=== PATIENT | male | born 1935 | race Caucasian/White ===

== ENCOUNTER 2018-12-25 16:16 | Inpatient (IN) | payer MEDICARE, OTHER, SELFPAY ==
[2018-12-25 16:18] VITALS: BP 126/72; PULSE 52; RESP 14; TEMP 35.7; O2SAT 95; BMI 22.1
--- NOTE | 2018-12-25 17:02 | US_ITS ---
STUDY: ABDOMINAL ULTRASOUND - RIGHT UPPER QUADRANT REASON FOR VISIT: Male, 83 years old. Pain TECHNIQUE: Ultrasound evaluation of the right upper quadrant was performed with real-time and static roa-scale imaging. TECHNICAL QUALITY: Adequate. COMPARISON: None. FINDINGS: Liver: The liver measures 17 cm. There is normal echogenicity of the liver. The bile ducts are within normal limits. There is hepatic color flow. The direction of portal flow is hepatopetal. There is no demonstrated mass lesion. There is a left hepatic 1.1 cm cyst. Gallbladder: The gallbladder wall measures 4 mm. The gallbladder is mildly distended. Gee's sign is reported as positive. Trace pericholecystic fluid is present. The gallbladder contains gallstones. Common Bile Duct (C.B.D.): The common bile duct measures 7 mm. Pancreas: Normal size of the head, body and tail of the pancreas. There is normal echogenicity of the pancreas. There is no demonstrated pancreatic mass or cyst. Right Kidney: Normal size of the right kidney. The right kidney measures 11 cm. Normal renal cortex. There is no demonstrated renal mass or cyst. There is no right hydronephrosis. US/Gallbladder IMPRESSION: Mild gallbladder wall thickening and trace pericholecystic fluid. Cholelithiasis. Mild intra and extrahepatic biliary ductal prominence. Findings equivocal for cholecystitis. Correlate clinically. MRCP may be considered for further assessment. Electronically Signed: Braxton Starkey, at 18:05 EDT Tel , Service support ,
[2018-12-25] MEDS: Morphine 4 MG/ML Syringe IV ×2 (17:12→18:27)
[2018-12-25] MEDS: Ondansetron 4 MG/2 ML Vial IV (17:12)
[2018-12-25 17:14] LABS: Absolute Lymphocyte Count 0.94 X10^3/uL (0.83-4.51); Absolute Neutrophil Count 7.5 X10^3/uL (2.0-7.7); Basophil# 0.02 X10^3/uL; Basophil% 0.2 % (0-1); Eosinophil# 0.03 X10^3/uL; Eosinophils% 0.3 % (0-5); Hemoglobin 16.5 g/dL (13.0-16.5); Lymphocyte # 0.94 X10^3/ul (4.0); Lymphocyte % 10.3 % (19-41); Mean Corp Hgb Conc 34.4 g/dL (32-36); Mean Corpuscular Hgb 31.9 pg (27.0-32.0); Mean Corpuscular Volume 92.7 fL (80-94); Mean Platelet Vol. 9.8 fl (6.2-12.0); Monocyte# 0.63 X10^3/uL; Monocyte% 6.9 % (0-10); NRBC Flagged by Analyzer 0 % (0-5); Neutrophil # 7.52 X10^3/uL (2.7-7.7); Platelet Count 174 K/mm3 (150-450); RBC Distribution Width CV 12.6 % (11.6-14.6); RBC Distribution Width SD 43.3 fl (35.1-43.9); Red Blood Count 5.18 M/mm3 (4.6-6.2); White Blood Count 9.2 K/mm3 (4.4-11.0)
--- NOTE | 2018-12-25 17:20 | ED.VISSUMM ---
- ER Visit Summary Date of Service: 12/25/18 Chief Complaint: Abdominal pain History of Present Illness: The patient is a 83 M presenting with abdominal pain. Patient states he had symptoms on Monday which lasted several hours. It then resolved and he felt improved over the weekend. He states he ate lunch and then developed abdominal pain after eating. He has had nausea and vomiting. He denies diarrhea or constipation. Denies fever. Denies chest pain or shortness of breath. Denies other complaints. Physical Examination: Vitals are stable. Patient is afebrile. Alert no acute distress. HEENT exam is unremarkable. Neck is supple. Lungs are clear and equal bilaterally. Heart is regular rate and rhythm. Abdomen is soft epigastric and right upper quadrant tenderness Extremities are unremarkable. Skin is warm and dry. No focal neurologic deficit. Remainder of exam is unremarkable. Emergency Department Course and Treatment: Patient was given morphine, Zofran IV. CBC, chemistries normal except glucose 171. Total bili 3.8, direct bili 2.78. Alk phos 337, ALT 432, AST 340. Lipase 9435. Ultrasound gallbladder shows mild gallbladder wall thickening and trace pericholecystic fluid. Cholelithiasis. Mild intra and extrahepatic biliary ductal prominence. Findings equivocal for cholecystitis. Correlate clinically. MRCP may be considered for further assessment. Patient was given Zosyn IV. Discussed with Dr. Bennett and he will see the patient in consult. Will discuss with the hospitalist for admission. Disposition: Admission Impression: Gallstone pancreatitis This note was generated with [employer] dictation software. It may contain incorrect words, spelling, and punctuation that were not noted in review of the chart prior to signing ED Disposition - Plan for ED Patient: Referrals: Ramirez Welch MD [Primary Care Provider] -
[2018-12-25 17:37] LABS: AST(SGOT) 340 U/L (15-37); Alanine Aminotransfer ALT/SGPT 432 U/L (16-61); Albumin, Serum 3.6 g/dL (3.2-5.0); Alkaline Phosphatase 337 U/L (45-117); Anion Gap 5 (5-15); BUN 19 mg/dL (7-18); BUN/Creat Ratio 18.1 RATIO (10-20); Bilirubin, Direct 2.78 mg/dL (0.00-0.30); Calcium,Total 9.3 mg/dL (8.5-10.1); Chloride 104 mmol/L (98-107); Creatinine, Serum 1.05 mg/dL (0.70-1.30); EST Glomerular Filtration Rate 72 mL/min (>60); Est Glom Filt Rate - Afr Amer 87 mL/min (>60); Estimated Creatinine Clearance 52.93 ml/min; Globulin 3.9 g/dL (2.2-4.2); Glucose 171 mg/dL (74-106); Lipase 9435 U/L (73-393); Potassium 3.9 mmol/L (3.5-5.1); Protein, Total 7.5 g/dL (6.4-8.2); Sodium Level 137 mmol/L (136-145)
[2018-12-25] MEDS: proMETHazine 25 MG/ML Syringe 6.25 MG IV (18:37)
[2018-12-25 18:38] VITALS: BP 146/72; PULSE 83; RESP 19; O2SAT 95
--- NOTE | 2018-12-25 19:11 | HP.PCM_ITS ---
History of Present Illness Date of Admission: 12/25/18 Chief Complaint: abdominal pain The patient is a 83 year old M with a past medical history of asymptomatic aortic stenosis and glaucoma. He was admitted through the ED on 12/25/2018 with a complaint of abdominal pain which started around noon on the day of admission. Pain was mainly epigastric and rated about 8/10. Described as a sharp pain with no evidence of radiation with no aggravating or relieving factors. He had associated nausea and vomiting but denied any fever or chills, palpitations or dizziness or diarrhea. He is never had pain like this before. Review of systems otherwise negative. In the ED, vitals are essentially stable apart from mildly elevated blood pressure of 146/72. Chemistries were significant for total bilirubin of 3.8 with direct bilirubin of 2.78 and AST of 340 as well as ALT of 432 at ALP of 337. Lipase was 9435. CBC showed no leukocytosis. Gallbladder ultrasound showed mild gallbladder wall thickening and trace pericholecystic fluid and cholelithiasis with findings equivocal for cholecystitis. He has been admitted to be managed for acute gallstone pancreatitis. [] 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) Allergies No Known Allergies Allergy (Verified 12/25/18 16:18) Home Medications: Ambulatory Orders Medication Instructions Recorded Tafluprost/Pf [Zioptan 0.0015% Eye 1 drp EACH EYE QHS 12/25/18 Drops] Timolol 0.25% [Timoptic] 1 drp EACH EYE BID 12/25/18 Surgical History: no surgical history Psychiatric History: No pertinent psych hx Lives: Spouse/ Significant Other Smoking Status: Never smoker Tobacco Use: Non-smoker Alcohol: None Drugs: None - *Family History Maternal History Items: Diabetes Paternal History Items: No pertinent history Review of Systems Constitutional: Reports: Malaise, Weakness. Denies: Anorexia, Chills, Fever Eyes: Denies: Blurred vision HEENT: Denies: Head Aches, Sinus Congestion, Sinus Drainage Cardiovascular: Denies: Chest Pain, Palpitations Respiratory: Denies: Cough, Shortness of Breath, Shortness of breath at rest, Shortness of breath upon exertion, Sputum production Gastrointestinal: Reports: Abdominal Pain, Nausea, Vomiting. Denies: Diarrhea, Dyspepsia, Hematemesis, Hematochezia Genitourinary: Denies: Dysuria Musculoskeletal: Denies: Joint Pain, Joint Tenderness Skin: Denies: Rash, Wounds Neurological: Denies: Numbness, Tingling, Focal weakness Psychiatric: Denies: Anxiety, Depression, Homicidal Ideations, Suicidal Ideations Hematologic/ Lymphatic: Denies: Easy Bruising, Easy Bleeding VTE Information - Inpt Only VTE Present on Admission: No VTE Pharm Prophylaxis ordered?: Yes Patient Problems: Active and Suspected Problems Gallstone pancreatitis (Acute) Cough (Acute) Vomiting (Acute) - Physical Exam General: Alert, Oriented x3, Cooperative, No apparent distress HEENT: Atraumatic, PERRLA, EOMI, Normocephalic Oral: Dry Mucosa Neck: Supple, No JVD, Negative Carotid Bruits Lungs: Clear to auscultation, Normal air movement, No rhonchi, No wheeze, No rales Cardiovascular: Regular rate, Regular Rhythm, Normal S1, Normal S2, No murmurs Abdomen: Bowel Sounds Present, Soft, - - Mild epigastric tenderness with no guarding or rebound tenderness. Gee sign was negative. Extremities: No clubbing, No cyanosis, No edema, Capillary Refill Less than 3 Seconds Skin: No rashes, No breakdown Musculoskeletal: No Tenderness to Palpation of Joints or Extremities Lymphatic: No Cervical, Supraclavicular, or Inguinal Adenopathy Neurological: Cranial nerves II-XII grossly intact, Neuro grossly intact, Motor Exam 5/5 strength throughout Psych/Mental Status: Normal Affect, Appropriate, Alert and oriented to time, place, person, mood and affect Vital Signs Temp Pulse Resp BP Pulse Ox 96.2 F L 83 19 H 146/72 H 95 12/25/18 16:18 12/25/18 18:38 12/25/18 18:38 12/25/18 18:38 12/25/18 18:38 Oxygen Delivery Method Room Air Weight: 154 lb 12.232 oz Body Mass Index (BMI) 22.1 Laboratory Tests Past 24 Hrs 12/25/18 12/25/18 16:30 16:30 WBC 9.2 RBC 5.18 Hgb 16.5 Hct 48.0 MCV 92.7 MCH 31.9 MCHC 34.4 RDW Std Deviation 43.3 RDW Coeff of López 12.6 Plt Count 174 MPV 9.8 Immature Gran % (Auto) 0.300 Neut % (Auto) 82.0 H Lymph % (Auto) 10.3 L [place] % (Auto) 6.9 Eos % (Auto) 0.3 Baso % (Auto) 0.2 Absolute Neuts (auto) 7.5 Absolute Lymphs (auto) 0.94 Nucleated RBC % 0 Sodium 137 Potassium 3.9 Chloride 104 Carbon Dioxide 28.0 Anion Gap 5 BUN 19 H Creatinine 1.05 Estim Creat Clear Calc 52.93 Est GFR (MDRD) Af Amer 87 Est GFR (MDRD) Non-Af 72 BUN/Creatinine Ratio 18.1 Glucose 171 H Calcium 9.3 Total Bilirubin 3.80 H Direct Bilirubin 2.78 H AST 340 H ALT 432 H Alkaline Phosphatase 337 H Total Protein 7.5 Albumin 3.6 Globulin 3.9 Lipase 9435 H Diagnostic Data Gallbladder Ultrasound 12/25/18 17:02 IMPRESSION: Mild gallbladder wall thickening and trace pericholecystic fluid. Cholelithiasis. Mild intra and extrahepatic biliary ductal prominence. Findings equivocal for cholecystitis. Correlate clinically. MRCP may be considered for further assessment. Electronically Signed: Braxton Jaky, at 18:05 EDT Tel , Service support , Assessment/Plan All Active Problems Gallstone pancreatitis (Acute) Cough (Acute) Vomiting (Acute) 83-year-old male admitted with a complaint of abdominal pain and nausea as well as vomiting. 1. Acute gallstone pancreatitis * Admit to [facility] with telemetry * Liver enzymes are elevated; lipase is 9435 * Gallbladder ultrasound showed mild gallbladder wall thickening with trace cholecystic fluid and cholelithiasis with findings equivocal for cholecystitis. * Keep n.p.o. * Hydrate with IV normal saline * Started on IV Zosyn in the ED. will continue with IV ceftriaxone * General surgery consult placed with Dr Bennett * 2. Elevated transaminases due to gallstone pancreatitis * Total bilirubin ins 3.8, with direct bilirubinemia-2.78 * AST/ALT is 340/432 and ALP also elevated at 337 * should trend down with cholecystectomy * will monitor * 3. Asymptomatic aortic stenosis * Has a grade 3 systolic murmur at the aortic region. Patient states she is aware of this and has been following up with Dr. Waller at [facility] and was told he needed no active intervention as he was asymptomatic. * Now Dr. Faustin is retired, patient states he is to establish care with Dr. Kam and has an appointment coming up in January 2019. * Has no echo on record. * Will get 2D echo as baseline. * * 4. Glaucoma: On timolol eyedrops DVT prophylaxis: Lovenox CODE STATUS: Full code * Patient and counseled extensively about different types of CODE STATUS including full code, DNR CCA and DNR CCA. Patient elects to be full code. Total [id number] time 16 minutes. Code Visit Inpatient E&M: 89176 Init Hosp L3 Procedures: 93975 Advncd Care Plan 30 Min
--- NOTE | 2018-12-25 19:55 | RAD_ITS ---
STUDY: X-RAY CHEST REASON FOR EXAM: Male, 83 years old. Chest pain TECHNIQUE: Frontal view of the chest COMPARISON: None. FINDINGS: Pulmonary arterial prominence is present. Mild bibasilar infiltrates are present. Trace bilateral effusions versus scarring present. There is no pneumothorax. The heart is normal in size. The visualized osseous structures are within normal limits. RAD/Chest 1 View (Portable) IMPRESSION: Pulmonary arterial prominence. Mild bibasilar infiltrates. Trace bilateral effusions versus scarring. Electronically Signed: Braxton Starkey, at 20:26 EDT Tel , Service support ,
--- NOTE | 2018-12-25 20:02 | CON.PCM_ITS ---
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 with choledocholithiasis Status: Chronic (3) Cough Status: Acute (4) Vomiting Status: Acute Qualifiers: Vomiting type: unspecified Vomiting Intractability: unspecified Nausea presence: unspecified Qualified Code(s): R11.10 - Vomiting, unspecified Reason for Consult Date of Consultation: 12/25/18 History of Present Illness: The patient is a 83 year old M presents to the emergency room with severe abdominal pain. I been asked to see him by Dr. Aruna Colin and a written copy of my surgical consult recommendations will be present in the electronic medical record. 4 days ago the patient had onset severe abdominal pain. Lasted for about an hour and a half. He had sweats and chills. 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 Today he had onset of severe abdominal pain after eating peanut butter and pecan pie. According to his he has had problems remotely in the past with episodes of epigastric pain that would come and resolve. White blood cell count is 9.2 hemo-16.5 record 48 platelet count 124,000 82% segs. Total bilirubin is 3.8 direct bilirubin was 2.78 AST is 340 ALT is 432 alk phos is 337 lipase 9435. Gallbladder ultrasound shows mild gallbladder wall thickening trace pericholecystic fluid cholelithiasis mild intra-and extrahepatic blurry duct prominence with a common bile duct to 7 mm. All the time during my interview the patient has a severe chronic cough. He thinks it is related to a sore throat related to excessive vomiting associated with this episode of illness. He denies bright red blood per rectum or melena Previous surgical history includes by me a remote lap scopic bilateral inguinal hernia repair with mesh. He has not had any other previous abdominal operations. 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) Allergies No Known Allergies Allergy (Verified 12/25/18 16:18) Home Medications: Ambulatory Orders Medication Instructions Recorded Tafluprost/Pf [Zioptan 0.0015% Eye 1 drp EACH EYE QHS 12/25/18 Drops] Timolol 0.25% [Timoptic] 1 drp EACH EYE BID 12/25/18 Surgical History: no surgical history Psychiatric History: No pertinent psych hx Lives: Spouse/ Significant Other Smoking Status: Never smoker Tobacco Use: Non-smoker Alcohol: None Drugs: None - *Family History Maternal History Items: Diabetes Paternal History Items: No pertinent history Review of Systems Constitutional: Reports: Chills, Fever, Night Sweats HEENT: Reports: Difficulty Swallowing Respiratory: Reports: Cough Gastrointestinal: Reports: Abdominal Pain, Vomiting Endocrine: Denies: Change in Body Habitus Patient Problems: Active and Suspected Problems Gallstone pancreatitis (Acute) Cough (Acute) Vomiting (Acute) - Physical Exam General: Alert, Oriented x3, Cooperative HEENT: Atraumatic Oral: Dry Mucosa Lungs: No wheeze - During the apices, - - Difficult to assess respirations because of severe nonproductive cough Cardiovascular: Regular rate, Regular Rhythm, - - 2/6 systolic ejection murmur Abdomen: Bowel Sounds Not Present, Distended, Tender Extremities: No Calf Tenderness Skin: No rashes Neurological: - - Cognition intact Psych/Mental Status: Normal Affect Vital Signs Temp Pulse Resp BP Pulse Ox 96.2 F L 83 19 H 146/72 H 95 12/25/18 16:18 12/25/18 18:38 12/25/18 18:38 12/25/18 18:38 12/25/18 18:38 Oxygen Delivery Method Room Air Weight: 154 lb 12.232 oz Body Mass Index (BMI) 22.1 Laboratory Tests Past 24 Hrs 12/25/18 12/25/18 16:30 16:30 WBC 9.2 RBC 5.18 Hgb 16.5 Hct 48.0 MCV 92.7 MCH 31.9 MCHC 34.4 RDW Std Deviation 43.3 RDW Coeff of López 12.6 Plt Count 174 MPV 9.8 Immature Gran % (Auto) 0.300 Neut % (Auto) 82.0 H Lymph % (Auto) 10.3 L [place] % (Auto) 6.9 Eos % (Auto) 0.3 Baso % (Auto) 0.2 Absolute Neuts (auto) 7.5 Absolute Lymphs (auto) 0.94 Nucleated RBC % 0 Sodium 137 Potassium 3.9 Chloride 104 Carbon Dioxide 28.0 Anion Gap 5 BUN 19 H Creatinine 1.05 Estim Creat Clear Calc 52.93 Est GFR (MDRD) Af Amer 87 Est GFR (MDRD) Non-Af 72 BUN/Creatinine Ratio 18.1 Glucose 171 H Calcium 9.3 Total Bilirubin 3.80 H Direct Bilirubin 2.78 H AST 340 H ALT 432 H Alkaline Phosphatase 337 H Total Protein 7.5 Albumin 3.6 Globulin 3.9 Lipase 9435 H Assessment/Plan All Active Problems Gallstone pancreatitis (Acute) Cough (Acute) Vomiting (Acute) Findings are very much consistent with chronic cholecystitis cholelithiasis choledocholithiasis and gallstone pancreatitis. The the acute severe cough of undetermined etiology. Recommend chest x-ray. I have instructed the patient on use of incentive spirometry and mobilization. We will reevaluate the patient in the morning. Will consider laparoscopic cholecystectomy with cholangiography and possible common bile duct expiration. The patient's said that their son was extraordinarily ill with the exact same process. They are aware of the severity of the illness. They are aware that the patient may require an ERCP. He has had an opportunity to ask and have questions answered. We will proceed as noted. I appreciate the opportunity of assisting with his surgical care. Lance Bennett M.D., F.A.C.S.
[2018-12-25 20:11] VITALS: BMI 22.2
[2018-12-25 20:14] VITALS: BMI 23.2
[2018-12-25 20:19] VITALS: BP 114/62; PULSE 77; RESP 16; TEMP 36.6; O2SAT 92
[2018-12-25] MEDS: 0.9% Normal Saline 1,000 ML 120 ML IV (20:55)
[2018-12-25 21:00] VITALS: PULSE 85
[2018-12-25] MEDS: Timolol 0.25% 5ML OPTH.BTL 1 DRP EACH EYE (22:52)
[2018-12-26] VITALS (34 sets, daily range): BP systolic 85–126; BP diastolic 50–91; PULSE 51–83; RESP 11–20; TEMP 36.6–37.4; O2SAT 87–97; BMI 23.6
[2018-12-26] MEDS: Ceftriaxone 1 GM/50 ML BAG IV (01:39)
[2018-12-26 05:16] LABS: Absolute Lymphocyte Count 0.99 X10^3/uL (0.83-4.51); Absolute Neutrophil Count 12.1 X10^3/uL (2.0-7.7); Basophil# 0.04 X10^3/uL; Basophil% 0.3 % (0-1); Eosinophil# 0.06 X10^3/uL; Eosinophils% 0.4 % (0-5); Hematocrit 44.3 % (40-54); Hemoglobin 14.6 g/dL (13.0-16.5); Lymphocyte # 0.99 X10^3/ul (4.0); Lymphocyte % 6.9 % (19-41); Mean Corpuscular Hgb 30.7 pg (27.0-32.0); Mean Corpuscular Volume 93.3 fL (80-94); Monocyte# 1.06 X10^3/uL; Monocyte% 7.4 % (0-10); NRBC Flagged by Analyzer 0 % (0-5); Neutrophil # 12.05 X10^3/uL (2.7-7.7); Neutrophil % 84.6 % (47-70); Platelet Count 155 K/mm3 (150-450); RBC Distribution Width CV 13.4 % (11.6-14.6); RBC Distribution Width SD 45.8 fl (35.1-43.9); Red Blood Count 4.75 M/mm3 (4.6-6.2); White Blood Count 14.3 K/mm3 (4.4-11.0)
[2018-12-26 05:39] LABS: ALB/GLOB Ratio 0.8 RATIO (0.9-2.4); AST(SGOT) 292 U/L (15-37); Alanine Aminotransfer ALT/SGPT 424 U/L (16-61); Albumin, Serum 2.8 g/dL (3.2-5.0); Alkaline Phosphatase 297 U/L (45-117); Anion Gap 7 (5-15); BUN 18 mg/dL (7-18); BUN/Creat Ratio 15.3 RATIO (10-20); Chloride 107 mmol/L (98-107); Creatinine, Serum 1.18 mg/dL (0.70-1.30); EST Glomerular Filtration Rate 63 mL/min (>60); Est Glom Filt Rate - Afr Amer 76 mL/min (>60); Estimated Creatinine Clearance 48.98 ml/min; Globulin 3.4 g/dL (2.2-4.2); Glucose 128 mg/dL (74-106); Lipase 4068 U/L (73-393); Potassium 3.9 mmol/L (3.5-5.1); Protein, Total 6.2 g/dL (6.4-8.2); Sodium Level 142 mmol/L (136-145)
--- NOTE | 2018-12-26 05:44 | PCM.PN.BLA ---
Progress Note New leukocytosis, on rocephin Less abdominal pain TBili up Lipase down Plan Lap GB with CBD exploration today
--- NOTE | 2018-12-26 05:55 | EKG12_ITS ---
Test Reason : PRE OP Blood Pressure : / mmHG Vent. Rate : 070 BPM Atrial Rate : 070 BPM P-R Int : 192 ms QRS Dur : 086 ms QT Int : 386 ms P-R-T Axes : 053 006 021 degrees QTc Int : 416 ms Normal sinus rhythm Normal ECG When compared with ECG of 26-FEB-2007 09:28, Premature ventricular complexes are no longer Present Confirmed by GREGORIO GOLDEN ([id number]), video effects editor JOSELITO SALMON ([id number]) on 12/27/2018 2:54:46 PM Referred By: Clau Garcia Confirmed By:GREGORIO GOLDEN
--- NOTE | 2018-12-26 05:59 | PCM.PROGNOTE ---
Patient Problems: Active and Suspected Problems Gallstone pancreatitis (Acute) Cough (Acute) Vomiting (Acute) Subjective: Mr. Mueller is an 83-year-old male with a past medical history of aortic stenosis and glaucoma. He presented to the emergency department at [facility] on 12/25/2018 complaining of epigastric abdominal pain associated with nausea and vomiting. Vital signs in the emergency department were temperature 96.2, pulse rate 52, blood pressure 126/72, respiratory rate 14 and he was 95% saturated on room air. CBC was unremarkable. BMP was remarkable for a BUN of 19 and a creatinine of 1.05. Random blood sugar was 171. LFTs were total bilirubin 3.8, AST 340, ALT 432 and alkaline phosphatase 337. Lipase was increased at 9435. Gallbladder ultrasound showed mild gallbladder wall thickening and trace pericholecystic fluid. There was cholelithiasis. There was mild intra-and extrahepatic biliary ductal prominence. Chest x-ray showed a poor inspiratory effort with infiltrate versus atelectasis predominantly in the left base. He was admitted to the hospital with a diagnosis of acute gallstone pancreatitis. Dr. Lance Bennett was consulted. He is afebrile. Most recent blood pressure was 91/50. Pulse ox on room air today is down to 92%. Fluid balance since admission is +660. All lab was personally reviewed. The white blood cell count today is increased to 14.3 with 85% neutrophils. Hemoglobin is 14.6 and the platelets are 155,000. Creatinine has increased to 1.18 from 1.05. Fasting blood sugar is 128. Bilirubin is up to 5.3 and the AST and ALT remain elevated. Alkaline phosphatase is 297, down from 337 at admission. The lipase is 4068. Denies pain and nausea. Has not vomited in the past few hours. Occasional cough. He is hoarse from vomiting. Denies chest pain or SOB now. No hx of CAD. He used to see Dr. Sarmiento but, he is now going to follow up with Dr. Kam since Dr. Sarmiento retired. Can not recall when he last had an ECHO. He gets some ALICIA when climbing steps and carrying something. Denies orthopnea, paroxysmal nocturnal dyspnea, ankle edema, palpitations. 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 He also has a systolic MM in the left axillary area, No rub noted, No Gallop Abdomen: Bowel Sounds Present, Soft, Non Tender - but, he has been receiving pain medications, Non-Distended, - Extremities: No clubbing, No cyanosis, No edema, No Calf Tenderness, Peripheral Pulses Normal Skin: No rashes Musculoskeletal: No Muscle Wasting Neurological: Cranial nerves II-XII grossly intact, Neuro grossly intact Psych/Mental Status: Normal Affect, Appropriate Vital Signs Temp Pulse Resp BP Pulse Ox 97.8 F 70 16 106/56 L 92 12/26/18 02:22 12/26/18 04:00 12/26/18 02:22 12/26/18 02:43 12/26/18 02:22 Oxygen Delivery Method Room Air Weight: 162 lb Body Mass Index (BMI) 23.2 Intake and Output for Last 24 Hours 12/24/18 12/25/18 12/26/18 23:59 23:59 23:59 Intake Total 960 / 960 Output Total 300 / 300 Balance 660 / 660 Laboratory Tests Past 24 Hrs 12/25/18 12/25/18 12/26/18 16:30 16:30 04:48 WBC 9.2 RBC 5.18 Hgb 16.5 Hct 48.0 MCV 92.7 MCH 31.9 MCHC 34.4 RDW Std Deviation 43.3 RDW Coeff of López 12.6 Plt Count 174 MPV 9.8 Immature Gran % (Auto) 0.300 Neut % (Auto) 82.0 H Lymph % (Auto) 10.3 L [place] % (Auto) 6.9 Eos % (Auto) 0.3 Baso % (Auto) 0.2 Absolute Neuts (auto) 7.5 Absolute Lymphs (auto) 0.94 Nucleated RBC % 0 Sodium 137 142 Potassium 3.9 3.9 Chloride 104 107 Carbon Dioxide 28.0 28.0 Anion Gap 5 7 BUN 19 H 18 Creatinine 1.05 1.18 Estim Creat Clear Calc 52.93 48.98 Est GFR (MDRD) Af Amer 87 76 Est GFR (MDRD) Non-Af 72 63 BUN/Creatinine Ratio 18.1 15.3 Glucose 171 H 128 H Calcium 9.3 8.0 L Total Bilirubin 3.80 H 5.30 H Direct Bilirubin 2.78 H AST 340 H 292 H ALT 432 H 424 H Alkaline Phosphatase 337 H 297 H Total Protein 7.5 6.2 L Albumin 3.6 2.8 L Globulin 3.9 3.4 Albumin/Globulin Ratio 0.8 L Lipase 9435 H 4068 H 12/26/18 04:48 WBC 14.3 H RBC 4.75 Hgb 14.6 Hct 44.3 MCV 93.3 MCH 30.7 MCHC 33.0 RDW Std Deviation 45.8 H RDW Coeff of López 13.4 Plt Count 155 MPV 10.0 Immature Gran % (Auto) 0.400 Neut % (Auto) 84.6 H Lymph % (Auto) 6.9 L [place] % (Auto) 7.4 Eos % (Auto) 0.4 Baso % (Auto) 0.3 Absolute Neuts (auto) 12.1 H Absolute Lymphs (auto) 0.99 Nucleated RBC % 0 Sodium Potassium Chloride Carbon Dioxide Anion Gap BUN Creatinine Estim Creat Clear Calc Est GFR (MDRD) Af Amer Est GFR (MDRD) Non-Af BUN/Creatinine Ratio Glucose Calcium Total Bilirubin Direct Bilirubin AST ALT Alkaline Phosphatase Total Protein Albumin Globulin Albumin/Globulin Ratio Lipase Medical Necessity - Tobacco Use Smoking Status: Never smoker Tobacco Use: Non-smoker Assessment/Plan All Active Problems Gallstone pancreatitis (Acute) Cough (Acute) Vomiting (Acute) Impressions 1. sepsis secondary to acute gallstone pancreatitis with suspected cholecystitis and choledocholithiasis 2. Atelectasis versus infiltrates in the left base....If he does have infiltrates then the PNA may be from aspiration while vomiting or to bacteremic spread from Cholecystitis 3. Hyperglycemia with no history of diabetes mellitus 4. Glaucoma 5. Abnormal LFTs 6. Normal EKG 7. with suspected MR Bolus with 1 L of normal saline Change the maintenance IV to lactated Ringer's at 125 Lactic acid stat Magnesium, phosphorus, hemoglobin A1c, Accu-Cheks Will discuss with Dr. Bennett - CT of the abdomen and pelvis vs MRCP vs surgery DC Rocephin and start Zosyn Will try and obtain a copy of the last echocardiogram done by Dr. Waller-records were supposedly sent to [facility] office. Code Visit Inpatient E&M: 76501 Subs Hosp L3
[2018-12-26 06:44] LABS: Magnesium 2.1 mg/dL (1.6-2.6); Phosphorus 4.1 mg/dL (2.5-4.9)
[2018-12-26 06:58] LABS: Lactic Acid 1.8 mmol/L (0.4-2.0)
[2018-12-26] MEDS: 0.9% Normal Saline 1,000 ML 999 ML IV ×2 (07:07→09:06)
[2018-12-26 09:01] LABS: Hemoglobin A1c 5.6 % (4.2-6.3)
--- NOTE | 2018-12-26 09:02 | CT_ITS ---
STUDY: CT ABDOMEN AND PELVIS WITHOUT CONTRAST REASON FOR EXAM: Male, 83 years old. Sepsis. Cholangitis. Pancreatitis. RADIATION DOSAGE (If Supplied By Facility): CTDIvol = ( 8.20 ) mGy, DLP = ( 438.44 ) mGycm TECHNIQUE: Transaxial images were obtained from the dome of the diaphragm to the symphysis pubis without oral contrast, and without intravenous contrast. Sagittal and coronal images were reconstructed. Individualized dose optimization techniques were used for this CT. COMPARISON: Comparison is made with prior ultrasound of the abdomen dated December 25, 2018. FINDINGS: Bibasilar pulmonary infiltrates. Coronary artery calcification. Normal liver. There are multiple gallstones. Thickening of the gallbladder wall. Small amount of pericholecystic fluid suggestive of acute cholecystitis. Normal spleen. There is dilatation of the pancreatic duct. This measures 5.6 mm. Mild degree of increased markings in the surrounding peripancreatic peritoneal fat suggestive of mild degree of pancreatitis. Normal bilateral adrenal glands. Punctate calcification in the midpole calyx of the right kidney. Normal left kidney. Normal visualized stomach. Normal small intestine. There are multiple colonic diverticula consistent with diverticulosis. The appendix is visualized and appears normal. Normal abdominal aorta. Normal inferior vena cava. There is borderline retroperitoneal lymphadenopathy with enlarged nodes no greater than 10mm in the short axis diameter. Normal urinary bladder. There is enlargement of the prostate gland. This measures 4.3 cm x 6.2 cm. There is evidence of prior bilateral inguinal hernia repair with mesh. There are mild degenerative changes of the visualized lumbar spine. CT/Abdomen/Pelvis without Cont IMPRESSION: Bibasilar pulmonary infiltrates. Findings suggestive of cholecystitis and mild degree of pancreatitis. Sigmoid diverticulosis. Electronically Signed: Az Mendoza, at 12:04 EDT , Service support ,
--- NOTE | 2018-12-26 09:02 | ECHOD_ITS ---
Reason For Study: Aortic stenosis Procedure This was a 2D Doppler, Color Flow transthoracic echocardiogram. Exam performed portable in ICU/CCU. Left Ventricle Normal size and thickness. The estimated ejection fraction is 65 %. Stage 2 diastolic dysfunction. No regional wall motion abnormalities noted. Right Ventricle Mildly dilated right ventricle. A moderator band is seen in the right ventricle. Normal systolic function. Atria Normal left atrium. Normal right atrium. Normal atrial septum. Mitral Valve The mitral valve is structurally normal. No prolapse or stenosis seen. Trivial mitral valve insufficiency. Tricuspid Valve Normal tricuspid valve. Unable to estimate RV systolic pressure due to insufficient tricuspid regurgitant envelope. Aortic Valve Trisinus/trileaflet aortic valve. Moderate diffuse aortic valve thickening. Mild restriction of the aortic valve. Mild to moderate aortic stenosis. Peak aortic valve gradient 28 mmHg. Mean aortic valve gradient 14 mmHg. Calculated aortic valve area (continuity equation) is 1.6 cm2. Trivial aortic valve insufficiency. Pulmonic Valve Normal pulmonic valve. Great Vessels Normal aortic root. Mild atherosclerosis of the aortic arch. Normal inferior vena cava. Inferior vena cava collapse with sniff. Pericardium/Pleural No pericardial effusion. MMode/2D Measurements & Calculations LVIDd: 4.1 cm IVSd: 1.0 cm LVOT diam: 2.1 cm LVIDs: 2.6 cm LVPWd: 1.0 cm LVOT area: 3.5 cm2 RVDd: 3.9 cm FS: 36.0 % Ao root diam: 3.3 cm LAV(MOD-bp): 42.2 ml LVAd ap4: 29.6 cm2 LAV(MOD-bp) Indexed: 22.1 ml/m2 EDV(MOD-sp4): 82.9 ml LAV(MOD-sp2): 38.2 ml EDV(sp4-el): 84.4 ml LAV(MOD-sp4): 43.3 ml LVAs ap4: 16.9 cm2 ESV(MOD-sp4): 31.7 ml ESV(sp4-el): 31.1 ml EF(MOD-sp4): 61.8 % EF(sp4-el): 63.2 % SV(MOD-sp4): 51.2 ml SV(sp4-el): 53.3 ml LA A4 area: 16.4 cm2 RA A4 area: 17.3 cm2 Doppler Measurements & Calculations MV E max yury: 79.0 cm/sec Lat Peak E' Yury: 8.5 cm/sec Med Peak E' Yury: 8.0 cm/sec MV A max yury: 58.2 cm/sec E/E' lat: 9.3 E/E' med: 9.9 MV E/A: 1.4 Ao V2 max: 232.0 cm/sec AI max yury: 346.2 cm/sec LV V1 max: 104.1 cm/sec Ao max P.6 mmHg AI max P.0 mmHg LV V1 max P.3 mmHg Ao V2 mean: 160.9 cm/sec LV V1 mean P.2 mmHg Ao mean P.1 mmHg AI dec slope: 158.0 cm/sec2 LV V1 mean: 69.5 cm/sec Ao V2 VTI: 52.4 cm AI P1/2t: 641.7 msec LV V1 VTI: 24.5 cm ANGÉLICA(I,D): 1.6 cm2 ANGÉLICA(V,D): 1.6 cm2 SV(LVOT): 86.2 ml PA V2 max: 75.3 cm/sec Interpretation Summary The estimated ejection fraction is 65 %. Stage 2 diastolic dysfunction. Mildly dilated right ventricle. Trivial mitral valve insufficiency. Unable to estimate RV systolic pressure due to insufficient tricuspid regurgitant envelope. Mild to moderate aortic stenosis. Calculated aortic valve area (continuity equation) is 1.6 cm2. Trivial aortic valve insufficiency. There is no comparison study available. Ordering Physician: Silvia Young Referring Physician: Clau Garcia Performed By: Cherri Hassan RDCS
--- NOTE | 2018-12-26 09:06 | NURSING ---
BP taken after 1st 0.9NS L bolus - 88/51. result given to Dr. Young - new order for another 1L bolus and transfer to ICU.. report called to Carol Ann OG.
[2018-12-26 09:17] LABS: International Normalized Ratio 1.1; Prothrombin Time (Protime)PT. 14.4 SECONDS (11.7-14.9)
[2018-12-26 09:18] LABS: Partial Thromboplast Time 29.7 Seconds (24.1-36.2)
--- NOTE | 2018-12-26 09:26 | CON.PCM_ITS ---
Capacity - Capacity Assessment Tool Can the patient make a choice & communicate that choice?: Yes Can the patient understand benefits, risks and alternatives?: Yes Can the patient make a logical, rational choice?: Yes Reason for Consult Date of Consultation: 12/26/18 Reason for Consultation: Severe Sepsis History of Present Illness: The patient is an 83-year-old male, with a history as outlined below, who presented to the emergency department on December 25 with complaints of abdominal pain, nausea and vomiting. He does have a reported history of valvular heart disease, having previously been followed by a kitchen lead through [facility]. The patient denies a history of alcohol dependency. On presentation to the emergency department, the patient was initially noted to be afebrile and hemodynamically stable. He was maintaining appropriate oxygen saturations on room air. Laboratory evaluation initially demonstrated no evidence of a leukocytosis. Coagulation profile was within normal limits. Chemistry profile was largely unremarkable. Total bili, AST and ALT were all elevated. The patient also had an elevated lipase level to 9435. Gallbladder ultrasound revealed findings concerning for cholecystitis. The patient was treated with supplemental IV fluids, morphine and antiemetics in the emergency department. Consultation was placed to general surgery. Over the course of the evening, the patient was maintained on supplemental IV fluids and antibiotics. During the gastroenterology nurse practitioner hours of December 26, the patient developed hypotension and a low-grade fever. In addition, the patient was noted to have a mild degree of leukocytosis on his morning lab work. The patient received supplemental IV fluid hydration, but remained hypotensive. Therefore, he was transitioned to the medical intensive care unit for further management. On arrival to the ICU, the patient was mentating appropriately. He denied the presence of abdominal pain, nausea or vomiting. He received a total of 3 L of supplemental IV fluids, but was still noted to have tenuous hemodynamics. Therefore, a central venous catheter was placed to help facilitate administration of vasopressor agents, if required. Following discussion with general surgery, the current plan is to move forward with laparoscopic cholecystectomy with possible ERCP if bile duct exploration is not able to be completed. 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) Allergies No Known Allergies Allergy (Verified 12/25/18 16:18) Home Medications: Ambulatory Orders Medication Instructions Recorded Tafluprost/Pf [Zioptan 0.0015% Eye 1 drp EACH EYE QHS 12/25/18 Drops] Timolol 0.25% [Timoptic] 1 drp EACH EYE BID 12/25/18 Surgical History: no surgical history Psychiatric History: No pertinent psych hx Lives: Spouse/ Significant Other Smoking Status: Never smoker Tobacco Use: Non-smoker Alcohol: None Drugs: None - *Family History Maternal History Items: Diabetes Paternal History Items: No pertinent history Review of Systems Constitutional: Reports: Fever Eyes: Denies: Blurred vision, Double vision HEENT: Denies: Head Aches, Sinus Congestion, Sinus Drainage Cardiovascular: Denies: Chest Pain, Palpitations Respiratory: Denies: Cough, Shortness of breath at rest, Sputum production Gastrointestinal: Reports: Abdominal Pain, Nausea, Vomiting Genitourinary: Denies: Dysuria Musculoskeletal: Denies: Joint Pain, Joint Tenderness Skin: Denies: Rash, Wounds Neurological: Denies: Numbness, Tingling, Focal weakness Psychiatric: Denies: Anxiety, Depression, Homicidal Ideations, Suicidal Ideations Hematologic/ Lymphatic: Denies: Easy Bruising, Easy Bleeding Patient Problems: Active and Suspected Problems Gallstone pancreatitis (Acute) Cough (Acute) Vomiting (Acute) Objective: The patient's most recent lab work, culture data and imaging studies have all been personally reviewed. CT abdomen/pelvis without contrast completed December 13 revealed bibasilar pulmonary infiltrates along with radiographic evidence of cholecystitis, pancreatitis and pancreatic duct dilation. A surface echocardiogram was subsequently completed and revealed evidence of stage II diastolic dysfunction with an ejection fraction of 65%. The right ventricle was mildly dilated. Mild to moderate aortic stenosis was also noted. - Physical Exam General: Alert, Oriented x3, Cooperative HEENT: Atraumatic, PERRLA, Normocephalic Oral: No Gingival or Mucosal Lesions/ Ulcerations Neck: Supple, No Nodes, Trachea Midline Lungs: No rhonchi, No wheeze, - - Mild basilar rales Cardiovascular: Regular rate, Regular Rhythm, Normal S1, Normal S2, Murmur Abdomen: Bowel Sounds Present, Soft, Non Tender Extremities: No clubbing, No cyanosis, No edema Skin: No breakdown Musculoskeletal: No Tenderness to Palpation of Joints or Extremities, No Muscle Wasting Lymphatic: No Cervical, Supraclavicular, or Inguinal Adenopathy Neurological: Cranial nerves II-XII grossly intact, Neuro grossly intact Psych/Mental Status: Alert and oriented to time, place, person, mood and affect Vital Signs Temp Pulse Resp BP Pulse Ox 98.9 F 66 16 88/51 L 93 12/26/18 08:47 12/26/18 08:47 12/26/18 08:47 12/26/18 08:47 12/26/18 08:50 Oxygen Flow Rate (L/min) 2 Oxygen Delivery Method Nasal Cannula Weight: 162 lb Body Mass Index (BMI) 23.2 Intake and Output for Last 24 Hours 12/24/18 12/25/18 12/26/18 23:59 23:59 23:59 Intake Total 960 / 960 Output Total 300 / 300 Balance 660 / 660 Laboratory Tests Past 24 Hrs 12/25/18 12/25/18 12/26/18 16:30 16:30 04:48 WBC 9.2 RBC 5.18 Hgb 16.5 Hct 48.0 MCV 92.7 MCH 31.9 MCHC 34.4 RDW Std Deviation 43.3 RDW Coeff of López 12.6 Plt Count 174 MPV 9.8 Immature Gran % (Auto) 0.300 Neut % (Auto) 82.0 H Lymph % (Auto) 10.3 L [place] % (Auto) 6.9 Eos % (Auto) 0.3 Baso % (Auto) 0.2 Absolute Neuts (auto) 7.5 Absolute Lymphs (auto) 0.94 Nucleated RBC % 0 PT INR APTT Sodium 137 142 Potassium 3.9 3.9 Chloride 104 107 Carbon Dioxide 28.0 28.0 Anion Gap 5 7 BUN 19 H 18 Creatinine 1.05 1.18 Estim Creat Clear Calc 52.93 48.98 Est GFR (MDRD) Af Amer 87 76 Est GFR (MDRD) Non-Af 72 63 BUN/Creatinine Ratio 18.1 15.3 Glucose 171 H 128 H Hemoglobin A1c Lactic Acid Calcium 9.3 8.0 L Phosphorus Magnesium Total Bilirubin 3.80 H 5.30 H Direct Bilirubin 2.78 H AST 340 H 292 H ALT 432 H 424 H Alkaline Phosphatase 337 H 297 H Total Protein 7.5 6.2 L Albumin 3.6 2.8 L Globulin 3.9 3.4 Albumin/Globulin Ratio 0.8 L Lipase 9435 H 4068 H 12/26/18 12/26/18 12/26/18 04:48 04:48 04:48 WBC 14.3 H RBC 4.75 Hgb 14.6 Hct 44.3 MCV 93.3 MCH 30.7 MCHC 33.0 RDW Std Deviation 45.8 H RDW Coeff of López 13.4 Plt Count 155 MPV 10.0 Immature Gran % (Auto) 0.400 Neut % (Auto) 84.6 H Lymph % (Auto) 6.9 L [place] % (Auto) 7.4 Eos % (Auto) 0.4 Baso % (Auto) 0.3 Absolute Neuts (auto) 12.1 H Absolute Lymphs (auto) 0.99 Nucleated RBC % 0 PT INR APTT Sodium Potassium Chloride Carbon Dioxide Anion Gap BUN Creatinine Estim Creat Clear Calc Est GFR (MDRD) Af Amer Est GFR (MDRD) Non-Af BUN/Creatinine Ratio Glucose Hemoglobin A1c 5.6 Lactic Acid Calcium Phosphorus 4.1 Magnesium 2.1 Total Bilirubin Direct Bilirubin AST ALT Alkaline Phosphatase Total Protein Albumin Globulin Albumin/Globulin Ratio Lipase 12/26/18 12/26/18 04:48 06:26 WBC RBC Hgb Hct MCV MCH MCHC RDW Std Deviation RDW Coeff of López Plt Count MPV Immature Gran % (Auto) Neut % (Auto) Lymph % (Auto) [place] % (Auto) Eos % (Auto) Baso % (Auto) Absolute Neuts (auto) Absolute Lymphs (auto) Nucleated RBC % PT 14.4 INR 1.1 APTT 29.7 Sodium Potassium Chloride Carbon Dioxide Anion Gap BUN Creatinine Estim Creat Clear Calc Est GFR (MDRD) Af Amer Est GFR (MDRD) Non-Af BUN/Creatinine Ratio Glucose Hemoglobin A1c Lactic Acid 1.8 Calcium Phosphorus Magnesium Total Bilirubin Direct Bilirubin AST ALT Alkaline Phosphatase Total Protein Albumin Globulin Albumin/Globulin Ratio Lipase Clinical Impression(s) from Imaging Studies Gallbladder Ultrasound 12/25/18 17:02 IMPRESSION: Mild gallbladder wall thickening and trace pericholecystic fluid. Cholelithiasis. Mild intra and extrahepatic biliary ductal prominence. Findings equivocal for cholecystitis. Correlate clinically. MRCP may be considered for further assessment. Electronically Signed: Braxton Starkey, at 18:05 EDT Tel , Service support , Chest X-Ray 12/25/18 19:55 IMPRESSION: Pulmonary arterial prominence. Mild bibasilar infiltrates. Trace bilateral effusions versus scarring. Electronically Signed: Braxton Starkey, at 20:26 EDT Tel , Service support , Assessment/Plan Active and Suspected Problems Gallstone pancreatitis (Acute) Cough (Acute) Vomiting (Acute) RECOMMENDATIONS: 1. Continue broad-spectrum antimicrobial coverage. 2. Place central venous catheter. 3. If the patient remains tenuous from a hemodynamic perspective following volume resuscitation, Levophed can be initiated. 4. Judicious use of continuous supplemental IV fluids, given valvular heart disease and diastolic dysfunction. 5. General surgery with plans for surgical intervention this afternoon. 6. Continue antiemetics and pain control regimen. IMPRESSIONS: 1. Sepsis secondary to acute gallstone pancreatitis and cholecystitis I do feel that the patient would likely benefit from biliary decompression. General surgery has been following. The patient has been adequately volume resuscitated at this time from a sepsis perspective. If the patient remains hemodynamically unstable, vasopressors will be initiated to maintain a mean arterial pressure at or above 65 mmHg. Central venous catheter has been placed accordingly. Recommend judicious use of supplemental IV fluids, given valvular heart disease and diastolic dysfunction noted on echocardiogram. Continue broad-spectrum antimicrobials for now. 2. Acute hypoxemic respiratory insufficiency The patient is now requiring 2 L/min of supplemental oxygen. I do suspect that the bibasilar airspace changes noted on chest imaging may be the consequence of the fluids administered to the patient, given his underlying aortic stenosis and heart failure with preserved ejection fraction. He does not currently endorse the presence of a productive cough. Nevertheless, Zosyn would cover any potential community-acquired pneumonia pathogens. The patient will be provided with an incentive spirometer and encouraged to use. Wean supplemental oxygen to maintain saturations at or above 90%. 3. Heart failure with preserved ejection fraction/aortic stenosis Recommend judicious use of continuous supplemental IV fluids, given diastolic dysfunction and valvular heart disease noted on echo. This note was generated with [employer] software. It may contain incorrect words, spelling, and punctuation that were not noted in checking the note before signing. Code Visit Inpatient E&M: 63901 Init Hosp L3
[2018-12-26] MEDS: 0.9% NaCl Peripheral Flush Adult/Peds IV ×5 (09:39→22:43)
[2018-12-26] MEDS: Timolol 0.25% 5ML OPTH.BTL 1 DRP EACH EYE ×2 (09:39→21:11)
--- NOTE | 2018-12-26 09:40 | RAD_ITS ---
STUDY: X-RAY CHEST REASON FOR EXAM: Male, 83 years old. Hypoxia. TECHNIQUE: Single AP portable view of the chest. COMPARISON: Comparison is made with prior study December 25, 2018. FINDINGS: EKG electrodes are seen. Since prior study, there has been improved aeration at the lung bases with residual changes worse at the left lung base. Blunting of the left costophrenic angle. Normal size heart. Normal mediastinum and kita. Normal visualized pulmonary arteries. There is atherosclerotic tortuosity of the aortic arch and descending thoracic aorta. There are diffuse degenerative changes of the visualized thoracic spine. Normal visualized ribs, clavicles, and shoulders. There is no demonstrated abnormality of the visualized soft tissue structures of the upper abdomen. RAD/Chest 1 View (Portable) IMPRESSION: Residual increased markings at the lung bases worse on the left side suggestive of atelectasis. There has been mild improvement. Electronically Signed: Az Mendoza, at 15:38 EDT , Service support ,
[2018-12-26] MEDS: Lactated Ringers 1,000 ML 125 ML IV ×2 (09:41→19:17)
[2018-12-26] MEDS: Lactated Ringers 1,000 ML 999 ML IV (09:55)
--- NOTE | 2018-12-26 11:47 | PCM.PN.SRG ---
Patient Problems: Active and Suspected Problems Gallstone pancreatitis (Acute) Cough (Acute) Vomiting (Acute) Subjective: Patient says he is having pain with he coughs or hiccups the wrong way. Otherwise he is not having any pain - Physical Exam General: Alert, Oriented x3 HEENT: PERRLA Neck: No JVD Lungs: Normal air movement Cardiovascular: Regular rate, Regular Rhythm Abdomen: Soft, Non Tender Vital Signs Temp Pulse Resp BP Pulse Ox 99.3 F H 62 16 95/56 L 95 12/26/18 09:05 12/26/18 11:00 12/26/18 11:00 12/26/18 11:15 12/26/18 11:00 Oxygen Flow Rate (L/min) 2 Oxygen Delivery Method Nasal Cannula Weight: 161 lb 15.931 oz Body Mass Index (BMI) 23.2 Intake and Output for Last 24 Hours 12/24/18 12/25/18 12/26/18 23:59 23:59 23:59 Intake Total 4142 / 4142 Output Total 300 / 300 Balance 3842 / 3842 Laboratory Tests Past 24 Hrs 12/25/18 12/25/18 12/26/18 16:30 16:30 04:48 WBC 9.2 RBC 5.18 Hgb 16.5 Hct 48.0 MCV 92.7 MCH 31.9 MCHC 34.4 RDW Std Deviation 43.3 RDW Coeff of López 12.6 Plt Count 174 MPV 9.8 Immature Gran % (Auto) 0.300 Neut % (Auto) 82.0 H Lymph % (Auto) 10.3 L [place] % (Auto) 6.9 Eos % (Auto) 0.3 Baso % (Auto) 0.2 Absolute Neuts (auto) 7.5 Absolute Lymphs (auto) 0.94 Nucleated RBC % 0 PT INR APTT Sodium 137 142 Potassium 3.9 3.9 Chloride 104 107 Carbon Dioxide 28.0 28.0 Anion Gap 5 7 BUN 19 H 18 Creatinine 1.05 1.18 Estim Creat Clear Calc 52.93 48.98 Est GFR (MDRD) Af Amer 87 76 Est GFR (MDRD) Non-Af 72 63 BUN/Creatinine Ratio 18.1 15.3 Glucose 171 H 128 H Hemoglobin A1c Lactic Acid Calcium 9.3 8.0 L Phosphorus Magnesium Total Bilirubin 3.80 H 5.30 H Direct Bilirubin 2.78 H AST 340 H 292 H ALT 432 H 424 H Alkaline Phosphatase 337 H 297 H Total Protein 7.5 6.2 L Albumin 3.6 2.8 L Globulin 3.9 3.4 Albumin/Globulin Ratio 0.8 L Lipase 9435 H 4068 H Ur Random Sodium Urine Creatinine Urine Potassium Urine Chloride 12/26/18 12/26/18 12/26/18 04:48 04:48 04:48 WBC 14.3 H RBC 4.75 Hgb 14.6 Hct 44.3 MCV 93.3 MCH 30.7 MCHC 33.0 RDW Std Deviation 45.8 H RDW Coeff of López 13.4 Plt Count 155 MPV 10.0 Immature Gran % (Auto) 0.400 Neut % (Auto) 84.6 H Lymph % (Auto) 6.9 L [place] % (Auto) 7.4 Eos % (Auto) 0.4 Baso % (Auto) 0.3 Absolute Neuts (auto) 12.1 H Absolute Lymphs (auto) 0.99 Nucleated RBC % 0 PT INR APTT Sodium Potassium Chloride Carbon Dioxide Anion Gap BUN Creatinine Estim Creat Clear Calc Est GFR (MDRD) Af Amer Est GFR (MDRD) Non-Af BUN/Creatinine Ratio Glucose Hemoglobin A1c 5.6 Lactic Acid Calcium Phosphorus 4.1 Magnesium 2.1 Total Bilirubin Direct Bilirubin AST ALT Alkaline Phosphatase Total Protein Albumin Globulin Albumin/Globulin Ratio Lipase Ur Random Sodium Urine Creatinine Urine Potassium Urine Chloride 12/26/18 12/26/18 12/26/18 04:48 06:26 11:40 WBC RBC Hgb Hct MCV MCH MCHC RDW Std Deviation RDW Coeff of López Plt Count MPV Immature Gran % (Auto) Neut % (Auto) Lymph % (Auto) [place] % (Auto) Eos % (Auto) Baso % (Auto) Absolute Neuts (auto) Absolute Lymphs (auto) Nucleated RBC % PT 14.4 INR 1.1 APTT 29.7 Sodium Potassium Chloride Carbon Dioxide Anion Gap BUN Creatinine Estim Creat Clear Calc Est GFR (MDRD) Af Amer Est GFR (MDRD) Non-Af BUN/Creatinine Ratio Glucose Hemoglobin A1c Lactic Acid 1.8 Calcium Phosphorus Magnesium Total Bilirubin Direct Bilirubin AST ALT Alkaline Phosphatase Total Protein Albumin Globulin Albumin/Globulin Ratio Lipase Ur Random Sodium Urine Creatinine Pending Urine Potassium Urine Chloride 12/26/18 11:40 WBC RBC Hgb Hct MCV MCH MCHC RDW Std Deviation RDW Coeff of López Plt Count MPV Immature Gran % (Auto) Neut % (Auto) Lymph % (Auto) [place] % (Auto) Eos % (Auto) Baso % (Auto) Absolute Neuts (auto) Absolute Lymphs (auto) Nucleated RBC % PT INR APTT Sodium Potassium Chloride Carbon Dioxide Anion Gap BUN Creatinine Estim Creat Clear Calc Est GFR (MDRD) Af Amer Est GFR (MDRD) Non-Af BUN/Creatinine Ratio Glucose Hemoglobin A1c Lactic Acid Calcium Phosphorus Magnesium Total Bilirubin Direct Bilirubin AST ALT Alkaline Phosphatase Total Protein Albumin Globulin Albumin/Globulin Ratio Lipase Ur Random Sodium Pending Urine Creatinine Urine Potassium Pending Urine Chloride Pending Medical Necessity - Tobacco Use Smoking Status: Never smoker Tobacco Use: Non-smoker Assessment/Plan All Active Problems Gallstone pancreatitis (Acute) Cough (Acute) Vomiting (Acute) 83-year-old male with obstructive jaundice 1. Patient has obstructive jaundice and resolving pancreatitis. Likely gallstone pancreatitis in nature. Patient also has gallstones in his gallbladder. 2. Dr. Bennett plans to do laparoscopic cholecystectomy with possible bile duct exploration. If he is unable to remove the stone I will perform an ERCP to resolve the obstruction or place a stent. I discussed ERCP in detail with the patient. I discussed the risks including but not limited to bleeding, infection, perforation of the bowel or bile duct, worsening of pancreatitis. Patient understands the risks and is willing to proceed as needed. Ed Chicas MD Pager: [facility] [address] [place] [address], [address] [place] [address] Office:
[2018-12-26 11:59] LABS: Urine Chloride 42 mmol/L (Not Establ.); Urine Sodium 23 mmol/L (Not Establ.)
[2018-12-26 12:05] LABS: Bedside Glucose 108 mg/dL (70-110)
--- NOTE | 2018-12-26 12:35 | RAD_ITS ---
STUDY: X-RAY CHEST REASON FOR EXAM: Male, 83 years old. Central line placement. TECHNIQUE: Single AP portable view of the chest. COMPARISON: Comparison is made with prior study dated December 26, 2018 than earlier today.. FINDINGS: A right-sided jugular catheter is seen with the tip at the junction of the superior vena cava and right atrium. EKG records are seen. Stable increased markings at the lung bases slightly worse on the left side. There is no demonstrated pleural abnormality. There is mild cardiac enlargement. Normal mediastinum and kita. Normal visualized pulmonary arteries. There is atherosclerotic calcification of the aortic arch with tortuosity. There are diffuse degenerative changes of the visualized thoracic spine. Normal visualized ribs, clavicles, and shoulders. There is no demonstrated abnormality of the visualized soft tissue structures of the upper abdomen. RAD/CXR for Line Placement IMPRESSION: The tip of the right internal jugular venous catheter is at the junction of the superior vena cava and right atrium. Stable increased markings at the lung bases slightly worse on the left side. Electronically Signed: Az Mendoza, at 12:58 EDT , Service support ,
--- NOTE | 2018-12-26 13:04 | OP.PCM_ITS ---
Report of Operation Date of Procedure: 12/26/18 Surgery/Procedure Performed:: TLC insertion Description of Surgical Findings:: Central line placement procedure note Indication: IV access/hemodynamic instability/vasoactive medications Procedure: A time-out was completed to verify correct patient, indication, medication allergies, procedure, coagulation studies, informed consent signed, and equipment needed. The patient was placed in the supine position for a central line placement to the rt vein. The patients rt neck was prepped using chlorhexidine and a full body sterile drape was applied. 1% lidocaine was used to anesthetize the surrounding skin. A 7fr 16 cm blue guard triple lumen c atheter introduced into the internal jugular vein using the modified Seldinger technique with the assistance of ultrasound. The catheter was threaded smoothly over the guidewire, the guidewire was removed easily, nonpulsatile blood returned. All ports were aspirated of air and flushed with sterile saline. The catheter was sutured in place and covered with an occlusive dressing impregnated with chlorhexidine. Post-procedure: The patient tolerated the procedure well. Vital signs remained stable. EBL3 cc. No complications. Chest X Ray ordered to confirm tip placement and the absence of pneumothorax. Code Visit Procedures: 10502 Insert Non-tunnel CV Cath
--- NOTE | 2018-12-26 13:15 | NURSING ---
To surgery via bed w/ OR and Anesthesia staff
--- NOTE | 2018-12-26 13:26 | DCINST_ITS ---
Discharge Diet: Light diet - advance as tolerated - if you have questions about your diet instructions, please talk to you doctor. Discharge Activity: May Not Drive - for 1 week or while taking narcotic pain medicine. May shower in (days): 1 Lifting Restrictions: 10 pounds Call your doctor if your incision/area has: Continuous Slow Oozing, Sudden Increased Bleeding, Increased Pain/ Swelling, Increased Redness, Foul Smelling Discharge Call your doctor if you observe: Fever of 101 or Higher Suture Line Care: Avoid Pulling/Pushing, Avoid Pinching/Bending Additional Dressing/Incision Instructions:: Change or remove dressing in 4 days. Leave steri-strips in place for 1 week. Allergies/Adverse Reactions: Allergies No Known Allergies Allergy (Verified 12/25/18 16:18) Medications to take at Discharge Tafluprost/Pf [Zioptan 0.0015% Eye Drops] 1 drp EACH EYE QHS 12/25/18 Timolol 0.25% [Timoptic] 1 drp EACH EYE BID 12/25/18 Primary Care Physician: Ramirez Welch MD [Primary Care Provider] - Test Results: Test results from this visit will be discussed in further detail at your follow- up appointment, if applicable. Please Follow Up With: Lance Bennett MD - [phone] When: Call to make an appointment to be seen in about 10 days.
--- NOTE | 2018-12-26 13:41 | RAD_ITS ---
CLINICAL HISTORY: Male, 83 years old. Abdominal pain PROCEDURE: CHOLANGIOGRAM - Intra-Op FLUOROSCOPY TIME (if supplied): (0:56) minutes/seconds TECHNIQUE: (All elements of maximal sterile barrier technique followed, including US elements as applicable) 56 seconds of fluoroscopy of the abdomen was utilized upper indeterminate intraoperative cholangiogram and multiple images and cine runs are submitted for interpretation. Next FINDINGS: A cannula seen in the cystic duct remnant. Examination biliary tree demonstrates no evidence of filling defect to suggest common bile duct stone. There is spillage of contrast through the ampulla into the duodenum. RAD/Cholangiogram/ O R,Initial IMPRESSION: No common bile duct stone. Electronically Signed: Fermin Alvarado MD at 14:44 EDT Tel , Service support ,
--- NOTE | 2018-12-26 13:53 | CASEMGMT ---
Case Management Progress Note: Attempt to perform Initial Assessment, notified by staff that patient is currently in surgery. CM to follow up for assessment and DC Coordination needs. Annika Correa RNCM
--- NOTE | 2018-12-26 14:42 | PCM.OPRPT ---
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 with choledocholithiasis Status: Chronic (3) Cough Status: Acute (4) Vomiting Status: Acute Qualifiers: Vomiting type: unspecified Vomiting Intractability: unspecified Nausea presence: unspecified Qualified Code(s): R11.10 - Vomiting, unspecified Report of Operation Date of Procedure: 12/26/18 Pre-Operative Diagnosis: Gallstone pancreatitis, chronic cholecystitis cholelithiasis, suspected choledocholithiasis Post-Operative Diagnosis: Gallstone pancreatitis, chronic cholecystitis cholelithiasis Surgery/Procedure Performed:: Laparoscopic cholecystectomy with cholangiograms Description of Surgical Findings:: Timeout and informed consent was obtained. 83-year-old gentleman was taken the operating placement table underwent general endotracheal intubation anesthesia. He is already on therapeutic antibiotics. The abdomen sterilely prepped and draped. 0.5% Marcaine was used as local anesthetic. Total 30 cc was used. A vertical supraumbilical incision was created. Sharp dissection carried down through the substance tissue. Holding sutures of 0 Vicryl placed varies needle inserted saline drop test performed the abdomen insufflated with CO2 to pressure of 10 the cervical pressure. Then from a trochars were placed in the epigastric right upper quadrant right upper lateral quadrant. There is gross distention of small and large bowel and stomach. The gallbladder was quite edematous. He was tediously dissected free until clear to the infundibular was identified the cystic duct cystic artery clearly identified. Hem-o-skylar clip was placed in the cystic duct incision in the cystic duct cholangiogram catheter was inserted and fluoroscopically control claims grams obtained. This demonstrated very initial slow flow in the common bile duct. I was looking like there would be a distal obstruction however the patient was given a milligram of glucagon and then upon completing the films the diet then nicely went through to the duodenum without any evidence of filling defect. Clench Jone catheter was removed a single Hemoclip was placed on the cystic duct stump prior to transecting it. The cystic artery was clipped proximally distally prior to transecting it. The gallbladder was tediously dissected free from the liver bed the liver really quite fragile and and fibrofatty. Dissection was completed there was no spillage electrocautery was used for hemostasis and fibular was placed in the bed of the gallbladder. Because of the fragility of the dissection I elected to place a 15 round MARYJANE drain this was exited to the lateral port in place of the subhepatic space. The gallbladder was placed in a retrieval bag and exited at the umbilicus but slightly enlarging the fascial incision. Skin edges were approximated with interrupted 4-0 Monocryl after the abdomen was allowed to deflate. Steri-Strips Telfa and OpSite dressings applied. Sponge and instrument and needle counts reported to surgically correct. Blood loss minimal. He tolerated the procedure well was taken back to the intensive care unit in satisfactory condition without apparent complication. Specimens gallbladder. Drains 15 round MARYJANE. Blood loss minimal. Lance Bennett M.D., F.A.C.S. Type of Anesthesia:: General Anesthesiologist: Johana Cerda
[2018-12-26] MEDS: Bupivacaine Mpf 0.5% 30 ML VIAL (14:47)
--- NOTE | 2018-12-26 14:48 | CHAPLAIN ---
Type of Pastoral Visit _x__ Initial Visit ___ Follow-up Visit ___ On-call Visit ___ General Patient Visit ___ Spiritual Assessment ___ Family Conference ___ Bereavement ___ Rapid Response ___ Code Blue ___ Other (describe below) Pastoral Care Referral From _x__ Patient ___ Family ___ Nurse ___ Physician ___ Podiatry Professor ___ Environmental Attorney ___ Other (describe below) Sacrament/Intervention _x__ Active listening ___ Anointing ___ Christian ___ Bereavement ___ Communion _x__ Ariela exploration ___ ___ Life review ___ Prayer ___ Reconciliation ___ Sacrament of Sick _x__ Supportive presence ___ Wedding ___ Other (describe below) Pastoral Comments
--- NOTE | 2018-12-26 14:50 | GALL_PTH ---
PATIENT: LITO ROUSE LOC: [facility] U#:[id number] AGE/SX: 83/M ROOM: ICU01 RE12/25/[address]: Dr. Jayson Pollock MD : [id number] BED: 1 DIS: 12/28/2018 SPEC #: [id number] RECD: 12/26/18 16:43 STATUS: RASHMI GIGI #: [id number] KEKE: 12/26/18 14:[address]: Lance Bennett DEPT: SURGICAL PATHOLOGY RECD BY: Luis Cottrell ENTERED: 12/27/18 09:33 SP TYPE: GALLBLADDE TIERNEY DR: DO Dr. Ham Turcios DO Dr. Mark Elderbrock, MD Dr. Nana Yaa Koram, MD Tissues: Gallbladder, NOS Procedures: Surgery Specimen Level III HEADER OPERATION: Laparoscopic cholecystectomy with IOC PRE-OP DIAGNOSIS: Gallstone pancreatitis; chronic cholecystitis, cholelithiasis TISSUE SUBMITTED: Gallbladder MICROSCOPIC DIAGNOSIS Gallbladder, cholecystectomy: Acute and chronic cholecystitis and cholelithiasis. AM:arlet 12/28/18 MICROSCOPIC DESCRIPTION Slides are reviewed. GROSS DESCRIPTION Received is one container labeled with the patient's name and designated gallbladder. The specimen consists of a gallbladder measuring 11 x 4 x 2 cm. The external surface is smooth and glistening. Focally, it is granular, hemorrhagic and contains cautery artifact. The lumen of the gallbladder contains yellow-green mucoid bile and two black calculi with an average measurement of 1 cm in greatest dimension each. The mucosa is bile-stained and without any mass lesions. The gallbladder wall averages 0.2 cm in thickness and is free of mass lesions. Business Banking Officer sections of the gallbladder and the cystic duct are submitted in one cassette. / AM:arlet 12/27/18 TC:2 CPT: 31861
[2018-12-26 15:26] LABS: Bedside Glucose 109 mg/dL (70-110)
[2018-12-26] MEDS: 0.9% NaCl IVPB Med Flush (250 mL) 15 ML IV (15:40)
[2018-12-26] MEDS: fentaNYL 100 MCG/2 ML Ampul 25 MCG IV ×2 (16:13→17:03)
[2018-12-26] MEDS: Ondansetron 4 MG/2 ML Vial IV (16:53)
[2018-12-26 17:40] LABS: Bedside Glucose 117 mg/dL (70-110)
[2018-12-26] MEDS: fentaNYL 100 MCG/2 ML Ampul 50 MCG IV ×2 (19:16→22:43)
[2018-12-26 23:06] LABS: Bedside Glucose 117 mg/dL (70-110)
[2018-12-27] VITALS (16 sets, daily range): BP systolic 108–133; BP diastolic 61–79; PULSE 52–70; RESP 9–20; TEMP 36.7–37.2; O2SAT 92–96
[2018-12-27] MEDS: 0.9% NaCl Peripheral Flush Adult/Peds IV (02:35)
[2018-12-27] MEDS: fentaNYL 100 MCG/2 ML Ampul 50 MCG IV (02:35)
[2018-12-27] MEDS: Lactated Ringers 1,000 ML 125 ML IV (02:58)
[2018-12-27 04:19] LABS: Absolute Lymphocyte Count 0.74 X10^3/uL (0.83-4.51); Absolute Neutrophil Count 8.5 X10^3/uL (2.0-7.7); Basophil# 0.01 X10^3/uL; Basophil% 0.1 % (0-1); Hematocrit 42.2 % (40-54); Lymphocyte # 0.74 X10^3/ul (4.0); Lymphocyte % 7.4 % (19-41); Mean Corp Hgb Conc 33.2 g/dL (32-36); Mean Corpuscular Hgb 31.6 pg (27.0-32.0); Mean Corpuscular Volume 95.3 fL (80-94); Mean Platelet Vol. 10.2 fl (6.2-12.0); Monocyte# 0.74 X10^3/uL; Monocyte% 7.4 % (0-10); NRBC Flagged by Analyzer 0 % (0-5); Neutrophil % 84.6 % (47-70); POSITIVE MORPHOLOGY YES; Platelet Count 135 K/mm3 (150-450); RBC Distribution Width CV 14.1 % (11.6-14.6); RBC Distribution Width SD 49.8 fl (35.1-43.9); Red Blood Count 4.43 M/mm3 (4.6-6.2)
[2018-12-27 04:21] LABS: Differential Indicated SCAN CRITERIA MET
[2018-12-27 04:27] LABS: ALB/GLOB Ratio 0.7 RATIO (0.9-2.4); AST(SGOT) 141 U/L (15-37); Alanine Aminotransfer ALT/SGPT 287 U/L (16-61); Albumin, Serum 2.4 g/dL (3.2-5.0); Alkaline Phosphatase 253 U/L (45-117); Anion Gap 7 (5-15); BUN 17 mg/dL (7-18); BUN/Creat Ratio 17.2 RATIO (10-20); Calcium,Total 7.9 mg/dL (8.5-10.1); Chloride 110 mmol/L (98-107); Creatinine, Serum 0.99 mg/dL (0.70-1.30); EST Glomerular Filtration Rate 77 mL/min (>60); Est Glom Filt Rate - Afr Amer 93 mL/min (>60); Estimated Creatinine Clearance 58.38 ml/min; Globulin 3.5 g/dL (2.2-4.2); Glucose 111 mg/dL (74-106); Magnesium 2.1 mg/dL (1.6-2.6); Phosphorus 2.5 mg/dL (2.5-4.9); Potassium 3.9 mmol/L (3.5-5.1); Protein, Total 5.9 g/dL (6.4-8.2); Sodium Level 143 mmol/L (136-145)
--- NOTE | 2018-12-27 05:56 | PN.SURG_ITS ---
Patient Problems: Active and Suspected Problems Gallstone pancreatitis (Acute) Cough (Acute) Vomiting (Acute) Subjective: Pt notes mild to mod abd pain - Physical Exam Lungs: Clear to auscultation Abdomen: Bowel Sounds Not Present, Distended, Tender - MARYJANE bloody Vital Signs Temp Pulse Resp BP Pulse Ox 99.0 F 55 L 11 L 120/71 96 12/27/18 02:00 12/27/18 05:00 12/27/18 05:00 12/27/18 05:00 12/27/18 05:00 Oxygen Flow Rate (L/min) 3 Oxygen Delivery Method Nasal Cannula Weight: 169 lb 12.095 oz Body Mass Index (BMI) 23.6 Intake and Output for Last 24 Hours 12/25/18 12/26/18 12/27/18 23:59 23:59 23:59 Intake Total 4757 / 5462 705 / 705 Output Total 670 / 670 0 / 0 Balance 4087 / 4792 705 / 705 Laboratory Tests Past 24 Hrs 12/26/18 12/26/18 12/26/18 04:48 04:48 04:48 WBC RBC Hgb Hct MCV MCH MCHC RDW Std Deviation RDW Coeff of López Plt Count MPV Immature Gran % (Auto) Neut % (Auto) Lymph % (Auto) Dewitt % (Auto) Eos % (Auto) Baso % (Auto) Absolute Neuts (auto) Absolute Lymphs (auto) Nucleated RBC % PT 14.4 INR 1.1 APTT 29.7 Sodium Potassium Chloride Carbon Dioxide Anion Gap BUN Creatinine Estim Creat Clear Calc Est GFR (MDRD) Af Amer Est GFR (MDRD) Non-Af BUN/Creatinine Ratio Glucose Hemoglobin A1c 5.6 Lactic Acid Calcium Phosphorus 4.1 Magnesium 2.1 Total Bilirubin AST ALT Alkaline Phosphatase Total Protein Albumin Globulin Albumin/Globulin Ratio Ur Random Sodium Urine Creatinine Urine Potassium Urine Chloride 12/26/18 12/26/18 12/26/18 06:26 11:40 11:40 WBC RBC Hgb Hct MCV MCH MCHC RDW Std Deviation RDW Coeff of López Plt Count MPV Immature Gran % (Auto) Neut % (Auto) Lymph % (Auto) Dewitt % (Auto) Eos % (Auto) Baso % (Auto) Absolute Neuts (auto) Absolute Lymphs (auto) Nucleated RBC % PT INR APTT Sodium Potassium Chloride Carbon Dioxide Anion Gap BUN Creatinine Estim Creat Clear Calc Est GFR (MDRD) Af Amer Est GFR (MDRD) Non-Af BUN/Creatinine Ratio Glucose Hemoglobin A1c Lactic Acid 1.8 Calcium Phosphorus Magnesium Total Bilirubin AST ALT Alkaline Phosphatase Total Protein Albumin Globulin Albumin/Globulin Ratio Ur Random Sodium 23 Urine Creatinine 168.00 Urine Potassium 94.0 Urine Chloride 42 12/27/18 12/27/18 04:00 04:00 WBC 10.0 RBC 4.43 L Hgb 14.0 Hct 42.2 MCV 95.3 H MCH 31.6 MCHC 33.2 RDW Std Deviation 49.8 H RDW Coeff of López 14.1 Plt Count 135 L MPV 10.2 Immature Gran % (Auto) 0.500 Neut % (Auto) 84.6 H Lymph % (Auto) 7.4 L Dewitt % (Auto) 7.4 Eos % (Auto) 0.0 Baso % (Auto) 0.1 Absolute Neuts (auto) 8.5 H Absolute Lymphs (auto) 0.74 L Nucleated RBC % 0 PT INR APTT Sodium 143 Potassium 3.9 Chloride 110 H Carbon Dioxide 26.0 Anion Gap 7 BUN 17 Creatinine 0.99 Estim Creat Clear Calc 58.38 Est GFR (MDRD) Af Amer 93 Est GFR (MDRD) Non-Af 77 BUN/Creatinine Ratio 17.2 Glucose 111 H Hemoglobin A1c Lactic Acid Calcium 7.9 L Phosphorus 2.5 Magnesium 2.1 Total Bilirubin 5.30 H AST 141 H ALT 287 H Alkaline Phosphatase 253 H Total Protein 5.9 L Albumin 2.4 L Globulin 3.5 Albumin/Globulin Ratio 0.7 L Ur Random Sodium Urine Creatinine Urine Potassium Urine Chloride POC Glucose 12/26/18 12/26/18 12/26/18 22:55 17:37 15:19 POC Glucose 117 H 117 H 109 12/26/18 11:56 POC Glucose 108 Medical Necessity - Tobacco Use Smoking Status: Never smoker Tobacco Use: Non-smoker Assessment/Plan All Active Problems Gallstone pancreatitis (Acute) Cough (Acute) Vomiting (Acute) Will trim IVF, pt now stabilized and fluid repleated Ileus from pancreatitis and swelling causing persistent hyperbilirubinemia Need to mobilize pt Will DC MARYJANE No ready for po
--- NOTE | 2018-12-27 06:14 | PCM.PROGNOTE ---
Patient Problems: Active and Suspected Problems Gallstone pancreatitis (Acute) Cough (Acute) Vomiting (Acute) Subjective: Postoperative day #1 Zosyn day #2 83-year-old male with past medical history of glaucoma and aortic stenosis admitted to the hospital with sepsis secondary to gallstone pancreatitis and pneumonia. Hypotension resolved with fluids. Cholecystectomy and ERCP performed 12/26/2018. No choledocholithiasis. All events of the past 24 hours of been reviewed. T-max is 99.4. Current temp is 99. Vital signs are stable. He has bradycardia with sepsis and pain? Current blood pressure is 120/71. He is 96% saturated on a 3 L nasal cannula. Fluid balance on 12/26/2018 was positive for thousand and 87. White blood cell count today is 10,000, down from 14,300 yesterday. Hemoglobin is 14 and platelets are decreased at 135,000. Potassium is 3.9. BUN is 17 with a creatinine of 0.99, down from 1.18 yesterday. Calcium corrected for hypoalbuminemia is within normal limits. Magnesium and phosphorus are normal. Bilirubin remains elevated at 5.3 but the transaminases are improving with an AST of 141 and ALT of 287 today. Fractional excretion of sodium on 12/26/2018 was less than 1% consistent with prerenal azotemia. Sitting up in a chair. Denies pain, nausea, SOB at rest. Has not had any fentanyl since 35 this morning. Not passing flatus, no bowel movement. Well with the incentive spirometer. I reviewed dr. Bennett's note from this AM - will keep NPO. - Physical Exam General: Alert, Oriented x3, Cooperative, No apparent distress, Well developed, Well nourished HEENT: PERRLA Oral: Moist Mucosa Neck: Supple, Trachea Midline Lungs: - - consolidating BS's in the bases with few coarse rales bibasilar. Rare cough. No wheezes, no conversational dyspnea, not tachypneic. Cardiovascular: Regular rate, Regular Rhythm, Normal S1, Normal S2, Murmur - the MM today is more harsh than yesterday., No Gallop, - - Telemetry shows normal sinus rhythm with no ectopy Abdomen: - - No bowel sounds, mildly distended, tender. MARYJANE drain was pulled this morning. Extremities: No edema, No Calf Tenderness Skin: No rashes Neurological: - - No focal neurologic deficits Psych/Mental Status: Normal Affect, Appropriate Vital Signs Temp Pulse Resp BP Pulse Ox 99.0 F 55 L 11 L 120/71 96 12/27/18 02:00 12/27/18 05:00 12/27/18 05:00 12/27/18 05:00 12/27/18 05:00 Oxygen Flow Rate (L/min) 3 Oxygen Delivery Method Nasal Cannula Weight: 169 lb 12.095 oz Body Mass Index (BMI) 23.6 Intake and Output for Last 24 Hours 12/25/18 12/26/18 12/27/18 23:59 23:59 23:59 Intake Total 4757 / 5462 705 / 705 Output Total 670 / 670 0 / 0 Balance 4087 / 4792 705 / 705 Laboratory Tests Past 24 Hrs 12/26/18 12/26/18 12/26/18 04:48 04:48 04:48 WBC RBC Hgb Hct MCV MCH MCHC RDW Std Deviation RDW Coeff of López Plt Count MPV Immature Gran % (Auto) Neut % (Auto) Lymph % (Auto) Brooks % (Auto) Eos % (Auto) Baso % (Auto) Absolute Neuts (auto) Absolute Lymphs (auto) Nucleated RBC % PT 14.4 INR 1.1 APTT 29.7 Sodium Potassium Chloride Carbon Dioxide Anion Gap BUN Creatinine Estim Creat Clear Calc Est GFR (MDRD) Af Amer Est GFR (MDRD) Non-Af BUN/Creatinine Ratio Glucose Hemoglobin A1c 5.6 Lactic Acid Calcium Phosphorus 4.1 Magnesium 2.1 Total Bilirubin AST ALT Alkaline Phosphatase Total Protein Albumin Globulin Albumin/Globulin Ratio Ur Random Sodium Urine Creatinine Urine Potassium Urine Chloride 12/26/18 12/26/18 12/26/18 06:26 11:40 11:40 WBC RBC Hgb Hct MCV MCH MCHC RDW Std Deviation RDW Coeff of López Plt Count MPV Immature Gran % (Auto) Neut % (Auto) Lymph % (Auto) Brooks % (Auto) Eos % (Auto) Baso % (Auto) Absolute Neuts (auto) Absolute Lymphs (auto) Nucleated RBC % PT INR APTT Sodium Potassium Chloride Carbon Dioxide Anion Gap BUN Creatinine Estim Creat Clear Calc Est GFR (MDRD) Af Amer Est GFR (MDRD) Non-Af BUN/Creatinine Ratio Glucose Hemoglobin A1c Lactic Acid 1.8 Calcium Phosphorus Magnesium Total Bilirubin AST ALT Alkaline Phosphatase Total Protein Albumin Globulin Albumin/Globulin Ratio Ur Random Sodium 23 Urine Creatinine 168.00 Urine Potassium 94.0 Urine Chloride 42 12/27/18 12/27/18 04:00 04:00 WBC 10.0 RBC 4.43 L Hgb 14.0 Hct 42.2 MCV 95.3 H MCH 31.6 MCHC 33.2 RDW Std Deviation 49.8 H RDW Coeff of López 14.1 Plt Count 135 L MPV 10.2 Immature Gran % (Auto) 0.500 Neut % (Auto) 84.6 H Lymph % (Auto) 7.4 L Brooks % (Auto) 7.4 Eos % (Auto) 0.0 Baso % (Auto) 0.1 Absolute Neuts (auto) 8.5 H Absolute Lymphs (auto) 0.74 L Nucleated RBC % 0 PT INR APTT Sodium 143 Potassium 3.9 Chloride 110 H Carbon Dioxide 26.0 Anion Gap 7 BUN 17 Creatinine 0.99 Estim Creat Clear Calc 58.38 Est GFR (MDRD) Af Amer 93 Est GFR (MDRD) Non-Af 77 BUN/Creatinine Ratio 17.2 Glucose 111 H Hemoglobin A1c Lactic Acid Calcium 7.9 L Phosphorus 2.5 Magnesium 2.1 Total Bilirubin 5.30 H AST 141 H ALT 287 H Alkaline Phosphatase 253 H Total Protein 5.9 L Albumin 2.4 L Globulin 3.5 Albumin/Globulin Ratio 0.7 L Ur Random Sodium Urine Creatinine Urine Potassium Urine Chloride POC Glucose 12/26/18 12/26/18 12/26/18 22:55 17:37 15:19 POC Glucose 117 H 117 H 109 12/26/18 11:56 POC Glucose 108 Medical Necessity - Tobacco Use Smoking Status: Never smoker Tobacco Use: Non-smoker Assessment/Plan All Active Problems Gallstone pancreatitis (Acute) Cough (Acute) Vomiting (Acute) Impressions 1. severe sepsis secondary to acute gallstone pancreatitis and cholecystitis. No choledocholithiasis on ERCP done 12/26/[address] Chicas. 2. Bibasilar pneumonia-suspect secondary to bacteremic spread from cholecystitis 3. Hyperglycemia with no history of diabetes mellitus-more likely than not secondary to sepsis/infection. Hemoglobin A1c normal. 4. Glaucoma 5. Abnormal LFTs due to cholangitis 6. Normal EKG 7. Mild to moderate with a valve area of 1.6 cm?, 65% EF, stage II diastolic dysfunction 8. Diverticulosis 9. Prostatic enlargement on CT scan of the abdomen and pelvis 10. Bradycardia-suspect secondary to timolol for glaucoma Decrease IV rate to 80 cc/h but continue IV fluids until the patient is approved for clear liquids. Transfer to medical surgical floor Continue Zosyn Recheck CMP and CBC in the a.m. Encourage the patient to ambulate Continue incentive spirometry for 10 breaths every hour while awake Recheck PA and lateral chest x-ray in the a.m. Blood cultures are pending. Continue enoxaparin for DVT prophylaxis-monitor platelets closely as he has decreased platelets today at 135,000. [place]man discontinue Accu-Cheks and sliding scale insulin coverage Continue IV fentanyl for pain control Discontinue IV fluids when he is approved for a diet Discontinue triple-lumen in the a.m. and maintain peripheral IV Code Visit Inpatient E&M: 71670 [facility] L[facility]
--- NOTE | 2018-12-27 06:40 | PCM.PN.INT ---
Subjective: The patient was seen and examined at the bedside this morning. Events from the last 24 hours have been reviewed. The patient is currently afebrile, hemodynamically stable and maintaining appropriate oxygen saturations on room air. The patient underwent successful laparoscopic cholecystectomy with cholangiograms yesterday. The cholangiograms revealed no common bile duct stone. Postoperatively, the patient had issues recovering from anesthesia and did have a rather significant transient increase in his oxygen requirement. However, over the course of the night, the patient's oxygen requirement has been weaned down. The patient is currently documented to be overall net +5.4 L for the admission. The patient's transaminase levels and alkaline phosphatase are slowly improving. The patient denies the presence of abdominal pain at the current time. Objective: The patient's most recent lab work, culture data and imaging studies have all been personally reviewed. CT abdomen/pelvis without contrast completed December 26 revealed bibasilar pulmonary infiltrates along with radiographic evidence of cholecystitis, pancreatitis and pancreatic duct dilation. A surface echocardiogram was subsequently completed and revealed evidence of stage II diastolic dysfunction with an ejection fraction of 65%. The right ventricle was mildly dilated. Mild to moderate aortic stenosis was also noted. Blood cultures are currently pending. General: Alert, Oriented x3, Cooperative, No apparent distress HEENT: Atraumatic, PERRLA, Normocephalic Oral: No Gingival or Mucosal Lesions/ Ulcerations Neck: Supple, No Nodes, Trachea Midline, - - Right IJ central venous catheter in place. Lungs: Normal air movement, No rhonchi, No wheeze, No rales Cardiovascular: Regular rate, Regular Rhythm, Normal S1, Normal S2, No murmurs Abdomen: Soft, Hypoactive Bowel Sounds, Distended Extremities: No clubbing, No cyanosis Skin: No rashes Musculoskeletal: No Tenderness to Palpation of Joints or Extremities Lymphatic: No Cervical, Supraclavicular, or Inguinal Adenopathy Neurological: Cranial nerves II-XII grossly intact, Neuro grossly intact Psych/Mental Status: Alert and oriented to time, place, person, mood and affect Vital Signs Temp Pulse Resp BP Pulse Ox 99.0 F 55 L 11 L 120/71 96 12/27/18 02:00 12/27/18 05:00 12/27/18 05:00 12/27/18 05:00 12/27/18 05:00 Oxygen Flow Rate (L/min) 3 Oxygen Delivery Method Nasal Cannula Weight: 169 lb 12.095 oz Body Mass Index (BMI) 23.6 Intake and Output for Last 24 Hours 12/25/18 12/26/18 12/27/18 23:59 23:59 23:59 Intake Total 4757 / 5462 705 / 705 Output Total 670 / 670 0 / 0 Balance 4087 / 4792 705 / 705 Labs (Last 48 Hours) 12/25/18 12/25/18 12/26/18 16:30 16:30 04:48 WBC 9.2 RBC 5.18 Hgb 16.5 Hct 48.0 MCV 92.7 MCH 31.9 MCHC 34.4 RDW Std Deviation 43.3 RDW Coeff of López 12.6 Plt Count 174 MPV 9.8 Immature Gran % (Auto) 0.300 Neut % (Auto) 82.0 H Lymph % (Auto) 10.3 L [place] % (Auto) 6.9 Eos % (Auto) 0.3 Baso % (Auto) 0.2 Absolute Neuts (auto) 7.5 Absolute Lymphs (auto) 0.94 Nucleated RBC % 0 PT INR APTT Sodium 137 142 Potassium 3.9 3.9 Chloride 104 107 Carbon Dioxide 28.0 28.0 Anion Gap 5 7 BUN 19 H 18 Creatinine 1.05 1.18 Estim Creat Clear Calc 52.93 48.98 Est GFR (MDRD) Af Amer 87 76 Est GFR (MDRD) Non-Af 72 63 BUN/Creatinine Ratio 18.1 15.3 Glucose 171 H 128 H Hemoglobin A1c Lactic Acid Calcium 9.3 8.0 L Phosphorus Magnesium Total Bilirubin 3.80 H 5.30 H Direct Bilirubin 2.78 H AST 340 H 292 H ALT 432 H 424 H Alkaline Phosphatase 337 H 297 H Total Protein 7.5 6.2 L Albumin 3.6 2.8 L Globulin 3.9 3.4 Albumin/Globulin Ratio 0.8 L Lipase 9435 H 4068 H Ur Random Sodium Urine Creatinine Urine Potassium Urine Chloride POC Glucose 12/26/18 12/26/18 12/26/18 04:48 04:48 04:48 WBC 14.3 H RBC 4.75 Hgb 14.6 Hct 44.3 MCV 93.3 MCH 30.7 MCHC 33.0 RDW Std Deviation 45.8 H RDW Coeff of López 13.4 Plt Count 155 MPV 10.0 Immature Gran % (Auto) 0.400 Neut % (Auto) 84.6 H Lymph % (Auto) 6.9 L [place] % (Auto) 7.4 Eos % (Auto) 0.4 Baso % (Auto) 0.3 Absolute Neuts (auto) 12.1 H Absolute Lymphs (auto) 0.99 Nucleated RBC % 0 PT INR APTT Sodium Potassium Chloride Carbon Dioxide Anion Gap BUN Creatinine Estim Creat Clear Calc Est GFR (MDRD) Af Amer Est GFR (MDRD) Non-Af BUN/Creatinine Ratio Glucose Hemoglobin A1c 5.6 Lactic Acid Calcium Phosphorus 4.1 Magnesium 2.1 Total Bilirubin Direct Bilirubin AST ALT Alkaline Phosphatase Total Protein Albumin Globulin Albumin/Globulin Ratio Lipase Ur Random Sodium Urine Creatinine Urine Potassium Urine Chloride POC Glucose 12/26/18 12/26/18 12/26/18 04:48 06:26 11:40 WBC RBC Hgb Hct MCV MCH MCHC RDW Std Deviation RDW Coeff of López Plt Count MPV Immature Gran % (Auto) Neut % (Auto) Lymph % (Auto) [place] % (Auto) Eos % (Auto) Baso % (Auto) Absolute Neuts (auto) Absolute Lymphs (auto) Nucleated RBC % PT 14.4 INR 1.1 APTT 29.7 Sodium Potassium Chloride Carbon Dioxide Anion Gap BUN Creatinine Estim Creat Clear Calc Est GFR (MDRD) Af Amer Est GFR (MDRD) Non-Af BUN/Creatinine Ratio Glucose Hemoglobin A1c Lactic Acid 1.8 Calcium Phosphorus Magnesium Total Bilirubin Direct Bilirubin AST ALT Alkaline Phosphatase Total Protein Albumin Globulin Albumin/Globulin Ratio Lipase Ur Random Sodium Urine Creatinine 168.00 Urine Potassium Urine Chloride POC Glucose 12/26/18 12/26/18 12/26/18 11:40 11:56 15:19 WBC RBC Hgb Hct MCV MCH MCHC RDW Std Deviation RDW Coeff of López Plt Count MPV Immature Gran % (Auto) Neut % (Auto) Lymph % (Auto) [place] % (Auto) Eos % (Auto) Baso % (Auto) Absolute Neuts (auto) Absolute Lymphs (auto) Nucleated RBC % PT INR APTT Sodium Potassium Chloride Carbon Dioxide Anion Gap BUN Creatinine Estim Creat Clear Calc Est GFR (MDRD) Af Amer Est GFR (MDRD) Non-Af BUN/Creatinine Ratio Glucose Hemoglobin A1c Lactic Acid Calcium Phosphorus Magnesium Total Bilirubin Direct Bilirubin AST ALT Alkaline Phosphatase Total Protein Albumin Globulin Albumin/Globulin Ratio Lipase Ur Random Sodium 23 Urine Creatinine Urine Potassium 94.0 Urine Chloride 42 POC Glucose 108 109 12/26/18 12/26/18 12/27/18 17:37 22:55 04:00 WBC 10.0 RBC 4.43 L Hgb 14.0 Hct 42.2 MCV 95.3 H MCH 31.6 MCHC 33.2 RDW Std Deviation 49.8 H RDW Coeff of López 14.1 Plt Count 135 L MPV 10.2 Immature Gran % (Auto) 0.500 Neut % (Auto) 84.6 H Lymph % (Auto) 7.4 L [place] % (Auto) 7.4 Eos % (Auto) 0.0 Baso % (Auto) 0.1 Absolute Neuts (auto) 8.5 H Absolute Lymphs (auto) 0.74 L Nucleated RBC % 0 PT INR APTT Sodium Potassium Chloride Carbon Dioxide Anion Gap BUN Creatinine Estim Creat Clear Calc Est GFR (MDRD) Af Amer Est GFR (MDRD) Non-Af BUN/Creatinine Ratio Glucose Hemoglobin A1c Lactic Acid Calcium Phosphorus Magnesium Total Bilirubin Direct Bilirubin AST ALT Alkaline Phosphatase Total Protein Albumin Globulin Albumin/Globulin Ratio Lipase Ur Random Sodium Urine Creatinine Urine Potassium Urine Chloride POC Glucose 117 H 117 H 12/27/18 04:00 WBC RBC Hgb Hct MCV MCH MCHC RDW Std Deviation RDW Coeff of López Plt Count MPV Immature Gran % (Auto) Neut % (Auto) Lymph % (Auto) [place] % (Auto) Eos % (Auto) Baso % (Auto) Absolute Neuts (auto) Absolute Lymphs (auto) Nucleated RBC % PT INR APTT Sodium 143 Potassium 3.9 Chloride 110 H Carbon Dioxide 26.0 Anion Gap 7 BUN 17 Creatinine 0.99 Estim Creat Clear Calc 58.38 Est GFR (MDRD) Af Amer 93 Est GFR (MDRD) Non-Af 77 BUN/Creatinine Ratio 17.2 Glucose 111 H Hemoglobin A1c Lactic Acid Calcium 7.9 L Phosphorus 2.5 Magnesium 2.1 Total Bilirubin 5.30 H Direct Bilirubin AST 141 H ALT 287 H Alkaline Phosphatase 253 H Total Protein 5.9 L Albumin 2.4 L Globulin 3.5 Albumin/Globulin Ratio 0.7 L Lipase Ur Random Sodium Urine Creatinine Urine Potassium Urine Chloride POC Glucose Clinical Impression(s) from Imaging Studies Gallbladder Ultrasound 12/25/18 17:02 IMPRESSION: Mild gallbladder wall thickening and trace pericholecystic fluid. Cholelithiasis. Mild intra and extrahepatic biliary ductal prominence. Findings equivocal for cholecystitis. Correlate clinically. MRCP may be considered for further assessment. Electronically Signed: Braxton Bassi, at 18:05 EDT Tel , Service support , Chest X-Ray 12/25/18 19:55 IMPRESSION: Pulmonary arterial prominence. Mild bibasilar infiltrates. Trace bilateral effusions versus scarring. Electronically Signed: Braxton Bassi, at 20:26 EDT Tel , Service support , Abdomen/Pelvis CT 12/26/18 09:02 IMPRESSION: Bibasilar pulmonary infiltrates. Findings suggestive of cholecystitis and mild degree of pancreatitis. Sigmoid diverticulosis. Electronically Signed: Az Mendoza, at 12:04 EDT , Service support , Chest X-Ray 12/26/18 09:40 IMPRESSION: Residual increased markings at the lung bases worse on the left side suggestive of atelectasis. There has been mild improvement. Electronically Signed: Az Mendoza, at 15:38 EDT , Service support , Chest X-Ray 12/26/18 12:35 IMPRESSION: The tip of the right internal jugular venous catheter is at the junction of the superior vena cava and right atrium. Stable increased markings at the lung bases slightly worse on the left side. Electronically Signed: Az Mendoza, at 12:58 EDT , Service support , Cholangiogram 12/26/18 13:41 IMPRESSION: No common bile duct stone. Electronically Signed: Fermin Alvarado MD at 14:44 EDT Tel , Service support , Medical Necessity - Tobacco Use Smoking Status: Never smoker Tobacco Use: Non-smoker Assessment/Plan All Active Problems Gallstone pancreatitis (Acute) Cough (Acute) Vomiting (Acute) RECOMMENDATIONS: 1. Continue broad-spectrum antimicrobial coverage. 2. Dietary advancement per surgery recommendations. 3. Continue current pain control regimen. 4. Discontinue supplemental IV fluids, once the patient's diet has been advanced. 5. Continue to encourage incentive spirometer use while in bed. 6. Mobilize patient as tolerated. IMPRESSIONS: 1. Sepsis secondary to acute gallstone pancreatitis and cholecystitis, now POD #1 s/p laparoscopic cholecystectomy The patient has stabilized clinically with aggressive volume resuscitation, broad-spectrum antimicrobials and subsequent surgical intervention. The patient has remained hemodynamically stable overnight and did not require the initiation of vasopressor support. We will plan to continue current supportive measures. Dietary advancement per surgery recommendations. Continue supplemental IV fluid hydration until the patient is no longer n.p.o. 2. Acute hypoxemic respiratory insufficiency Suspect likely secondary to aggressive volume resuscitation coupled with atelectasis. The patient has no signs or symptoms to suggest an underlying pneumonia. As of this morning, the patient has been weaned to room air and is currently maintaining appropriate oxygen saturations. He has been encouraged to continue to utilize his incentive spirometer while in bed. He will be mobilized as tolerated. 3. Heart failure with preserved ejection fraction/aortic stenosis Recommend judicious use of continuous supplemental IV fluids, given diastolic dysfunction and valvular heart disease noted on echo. This note was generated with [employer] dictation software. It may contain incorrect words, spelling, and punctuation that were not noted in checking the note before signing. Code Visit Inpatient E&M: 05444 Subs Hosp L3
[2018-12-27] MEDS: Timolol 0.25% 5ML OPTH.BTL 1 DRP EACH EYE ×2 (06:48→21:08)
[2018-12-27] MEDS: Enoxaparin 40 MG/0.4 ML Syringe SC (10:04)
[2018-12-27] MEDS: Lactated Ringers 1,000 ML 80 ML IV ×2 (10:06→22:38)
--- NOTE | 2018-12-27 14:28 | CASEMGMT ---
LENKA CM Assessment Presentation: Choleycystectomy. Pancreatitis PCP: Dr. Welch Specialists: Dr. Lance Bennett Preferred Pharmacy: [facility] Insurance: [employer] Prescription Benefit: yes LNOK: Ladan Mueller, Living Arrangements: Lives independently in split level home. Independent with ADLs, active. No care needs identified. Transportation: Drives DME: cane, does not use HHC: none Patient DC goals: Home DC PLAN: anticipate Home on dc. PT/OT evaluations completed, OT not recommended, but further PT is. CM will continue to follow progress. Yanira OCONNORN RN ACM
--- NOTE | 2018-12-27 14:57 | CASEMGMT ---
LENKA CM Assessment Presentation: Choleycystectomy. Pancreatitis Intro role of CM to patient in ICU. Pt is awake, alert and able to participate in assessment. Pt states he was independent prior to admission and plans to return home on dc. States his is able to assist if needed. PCP: Dr. Welch Specialists: Dr. Lance Bennett Preferred Pharmacy: [facility] Insurance: [facility] Prescription Benefit: yes LNOK: Ladan Mueller, Living Arrangements: Lives independently in split level home. Independent with ADLs, active. No care needs identified. Pt states if needed, he can stay on first floor of home where he has bedroom, living room. His bedroom is over garage 7 steps. Transportation: Drives DME: cane, does not use HHC: none Patient DC goals: Home DC PLAN: anticipate Home on dc. PT/OT evaluations completed, OT not recommended, but further PT is. CM will continue to follow progress, but pt does not anticipate dc needs. He states, I just need to be up walking more. Yanira OCONNORN RN ACM
--- NOTE | 2018-12-27 16:48 | CHAPLAIN ---
Type of Pastoral Visit ___ Initial Visit _x__ Follow-up Visit ___ On-call Visit ___ General Patient Visit ___ Spiritual Assessment ___ Family Conference ___ Bereavement ___ Rapid Response ___ Code Blue ___ Other (describe below) Pastoral Care Referral From _x__ Patient ___ Family ___ Nurse ___ Physician ___ Day Care Aide ___ [employer] ___ Other (describe below) Sacrament/Intervention ___ Active listening ___ Anointing ___ Protestant ___ Bereavement ___ Communion ___ Ariela exploration ___ ___ Life review _x__ Prayer ___ Reconciliation ___ Sacrament of Sick _x__ Supportive presence ___ Wedding ___ Other (describe below) Pastoral Comments
[2018-12-27] MEDS: Latanoprost 0.005% 1 Bottle 1 DRP EACH EYE (21:09)
[2018-12-28 02:30] VITALS: BP 129/75; PULSE 63; RESP 18; TEMP 36.6; O2SAT 93
[2018-12-28 04:48] LABS: ALB/GLOB Ratio 0.7 RATIO (0.9-2.4); AST(SGOT) 78 U/L (15-37); Alanine Aminotransfer ALT/SGPT 206 U/L (16-61); Albumin, Serum 2.3 g/dL (3.2-5.0); Alkaline Phosphatase 258 U/L (45-117); Anion Gap 3 (5-15); BUN 18 mg/dL (7-18); BUN/Creat Ratio 20.2 RATIO (10-20); Calcium,Total 7.9 mg/dL (8.5-10.1); Chloride 107 mmol/L (98-107); Creatinine, Serum 0.89 mg/dL (0.70-1.30); EST Glomerular Filtration Rate 87 mL/min (>60); Est Glom Filt Rate - Afr Amer 105 mL/min (>60); Estimated Creatinine Clearance 64.93 ml/min; Globulin 3.5 g/dL (2.2-4.2); Glucose 90 mg/dL (74-106); Potassium 3.7 mmol/L (3.5-5.1); Protein, Total 5.8 g/dL (6.4-8.2); Sodium Level 141 mmol/L (136-145)
[2018-12-28 04:52] LABS: Absolute Lymphocyte Count 1.01 X10^3/uL (0.83-4.51); Absolute Neutrophil Count 5.9 X10^3/uL (2.0-7.7); Basophil# 0.01 X10^3/uL; Basophil% 0.1 % (0-1); Eosinophil# 0.09 X10^3/uL; Eosinophils% 1.2 % (0-5); Hematocrit 42.2 % (40-54); Hemoglobin 14.1 g/dL (13.0-16.5); Lymphocyte # 1.01 X10^3/ul (4.0); Lymphocyte % 13.2 % (19-41); Mean Corp Hgb Conc 33.4 g/dL (32-36); Mean Corpuscular Hgb 31.8 pg (27.0-32.0); Mean Corpuscular Volume 95.3 fL (80-94); Mean Platelet Vol. 10.3 fl (6.2-12.0); Monocyte# 0.61 X10^3/uL; NRBC Flagged by Analyzer 0 % (0-5); Neutrophil # 5.91 X10^3/uL (2.7-7.7); Neutrophil % 77.1 % (47-70); Platelet Count 133 K/mm3 (150-450); RBC Distribution Width SD 49.4 fl (35.1-43.9); Red Blood Count 4.43 M/mm3 (4.6-6.2); White Blood Count 7.7 K/mm3 (4.4-11.0)
--- NOTE | 2018-12-28 04:58 | PCM.PN.SRG ---
Patient Problems: Active and Suspected Problems Gallstone pancreatitis (Acute) Cough (Acute) Vomiting (Acute) Subjective: Pt very comfortable, no nausea, no flatus, ambulating Labs improved - Physical Exam General: Alert, Oriented x3, Cooperative, No apparent distress Lungs: Clear to auscultation Abdomen: Bowel Sounds Present, Soft, Distended - wounds clean Vital Signs Temp Pulse Resp BP Pulse Ox 97.9 F 63 18 129/75 H 93 12/28/18 02:30 12/28/18 02:30 12/28/18 02:30 12/28/18 02:30 12/28/18 02:30 Oxygen Flow Rate (L/min) 2 Oxygen Delivery Method Nasal Cannula Weight: 169 lb 12.095 oz Body Mass Index (BMI) 23.6 Intake and Output for Last 24 Hours 12/26/18 12/27/18 12/28/18 23:59 23:59 23:59 Intake Total 4757 / 5462 3268.5 / 3268.5 Output Total 670 / 670 1100 / 1100 Balance 4087 / 4792 2168.5 / 2168.5 Laboratory Tests Past 24 Hrs 12/28/18 12/28/18 04:20 04:20 WBC 7.7 RBC 4.43 L Hgb 14.1 Hct 42.2 MCV 95.3 H MCH 31.8 MCHC 33.4 RDW Std Deviation 49.4 H RDW Coeff of López 14.0 Plt Count 133 L MPV 10.3 Immature Gran % (Auto) 0.400 Neut % (Auto) 77.1 H Lymph % (Auto) 13.2 L [place] % (Auto) 8.0 Eos % (Auto) 1.2 Baso % (Auto) 0.1 Absolute Neuts (auto) 5.9 Absolute Lymphs (auto) 1.01 Nucleated RBC % 0 Sodium 141 Potassium 3.7 Chloride 107 Carbon Dioxide 31.0 Anion Gap 3 L BUN 18 Creatinine 0.89 Estim Creat Clear Calc 64.93 Est GFR (MDRD) Af Amer 105 Est GFR (MDRD) Non-Af 87 BUN/Creatinine Ratio 20.2 H Glucose 90 Calcium 7.9 L Total Bilirubin 2.20 H AST 78 H ALT 206 H Alkaline Phosphatase 258 H Total Protein 5.8 L Albumin 2.3 L Globulin 3.5 Albumin/Globulin Ratio 0.7 L Medical Necessity - Tobacco Use Smoking Status: Never smoker Tobacco Use: Non-smoker Assessment/Plan All Active Problems Gallstone pancreatitis (Acute) Cough (Acute) Vomiting (Acute) Advance diet Stop IVF Suppository Stop IV Ab Possible discharge later today
--- NOTE | 2018-12-28 05:55 | RAD_ITS ---
STUDY: X-RAY CHEST REASON FOR EXAM: Male, 83 years old. Hypoxia TECHNIQUE: Frontal and lateral views of the chest. COMPARISON: 12/26/2018 FINDINGS: Central venous line is seen on the right side its tip is at the lower part of the superior vena cava. Subsegmental atelectases are noted in the right and left lung bases. Small bilateral pleural effusions are noted. Normal size heart. Normal mediastinum and kita. Normal visualized pulmonary arteries. Normal visualized aortic arch and descending thoracic aorta. Normal visualized thoracic spine. There is degenerative osteoarthritis of the bilateral shoulders. There is no demonstrated abnormality of the visualized soft tissue structures of the upper abdomen. RAD/Chest PA and Lateral IMPRESSION: Subsegmental atelectases are noted in the right and left lung bases. Small bilateral pleural effusions are noted. Electronically Signed: Carmen Ruby, at 6:04 EDT Tel , Service support ,
--- NOTE | 2018-12-28 06:38 | PN_ITS ---
Subjective: The patient was seen and examined at the bedside this morning. Events from the last 24 hours have been reviewed. The patient is currently afebrile, hemodynamically stable and maintaining appropriate oxygen saturations on 2 L/min via nasal cannula. Per nursing report, the patient did desaturate into the high 80s when placed on room air. He is currently documented to be overall net +6.5 L for the admission. There continues to be improvement in the patient's hepatic function profile. A repeat plain film chest x-ray from this morning was rev iewed and did reveal a component of atelectasis still present along with small bilateral pleural effusions. The patient's diet was advanced this morning to full liquid. His central venous catheter was discontinued. Supplemental IV fluids were also stopped. Objective: The patient's most recent lab work, culture data and imaging studies have all been personally reviewed. CT abdomen/pelvis without contrast completed December 26 revealed bibasilar pulmonary infiltrates along with radiographic evidence of cholecystitis, pancreatitis and pancreatic duct dilation. A surface echocardiogram was subsequently completed and revealed evidence of stage II diastolic dysfunction with an ejection fraction of 65%. The right ventricle was mildly dilated. Mild to moderate aortic stenosis was also noted. Blood cultures are currently pending. General: Alert, Oriented x3, Cooperative, No apparent distress HEENT: Atraumatic, PERRLA, Normocephalic Oral: No Gingival or Mucosal Lesions/ Ulcerations Neck: Supple, No Nodes, Trachea Midline Lungs: - - Bibasilar rales present. Cardiovascular: Regular rate, Regular Rhythm, Normal S1, Normal S2, Murmur Abdomen: Bowel Sounds Present, Soft, Distended Extremities: No clubbing, No cyanosis, No edema Skin: No breakdown Musculoskeletal: No Tenderness to Palpation of Joints or Extremities Lymphatic: No Cervical, Supraclavicular, or Inguinal Adenopathy Neurological: Cranial nerves II-XII grossly intact, Neuro grossly intact Psych/Mental Status: Alert and oriented to time, place, person, mood and affect Vital Signs Temp Pulse Resp BP Pulse Ox 97.9 F 63 18 129/75 H 93 12/28/18 02:30 12/28/18 02:30 12/28/18 02:30 12/28/18 02:30 12/28/18 02:30 Oxygen Flow Rate (L/min) 2 Oxygen Delivery Method Nasal Cannula Weight: 171 lb 8.314 oz Body Mass Index (BMI) 23.6 Intake and Output for Last 24 Hours 12/26/18 12/27/18 12/28/18 23:59 23:59 23:59 Intake Total 4757 / 5462 3268.5 / 3268.5 639.7 / 639.7 Output Total 670 / 670 1100 / 1100 375 / 375 Balance 4087 / 4792 2168.5 / 2168.5 264.7 / 264.7 Labs (Last 48 Hours) 12/26/18 12/26/18 12/26/18 04:48 04:48 04:48 WBC RBC Hgb Hct MCV MCH MCHC RDW Std Deviation RDW Coeff of López Plt Count MPV Immature Gran % (Auto) Neut % (Auto) Lymph % (Auto) [place] % (Auto) Eos % (Auto) Baso % (Auto) Absolute Neuts (auto) Absolute Lymphs (auto) Nucleated RBC % PT 14.4 INR 1.1 APTT 29.7 Sodium Potassium Chloride Carbon Dioxide Anion Gap BUN Creatinine Estim Creat Clear Calc Est GFR (MDRD) Af Amer Est GFR (MDRD) Non-Af BUN/Creatinine Ratio Glucose Hemoglobin A1c 5.6 Lactic Acid Calcium Phosphorus 4.1 Magnesium 2.1 Total Bilirubin AST ALT Alkaline Phosphatase Total Protein Albumin Globulin Albumin/Globulin Ratio Ur Random Sodium Urine Creatinine Urine Potassium Urine Chloride POC Glucose 12/26/18 12/26/18 12/26/18 06:26 11:40 11:40 WBC RBC Hgb Hct MCV MCH MCHC RDW Std Deviation RDW Coeff of López Plt Count MPV Immature Gran % (Auto) Neut % (Auto) Lymph % (Auto) [place] % (Auto) Eos % (Auto) Baso % (Auto) Absolute Neuts (auto) Absolute Lymphs (auto) Nucleated RBC % PT INR APTT Sodium Potassium Chloride Carbon Dioxide Anion Gap BUN Creatinine Estim Creat Clear Calc Est GFR (MDRD) Af Amer Est GFR (MDRD) Non-Af BUN/Creatinine Ratio Glucose Hemoglobin A1c Lactic Acid 1.8 Calcium Phosphorus Magnesium Total Bilirubin AST ALT Alkaline Phosphatase Total Protein Albumin Globulin Albumin/Globulin Ratio Ur Random Sodium 23 Urine Creatinine 168.00 Urine Potassium 94.0 Urine Chloride 42 POC Glucose 12/26/18 12/26/18 12/26/18 11:56 15:19 17:37 WBC RBC Hgb Hct MCV MCH MCHC RDW Std Deviation RDW Coeff of López Plt Count MPV Immature Gran % (Auto) Neut % (Auto) Lymph % (Auto) [place] % (Auto) Eos % (Auto) Baso % (Auto) Absolute Neuts (auto) Absolute Lymphs (auto) Nucleated RBC % PT INR APTT Sodium Potassium Chloride Carbon Dioxide Anion Gap BUN Creatinine Estim Creat Clear Calc Est GFR (MDRD) Af Amer Est GFR (MDRD) Non-Af BUN/Creatinine Ratio Glucose Hemoglobin A1c Lactic Acid Calcium Phosphorus Magnesium Total Bilirubin AST ALT Alkaline Phosphatase Total Protein Albumin Globulin Albumin/Globulin Ratio Ur Random Sodium Urine Creatinine Urine Potassium Urine Chloride POC Glucose 108 109 117 H 12/26/18 12/27/18 12/27/18 22:55 04:00 04:00 WBC 10.0 RBC 4.43 L Hgb 14.0 Hct 42.2 MCV 95.3 H MCH 31.6 MCHC 33.2 RDW Std Deviation 49.8 H RDW Coeff of López 14.1 Plt Count 135 L MPV 10.2 Immature Gran % (Auto) 0.500 Neut % (Auto) 84.6 H Lymph % (Auto) 7.4 L [place] % (Auto) 7.4 Eos % (Auto) 0.0 Baso % (Auto) 0.1 Absolute Neuts (auto) 8.5 H Absolute Lymphs (auto) 0.74 L Nucleated RBC % 0 PT INR APTT Sodium 143 Potassium 3.9 Chloride 110 H Carbon Dioxide 26.0 Anion Gap 7 BUN 17 Creatinine 0.99 Estim Creat Clear Calc 58.38 Est GFR (MDRD) Af Amer 93 Est GFR (MDRD) Non-Af 77 BUN/Creatinine Ratio 17.2 Glucose 111 H Hemoglobin A1c Lactic Acid Calcium 7.9 L Phosphorus 2.5 Magnesium 2.1 Total Bilirubin 5.30 H AST 141 H ALT 287 H Alkaline Phosphatase 253 H Total Protein 5.9 L Albumin 2.4 L Globulin 3.5 Albumin/Globulin Ratio 0.7 L Ur Random Sodium Urine Creatinine Urine Potassium Urine Chloride POC Glucose 117 H 12/28/18 12/28/18 04:20 04:20 WBC 7.7 RBC 4.43 L Hgb 14.1 Hct 42.2 MCV 95.3 H MCH 31.8 MCHC 33.4 RDW Std Deviation 49.4 H RDW Coeff of López 14.0 Plt Count 133 L MPV 10.3 Immature Gran % (Auto) 0.400 Neut % (Auto) 77.1 H Lymph % (Auto) 13.2 L [place] % (Auto) 8.0 Eos % (Auto) 1.2 Baso % (Auto) 0.1 Absolute Neuts (auto) 5.9 Absolute Lymphs (auto) 1.01 Nucleated RBC % 0 PT INR APTT Sodium 141 Potassium 3.7 Chloride 107 Carbon Dioxide 31.0 Anion Gap 3 L BUN 18 Creatinine 0.89 Estim Creat Clear Calc 64.93 Est GFR (MDRD) Af Amer 105 Est GFR (MDRD) Non-Af 87 BUN/Creatinine Ratio 20.2 H Glucose 90 Hemoglobin A1c Lactic Acid Calcium 7.9 L Phosphorus Magnesium Total Bilirubin 2.20 H AST 78 H ALT 206 H Alkaline Phosphatase 258 H Total Protein 5.8 L Albumin 2.3 L Globulin 3.5 Albumin/Globulin Ratio 0.7 L Ur Random Sodium Urine Creatinine Urine Potassium Urine Chloride POC Glucose Clinical Impression(s) from Imaging Studies Gallbladder Ultrasound 12/25/18 17:02 IMPRESSION: Mild gallbladder wall thickening and trace pericholecystic fluid. Cholelithiasis. Mild intra and extrahepatic biliary ductal prominence. Findings equivocal for cholecystitis. Correlate clinically. MRCP may be considered for further assessment. Electronically Signed: Braxton Starkey, at 18:05 EDT Tel , Service support , Chest X-Ray 12/25/18 19:55 IMPRESSION: Pulmonary arterial prominence. Mild bibasilar infiltrates. Trace bilateral effusions versus scarring. Electronically Signed: Braxton Starkey, at 20:26 EDT Tel , Service support , Abdomen/Pelvis CT 12/26/18 09:02 IMPRESSION: Bibasilar pulmonary infiltrates. Findings suggestive of cholecystitis and mild degree of pancreatitis. Sigmoid diverticulosis. Electronically Signed: Az Mendoza, at 12:04 EDT , Service support , Chest X-Ray 12/26/18 09:40 IMPRESSION: Residual increased markings at the lung bases worse on the left side suggestive of atelectasis. There has been mild improvement. Electronically Signed: Az Avalosemily, at 15:38 EDT , Service support , Chest X-Ray 12/26/18 12:35 IMPRESSION: The tip of the right internal jugular venous catheter is at the junction of the superior vena cava and right atrium. Stable increased markings at the lung bases slightly worse on the left side. Electronically Signed: Az Kelly, at 12:58 EDT , Service support , Cholangiogram 12/26/18 13:41 IMPRESSION: No common bile duct stone. Electronically Signed: Fermin Alvarado MD at 14:44 EDT Tel , Service support , Chest X-Ray 12/28/18 05:55 IMPRESSION: Subsegmental atelectases are noted in the right and left lung bases. Small bilateral pleural effusions are noted. Electronically Signed: Carmen Ruby, at 6:04 EDT Tel , Service support , Medical Necessity - Tobacco Use Smoking Status: Never smoker Tobacco Use: Non-smoker Assessment/Plan All Active Problems Gallstone pancreatitis (Acute) Cough (Acute) Vomiting (Acute) RECOMMENDATIONS: 1. Dietary advancement per surgery recommendations. 2. Transition from IV pain control to p.o. regimen. 3. Continue to encourage incentive spirometer use while in bed. 4. Reattempt to wean supplemental oxygen this morning. If the patient once again desaturates, may need to consider administering a one-time dose of Lasix. 5. Mobilize patient as tolerated. IMPRESSIONS: 1. Sepsis secondary to acute gallstone pancreatitis and cholecystitis, now POD #2 s/p laparoscopic cholecystectomy The patient has stabilized clinically with aggressive volume resuscitation, broad-spectrum antimicrobials and subsequent surgical intervention. The patient has remained hemodynamically stable and never required the initiation of vasopressor support. We will plan to continue current supportive measures. Dietary advancement per surgery recommendations. Supplemental fluids have been discontinued. Central venous catheter is been removed. 2. Acute hypoxemic respiratory insufficiency Suspect likely secondary to aggressive volume resuscitation coupled with atelectasis. The patient has no signs or symptoms to suggest an underlying pneumonia. As of this morning, the patient is maintaining appropriate oxygen saturations on 2 L/min. However, he does desaturate on room air. If this continues to be an issue, may need to consider administering IV Lasix x1 to help facilitate weaning from supplemental oxygen, given that he is overall net positive from a volume perspective for the hospital admission. He has been encouraged to continue to utilize his incentive spirometer while in bed. He will be mobilized as tolerated. 3. Heart failure with preserved ejection fraction/aortic stenosis Clinically stable at this time. If the patient is unable to be weaned from supplemental oxygen, consider administration of IV Lasix. This note was generated with [employer] dictation software. It may contain incorrect words, spelling, and punctuation that were not noted in checking the note before signing. Code Visit Inpatient E&M: 96856 [facility] Hosp L3
[2018-12-28] MEDS: Bisacodyl 10 MG Suppository RECTAL (06:48)
[2018-12-28 08:00] VITALS: BP 132/71; PULSE 61; RESP 16; TEMP 36.6; O2SAT 94
[2018-12-28 09:00] VITALS: O2SAT 94
--- NOTE | 2018-12-28 09:04 | PN_ITS ---
Patient Problems: Active and Suspected Problems Gallstone pancreatitis (Acute) Cough (Acute) Vomiting (Acute) Subjective: Feeling much better today, he passed gas and had a bowel movement he is currently on room air and will follow up and make sure that he is having normal oxygen saturation prior to discharge today. Vitals/I&O's: Vital Signs Temp Pulse Resp BP Pulse Ox 97.9 F 63 18 129/75 H 93 12/28/18 02:30 12/28/18 02:30 12/28/18 02:30 12/28/18 02:30 12/28/18 02:30 Oxygen Flow Rate (L/min) 2 Oxygen Delivery Method Nasal Cannula Weight: 171 lb 8.314 oz Body Mass Index (BMI) 23.6 Intake and Output for Last 24 Hours 12/26/18 12/27/18 12/28/18 23:59 23:59 23:59 Intake Total 4757 / 5462 3268.5 / 3268.5 639.7 / 639.7 Output Total 670 / 670 1100 / 1100 375 / 375 Balance 4087 / 4792 2168.5 / 2168.5 264.7 / 264.7 General: Alert, Oriented x3, Cooperative, No apparent distress HEENT: Atraumatic, PERRLA, EOMI, Normocephalic Oral: Moist Mucosa Neck: Supple, No JVD Lungs: Normal air movement, No rhonchi, No wheeze, Diminished, Rales Cardiovascular: Regular rate, Regular Rhythm, Normal S1, Normal S2, No murmurs Abdomen: Soft, Non Tender, Non-Distended, No Hepato-splenomegaly, - - Incision are clean, dry, intact Extremities: No edema, Capillary Refill Less than 3 Seconds Skin: No rashes, No breakdown Neurological: Neuro grossly intact, Sensory exam intact to light touch and pain Psych/Mental Status: Normal Affect, Appropriate Laboratory Results 12/28/18 04:20: WBC 7.7, RBC 4.43 L, Hgb 14.1, Hct 42.2, MCV 95.3 H, MCH 31.8, MCHC 33.4, RDW Std Deviation 49.4 H, RDW Coeff of López 14.0, Plt Count 133 L, MPV 10.3, Immature Gran % (Auto) 0.400, Neut % (Auto) 77.1 H, Lymph % (Auto) 13.2 L, [place] % (Auto) 8.0, Eos % (Auto) 1.2, Baso % (Auto) 0.1, Absolute Neuts (auto) 5.9, Absolute Lymphs (auto) 1.01, Nucleated RBC % 0 12/28/18 04:20: Sodium 141, Potassium 3.7, Chloride 107, Carbon Dioxide 31.0, Anion Gap 3 L, BUN 18, Creatinine 0.89, Estim Creat Clear Calc 64.93, Est GFR (MDRD) Af Amer 105, Est GFR (MDRD) Non-Af 87, BUN/Creatinine Ratio 20.2 H, Glucose 90, Calcium 7.9 L, Total Bilirubin 2.20 H, AST 78 H, ALT 206 H, Alkaline Phosphatase 258 H, Total Protein 5.8 L, Albumin 2.3 L, Globulin 3.5, Albumin/Globulin Ratio 0.7 L Current Medications Dextrose (D50w Syringe) 0 gm IV X1 PRN; Protocol PRN Reason: Hypoglycemia Enoxaparin Sodium (Lovenox) 40 mg SC DAILY@1000 [facility] Last Admin: 12/27/18 10:04 Dose: 40 mg Documented by: Fentanyl Citrate (Sublimaze (100mcg Ampule)) 50 mcg IV Q2H PRN PRN PRN Reason: PAIN Last Admin: 12/27/18 02:35 Dose: 50 mcg Documented by: Glucagon () 1 mg IM .X1 PRN PRN Reason: Hypoglycemia Sodium Chloride () 250 mls @ 15 mls/hr IV .[id number] PRN PRN Reason: SALINE FLUSH Last Admin: 12/26/18 15:40 Dose: 15 mls/hr Documented by: Latanoprost (Xalatan Opthalmic) 1 drop EACH EYE QHS [facility] Last Admin: 12/27/18 21:09 Dose: 1 drop Documented by: Ondansetron HCl (Zofran) 4 mg IV Q8H PRN PRN PRN Reason: NAUSEA/VOMITING Last Admin: 12/26/18 16:53 Dose: 4 mg Documented by: Sodium Chloride () 10 - 40 ml IV UD PRN PRN Reason: SALINE FLUSH Last Admin: 12/27/18 02:35 Dose: 20 ml Documented by: Timolol Maleate (Timoptic) 1 drop EACH EYE BID [facility] Last Admin: 12/27/18 21:08 Dose: 1 drop Documented by: Medical Necessity - Tobacco Use Smoking Status: Never smoker Tobacco Use: Non-smoker Assessment/Plan All Active Problems Gallstone pancreatitis (Acute) Cough (Acute) Vomiting (Acute) 1. Severe sepsis secondary to acute gallstone pancreatitis and cholecystitis/elevated LFTs/acute hypoxic respiratory insufficiency -Status post laparoscopic cholecystectomy 12/26/2018 -A bowel movement and is tolerating a diet -He maintains oxygen saturations on room air, will plan for discharge home later today -Sepsis has resolved therefore no further antibiotics necessary -We will need to follow-up with his primary care physician and general surgery as an outpatient -Has not used any pain medication since yesterday morning at 2 AM -LFTs are returning to baseline -His hypoxia is resolved and there is no indication of having a pneumonia, his respiratory insufficiency was likely secondary to fluid overload 2. Glaucoma -Stable -Continue with home eyedrops 3. Chronic diastolic heart failure/aortic stenosis -Both of these have been stable during his stay -No acute intervention necessary, may need a dose of Lasix if his hypoxia does not resolve DVT: Silviax Code Visit Inpatient E&M: 46125 Subs Hosp L2
[2018-12-28] MEDS: Enoxaparin 40 MG/0.4 ML Syringe SC (11:28)
[2018-12-28] MEDS: Timolol 0.25% 5ML OPTH.BTL 1 DRP EACH EYE (11:28)
[2018-12-28 11:46] VITALS: O2SAT 94
--- NOTE | 2018-12-28 13:12 | PCM.DC.SUM ---
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 Mild bibasilar infiltrates. Trace bilateral effusions versus scarring. CT Abd/Pelvis: IMPRESSION: Bibasilar pulmonary infiltrates. Findings suggestive of cholecystitis and mild degree of pancreatitis. Sigmoid diverticulosis. Echo: Interpretation Summary The estimated ejection fraction is 65 %. Stage 2 diastolic dysfunction. Mildly dilated right ventricle. Trivial mitral valve insufficiency. Unable to estimate RV systolic pressure due to insufficient tricuspid regurgitant envelope. Mild to moderate aortic stenosis. Calculated aortic valve area (continuity equation) is 1.6 cm2. Trivial aortic valve insufficiency. There is no comparison study available. Consults: General Surgery ICU Operations: cholecystecomy - Date of Procedure: 12/26/18 Pre-Operative Diagnosis: Gallstone pancreatitis, chronic cholecystitis cholelithiasis, suspected choledocholithiasis Post-Operative Diagnosis: Gallstone pancreatitis, chronic cholecystitis cholelithiasis Surgery/Procedure Performed:: Laparoscopic cholecystectomy with cholangiograms Procedures: 2-D Echocardiogram, Central line placement Summary of Care Provided: Per HPI: The patient is a 83 year old M with a past medical history of asymptomatic aortic stenosis and glaucoma. He was admitted through the ED on 12/25/2018 with a complaint of abdominal pain which started around noon on the day of admission. Pain was mainly epigastric and rated about 8/10. Described as a sharp pain with no evidence of radiation with no aggravating or relieving factors. He had associated nausea and vomiting but denied any fever or chills, palpitations or dizziness or diarrhea. He is never had pain like this before. Review of systems otherwise negative. In the ED, vitals are essentially stable apart from mildly elevated blood pressure of 146/72. Chemistries were significant for total bilirubin of 3.8 with direct bilirubin of 2.78 and AST of 340 as well as ALT of 432 at ALP of 337. Lipase was 9435. CBC showed no leukocytosis. Gallbladder ultrasound showed mild gallbladder wall thickening and trace pericholecystic fluid and cholelithiasis with findings equivocal for cholecystitis. He has been admitted to be managed for acute gallstone pancreatitis. Hospital Course: 1. Severe sepsis secondary to acute gallstone pancreatitis and cholecystitis/elevated LFTs/acute hypoxic respiratory insufficiency -Status post laparoscopic cholecystectomy 12/26/2018 -Had a bowel movement and is tolerating a diet -He maintains oxygen saturations on room air, will plan for discharge home later today -Sepsis has resolved therefore no further antibiotics necessary -We will need to follow-up with his primary care physician and general surgery as an outpatient -Has not used any pain medication since yesterday morning at 2 AM -LFTs are returning to baseline -His hypoxia is resolved and there is no indication of having a pneumonia, his respiratory insufficiency was likely secondary to fluid overload 2. Glaucoma -Stable -Continue with home eyedrops 3. Chronic diastolic heart failure/aortic stenosis -Both of these have been stable during his stay -No acute intervention necessary, may need a dose of Lasix if his hypoxia does not resolve DVT: Lovenox Patient Problems: Active and Suspected Problems Gallstone pancreatitis (Acute) Cough (Acute) Vomiting (Acute) - Physical Exam Vital Signs Temp Pulse Resp BP Pulse Ox 97.9 F 61 16 132/71 H 94 12/28/18 08:00 12/28/18 08:00 12/28/18 08:00 12/28/18 08:00 12/28/18 11:46 Oxygen Flow Rate (L/min) 2 Oxygen Delivery Method Room Air Weight: 171 lb 8.314 oz Body Mass Index (BMI) 23.6 Intake and Output for Last 24 Hours 12/26/18 12/27/18 12/28/18 23:59 23:59 23:59 Intake Total 4757 / 5462 3268.5 / 3268.5 879.7 / 879.7 Output Total 670 / 670 1100 / 1100 375 / 375 Balance 4087 / 4792 2168.5 / 2168.5 504.7 / 504.7 Microbiology Past 72 Hours 12/26/18 09:40 Blood Culture - Preliminary Blood Culture (Wb) - Right Forearm No growth in 48 hours. 12/26/18 09:20 Blood Culture - Preliminary Blood Culture (Wb) - Left Forearm No growth in 48 hours. Laboratory Tests Past 24 Hrs 12/28/18 12/28/18 04:20 04:20 WBC 7.7 RBC 4.43 L Hgb 14.1 Hct 42.2 MCV 95.3 H MCH 31.8 MCHC 33.4 RDW Std Deviation 49.4 H RDW Coeff of López 14.0 Plt Count 133 L MPV 10.3 Immature Gran % (Auto) 0.400 Neut % (Auto) 77.1 H Lymph % (Auto) 13.2 L [place] % (Auto) 8.0 Eos % (Auto) 1.2 Baso % (Auto) 0.1 Absolute Neuts (auto) 5.9 Absolute Lymphs (auto) 1.01 Nucleated RBC % 0 Sodium 141 Potassium 3.7 Chloride 107 Carbon Dioxide 31.0 Anion Gap 3 L BUN 18 Creatinine 0.89 Estim Creat Clear Calc 64.93 Est GFR (MDRD) Af Amer 105 Est GFR (MDRD) Non-Af 87 BUN/Creatinine Ratio 20.2 H Glucose 90 Calcium 7.9 L Total Bilirubin 2.20 H AST 78 H ALT 206 H Alkaline Phosphatase 258 H Total Protein 5.8 L Albumin 2.3 L Globulin 3.5 Albumin/Globulin Ratio 0.7 L Discharge Diet: Light diet - advance as tolerated - if you have questions about your diet instructions, please talk to you doctor. Discharge Activity: May Not Drive - for 1 week or while taking narcotic pain medicine. May shower in (days): 1 Call your doctor if your incision/area has: Continuous Slow Oozing, Sudden Increased Bleeding, Increased Pain/ Swelling, Increased Redness, Foul Smelling Discharge Call your doctor if you observe: Fever of 101 or Higher Suture Line Care: Avoid Pulling/Pushing, Avoid Pinching/Bending Additional Dressing/Incision Instructions:: Change or remove dressing in 4 days. Leave steri-strips in place for 1 week. Home Medications: Medications to take at Discharge Tafluprost/Pf [Zioptan 0.0015% Eye Drops] 1 drp EACH EYE QHS 12/25/18 Timolol 0.25% [Timoptic] 1 drp EACH EYE BID 12/25/18 Primary Care Physician: Ramirez Welch MD [Primary Care Provider] - Please follow up with your Primary Care Physician in: 3-5 days Please Follow Up With: Lance Bennett MD - [phone] When: Call to make an appointment to be seen in about 10 days. Disposition: Home Minutes spent on discharge:: 35 Patient Condition:: Stable Medical Necessity - Tobacco Use Smoking Status: Never smoker Tobacco Use: Non-smoker Meaningful Use Info Meaningful Use Diagnoses (Choose all that apply): None applicable Code Visit Inpatient E&M: 30575 Disch Hosp
[2018-12-28 17:30] VITALS: BP 132/71; PULSE 61; RESP 16; TEMP 36.6; O2SAT 94
== END 2018-12-28 18:05 | disposition home or self-care (01) | DRG 417 ==
LOC: ED 17:10 → MS3 19:27 → ICU 12-26 10:29
PROVIDERS: Internal Medicine; Surgery; Admitting Provider Student in an Organized Health Care Education/Training Program; Emergency Provider Emergency Medicine; Family Provider Family Medicine; PCP Family Medicine; Referring Provider Student in an Organized Health Care Education/Training Program; Visit Provider Family Medicine
PROC: 0FT44ZZ Resection of Gallbladder, Percutaneous Endoscopic Approach (ICD-10-PCS; CPT 47610; principal; 2018-12-26 14:30)
DX: K85.10 Biliary acute pancreatitis without necrosis or infection (principal); A41.9 Sepsis, unspecified organism; R65.20 Severe sepsis without septic shock; K56.7 Ileus, unspecified; K80.10 Calculus of gallbladder with chronic cholecystitis without obstruction; H40.9 Unspecified glaucoma; R09.02 Hypoxemia; I35.0 Nonrheumatic aortic (valve) stenosis; R06.89 Other abnormalities of breathing
CPT/HCPCS: 36415; 71045; 71046; 74176; 74300; 76000; 76705; 80048; 80053; 80076; 82436; 82570; 82962; 83036; 83605; 83690; 83735; 84100; 84133; 84300; 85025; 85610; 85730; 87040; 88304; 93005; 93306; 97162; 97166; 97530; 97802; 99284; J7030; J7050; J7120; A4216; C1751; J1610; J2310; J2405

== ENCOUNTER 2021-06-02 12:39 | Outpatient (CLI) | payer MEDICARE, OTHER, SELFPAY ==
--- NOTE | 2021-06-02 12:42 | ECHOD_ITS ---
Reason For Study: Aortic Stenosis Procedure This was a 2D Doppler, Color Flow transthoracic echocardiogram. The exam was of adequate technical quality. Exam performed in department. Left Ventricle Normal LV size. Left ventricular systolic function is normal. The estimated ejection fraction is 60 %. No evidence for diastolic dysfunction. No regional wall motion abnormalities noted. Right Ventricle Normal RV size. Normal systolic function. Atria Normal left atrium. Normal right atrium. No doppler evidence for ASD. Mitral Valve There is no mitral annular calcification. Normal mitral valve. Trivial mitral valve insufficiency. Tricuspid Valve Normal tricuspid valve. Trivial tricuspid valve insufficiency. Unable to estimate RV systolic pressure due to insufficient tricuspid regurgitant envelope. Aortic Valve Trisinus/trileaflet aortic valve. Mild diffuse aortic valve thickening. Moderate diffuse aortic valve calcification. Mild to moderate aortic stenosis. Trivial aortic valve insufficiency. Pulmonic Valve The pulmonic valve is not well visualized. Trivial pulmonic valve insufficiency. Great Vessels Normal sized aortic root. Pericardium/Pleural No pericardial effusion. MMode/2D Measurements & Calculations LVIDd: 4.7 cm IVSd: 0.87 cm LVOT diam: 2.1 cm LVIDs: 3.0 cm LVPWd: 0.93 cm LVOT area: 3.3 cm2 RVDd: 3.6 cm FS: 36.9 % Ao root diam: 3.4 cm LAV(MOD-bp): 22.1 ml LA A4 area: 10.5 cm2 ACS: 1.1 cm LAV(MOD-bp) Indexed: 11.5 ml/m2 LA dimension: 2.3 cm LAV(MOD-sp2): 22.1 ml LAV(MOD-sp4): 19.5 ml RA A4 area: 12.2 cm2 Time Measurements MV dec time: 0.33 sec Doppler Measurements & Calculations MV E max yury: 48.3 cm/sec Lat Peak E' Yury: 5.6 cm/sec Med Peak E' Yury: 5.9 cm/sec MV A max yury: 86.8 cm/sec E/E' lat: 8.6 E/E' med: 8.2 MV E/A: 0.56 MV V2 max: 82.0 cm/sec MV P1/2t max yury: 47.5 cm/sec Ao V2 max: 240.7 cm/sec MV max P.7 mmHg MV P1/2t: 89.5 msec Ao max P.2 mmHg MV V2 mean: 34.7 cm/sec MV dec slope: 155.3 cm/sec2 Ao V2 mean: 163.9 cm/sec MV mean P.63 mmHg Ao mean P.4 mmHg MV V2 VTI: 19.8 cm MVA(P1/2t): 2.5 cm2 Ao V2 VTI: 50.4 cm MVA(VTI): 3.0 cm2 ANGÉLICA(I,D): 1.2 cm2 ANGÉLICA(V,D): 1.1 cm2 AI max yury: 351.1 cm/sec LV V1 max: 82.7 cm/sec SV(LVOT): 60.1 ml AI max P.3 mmHg LV V1 max P.7 mmHg LV V1 mean P.4 mmHg AI dec slope: 149.9 cm/sec2 LV V1 mean: 55.1 cm/sec AI P1/2t: 686.0 msec LV V1 VTI: 18.2 cm PA V2 max: 94.4 cm/sec ECHO/Echo Complete Interpretation Summary Left ventricular systolic function is normal. The estimated ejection fraction is 60 %. Trivial mitral valve insufficiency. Trivial tricuspid valve insufficiency. Mild to moderate aortic stenosis. Trivial aortic valve insufficiency. Trivial pulmonic valve insufficiency. Unable to estimate RV systolic pressure due to insufficient tricuspid regurgita nt envelope. No evidence for diastolic dysfunction. Ordering Physician: Jayy Kma Referring Physician: MD Ramirez Welch Performed By: Alhaji Florez RCS
== END 2021-06-02 23:59 | disposition short-term general hospital (02) ==
LOC: CVS 12:41
PROVIDERS: PCP Family Medicine; Referring Provider Internal Medicine Cardiovascular Disease; Visit Provider Internal Medicine Cardiovascular Disease
DX: I25.10 Atherosclerotic heart disease of native coronary artery without angina pectoris (principal); I35.0 Nonrheumatic aortic (valve) stenosis
CPT/HCPCS: 93306

== ENCOUNTER → 2021-11-10 | Outpatient (CLI) | payer MEDICARE, OTHER, SELFPAY ==
[2021-11-10 12:42] LABS: Glucose 88 mg/dL (74-106)
[2021-11-11 11:17] LABS: C-Peptide 0.9 ng/mL (1.1-4.4)
== END | disposition home or self-care (01) ==
LOC: BIMLAB 08:34
PROVIDERS: PCP Family Medicine; Referring Provider Nurse Practitioner Family; Visit Provider Nurse Practitioner Family
DX: I25.10 Atherosclerotic heart disease of native coronary artery without angina pectoris (principal); E11.9 Type 2 diabetes mellitus without complications; I10 Essential (primary) hypertension
CPT/HCPCS: 36415; 82947; 84443; 84681

== ENCOUNTER 2022-01-18 18:42 | Inpatient (IN) | payer MEDICARE, OTHER, SELFPAY ==
[2022-01-18] VITALS (12 sets, daily range): BP systolic 58–80; BP diastolic 38–48; PULSE 64–85; RESP 12–25; TEMP 36.3–37.3; O2SAT 92–100; BMI 17.8; BMI 19.7
--- NOTE | 2022-01-18 19:28 | EKG12_ITS ---
Test Reason : Blood Pressure : / mmHG Vent. Rate : 074 BPM Atrial Rate : 074 BPM P-R Int : 168 ms QRS Dur : 082 ms QT Int : 390 ms P-R-T Axes : 070 058 070 degrees QTc Int : 432 ms Normal sinus rhythm Normal ECG When compared with ECG of 26-DEC-2018 05:31, No significant change was found Confirmed by COREY LAKE, AYAD ([id number]), editor school photograph JOSELITO SALMON ([id number]) on 01/20/2022 9:42:38 AM Referred By: Confirmed By:AYAD NICOLE MD
[2022-01-18] MEDS: 0.9% Normal Saline 1,000 ML 1000 ML IV ×3 (19:30→20:28)
--- NOTE | 2022-01-18 19:30 | EDS_ITS ---
HPI History of Present Illness Chief Complaint: Fever Informant: patient and spouse/S.O. Narrative Narrative: This patient started to feel weak and no energy today. He has had a slight cough but no productivity. He is not short of breath. He is not hurting anyw here. He is not having abdominal pain. No notable urinary symptoms. He has been hot and cold and is felt as though he has had a fever at home. He has had rigors. This patient was generally healthy until he was diagnosed with diabetes about 6 months ago. This led to further work-up. This led to ultrasound CT and then biopsy. A stent was placed in the liver because he was getting jaundiced. He was diagnosed with pancreatic cancer. Since the stent was placed about 2-1/2 or 3 weeks ago the jaundice is gotten a lot better. He was due to start chemotherapy on . He has not yet had any chemotherapy. Only abdominal surgery is prior cholecystectomy many years ago. After specific questioning, I find that this patient's blood pressure normally is about 100 systolic. He does have a history of murmur and I think from his exam this is likely aortic stenosis. Therefore, I think his blood pressure is normally on the low side. He is tolerating his very low blood pressure here surprisingly well. I think the above reasons are the basis for this. [facility] Medical History (Updated 01/18/22 @ 22:[address] Shravan Dawsno MD) Atherosclerotic heart disease of [place] coronary artery without angina pectoris Chronic cholecystitis due to cholelithiasis with choledocholithiasis Cough Diverticulosis Essential hypertension Gallstone pancreatitis Mixed hyperlipidemia Non-rheumatic aortic stenosis Vomiting Home Medications tafluprost (PF) 0.0015 % eye drops in a dropperette 1 drp EACH EYE QHS glucoma 12/25/18 [History Last Taken 12/24/18] timolol maleate 0.25 % eye drops 1 drp EACH EYE BID glucoma 12/25/18 [History Last Taken 12/25/18] mn-zkv-nncxi lipoic rjiy-IK-jdbdzgxlyexcl 100 mg-0.8mg -10 mg tablet 1 tab PO DAILY 01/21/19 [History Last Taken Unknown] sildenafil 100 mg tablet (Viagra) 50 mg PO DAILY PRN sexual activity 01/21/19 [History Last Taken Unknown] lutein 20 mg capsule 20 mg PO DAILY 01/31/19 [History Last Taken Unknown] Lantus Solostar U-100 Insulin 100 unit/mL (3 mL) subcutaneous pen (insulin glargine) 8 unit (0.08 mL) subcut DAILY #15 mL 11/26/21 [Rx Last Taken Unknown] insulin aspart U-100 100 unit/mL (3 mL) subcutaneous pen (Novolog Flexpen U-100 Insulin aspart) 4 unit subcut TIDWMEAL 01/18/22 [History Last Taken Unknown] trazodone 50 mg tablet 50 mg PO QHS PRN Insomnia 01/18/22 [History Last Taken Unknown] Allergy/AdvReac Type Severity Reaction Status Date / Time No Known Allergies Allergy Verified 01/18/22 18:44 Family History Father Diabetes Mother Diabetes Surgical History History of bilateral inguinal hernia repair S/P laparoscopic cholecystectomy (~12/2018) Social History Smoking Status: Never smoker alcohol intake: never substance use type: does not use caffeine: Yes Type: coffee Number of servings: 2 ROS ROS ED Constitutional Constitutional ED: Reports chills, fever(s) and subjective Eyes Eyes: Denies change in vision ENT ENT ED: Denies rhinorrhea or sore throat Cardiovascular Cardiovascular: Denies chest pain, palpitations or racing heartbeat Respiratory/Chest Respiratory/Chest: Reports cough; Denies dyspnea or sputum Gastrointestinal Gastrointestinal: Denies abdominal pain, diarrhea or vomiting Genitourinary Genitourinary ED: Denies dysuria Musculoskeletal Musculoskeletal: Denies arthralgias or myalgias Integumentary Denies rash Neurologic Neurologic: Denies headache(s) Endocrine Endocrinology: Denies polydipsia or polyuria Hematologic/Lymphatic Hematologic/Lymphatic: Denies easy bleeding or easy bruising Allergic/Immunologic Allergic/Immunologic ED: Denies mouth swelling, tongue swelling or urticaria EXAM Physical Exam Const Vital Signs: 01/18/22 18:44 01/18/22 18:53 01/18/22 19:46 Temperature 97.4 F L Temperature Source Temporal Pulse Rate 85 71 Respiratory Rate 14 16 Respiratory Effort Normal Non-Labored Respiratory Pattern Normal Blood Pressure 58/38 L 63/44 L Blood Pressure Mean 44 50 Pulse Ox 92 93 Oxygen Delivery Method Room Air Room Air Oxygen Flow Rate (L/min) 01/18/22 20:00 01/18/22 20:27 01/18/22 21:00 Temperature 98.1 F 97.7 F L Temperature Source Core Core Pulse Rate 68 67 Respiratory Rate 16 16 Respiratory Effort Respiratory Pattern Blood Pressure 67/43 L 67/48 L 65/43 L Blood Pressure Mean 51 54 50 Pulse Ox 100 97 Oxygen Delivery Method Nasal Cannula Nasal Cannula Oxygen Flow Rate (L/min) 2 2 01/18/22 22:00 Temperature 97.7 F L Temperature Source Core Pulse Rate 67 Respiratory Rate 18 Respiratory Effort Respiratory Pattern Blood Pressure 61/41 L Blood Pressure Mean 47 Pulse Ox 95 Oxygen Delivery Method Room Air Oxygen Flow Rate (L/min) Positive well nourished and well developed Constitutional Narrative: Despite his blood pressure, he is wide-awake alert and still has a sense of humor. General Appearance ED: well developed and NAD; Negative for pallor HEENT Reports dry mucous membranes HEENT Narrative: No sinus tenderness. Mouth ED: Yes dry mucous membranes Mouth: dry mucous membranes Eyes EOMs intact bilaterally Neck no lymphadenopathy and no JVD Chest Wall inspection of chest normal and palpation of chest normal Resp normal respiratory effort and clear to auscultation bilaterally Resp Narrative: Oxygen level is about 92 to 94% on room air showing no notable hypoxia Auscultation: Negative for rales, rhonchi or wheezes Cardio regular rate and regular rhythm Rate: other Other Details: Patient's heart rate is normal. However considering his blood pressure I would like to see it a bit faster. Only beta-serge that he is on is for glaucoma with timolol eyedrops. GI normal to inspection, nondistended, normoactive bowel sounds and non-tender GI Narrative: No tenderness. No mass felt. Extremity normal to inspection Extremity Narrative: Patient does still have radial pulses palpable even with a systolic blood pressure of 60. General Extremety ED: Negative for edema or tenderness General Extremity: Negative for edema Neuro oriented x3 Neuro Narrative: Patient is awake alert appropriate and quick to respond and answer. Sensorium / Orientation: alert Psych mental status grossly normal Skin no rashes or lesions noted Skin Narrative: I do not see jaundice at this time clinically General Skin Exam: Negative for jaundice or pallor MDM MDM MDM Narrative Medical decision making narrative: Patient's blood work shows a very high white count. Hemoglobin and platelets are normal. Electrolytes show elevation in creatinine. This is consistent with an acute kidney injury level. Total bilirubin is mildly elevated. Sure but per family, his jaundice is not markedly improved. He is not having abdominal pain. His lactate is also elevated at 3.9. Patient's repeat blood pressure after IV fluid is still running 67 systolic. But the patient is sitting upright. He is eating ice chips. He is awake and alert. He even corrected his and daughter on when he last took his meds. Patient's blood pressure is consistently low despite IV fluids. He is dehydrated. He is mentating perfectly well. But when I look back on his record he has had lower systolics but not at 100. With his presentation of sepsis, elevated lactate, unresponsive blood pressure, we did do central line. I talked with him about risks and benefits. I have discussed admission with hospitalist who has seen the patient in the emergency department Procedure: Placement of central line: Discussed risk benefits options. We included discussing options of peripheral pressors and some of the potential problems. The area was sterilely prepped and draped. Anesthesia was with 1 cc of lidocaine under ultrasound guidance. He had a prominent internal jugular. He was placed in slight Trendelenburg. We initially had a cannulation I believe of artery. This was immediately rests nice and pressure held. No swelling occurred. We then were able to pass the central line. We had good flush and drawl on all 3 ports. It was sutured in place. Post procedure chest x-ray is pending. Pressors have been ordered. Overall, patient tolerated well. Lab Data Attestation: I reviewed the patient's lab results. Labs: Laboratory Results - last 24 hr 01/18/22 01/18/22 01/18/22 19:00 19:00 19:00 WBC 19.1 H RBC 3.89 L Hgb 13.1 Hct 39.5 L MCV 101.5 H MCH 33.7 H MCHC 33.2 RDW Std Deviation 57.0 H RDW Coeff of López 15.0 H Plt Count 185 MPV 10.2 Immature Gran % (Auto) INCIDENT RESPONSE ENGINEER Neut % (Auto) INCIDENT RESPONSE ENGINEER Lymph % (Auto) INCIDENT RESPONSE ENGINEER Gates % (Auto) INCIDENT RESPONSE ENGINEER Eos % (Auto) INCIDENT RESPONSE ENGINEER Baso % (Auto) INCIDENT RESPONSE ENGINEER Absolute Neuts (auto) 17.8 H Absolute Lymphs (auto) 0.38 L Total Counted 100 Neutrophils % (Manual) 63 Band Neutrophils % 23 H Lymphocytes % (Manual) 2 L Monocytes % (Manual) 4 Eosinophils % (Manual) 1 Metamyelocytes % 7 H Nucleated RBC % 0 Diff Path Review May foll Platelet Estimate ADEQUATE RBC Morphology NORM C+C Sodium 133 L Potassium 3.8 Chloride 99 Carbon Dioxide 25.0 Anion Gap 9 BUN 22 H Creatinine 1.40 H Estim Creat Clear Calc 31.10 Est GFR (MDRD) Af Amer 62 Est GFR (MDRD) Non-Af 51 L BUN/Creatinine Ratio 15.7 Glucose 78 Lactic Acid 3.9 H* Calcium 8.2 L Total Bilirubin 2.90 H AST 69 H ALT 63 H Alkaline Phosphatase 219 H Troponin I High Sens 11 Total Protein 5.8 L Albumin 1.8 L Globulin 4.0 Albumin/Globulin Ratio 0.4 L Lipase 35 L Procalcitonin Cortisol Urine Color Urine Clarity Urine pH Ur Specific [place] Urine Protein Urine Glucose (UA) Urine Ketones Urine Occult Blood Urine Nitrite Urine Bilirubin Urine Urobilinogen Ur Leukocyte Esterase Urine RBC Urine WBC Ur Squamous Epith Cells Urine Bacteria Urine Mucus 01/18/22 01/18/22 01/18/22 19:52 21:00 21:00 WBC RBC Hgb Hct MCV MCH MCHC RDW Std Deviation RDW Coeff of López Plt Count MPV Immature Gran % (Auto) Neut % (Auto) Lymph % (Auto) Gates % (Auto) Eos % (Auto) Baso % (Auto) Absolute Neuts (auto) Absolute Lymphs (auto) Total Counted Neutrophils % (Manual) Band Neutrophils % Lymphocytes % (Manual) Monocytes % (Manual) Eosinophils % (Manual) Metamyelocytes % Nucleated RBC % Diff Path Review Platelet Estimate RBC Morphology Sodium Potassium Chloride Carbon Dioxide Anion Gap BUN Creatinine Estim Creat Clear Calc Est GFR (MDRD) Af Amer Est GFR (MDRD) Non-Af BUN/Creatinine Ratio Glucose Lactic Acid Calcium Total Bilirubin AST ALT Alkaline Phosphatase Troponin I High Sens Total Protein Albumin Globulin Albumin/Globulin Ratio Lipase Procalcitonin 44.47 H Cortisol 64.50 H Urine Color Jessica Urine Clarity Clear Urine pH 5.0 Ur Specific [place] 1.015 Urine Protein 30 H Urine Glucose (UA) Normal Urine Ketones 5 H Urine Occult Blood 25 H Urine Nitrite Negative Urine Bilirubin 1 H Urine Urobilinogen 4 H Ur Leukocyte Esterase 25 H Urine RBC 0-5 SEEN Urine WBC 0-5 SEEN Ur Squamous Epith Cells 0 SEEN Urine Bacteria 1+ Urine Mucus 0 SEEN Radiography Diagnostic Testing: Clinical Impression(s) from Imaging Studies Chest X-Ray 01/18/22 20:28 IMPRESSION: No acute cardiopulmonary disease Electronically Signed: Kvng Hackett DO at 21:48 EDT Reading Location ID and State: [address] [place] [address] Tel , Service support , Critical Care Time Critical care time (excluding procedures): 30-74 minutes, Discussing w/Patient &/or Family/Manager Contact, Discussing w/Consultants, Arranging Admission or Transfer, Performing Direct Patient Care at Bedside and - (45 minutes, repeat evaluations, repeat ordering, discussion with consultants/family. Not including central line time) Discharge Plan Triage Chief Complaint: Fever ED Provider: Shravan Dawson Dx/Rx/DC Orders Clinical Impression: Septic shock, Lactic acidosis, Leukocytosis, Acute kidney injury Primary Care Provider: Ramirez Welch Disposition Disposition: Acute Care Hospital [facility]
[2022-01-18 19:45] LABS: Hematocrit 39.5 % (40-54); Hemoglobin 13.1 g/dL (13.0-16.5); Mean Corp Hgb Conc 33.2 g/dL (32-36); Mean Corpuscular Hgb 33.7 pg (27.0-32.0); Mean Corpuscular Volume 101.5 fL (80-94); Mean Platelet Vol. 10.2 fl (6.2-12.0); NRBC Flagged by Analyzer 0 % (0-5); POSITIVE MORPHOLOGY YES; Platelet Count 185 K/mm3 (150-450); Red Blood Count 3.89 M/mm3 (4.6-6.2); White Blood Count 19.1 K/mm3 (4.4-11.0)
[2022-01-18 19:48] LABS: Differential Indicated SCAN CRITERIA MET
[2022-01-18 20:01] LABS: ALB/GLOB Ratio 0.4 RATIO (0.9-2.4); AST(SGOT) 69 U/L (15-37); Alanine Aminotransfer ALT/SGPT 63 U/L (16-61); Albumin, Serum 1.8 g/dL (3.2-5.0); Alkaline Phosphatase 219 U/L (45-117); Anion Gap 9 (5-15); BUN 22 mg/dL (7-18); BUN/Creat Ratio 15.7 RATIO (10-20); Calcium,Total 8.2 mg/dL (8.5-10.1); Chloride 99 mmol/L (98-107); EST Glomerular Filtration Rate 51 mL/min (>60); Est Glom Filt Rate - Afr Amer 62 mL/min (>60); Glucose 78 mg/dL (74-106); Lipase 35 U/L (73-393); Potassium 3.8 mmol/L (3.5-5.1); Protein, Total 5.8 g/dL (6.4-8.2); Sodium Level 133 mmol/L (136-145); Troponin-I HS 11 pg/mL (3.0-78.0)
[2022-01-18 20:07] LABS: Scan Smear per Review Criteria MANUAL DIFF
[2022-01-18 20:10] LABS: Lactic Acid 3.9 mmol/L (0.4-1.9)
[2022-01-18 20:12] LABS: Eosinophil 1 % (0-5); Lymphocyte 2 % (19-41); Metamyelocyte 7 % (0-1); Monocyte 4 % (0-10); Neutrophil-Band 23 % (0-5); Neutrophil-Segmented 63 % (47-70); Total Cells Counted 100 (MANUAL DIFF)
[2022-01-18 20:14] LABS: Absolute Lymphocyte Count 0.38 X10^3/uL (0.83-4.51); Absolute Neutrophil Count 17.8 X10^3/uL (2.0-7.7); Lymphocyte # 0.38 X10^3/ul (0.83-4.51); Platelet Estimate ADEQUATE (ADEQ)
[2022-01-18 20:15] LABS: Red Cell Morphology NORM C+C NORMAL (NORM C&C)
[2022-01-18 20:16] LABS: Mucous, Urine 0 SEEN /hpf (<or=2+); Squamous Epithelial Cells - UA 0 SEEN /hpf (0-5)
[2022-01-18 20:24] LABS: Color, Urine Amber (Yellow); Glucose, Dipstick Normal (Normal); Ketone-Dipstick 5 mg/dl (Negative); Leukocyte Esterase-Dipstick 25 /ul (Negative); Nitrite-Dipstick Negative (Negative); Occult Blood-Urine 25 /ul (Negative); Protein-Dipstick 30 mg/dl (Negative); Specific Gravity, Urine 1.015 (1.002-1.030); Urine Clarity Clear (Clear); Urine Urobilinogen 4 mg/dl (Normal)
[2022-01-18 20:26] LABS: Urine Bilirubin Dipstick 1 mg/dL (Negative)
--- NOTE | 2022-01-18 20:28 | RAD_ITS ---
STUDY: X-RAY CHEST REASON FOR EXAM: Male, 86 years old. cough TECHNIQUE: Single AP portable view of the chest. COMPARISON: 12/28/2018 FINDINGS: The lungs are clear and expanded. There is no demonstrated pleural abnormality. Normal size heart. Normal mediastinum and kita. Normal visualized pulmonary arteries. Normal visualized aortic arch and descending thoracic aorta. There are diffuse degenerative changes of the visualized thoracic spine. There is degenerative osteoarthritis of the bilateral shoulders. There is no demonstrated abnormality of the visualized soft tissue structures of the upper abdomen. RAD/Chest 1 View (Portable) IMPRESSION: No acute cardiopulmonary disease Electronically Signed: Kvng Hackett DO at 21:48 EDT ,
[2022-01-18] MEDS: 0.9% Normal Saline 1,000 ML 999 ML IV (20:36)
[2022-01-18 20:37] LABS: White Blood Cells 0-5 SEEN /hpf (0-5)
[2022-01-18 20:38] LABS: Bacteria 1+ /hpf (None Seen); Red Blood Cells-Urine 0-5 SEEN /hpf (0-5)
[2022-01-18 21:46] LABS: Procalcitonin 44.47 ng/mL (0.00-0.09)
--- NOTE | 2022-01-18 22:32 | HP.PCM.HOS_ITS ---
HPI - General General Date of Admission: 01/18/22 Date of Service: 01/18/22 Chief Complaint: fever and chills HPI Narrative LITO ROUSE, is a 86 M with a PMH as outlined which includes recently diagnosed pancreatic cancer who presents via the ED with complaint of fever and chills which started on the day of admission. He said he suddenly felt very chilly and had to use about 4 blankets to feel better. He has had a mild cough which is n onproductive. He denies any chest pain or shortness of breath and denies any abdominal pain or urinary symptoms or any diarrhea or vomiting. Review of systems otherwise negative. He was diagnosed with diabetes mellitus 6 months ago and as part of the work-up, imaging done showed evidence of pancreatic cancer. He was jaundiced and had a stent placed to help with this. His jaundice according to patient has improved. Patient had been due to start chemotherapy on , 01/20/2022 with [facility] oncology. Patient also stated that his blood pressure usually runs in the 100 systolic. Vitals in the ED were blood pressure of 65/43, pulse rate of 67 and respiratory of 16 with temperature of 97.7 Fahrenheit. He was saturating 97% on 2 L of oxygen. CBC showed WBC of 19.1 with hemoglobin of 13.1 and platelets of 185. Chemistry was significant for creatinine of 1.4 with a baseline of around 0.89 and lactic acid was 3.9. Total bilirubin was 2.9 and AST and ALT as well as ALP were mildly elevated. Serum cortisol level was 64.5 and procalcitonin was markedly elevated at 44.47. Urinalysis showed 1+ bacteria. Patient's hypotension was not responsive to fluids. Central line was therefore put in in the ED. He has been admitted to be managed for septic shock of unclear etiology not known patient with pancreatic cancer. [facility] Medical History (Updated 01/18/22 @ 22:[address] Clau Garcia MD) Atherosclerotic heart disease of [place] coronary artery without angina pectoris Chronic cholecystitis due to cholelithiasis with choledocholithiasis Cough Diverticulosis Essential hypertension Gallstone pancreatitis Mixed hyperlipidemia Non-rheumatic aortic stenosis Vomiting Home Medications tafluprost (PF) 0.0015 % eye drops in a dropperette 1 drp EACH EYE QHS glucoma 12/25/18 [History Last Taken 12/24/18] timolol maleate 0.25 % eye drops 1 drp EACH EYE BID glucoma 12/25/18 [History Last Taken 12/25/18] sf-okd-jimbl lipoic ovxv-UZ-qtupxzlkdfhsg 100 mg-0.8mg -10 mg tablet 1 tab PO DAILY 01/21/19 [History Last Taken Unknown] sildenafil 100 mg tablet (Viagra) 50 mg PO DAILY PRN sexual activity 01/21/19 [History Last Taken Unknown] lutein 20 mg capsule 20 mg PO DAILY 01/31/19 [History Last Taken Unknown] Lantus Solostar U-100 Insulin 100 unit/mL (3 mL) subcutaneous pen (insulin glargine) 8 unit (0.08 mL) subcut DAILY #15 mL 11/26/21 [Rx Last Taken Unknown] insulin aspart U-100 100 unit/mL (3 mL) subcutaneous pen (Novolog Flexpen U-100 Insulin aspart) 4 unit subcut TIDWMEAL 01/18/22 [History Last Taken Unknown] trazodone 50 mg tablet 50 mg PO QHS PRN Insomnia 01/18/22 [History Last Taken Unknown] Allergy/AdvReac Type Severity Reaction Status Date / Time No Known Allergies Allergy Verified 01/18/22 18:44 Family History Father Diabetes Mother Diabetes Surgical History History of bilateral inguinal hernia repair S/P laparoscopic cholecystectomy (~12/2018) Social History Smoking Status: Never smoker alcohol intake: never substance use type: does not use caffeine: Yes Type: coffee Number of servings: 2 ROS Constitutional Constitutional: Reports chills, fatigue, fever(s), malaise and weakness; Denies anorexia or night sweats Eyes Eyes: Denies change in vision ENT HEENT: Denies dysphagia, headache(s) or sore throat Cardiovascular Cardiovascular: Denies chest pain, dyspnea on exertion, edema, lightheadedness, orthopnea, palpitations, paroxysmal nocturnal dyspnea, rapid heart rate or syncope Respiratory/Chest Respiratory/Chest: Reports cough; Denies hemoptysis, productive cough, shortness of breath at rest, shortness of breath with exertion or wheezing Gastrointestinal Gastrointestinal: Reports diarrhea; Denies abdominal pain, coffee ground emesis, constipation, dyspepsia, hematemesis, hematochezia, loose stools, melena, nausea or vomiting Genitourinary Genitourinary: Denies burning urination, difficulty urinating, dysuria or urinary frequency Musculoskeletal Musculoskeletal: Denies arthralgias or back pain Neurologic Neurologic: Denies confusion, dizziness, focal weakness, headache(s), seizures or syncope Psychiatric Psychiatric: Denies anxiety Vital Signs Vital Signs Vital Signs: 01/18/22 18:44 01/18/22 18:53 01/18/22 19:46 Temperature 97.4 F L Temperature Source Temporal Pulse Rate 85 71 Respiratory Rate 14 16 Respiratory Effort Normal Non-Labored Respiratory Pattern Normal Blood Pressure 58/38 L 63/44 L Blood Pressure Mean 44 50 Pulse Ox 92 93 Oxygen Delivery Method Room Air Room Air Oxygen Flow Rate (L/min) 01/18/22 20:00 01/18/22 20:27 01/18/22 21:00 Temperature 98.1 F 97.7 F L Temperature Source Core Core Pulse Rate 68 67 Respiratory Rate 16 16 Respiratory Effort Respiratory Pattern Blood Pressure 67/43 L 67/48 L 65/43 L Blood Pressure Mean 51 54 50 Pulse Ox 100 97 Oxygen Delivery Method Nasal Cannula Nasal Cannula Oxygen Flow Rate (L/min) 2 2 Weight Weight: 128 lb Body Mass Index (BMI) 17.8 Physical Exam Const alert, oriented x3 and no apparent distress General Appearance: cooperative HEENT normocephalic, head/scalp atraumatic, hearing grossly normal bilaterally and moist oral mucous membranes Mouth: oral and palatal mucosa normal Eyes PERRL, EOMs intact bilaterally and conjunctivae normal Neck no lymphadenopathy, supple and no JVD Resp normal respiratory effort, no use of accessory muscles and clear to auscultation bilaterally Cardio regular rate, regular rhythm, S1 normal heart sound and S2 normal heart sound Cardio Narrative: grade 2-3 ejection systolic murmur at the aortic region GI normal to inspection, nondistended, normoactive bowel sounds, soft to palpation, non-tender and non-distended Extremity normal to inspection, full ROM and no clubbing, cyanosis or edema Neuro oriented x3, CN's II-XII intact bilaterally, moves all extremities and no focal motor deficits Sensorium / Orientation: awake Motor Exam: strength 5/5 throughout Psych affect normal Results Lab / Micro Data Result Diagrams: 01/18/22 19:00 01/18/22 19:00 Labs: Laboratory Results - last 24 hr 01/18/22 19:00: WBC 19.1 H, RBC 3.89 L, Hgb 13.1, Hct 39.5 L, MCV 101.5 H, MCH 33.7 H, MCHC 33.2, RDW Std Deviation 57.0 H, RDW Coeff of López 15.0 H, Plt Count 185, MPV 10.2, Immature Gran % (Auto) CONTRACT ADMINISTRATION MANAGER, Neut % (Auto) CONTRACT ADMINISTRATION MANAGER, Lymph % (Auto) CONTRACT ADMINISTRATION MANAGER, [place] % (Auto) CONTRACT ADMINISTRATION MANAGER, Eos % (Auto) CONTRACT ADMINISTRATION MANAGER, Baso % (Auto) CONTRACT ADMINISTRATION MANAGER, Absolute Neuts (auto) 17.8 H, Absolute Lymphs (auto) 0.38 L, Total Counted 100, Neutrophils % (Manual) 63, Band Neutrophils % 23 H, Lymphocytes % (Manual) 2 L, Monocytes % (Manual) 4, Eosinophils % (Manual) 1, Metamyelocytes % 7 H, Nucleated RBC % 0, Diff Path Review September, Platelet Estimate ADEQUATE, RBC Morphology NORM C+C 01/18/22 19:00: Sodium 133 L, Potassium 3.8, Chloride 99, Carbon Dioxide 25.0, Anion Gap 9, BUN 22 H, Creatinine 1.40 H, Estim Creat Clear Calc 31.10, Est GFR (MDRD) Af Amer 62, Est GFR (MDRD) Non-Af 51 L, BUN/Creatinine Ratio 15.7, Glucose 78, Calcium 8.2 L, Total Bilirubin 2.90 H, AST 69 H, ALT 63 H, Alkaline Phosphatase 219 H, Troponin I High Sens 11, Total Protein 5.8 L, Albumin 1.8 L, Globulin 4.0, Albumin/Globulin Ratio 0.4 L, Lipase 35 L 01/18/22 19:00: Lactic Acid 3.9 H* 01/18/22 19:52: Urine Color Jessica, Urine Clarity Clear, Urine pH 5.0, Ur Specific [place] 1.015, Urine Protein 30 H, Urine Glucose (UA) Normal, Urine Ketones 5 H, Urine Occult Blood 25 H, Urine Nitrite Negative, Urine Bilirubin 1 H, Urine Urobilinogen 4 H, Ur Leukocyte Esterase 25 H, Urine RBC 0-5 SEEN, Urine WBC 0-5 SEEN, Ur Squamous Epith Cells 0 SEEN, Urine Bacteria 1+, Urine Mucus 0 SEEN 01/18/22 21:00: Cortisol 64.50 H 01/18/22 21:00: Procalcitonin 44.47 H Micro: Microbiology 01/18/22 19:52 Nasal Secretion SARS-CoV-2 & FLU Antigen (Rapid) - Final Radiology Impression Chest X-Ray 01/18/22 20:28 IMPRESSION: No acute cardiopulmonary disease Electronically Signed: Kvng Hackett DO at 21:48 EDT Reading Location ID and State: [address] [place] [address] Tel , Service support , Assessment & Plan Assessment/Plan (1) Septic shock: PLAN: Plan #Septic shock * etiology is unclear. * BP has been running in the 60s, and is unresponsive to fluids * central line placed in the ED. * start on IV levophed if needed to maintain MAP >65 * wbc is elevated at 19, lactic acid is also elevated at 3.9 and procalcitonin is also markedly elevated at 44 * Urinalysis showed 1+ bacteria but 0-5 WBC. * Get blood and urine cultures. Start on broad-spectrum antibiotics with IV vancomycin and Zosyn * Consult critical care consult infectious disease. * #Lactic acidosis: Lactic acid is elevated at 3.9. This is likely due to shock. Should improve with hydration and improvement in BP. #Hypertension: Hold all BP meds on account of hypotension #JANES: Creatinine is 1.4 with baseline being around 0.89. This is likely due to septic shock. Should improve with hydration. #Recently diagnosed pancreatic cancer * Has a stent in place to help relieve jaundice. * Was due to start chemotherapy on with [facility] oncology. * to follow up with oncology on outpatient basis * #TYpe 2 diabetes mellitus * on lantus 8 units daily. ISS. Accuchecks ACHS * #Glaucoma: on timolol and tafluprost eye drops DVT prophylaxis: lovenox GI prophylaxis; famotidine Code status: full code * Patient counseled extensively about different types of CODE STATUS including full code, DNR CCA and DNR CCA. Patient elects to be full code. * Total [id number] time 17 minutes. Charges/Coding Visit Charges Inpatient E&M: 13371 Init Hosp L3 Procedures Hospitalists Procedures: 98849 Advncd Care Plan 30 Min
--- NOTE | 2022-01-18 23:00 | RAD_ITS ---
STUDY: X-RAY CHEST REASON FOR EXAM: Male, 86 years old. line placement TECHNIQUE: Single AP portable view of the chest. COMPARISON: 01/18/2022 FINDINGS: Right IJ central venous catheter tip in the mid SVC. No pneumothorax. Lungs are borderline hyperinflated with stable left greater than right basilar infiltrates. Remainder is unchanged RAD/Chest 1 View (Portable) IMPRESSION: Placement of right IJ central venous catheter as above without complications. Remainder is stable. Electronically Signed: Kvng Hackett DO at 0:55 EDT ,
--- NOTE | 2022-01-18 23:00 | CON.PCM_ITS ---
Assessment & Plan Assessment/Plan (1) Septic shock: PLAN: Differential diagnosis would be an occluded stent, migrated stent causing ascending cholangitis. Patient should undergo ERCP with evaluation of his hepatobiliary system. He was explained alternatives, risk, benefits including and withstanding bleeding, infection, sepsis, perforation, need for emergent surgery . He will have an ASA of 3. HPI Consult Data Date of Consult: 01/18/22 HPI Narrative Reason for Consultation: Sepsis HPI Narrative: LITO ROUSE, is a 86 M who presented to the ED with weakness. He was recently diagnosed with pancreatic cancer, biliary stricture status post ERCP and end oscopic ultrasound with fully covered metal stent placed. This patient was generally healthy until he was diagnosed with diabetes about 6 months ago.? This led to further work-up.? This led to ultrasound CT and then biopsy.? A stent was placed in the liver because he was getting jaundiced.? He was diagnosed with pancreatic cancer.? Since the stent was placed about 2-1/2 or 3 weeks ago the jaundice is gotten a lot better.? He was due to start chemotherapy on .? He has not yet had any chemotherapy.? Only abdominal surgery is prior cholecystectomy many years ago. He was diagnosed with sepsis of unknown cause and is currently on IV fluids and pressor therapy along with broad-spectrum antibiotics. The leading diagnosis would be possible stent occlusion with a sending cholangitis due to the fact that his LFTs are increasing. I was asked to see him for management of possible ascending cholangitis. [facility] Medical History Atherosclerotic heart disease of [place] coronary artery without angina pectoris Chronic cholecystitis due to cholelithiasis with choledocholithiasis Cough Diverticulosis Essential hypertension Gallstone pancreatitis Mixed hyperlipidemia Non-rheumatic aortic stenosis Vomiting Home Medications tafluprost (PF) 0.0015 % eye drops in a dropperette 1 drp EACH EYE QHS glucoma 12/25/18 [History Last Taken 12/24/18] timolol maleate 0.25 % eye drops 1 drp EACH EYE BID glucoma 12/25/18 [History Last Taken 12/25/18] nn-fwy-xbjlj lipoic khae-PM-lhuhyrxvlcmrz 100 mg-0.8mg -10 mg tablet 1 tab PO DAILY 01/21/19 [History Last Taken Unknown] sildenafil 100 mg tablet (Viagra) 50 mg PO DAILY PRN sexual activity 01/21/19 [History Last Taken Unknown] lutein 20 mg capsule 20 mg PO DAILY 01/31/19 [History Last Taken Unknown] Lantus Solostar U-100 Insulin 100 unit/mL (3 mL) subcutaneous pen (insulin glargine) 8 unit (0.08 mL) subcut DAILY #15 mL 11/26/21 [Rx Last Taken Unknown] insulin aspart U-100 100 unit/mL (3 mL) subcutaneous pen (Novolog Flexpen U-100 Insulin aspart) 4 unit subcut TIDWMEAL 01/18/22 [History Last Taken Unknown] trazodone 50 mg tablet 50 mg PO QHS PRN Insomnia 01/18/22 [History Last Taken Unknown] Allergy/AdvReac Type Severity Reaction Status Date / Time No Known Allergies Allergy Verified 01/18/22 18:44 Family History Father Diabetes Mother Diabetes Surgical History History of bilateral inguinal hernia repair S/P laparoscopic cholecystectomy (~12/2018) Social History Smoking Status: Never smoker alcohol intake: never substance use type: does not use caffeine: Yes Type: coffee Number of servings: 2 ROS Constitutional Constitutional: Reports chills, fatigue, fever(s), malaise and weakness Eyes Eyes: Denies blurry vision or change in vision ENT HEENT: Denies dizziness, dysphagia, epistaxis or headache(s) Cardiovascular Cardiovascular: Denies chest pain or dyspnea Respiratory/Chest Respiratory/Chest: Denies chest tightness, cough or dyspnea Gastrointestinal Gastrointestinal: Denies abdominal pain Genitourinary Genitourinary: Denies difficulty urinating or urinary frequency Musculoskeletal Musculoskeletal: Denies arthralgias or back pain Integumentary Integumentary: Denies lesions, rash or skin ulcer Neurologic Neurologic: Denies abnormal gait or abnormal speech Psychiatric Psychiatric: Denies anxiety Endocrine Endocrinology: Reports fatigue Hematologic/Lymphatic Hematologic/Lymphatic: Denies easy bleeding or easy bruising Physical Exam Const alert, oriented x3 and no apparent distress General Appearance: cooperative HEENT normocephalic and head/scalp atraumatic Eyes PERRL and EOMs intact bilaterally Neck supple and No nodes Resp normal air movement and clear to auscultation bilaterally Cardio regular rate, regular rhythm and no murmurs GI soft to palpation, non-tender and non-distended Extremity no clubbing, cyanosis or edema Skin no rashes or lesions noted Skin Narrative: jaundiced Neuro CN's II-XII intact bilaterally Lab / Micro Data Result Diagrams: 01/19/22 04:20 01/19/22 04:20 Labs: Laboratory Results - last 24 hr 01/18/22 00:00: Lactic Acid Cancelled 01/18/22 19:00: WBC 19.1 H, RBC 3.89 L, Hgb 13.1, Hct 39.5 L, MCV 101.5 H, MCH 33.7 H, MCHC 33.2, RDW Std Deviation 57.0 H, RDW Coeff of López 15.0 H, Plt Count 185, MPV 10.2, Immature Gran % (Auto) FINANCIAL ANALYST ACCOUNTANT, Neut % (Auto) FINANCIAL ANALYST ACCOUNTANT, Lymph % (Auto) FINANCIAL ANALYST ACCOUNTANT, [place] % (Auto) FINANCIAL ANALYST ACCOUNTANT, Eos % (Auto) FINANCIAL ANALYST ACCOUNTANT, Baso % (Auto) FINANCIAL ANALYST ACCOUNTANT, Absolute Neuts (auto) 17.8 H, Absolute Lymphs (auto) 0.38 L, Total Counted 100, Neutrophils % (Manual) 63, Band Neutrophils % 23 H, Lymphocytes % (Manual) 2 L, Monocytes % (Manual) 4, Eosinophils % (Manual) 1, Metamyelocytes % 7 H, Nucleated RBC % 0, Diff Path Review Reviewed, Platelet Estimate ADEQUATE, RBC Morphology NORM C+C 01/18/22 19:00: Sodium 133 L, Potassium 3.8, Chloride 99, Carbon Dioxide 25.0, Anion Gap 9, BUN 22 H, Creatinine 1.40 H, Estim Creat Clear Calc 31.10, Est GFR (MDRD) Af Amer 62, Est GFR (MDRD) Non-Af 51 L, BUN/Creatinine Ratio 15.7, Glucose 78, Calcium 8.2 L, Total Bilirubin 2.90 H, AST 69 H, ALT 63 H, Alkaline Phosphatase 219 H, Troponin I High Sens 11, Total Protein 5.8 L, Albumin 1.8 L, Globulin 4.0, Albumin/Globulin Ratio 0.4 L, Lipase 35 L 01/18/22 19:00: Lactic Acid 3.9 H* 01/18/22 19:52: Urine Color Jessica, Urine Clarity Clear, Urine pH 5.0, Ur Specific [place] 1.015, Urine Protein 30 H, Urine Glucose (UA) Normal, Urine Ketones 5 H, Urine Occult Blood 25 H, Urine Nitrite Negative, Urine Bilirubin 1 H, Urine Urobilinogen 4 H, Ur Leukocyte Esterase 25 H, Urine RBC 0-5 SEEN, Urine WBC 0-5 SEEN, Ur Squamous Epith Cells 0 SEEN, Urine Bacteria 1+, Urine Mucus 0 SEEN 01/18/22 21:00: Cortisol 64.50 H 01/18/22 21:00: Procalcitonin 44.47 H 01/18/22 23:55: Lactic Acid 2.2 H* 01/19/22 04:20: WBC 21.4 H, RBC 3.55 L, Hgb 12.2 L, Hct 36.1 L, MCV 101.7 H, MCH 34.4 H, MCHC 33.8, RDW Std Deviation 57.8 H, RDW Coeff of López 15.4 H, Plt Count 206, MPV 10.0, Immature Gran % (Auto) 0.700, Neut % (Auto) 86.9 H, Lymph % (Auto) 6.5 L, [place] % (Auto) 5.6, Eos % (Auto) 0.0, Baso % (Auto) 0.3, Absolute Neuts (auto) 18.6 H, Absolute Lymphs (auto) 1.39, Nucleated RBC % 0, Atypical Lymphocytes 1+, Anisocytosis 1+, Macrocytosis 2+ 01/19/22 04:20: Sodium 136, Potassium 4.3, Chloride 105, Carbon Dioxide 22.0, Anion Gap 9, BUN 24 H, Creatinine 1.16, Estim Creat Clear Calc 40.28, Est GFR (MDRD) Af Amer 77, Est GFR (MDRD) Non-Af 63, BUN/Creatinine Ratio 20.7 H, Glucose 150 H, Calcium 7.1 L, Total Bilirubin 2.70 H, AST 68 H, ALT 59, Alkaline Phosphatase 185 H, Total Protein 5.3 L, Albumin 1.6 L, Globulin 3.7, [place] min/Globulin Ratio 0.4 L 01/19/22 04:20: Hemoglobin A1c 4.7 01/19/22 06:39: POC Glucose 181 H 01/19/22 12:02: POC Glucose 220 H 01/19/22 16:15: POC Glucose 153 H Micro: Microbiology 01/18/22 19:52 Nasal Secretion SARS-CoV-2 & FLU Antigen (Rapid) - Final Radiology Impression Chest X-Ray 01/18/22 20:28 IMPRESSION: No acute cardiopulmonary disease Electronically Signed: Kvng HackettDO at 21:48 EDT Reading Location ID and State: [facility] / [place] Tel , Service support , Chest X-Ray 01/18/22 23:00 IMPRESSION: Placement of right IJ central venous catheter as above without complications. Remainder is stable. Electronically Signed: Kvng HoldenDO jolie at 0:55 EDT Reading Location ID and State: [facility] / [place] Tel , Service support , Abdomen/Pelvis CT 01/19/22 09:03 IMPRESSION: Ascites. Findings in keeping with a liver metastasis. Status post cholecystectomy. Intrahepatic or ductal dilatation with pneumobilia. A biliary stent is seen. Marked dilatation of the pancreatic duct with the mass in the head and uncinate process of the pancreas. Peripancreatic lymphadenopathy Small bilateral pleural effusions with bibasilar atelectasis and infiltrate.. Electronically Signed: Az Mendoza MD at 12:28 EDT , Charges/Coding Visit Charges Inpatient E&M: 10773 Init Hosp L2
--- NOTE | 2022-01-18 23:14 | ED.RN ---
Rt IJ central line placed by Dr Dawson. CXR viewed by Dr Hurd. LEVY to use. Levophed started at this time.
[2022-01-18 23:38] LABS: Reflex Lactate? Y
[2022-01-18] MEDS: 0.9% Normal Saline 1,000 ML 150 ML IV (23:40)
[2022-01-19] VITALS (59 sets, daily range): BP systolic 85–120; BP diastolic 45–86; PULSE 61–82; RESP 11–30; TEMP 36.2–37.8; O2SAT 96–100; BMI 19.8
[2022-01-19 00:48] LABS: Lactic Acid 2.2 mmol/L (0.4-1.9)
--- NOTE | 2022-01-19 01:43 | PCM.RX.CS ---
Consult Pharmacy has been consulted to manage selected antiobiotic: Vancomycin Type of Consult: New start Suspected Infection: Sepsis Prior Doses of Antibiotics Received/Current Regimen: Medications Vancomycin HCl 1,500 mg/ (Sodium Chloride) 530 mls @ 250 mls/hr IV X1 ONE Stop: 01/19/22 02:37 Last Admin: 01/19/22 00:53 Dose: 250 mls/hr Vancomycin HCl 750 mg/ Sodium (Chloride) 265 mls @ 250 mls/hr IV Q24H [id number] Labs: Sodium 133 mmol/L (136-145) L 01/18/22 19:00 Potassium 3.8 mmol/L (3.5-5.1) 01/18/22 19:00 Chloride 99 mmol/L (98-107) 01/18/22 19:00 Carbon Dioxide 25.0 mmol/L (21.0-32.0) 01/18/22 19:00 Anion Gap 9 (5-15) 01/18/22 19:00 BUN 22 mg/dL (7-18) H 01/18/22 19:00 Creatinine 1.40 mg/dL (0.70-1.30) H 01/18/22 19:00 Est GFR (MDRD) Af Amer 62 mL/min (>60) 01/18/22 19:00 Est GFR (MDRD) Non-Af 51 mL/min (>60) L 01/18/22 19:00 BUN/Creatinine Ratio 15.7 RATIO (10-20) 01/18/22 19:00 Glucose 78 mg/dL (74-106) 01/18/22 19:00 Microbiology: Microbiology 01/18/22 19:52 Nasal Secretion SARS-CoV-2 & FLU Antigen (Rapid) - Final Weight used for dosin.3 kg Estimated Creatinine Clearance: 31 Goal Trough: 15-20 mcg/mL Pharmacy Plan for Drug Dosing: Pharmacy Service will continue to monitor and adjust dosing as required. Follow-Up Labs: Trough Vancomycin Labs to be done on [date and time ordered]: 01/21/22 @0030
[2022-01-19 04:35] LABS: Absolute Lymphocyte Count 1.39 X10^3/uL (0.83-4.51); Absolute Neutrophil Count 18.6 X10^3/uL (2.0-7.7); Basophil# 0.07 X10^3/uL; Basophil% 0.3 % (0-1); Eosinophil# 0.01 X10^3/uL; Hematocrit 36.1 % (40-54); Hemoglobin 12.2 g/dL (13.0-16.5); Lymphocyte # 1.39 X10^3/ul (0.83-4.51); Lymphocyte % 6.5 % (19-41); Mean Corp Hgb Conc 33.8 g/dL (32-36); Mean Corpuscular Hgb 34.4 pg (27.0-32.0); Mean Corpuscular Volume 101.7 fL (80-94); Monocyte% 5.6 % (0-10); NRBC Flagged by Analyzer 0 % (0-5); Neutrophil # 18.58 X10^3/uL (2.7-7.7); Neutrophil % 86.9 % (47-70); POSITIVE MORPHOLOGY YES; Platelet Count 206 K/mm3 (150-450); RBC Distribution Width CV 15.4 % (11.6-14.6); RBC Distribution Width SD 57.8 fl (35.1-43.9); Red Blood Count 3.55 M/mm3 (4.6-6.2); White Blood Count 21.4 K/mm3 (4.4-11.0)
[2022-01-19 04:39] LABS: Differential Indicated SCAN CRITERIA MET
[2022-01-19 05:00] LABS: ALB/GLOB Ratio 0.4 RATIO (0.9-2.4); AST(SGOT) 68 U/L (15-37); Alanine Aminotransfer ALT/SGPT 59 U/L (16-61); Albumin, Serum 1.6 g/dL (3.2-5.0); Alkaline Phosphatase 185 U/L (45-117); Anion Gap 9 (5-15); BUN 24 mg/dL (7-18); BUN/Creat Ratio 20.7 RATIO (10-20); Calcium,Total 7.1 mg/dL (8.5-10.1); Chloride 105 mmol/L (98-107); Creatinine, Serum 1.16 mg/dL (0.70-1.30); EST Glomerular Filtration Rate 63 mL/min (>60); Est Glom Filt Rate - Afr Amer 77 mL/min (>60); Estimated Creatinine Clearance 40.28 ml/min; Globulin 3.7 g/dL (2.2-4.2); Glucose 150 mg/dL (74-106); Potassium 4.3 mmol/L (3.5-5.1); Protein, Total 5.3 g/dL (6.4-8.2); Sodium Level 136 mmol/L (136-145)
[2022-01-19 05:05] LABS: Anisocytosis 1+; Atypical Lymphocyte 1+ %; Macrocytosis 2+
[2022-01-19] MEDS: 0.9% Normal Saline 1,000 ML 150 ML IV (06:05)
[2022-01-19] MEDS: Insulin Lispro 100 UNIT/ML INSULN.PEN SC ×3 (06:59→22:35)
[2022-01-19 07:05] LABS: Bedside Glucose 181 mg/dL (74-106)
--- NOTE | 2022-01-19 07:33 | CON.PCM.CC_ITS ---
Assessment & Plan Assessment/Plan (1) Septic shock: PLAN: Plan RECOMMENDATIONS: 1. Continue vasopressor support to maintain a mean arterial pressure at or above 65 mmHg. 2. Obtain GI consultation over concerns for hepatobiliary source of infection. 3. Continue supplemental IV fluid hydration. 4. Continue broad-spectrum antimicrobials, pending finalized culture results. 5. Continue sliding scale insulin coverage. IMPRESSIONS: 1. Septic shock The patient presented with sepsis due to possible hepatobiliary source of infec tion with acute sepsis related organ dysfunction as evidenced by acute kidney injury and lactic acidemia. Ultimately, the patient developed fluid refractory hypotension, requiring the initiation of vasopressor support to maintain hemodynamic stability. Although no definitive source of infection has yet to be identified, the patient did undergo recent sphincterectomy with bare-metal stent placement into the common bile duct. Therefore, a hepatobiliary source of infection is a possibility. The patient will be continued on Levophed to maintain a mean arterial pressure at or above 65 mmHg. In the interim, we will continue broad-spectrum antimicrobials and obtain GI consultation. 2. Acute kidney injury Likely prerenal in etiology/ischemic ATN in the setting of #1. Anticipate further recovery with stabilization of hemodynamics. Continue to monitor urine output for now. No current indication for renal replacement therapy. 3. 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 Continue sliding scale insulin coverage. TIME: 36 minutes of critical care time, independent of procedures, was spent addressing the patient's septic shock, acute kidney injury, review of all data and collaboration with the care team. HPI Consult Data Date of Consult: 01/19/22 HPI Narrative Reason for Consultation: Septic shock HPI Narrative: The patient is an 86-year-old male, with a history as outlined below, who presented to the emergency department on January 18 with generalized malaise, weakness and rigors. The patient reported that shortly after having dinner last evening he developed shaking chills. Accordingly, he contacted his oncologist for advice, who recommended that he present to the emergency department for evaluation. Apparently, the patient was recently diagnosed with pancreatic cancer and was supposed to start chemotherapy this . The patient did report 2 loose bowel movements yesterday, but none since that time. On presentation to the emergency department, the patient was noted to be afebrile but was notably hypotensive with a presenting blood pressure of 58/38 mmHg. Initial laboratory evaluation revealed an elevated white blood cell count to 20,000. 23% bands were noted. Chemistry profile was notable for a creatinine of 1.40. Lactate was elevated at 3.9. Total bilirubin was increased to 2.9 with an AST of 69, ALT of 63 and alkaline phosphatase of 219. Procalcitonin was significantly elevated at 44.47. Chest x-ray demonstrated no acute cardiopulmonary process. The patient received supplemental IV fluids and was started on broad-spectrum antimicrobials. Due to fluid refractory hypotension, the patient had to be initiated on vasopressor support to maintain hemodynamic stability. He was subsequently transferred to the medical intensive care unit for further management. [facility] Records were reviewed as follows: Ultrasound of the abdomen on 12/08/2021 showed a pancreatic mass in the head of the pancreas with dilatation of common bile duct. Subsequent CT scan of the abdomen pelvis on 12/15/2021 showed a 6.1 cm pancreatic mass with encasement of the celiac wrist. Moderate narrowing of the central portal vein. There were also 2 hypodense lesion in the liver consistent with metastatic disease. He was referred to [facility] for ERCP and ultrasound-guided biopsy of the pancreatic mass on 12/29/2021. FINAL DIAGNOSIS A. Pancreas, mass, fine-needle biopsy: -Invasive adenocarcinoma. He has duodenal stenosis with extrinsic compression as well as biliary stricture elevated lower third of the main bile duct. A biliary sphincterotomy was performed, and a covered metal stent was placed into the common bile duct. He also had a duodenal stent placement. [facility] Medical History Atherosclerotic heart disease of [place] coronary artery without angina pectoris Chronic cholecystitis due to cholelithiasis with choledocholithiasis Cough Diverticulosis Essential hypertension Gallstone pancreatitis Mixed hyperlipidemia Non-rheumatic aortic stenosis Vomiting Home Medications tafluprost (PF) 0.0015 % eye drops in a dropperette 1 drp EACH EYE QHS glucoma 12/25/18 [History Last Taken 12/24/18] timolol maleate 0.25 % eye drops 1 drp EACH EYE BID glucoma 12/25/18 [History Last Taken 12/25/18] vg-gvi-rwzrb lipoic ljwi-WK-bjcsiemjpiwug 100 mg-0.8mg -10 mg tablet 1 tab PO DAILY 01/21/19 [History Last Taken Unknown] sildenafil 100 mg tablet (Viagra) 50 mg PO DAILY PRN sexual activity 01/21/19 [History Last Taken Unknown] lutein 20 mg capsule 20 mg PO DAILY 01/31/19 [History Last Taken Unknown] Lantus Solostar U-100 Insulin 100 unit/mL (3 mL) subcutaneous pen (insulin glargine) 8 unit (0.08 mL) subcut DAILY #15 mL 11/26/21 [Rx Last Taken Unknown] insulin aspart U-100 100 unit/mL (3 mL) subcutaneous pen (Novolog Flexpen U-100 Insulin aspart) 4 unit subcut TIDWMEAL 01/18/22 [History Last Taken Unknown] trazodone 50 mg tablet 50 mg PO QHS PRN Insomnia 01/18/22 [History Last Taken Unknown] Allergy/AdvReac Type Severity Reaction Status Date / Time No Known Allergies Allergy Verified 01/18/22 18:44 Family History Father Diabetes Mother Diabetes Surgical History History of bilateral inguinal hernia repair S/P laparoscopic cholecystectomy (~12/2018) Social History Smoking Status: Never smoker alcohol intake: never substance use type: does not use caffeine: Yes Type: coffee Number of servings: 2 ROS Constitutional Constitutional: Reports chills, fatigue, fever(s), malaise and weakness Eyes Eyes: Denies blurry vision or change in vision ENT HEENT: Denies dizziness, dysphagia, epistaxis or headache(s) Cardiovascular Cardiovascular: Denies chest pain or dyspnea Respiratory/Chest Respiratory/Chest: Denies chest tightness, cough or dyspnea Gastrointestinal Gastrointestinal: Denies abdominal pain Genitourinary Genitourinary: Denies difficulty urinating or urinary frequency Musculoskeletal Musculoskeletal: Denies arthralgias or back pain Integumentary Integumentary: Denies lesions, rash or skin ulcer Neurologic Neurologic: Denies abnormal gait or abnormal speech Psychiatric Psychiatric: Denies anxiety Endocrine Endocrinology: Reports fatigue Hematologic/Lymphatic Hematologic/Lymphatic: Denies easy bleeding or easy bruising Physical Exam Const alert, oriented x3 and no apparent distress Constitutional Narrative: Jaundice in appearance General Appearance: cooperative HEENT normocephalic and head/scalp atraumatic Eyes PERRL and EOMs intact bilaterally Neck supple General: trachea midline Chest inspection of chest normal Resp normal respiratory effort Auscultation: Negative for rales, rhonchi or wheezes Cardio regular rate and regular rhythm Heart Sounds: murmur GI soft to palpation and non-tender Extremity no clubbing, cyanosis or edema Skin no rashes or lesions noted Neuro CN's II-XII intact bilaterally, moves all extremities and no focal motor deficits Psych cooperative and affect normal Lab / Micro Data Result Diagrams: 01/19/22 04:20 01/19/22 04:20 Labs: Laboratory Results - last 24 hr 01/18/22 00:00: Lactic Acid Cancelled 01/18/22 19:00: WBC 19.1 H, RBC 3.89 L, Hgb 13.1, Hct 39.5 L, MCV 101.5 H, MCH 33.7 H, MCHC 33.2, RDW Std Deviation 57.0 H, RDW Coeff of López 15.0 H, Plt Count 185, MPV 10.2, Immature Gran % (Auto) EDUCATIONAL DIRECTOR, Neut % (Auto) EDUCATIONAL DIRECTOR, Lymph % (Auto) EDUCATIONAL DIRECTOR, [place] % (Auto) EDUCATIONAL DIRECTOR, Eos % (Auto) EDUCATIONAL DIRECTOR, Baso % (Auto) EDUCATIONAL DIRECTOR, Absolute Neuts (auto) 17.8 H, Absolute Lymphs (auto) 0.38 L, Total Counted 100, Neutrophils % (Manual) 63, Band Neutrophils % 23 H, Lymphocytes % (Manual) 2 L, Monocytes % (Manual) 4, Eosinophils % (Manual) 1, Metamyelocytes % 7 H, Nucleated RBC % 0, Diff Path Review May foll, Platelet Estimate ADEQUATE, RBC Morphology NORM C+C 01/18/22 19:00: Sodium 133 L, Potassium 3.8, Chloride 99, Carbon Dioxide 25.0, Anion Gap 9, BUN 22 H, Creatinine 1.40 H, Estim Creat Clear Calc 31.10, Est GFR (MDRD) Af Amer 62, Est GFR (MDRD) Non-Af 51 L, BUN/Creatinine Ratio 15.7, Glucose 78, Calcium 8.2 L, Total Bilirubin 2.90 H, AST 69 H, ALT 63 H, Alkaline Phosphatase 219 H, Troponin I High Sens 11, Total Protein 5.8 L, Albumin 1.8 L, Globulin 4.0, Albumin/Globulin Ratio 0.4 L, Lipase 35 L 01/18/22 19:00: Lactic Acid 3.9 H* 01/18/22 19:52: Urine Color Jessica, Urine Clarity Clear, Urine pH 5.0, Ur Specific [place] 1.015, Urine Protein 30 H, Urine Glucose (UA) Normal, Urine Ketones 5 H, Urine Occult Blood 25 H, Urine Nitrite Negative, Urine Bilirubin 1 H, Urine Urobilinogen 4 H, Ur Leukocyte Esterase 25 H, Urine RBC 0-5 SEEN, Urine WBC 0-5 SEEN, Ur Squamous Epith Cells 0 SEEN, Urine Bacteria 1+, Urine Mucus 0 SEEN 01/18/22 21:00: Cortisol 64.50 H 01/18/22 21:00: Procalcitonin 44.47 H 01/18/22 23:55: Lactic Acid 2.2 H* 01/19/22 04:20: WBC 21.4 H, RBC 3.55 L, Hgb 12.2 L, Hct 36.1 L, MCV 101.7 H, MCH 34.4 H, MCHC 33.8, RDW Std Deviation 57.8 H, RDW Coeff of López 15.4 H, Plt Count 206, MPV 10.0, Immature Gran % (Auto) 0.700, Neut % (Auto) 86.9 H, Lymph % (Auto) 6.5 L, [place] % (Auto) 5.6, Eos % (Auto) 0.0, Baso % (Auto) 0.3, Absolute Neuts (auto) 18.6 H, Absolute Lymphs (auto) 1.39, Nucleated RBC % 0, Atypical Lymphocytes 1+, Anisocytosis 1+, Macrocytosis 2+ 01/19/22 04:20: Sodium 136, Potassium 4.3, Chloride 105, Carbon Dioxide 22.0, A nion Gap 9, BUN 24 H, Creatinine 1.16, Estim Creat Clear Calc 40.28, Est GFR (MDRD) Af Amer 77, Est GFR (MDRD) Non-Af 63, BUN/Creatinine Ratio 20.7 H, Glucose 150 H, Calcium 7.1 L, Total Bilirubin 2.70 H, AST 68 H, ALT 59, Alkaline Phosphatase 185 H, Total Protein 5.3 L, Albumin 1.6 L, Globulin 3.7, Albumin/Globulin Ratio 0.4 L 01/19/22 06:39: POC Glucose 181 H Micro: Microbiology 01/18/22 19:52 Nasal Secretion SARS-CoV-2 & FLU Antigen (Rapid) - Final Radiology Impression Chest X-Ray 01/18/22 20:28 IMPRESSION: No acute cardiopulmonary disease Electronically Signed: Kvng DO Lew at 21:48 EDT , Chest X-Ray 01/18/22 23:00 IMPRESSION: Placement of right IJ central venous catheter as above without complications. Remainder is stable. Electronically Signed: Kvng Hackett DO at 0:55 EDT , Charges/Coding Procedures Hospitalists Procedures: 83050 Critial Care 1st Hr
--- NOTE | 2022-01-19 09:03 | CT_ITS ---
STUDY: CT ABDOMEN AND PELVIS WITH CONTRAST REASON FOR EXAM: Male, 86 years old. Septic shock. Recent diagnosis of pancreatic cancer. Biliary stent. RADIATION DOSAGE (If Supplied By Facility): CTDIvol = ( 12.82 ) mGy, DLP = ( 521.38 ) mGycm TECHNIQUE: Transaxial images were obtained from the dome of the diaphragm to the symphysis pubis with oral contrast. Gastrografin and amp; 100mL Isovue 300 was administered. Sagittal and coronal images were reconstructed. Individualized dose optimization techniques were used for this CT. COMPARISON: Comparison is made with prior study dated 12/26/2018. FINDINGS: Small bilateral pleural effusions with bibasilar atelectasis and/or infiltration. Coronary artery calcification. Pneumobilia is seen within dilated intrahepatic biliary ducts. A biliary stent is seen. Scattered hypodense nodule seen within the left and right lobes of the liver suggestive of metastatic disease. The patient is status post cholecystectomy. Normal spleen. There is dilatation of the pancreatic duct with diffuse enlargement of the pancreas with increased markings in the surrounding pancreatic fat. There is evidence of a 3.7 cm x 5.1 cm mass in the region of the head of the pancreas extending into the uncinate process of the pancreas. There is evidence of a peripancreatic lymphadenopathy. Findings suggestive of necrotic lymphadenopathy in the epiploic region. 1.2 cm cyst seen in the mid anterior aspect of the right kidney. Small amount of ascites with fluid in the pelvis as well as in the perihepatic and perisplenic spaces and the paracolic gutters. Normal bilateral adrenal glands. Normal right kidney. Normal left kidney. Normal visualized stomach. Normal small intestine. There are scattered colonic diverticula consistent with diverticulosis. The appendix is visualized and appears normal. Normal abdominal aorta. Normal inferior vena cava. Normal retroperitoneum. A HARDEN catheter is seen within the urinary bladder. Diffuse bladder wall thickening. There is evidence of prior lower anterior abdominal wall hernia repair with a mesh. There are degenerative changes of the visualized lumbar spine. Degenerative changes of the sacral iliac joints bilaterally. CT/Abdomen/Pelvis WITH Contrast IMPRESSION: Ascites. Findings in keeping with a liver metastasis. Status post cholecystectomy. Intrahepatic or ductal dilatation with pneumobilia. A biliary stent is seen. Marked dilatation of the pancreatic duct with the mass in the head and uncinate process of the pancreas. Peripancreatic lymphadenopathy Small bilateral pleural effusions with bibasilar atelectasis and infiltrate.. Electronically Signed: Az Mendoza MD at 12:28 EDT ,
[2022-01-19] MEDS: Enoxaparin 40 MG/0.4 ML Syringe SC (09:06)
[2022-01-19] MEDS: Famotidine 20 MG Tablet PO (09:06)
--- NOTE | 2022-01-19 09:16 | PN.HOSP_ITS ---
Subjective Subjective Patient has recently diagnosed pancreatic cancer about 4 weeks ago when he was feeling very weak, jaundiced and loss of weight. At that time work-up was done including clinic and biopsy and found to have pancreatic cancer and biliary stent was put in. Exact procedure and details unavailable as there is no documentation to corroborate. His jaundice got better. Was due to start chemotherapy on but he started having feeling very weak, fatigue chills and fever 1 day prior to admission. As per patient, he also had 2 loose bowel movements before he started having chills. He called Dr. Espinosa who asked him to go to ED. In ED patient was found to be in septic shock with BP 58/38, leukocytosis, 23% bands. Lactic acid 3.9. Patient was initiated on vasopressor therapy after he did not improve with IV fluid bolus as per septic shock protocol. He has a right IJ TLC. Objective Data Objective Data Vital Signs: Vital Signs Temp Pulse Resp BP Pulse Ox O2 Del Method O2 Flow Rate 98.3 F 66 18 110/57 L 100 Room Air 2 01/19/22 07:01 01/19/22 08:00 01/19/22 07:01 01/19/22 07:01 01/19/22 08:37 01/19/22 08:37 01/18/22 21:00 Oxygen Flow Rate (L/min) 2 Oxygen Delivery Method Room Air Weight: 138 lb 8 oz Body Mass Index (BMI) 19.7 Intake & Output: Intake and Output for Last 24 Hours 01/17/22 01/18/22 01/19/22 23:59 23:59 23:59 Intake Total 3072.93 / 3076.38 2372.21 / 2372.21 Output Total 325 / 325 Balance 3072.93 / 3076.38 2047.21 / 2047.21 Lab / Micro Data Result Diagrams: 01/19/22 04:20 01/19/22 04:20 Labs: Laboratory Results - last 24 hr 01/18/22 00:00: Lactic Acid Cancelled 01/18/22 19:00: WBC 19.1 H, RBC 3.89 L, Hgb 13.1, Hct 39.5 L, MCV 101.5 H, MCH 33.7 H, MCHC 33.2, RDW Std Deviation 57.0 H, RDW Coeff of López 15.0 H, Plt Count 185, MPV 10.2, Immature Gran % (Auto) DRUM BARKER OPERATOR, Neut % (Auto) DRUM BARKER OPERATOR, Lymph % (Auto) DRUM BARKER OPERATOR, [place] % (Auto) DRUM BARKER OPERATOR, Eos % (Auto) DRUM BARKER OPERATOR, Baso % (Auto) DRUM BARKER OPERATOR, Absolute Neuts (auto) 17.8 H, Absolute Lymphs (auto) 0.38 L, Total Counted 100, Neutrophils % (Manual) 63, Band Neutrophils % 23 H, Lymphocytes % (Manual) 2 L, Monocytes % (Manual) 4, Eosinophils % (Manual) 1, Metamyelocytes % 7 H, Nucleated RBC % 0, Diff Path Review September, Platelet Estimate ADEQUATE, RBC Morphology NORM C+C 01/18/22 19:00: Sodium 133 L, Potassium 3.8, Chloride 99, Carbon Dioxide 25.0, Anion Gap 9, BUN 22 H, Creatinine 1.40 H, Estim Creat Clear Calc 31.10, Est GFR (MDRD) Af Amer 62, Est GFR (MDRD) Non-Af 51 L, BUN/Creatinine Ratio 15.7, Glucose 78, Calcium 8.2 L, Total Bilirubin 2.90 H, AST 69 H, ALT 63 H, Alkaline Phosphatase 219 H, Troponin I High Sens 11, Total Protein 5.8 L, Albumin 1.8 L, Globulin 4.0, Albumin/Globulin Ratio 0.4 L, Lipase 35 L 01/18/22 19:00: Lactic Acid 3.9 H* 01/18/22 19:52: Urine Color Jessica, Urine Clarity Clear, Urine pH 5.0, Ur Specific [place] 1.015, Urine Protein 30 H, Urine Glucose (UA) Normal, Urine Ke tones 5 H, Urine Occult Blood 25 H, Urine Nitrite Negative, Urine Bilirubin 1 H, Urine Urobilinogen 4 H, Ur Leukocyte Esterase 25 H, Urine RBC 0-5 SEEN, Urine WBC 0-5 SEEN, Ur Squamous Epith Cells 0 SEEN, Urine Bacteria 1+, Urine Mucus 0 SEEN 01/18/22 21:00: Cortisol 64.50 H 01/18/22 21:00: Procalcitonin 44.47 H 01/18/22 23:55: Lactic Acid 2.2 H* 01/19/22 04:20: WBC 21.4 H, RBC 3.55 L, Hgb 12.2 L, Hct 36.1 L, MCV 101.7 H, MCH 34.4 H, MCHC 33.8, RDW Std Deviation 57.8 H, RDW Coeff of López 15.4 H, Plt Count 206, MPV 10.0, Immature Gran % (Auto) 0.700, Neut % (Auto) 86.9 H, Lymph % (Auto) 6.5 L, [place] % (Auto) 5.6, Eos % (Auto) 0.0, Baso % (Auto) 0.3, Absolute Neuts (auto) 18.6 H, Absolute Lymphs (auto) 1.39, Nucleated RBC % 0, Atypical Lymphocytes 1+, Anisocytosis 1+, Macrocytosis 2+ 01/19/22 04:20: Sodium 136, Potassium 4.3, Chloride 105, Carbon Dioxide 22.0, Anion Gap 9, BUN 24 H, Creatinine 1.16, Estim Creat Clear Calc 40.28, Est GFR (MDRD) Af Amer 77, Est GFR (MDRD) Non-Af 63, BUN/Creatinine Ratio 20.7 H, Glucose 150 H, Calcium 7.1 L, Total Bilirubin 2.70 H, AST 68 H, ALT 59, Alkaline Phosphatase 185 H, Total Protein 5.3 L, Albumin 1.6 L, Globulin 3.7, Albumin/Globulin Ratio 0.4 L 01/19/22 06:39: POC Glucose 181 H Micro: Microbiology 01/18/22 19:52 Nasal Secretion SARS-CoV-2 & FLU Antigen (Rapid) - Final Radiography Diagnostic Testing: Radiology Impression Chest X-Ray 01/18/22 20:28 IMPRESSION: No acute cardiopulmonary disease Electronically Signed: Kvng HoldenDO jolie at 21:48 EDT Reading Location ID and State: [address] [place] [address] Tel , Service support , Chest X-Ray 01/18/22 23:00 IMPRESSION: Placement of right IJ central venous catheter as above without complications. Remainder is stable. Electronically Signed: Kvng HackettDO at 0:55 EDT Reading Location ID and State: [facility] / [place] Tel , Service support , Physical Exam Narrative General: Alert, Oriented x3, Cooperative HEENT: Atraumatic, PERRLA, EOMI, Normocephalic Oral: Oral mucosa moist. No Gingival or Mucosal Lesions/ Ulcerations Neck: Supple, No JVD, Negative Carotid Bruits Lungs: Air entry diminished in bilateral lung bases. No crepitation/rhonchi Cardiovascular: Sinus rhythm, systolic murmur present over LLSB and cardiac apex. S1-S2 regular. Abdomen: Bowel Sounds Present, Soft, Non Tender, Non-Distended. Liver not enlarged. No palpable mass. : No renal angle tenderness. No suprapubic tenderness. Extremities: No edema, Capillary Refill Less than 3 Seconds Skin: No rashes, No breakdown Musculoskeletal: Moderate muscle atrophy of extremities. No Tenderness to P alpation of Joints or Extremities Neurological: Cranial nerves II-XII grossly intact, DTR 2+/4 Psych/Mental Status: Flat affect. Assessment & Plan Assessment/Plan (1) Septic shock: PLAN: Plan #Septic shock exact etiology unclear but most probably hepatobiliary source: The patient presented with septic shock due to possible hepatobiliary source of infection with acute sepsis related organ dysfunction as evidenced by JANES, lactic acidosis, hypotension requiring vasopressor support and lactic acidemia. Patient has increased total bilirubin 2.9. Previous total bilirubin was also high 5.3 in December 2018. Patient also has leukocytosis with Left shift, bands 23%, metamyelocytes 7%. Lymphocytes low 2%. On IV Levophed. UA 1+ bacteria, WBC 0-5. Sepsis work-up did not show any positive result yet. On IV vancomycin and Zosyn #Hypertension: Hold all BP meds on account of hypotension #JANES: Creatinine is 1.4 with baseline being around 0.89. This is likely due to septic shock. Should improve with hydration. #Recently diagnosed pancreatic cancer: Patient has stent most probably plastica stent as he was told that will be replaced in 6 to 8 weeks. Due to start chemotherapy on with Dr. Espinosa. #TYpe 2 diabetes mellitus * on lantus 8 units daily. ISS. Accuchecks ACHS #Glaucoma: on timolol and tafluprost eye drops DVT prophylaxis: lovenox GI prophylaxis; famotidine Code status: full code * Patient counseled extensively about different types of CODE STATUS including full code, DNR CCA and DNR CCA. Patient elects to be full code. Charges/Coding Visit Charges Inpatient E&M: 22361 Subs Hosp L3
[2022-01-19] MEDS: Insulin Glargine-YFGN 100 UNIT/ML Pen 8 UNIT SC (09:28)
[2022-01-19] MEDS: TITRATION PARAMETER CHANGE 1 EACH IV (09:35)
--- NOTE | 2022-01-19 09:45 | PCM.CONS.GEN ---
Assessment & Plan Assessment/Plan (1) Septic shock: PLAN: Suspect abd source given recent bx, stent placement, and placement of biliary stent. Cont vanc/cefepime, will add flagyl and check CT abd/pelvis. JANES improved. Will follow, thank you, d/w Dr. Garcia HPI Consult Data Date of Consult: 01/19/22 HPI Narrative Reason for Consultation: septic shock HPI Narrative: LITO ROUSE, is a 86 M who presented 01/18 with sudden onset that day of fever, chills, shakes. Had 2 episodes of explosive diarrhea. No other focal symptoms. No abd pain. Reports scope with biopsy and stent placement about 3 weeks ago at [facility], path (+) pancreatic cancer. Was due to start chemo tomorrow. Came to ED, admitted to icu on pressors, vanc/cefepime. Feeling a little better today. Full ROS performed and neg except as noted above. [facility] Medical History Atherosclerotic heart disease of [place] coronary artery without angina pectoris Chronic cholecystitis due to cholelithiasis with choledocholithiasis Cough Diverticulosis Essential hypertension Gallstone pancreatitis Mixed hyperlipidemia Non-rheumatic aortic stenosis Vomiting Home Medications tafluprost (PF) 0.0015 % eye drops in a dropperette 1 drp EACH EYE QHS glucoma 12/25/18 [History Last Taken 12/24/18] timolol maleate 0.25 % eye drops 1 drp EACH EYE BID glucoma 12/25/18 [History Last Taken 12/25/18] ix-wum-xxjcq lipoic tvsv-GO-cyvjddtxtgcpf 100 mg-0.8mg -10 mg tablet 1 tab PO DAILY 01/21/19 [History Last Taken Unknown] sildenafil 100 mg tablet (Viagra) 50 mg PO DAILY PRN sexual activity 01/21/19 [History Last Taken Unknown] lutein 20 mg capsule 20 mg PO DAILY 01/31/19 [History Last Taken Unknown] Lantus Solostar U-100 Insulin 100 unit/mL (3 mL) subcutaneous pen (insulin glargine) 8 unit (0.08 mL) subcut DAILY #15 mL 11/26/21 [Rx Last Taken Unknown] insulin aspart U-100 100 unit/mL (3 mL) subcutaneous pen (Novolog Flexpen U-100 Insulin aspart) 4 unit subcut TIDWMEAL 01/18/22 [History Last Taken Unknown] trazodone 50 mg tablet 50 mg PO QHS PRN Insomnia 01/18/22 [History Last Taken Unknown] Allergy/AdvReac Type Severity Reaction Status Date / Time No Known Allergies Allergy Verified 01/18/22 18:44 Family History Father Diabetes Mother Diabetes Surgical History History of bilateral inguinal hernia repair S/P laparoscopic cholecystectomy (~12/2018) Social History Smoking Status: Never smoker alcohol intake: never substance use type: does not use caffeine: Yes Type: coffee Number of servings: 2 Physical Exam Const alert, oriented x3 and no apparent distress General Appearance: cooperative HEENT normocephalic and head/scalp atraumatic Eyes PERRL and EOMs intact bilaterally Neck supple and No nodes Resp normal air movement and clear to auscultation bilaterally Cardio regular rate, regular rhythm and no murmurs GI soft to palpation, non-tender and non-distended Extremity no clubbing, cyanosis or edema Skin no rashes or lesions noted Skin Narrative: jaundiced Neuro CN's II-XII intact bilaterally Lab / Micro Data Attestation: I reviewed the patient's lab results. Result Diagrams: 01/19/22 04:20 01/19/22 04:20 Labs: Laboratory Results - last 24 hr 01/18/22 00:00: Lactic Acid Cancelled 01/18/22 19:00: WBC 19.1 H, RBC 3.89 L, Hgb 13.1, Hct 39.5 L, MCV 101.5 H, MCH 33.7 H, MCHC 33.2, RDW Std Deviation 57.0 H, RDW Coeff of López 15.0 H, Plt Count 185, MPV 10.2, Immature Gran % (Auto) MUSEUM EXHIBIT DESIGNER, Neut % (Auto) MUSEUM EXHIBIT DESIGNER, Lymph % (Auto) MUSEUM EXHIBIT DESIGNER, [place] % (Auto) MUSEUM EXHIBIT DESIGNER, Eos % (Auto) MUSEUM EXHIBIT DESIGNER, Baso % (Auto) MUSEUM EXHIBIT DESIGNER, Absolute Neuts (auto) 17.8 H, Absolute Lymphs (auto) 0.38 L, Total Counted 100, Neutrophils % (Manual) 63, Band Neutrophils % 23 H, Lymphocytes % (Manual) 2 L, Monocytes % (Manual) 4, Eosinophils % (Manual) 1, Metamyelocytes % 7 H, Nucleated RBC % 0, Diff Path Review May foll, Platelet Estimate ADEQUATE, RBC Morphology NORM C+C 01/18/22 19:00: Sodium 133 L, Potassium 3.8, Chloride 99, Carbon Dioxide 25.0, Anion Gap 9, BUN 22 H, Creatinine 1.40 H, Estim Creat Clear Calc 31.10, Est GFR (MDRD) Af Amer 62, Est GFR (MDRD) Non-Af 51 L, BUN/Creatinine Ratio 15.7, Glucose 78, Calcium 8.2 L, Total Bilirubin 2.90 H, AST 69 H, ALT 63 H, Alkaline Phosphatase 219 H, Troponin I High Sens 11, Total Protein 5.8 L, Albumin 1.8 L, Globulin 4.0, Albumin/Globulin Ratio 0.4 L, Lipase 35 L 01/18/22 19:00: Lactic Acid 3.9 H* 01/18/22 19:52: Urine Color Jessica, Urine Clarity Clear, Urine pH 5.0, Ur Specific [place] 1.015, Urine Protein 30 H, Urine Glucose (UA) Normal, Urine Ketones 5 H, Urine Occult Blood 25 H, Urine Nitrite Negative, Urine Bilirubin 1 H, Urine Urobilinogen 4 H, Ur Leukocyte Esterase 25 H, Urine RBC 0-5 SEEN, Urine WBC 0-5 SEEN, Ur Squamous Epith Cells 0 SEEN, Urine Bacteria 1+, Urine Mucus 0 SEEN 01/18/22 21:00: Cortisol 64.50 H 01/18/22 21:00: Procalcitonin 44.47 H 01/18/22 23:55: Lactic Acid 2.2 H* 01/19/22 04:20: WBC 21.4 H, RBC 3.55 L, Hgb 12.2 L, Hct 36.1 L, MCV 101.7 H, MCH 34.4 H, MCHC 33.8, RDW Std Deviation 57.8 H, RDW Coeff of López 15.4 H, Plt Count 206, MPV 10.0, Immature Gran % (Auto) 0.700, Neut % (Auto) 86.9 H, Lymph % (Auto) 6.5 L, [place] % (Auto) 5.6, Eos % (Auto) 0.0, Baso % (Auto) 0.3, Absolute Neuts (auto) 18.6 H, Absolute Lymphs (auto) 1.39, Nucleated RBC % 0, Atypical Lymphocytes 1+, Anisocytosis 1+, Macrocytosis 2+ 01/19/22 04:20: Sodium 136, Potassium 4.3, Chloride 105, Carbon Dioxide 22.0, Anion Gap 9, BUN 24 H, Creatinine 1.16, Estim Creat Clear Calc 40.28, Est GFR (MDRD) Af Amer 77, Est GFR (MDRD) Non-Af 63, BUN/Creatinine Ratio 20.7 H, Glucose 150 H, Calcium 7.1 L, Total Bilirubin 2.70 H, AST 68 H, ALT 59, Alkaline Phosphatase 185 H, Total Protein 5.3 L, Albumin 1.6 L, Globulin 3.7, Albumin/Globulin Ratio 0.4 L 01/19/22 06:39: POC Glucose 181 H Micro: Microbiology 01/18/22 19:52 Nasal Secretion SARS-CoV-2 & FLU Antigen (Rapid) - Final Radiology Impression Chest X-Ray 01/18/22 20:28 IMPRESSION: No acute cardiopulmonary disease Electronically Signed: Kvng Hackett DO at 21:48 EDT Reading Location ID and State: [facility] / [place] Tel , Service support , Chest X-Ray 01/18/22 23:00 IMPRESSION: Placement of right IJ central venous catheter as above without complications. Remainder is stable. Electronically Signed: Kvng Hackett DO at 0:55 EDT ,
[2022-01-19] MEDS: metroNIDAZOLE 500 MG/100 ML BAG 100 MG IV ×3 (09:48→22:46)
--- NOTE | 2022-01-19 11:10 | CASEMGMT ---
LENKA DIEHL Face to Face with patient for initial transition planning/care coordination assessment. RN SHANITA introduced self and role at [facility]. Patient sitting in chair, alert and oriented. Patient willing to participate in assessment and is able to answer all questions appropriately. Care providers, pharmacy, and demographics verified. Patient wishes to discharge home, will monitor for HHC at discharge. Patient states he has no further needs or concerns at this time. CM to follow for discharge planning needs that may arise. PCP: Rebekah Specialists: Eddy soda worker Preferred Pharmacy: [facility] Prescription Benefit: Patient not sure Living Will/HPOA: yes, Ladan Mueller LNOK: , daughter Living Arrangements: Patient lives with in a single story home with bed and bath on first floor. Patient states he is independent at home and able to ambulate stairs. Transportation: DME/HHC: Patient states he has shower chair, cane, grab bars, and glucometer with supplies at home. Patient may benefit from walker at discharge, will monitor. Will monitor for HHC at discharge. Disposition Plan: Patient to discharge home with family support and follow-up plans in place. Will monitor for walker and HHC at discharge. Triny YAO, RN, CM
[2022-01-19 12:31] LABS: Bedside Glucose 220 mg/dL (74-106)
--- NOTE | 2022-01-19 13:34 | CHAPLAIN ---
Type of Pastoral Visit _x__ Initial Visit ___ Follow-up Visit ___ On-call Visit ___ General Patient Visit ___ Spiritual Assessment ___ Family Conference ___ Bereavement ___ Rapid Response ___ Code Blue ___ Other (describe below) Pastoral Care Referral From _x__ Patient ___ Family ___ Nurse ___ Physician ___ Bottom Turning Lathe Tender ___ Marine Insurance Claim Examiner ___ Other (describe below) Sacrament/Intervention _x__ Active listening ___ Anointing ___ Bahai ___ Bereavement ___ Communion _x__ Ariela exploration ___ _x__ Life review _x__ Prayer ___ Reconciliation ___ Sacrament of Sick _x__ Supportive presence ___ Wedding ___ Other (describe below) Pastoral Comments patient and spouse are in room together and they welcome spiritual care support; pt is to have a procedure this afternoon; spouse reports that pt has cancer and is thankful that he has gotten along pretty well thus far and has no pain; pt states that he is handling the situation pretty well and the blintze roller has been to see me and that helped; pt and spouse are 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
--- NOTE | 2022-01-19 13:47 | CASEMGMT ---
Social Work SW spoke with pt and family has provided copy of pt's living will and health care POA naming his Ladan Mueller. Copy placed on pt chart. LALO Palmer
[2022-01-19 14:11] LABS: Hemoglobin A1c 4.7 % (3.8-5.6)
[2022-01-19 15:48] LABS: Pathologist Review Reviewed
--- NOTE | 2022-01-19 16:25 | NURSING ---
patient off the floor to OR for ERCP at this time
--- NOTE | 2022-01-19 16:35 | RAD_ITS ---
EXAMINATION: ERCP UNDER FLUOROSCOPY OF 1716 HOURS ON 01/19/2022 CLINICAL: 86-year-old male with right upper quadrant pain. PROCEDURE: A single fluoroscopic view was submitted for interpretation. FINDINGS: There is a suggestion of a stent in the distal common duct. The mid common duct is visualized and is dilated. The intrahepatic biliary system is not visualized. RAD/ERCP Biliary/Pancreas IMPRESSION: 1. Suggestion of a distal common duct stent. 2. Visualization of the mid common duct, which appears to be dilated. 3. No visualization of the intrahepatic biliary system. Electronically Signed: Isiah Thomas MD at 1:49 EDT ,
[2022-01-19 16:41] LABS: Bedside Glucose 153 mg/dL (74-106)
--- NOTE | 2022-01-19 18:00 | NURSING ---
patient back to the floor at this time
--- NOTE | 2022-01-19 18:04 | OP.ERCP_ITS ---
Patient Name: Shahid Mueller Procedure Date: 01/19/2022 3:48 PM Date of : 1935 Age: 86 Procedure: ERCP Indications: Suspected ascending cholangitis Providers: Johnson Luis DO Medicines: Monitored Anesthesia Care Patient Profile: This is an 86 year old male. Refer to note in patient chart for documentation of history and physical. Patient has symptoms of acute jaundice. He is status post ERCP for biliary evaluation and ERCP for stent within the past three months. Complications: No immediate complications. Procedure: Pre-Anesthesia Assessment: - Prior to the procedure, a History and Physical was performed, and patient medications and allergies were reviewed. The patient is competent. The risks and benefits of the procedure and the sedation options and risks were discussed with the patient. All questions were answered and informed consent was obtained. Patient identification and proposed procedure were verified by the physician in the pre-procedure area. Mental Status Examination: alert and oriented. Airway Examination: normal oropharyngeal airway and neck mobility. Respiratory Examination: clear to auscultation. CV Examination: normal. Prophylactic Antibiotics: The patient does not require prophylactic antibiotics. Prior Anticoagulants: The patient has taken no previous anticoagulant or antiplatelet agents. ASA Grade Assessment: IV - A patient with severe systemic disease that is a constant threat to life. After reviewing the risks and benefits, the patient was deemed in satisfactory condition to undergo the procedure. The anesthesia plan was to use general anesthesia. Immediately prior to administration of medications, the patient was re-assessed for adequacy to receive sedatives. The heart rate, respiratory rate, oxygen saturations, blood pressure, adequacy of pulmonary ventilation, and response to care were monitored throughout the procedure. The physical status of the patient was re-assessed after the procedure. After obtaining informed consent, the scope was passed under direct vision. Throughout the procedure, the patient's blood pressure, pulse, and oxygen saturations were monitored continuously. The Duodenoscope was introduced through the mouth, and advanced to the duodenum and used to inject contrast into the bile duct. The ERCP was accomplished without difficulty. The patient tolerated the procedure well. Scope In: 5:08:06 PM Scope Out: 5:43:50 PM Total Procedure Duration Time 0 hours 35 minutes 44 seconds Findings: The produce clerk film was normal. The esophagus was successfully intubated under direct vision. The scope was advanced to a normal major papilla in the descending duodenum without detailed examination of the pharynx, larynx and associated structures, and upper GI tract. The upper GI tract was grossly normal. The bile duct was deeply cannulated with the short-nosed traction sphincterotome. Contrast was injected. I personally interpreted the bile duct images. There was brisk flow of contrast through the ducts. Opacification of the main bile duct was successful. The maximum diameter of the ducts was 10 mm. The upper third of the main bile duct contained a single localized stenosis 6 mm in length. The right main hepatic duct was severely dilated, secondary to a stricture. The largest diameter was 5 mm. A straight Roadrunner wire was passed into the biliary tree. A 5 mm biliary sphincterotomy was made with a traction (standard) sphincterotome using ERBE electrocautery. There was no post-sphincterotomy bleeding. The biliary tree was swept with a 15 mm balloon starting at the upper third of the main bile duct, middle third of the main bile duct, lower third of the main duct, left main hepatic duct, right intrahepatic duct(s) and right main hepatic duct. Mucus was swept from the duct. Dilation of the common bile duct with a 6-7-8 mm balloon dilator was successful. The biliary tree contained one covered metal stent. This was found to be visibly occluded. The stent was removed using a rat-toothed forceps. It was shown to be occluded via the water column test. A 10 nigerien by 12 cm and a 7 nigerien by 12cmtemporary stent with two external flaps and a single internal flap was placed [Cm into Duct] into [Stent Location]. [Flow]. The stent was [good]. Lavage of the area was performed through the ERCP scope using less than 50 mL of sterile water, resulting in clearance with excellent visualization. Fluid aspiration for bacterial cultures was performed in the left main hepatic duct. 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 - The right main hepatic duct was severely dilated, secondary to a stricture. - A biliary sphincterotomy was performed. - The biliary tree was swept and mucus was found. - Common bile duct was successfully dilated. - One stent was exchanged in the biliary tree. Procedure Code(s): --- Professional --- 42239, Endoscopic retrograde cholangiopancreatography (ERCP); with removal and exchange of stent(s), biliary or pancreatic duct, including pre- and post-dilation and guide wire passage, when performed, including sphincterotomy, when performed, each stent exchanged 22685, 59,51, Endoscopic retrograde cholangiopancreatography (ERCP); with trans-endoscopic balloon dilation of biliary/pancreatic duct(s) or of ampulla (sphincteroplasty), including sphincterotomy, when performed, each duct 90972, Endoscopic retrograde cholangiopancreatography (ERCP); with removal of calculi/debris from biliary/pancreatic duct(s) 71913, 26, Endoscopic catheterization of the biliary ductal system, radiological supervision and interpretation CPT copyright 2017 [employer]. All rights reserved. The codes documented in this report are preliminary and upon salesperson sheet music review may be revised to meet current compliance requirements. Johnson Luis DO 01/19/2022 6:03:49 PM This report has been signed electronically. Number of Addenda: 0 Note Initiated On: 01/19/2022 3:48 PM
--- NOTE | 2022-01-19 18:04 | OP.CCLET_ITS ---
01/19/2022 Ramirez Welch [address] [place] [address] Re : ERCP procedure for Shahid Mueller Dear Dr. Welch This procedure was performed on Wednesday, January 19, 2022. 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 - The right main hepatic duct was severely dilated, secondary to a stricture. - A biliary sphincterotomy was performed. - The biliary tree was swept and mucus was found. - Common bile duct was successfully dilated. - One stent was exchanged in the biliary tree. Recommendations : My findings are described in the full procedure note, which is enclosed. If I can be of further assistance, please feel free to contact me at . Sincerely, Johnson Luis, 01/19/2022 6:03:49 PM This report has been signed electronically.
[2022-01-19] MEDS: 0.9% Saline Lock 10 ML Syringe IV (22:11)
[2022-01-19 22:55] LABS: Bedside Glucose 176 mg/dL (74-106)
[2022-01-20] VITALS (57 sets, daily range): BP systolic 73–135; BP diastolic 45–91; PULSE 57–89; RESP 13–36; TEMP 27.7–38.8; O2SAT 92–100
[2022-01-20] MEDS: Acetaminophen 325 MG Tablet 650 MG PO (00:25)
[2022-01-20] MEDS: metroNIDAZOLE 500 MG/100 ML BAG 100 MG IV ×3 (05:34→22:23)
--- NOTE | 2022-01-20 06:06 | PN.CC_ITS ---
Assessment & Plan Assessment/Plan (1) Septic shock: PLAN: Plan RECOMMENDATIONS: 1. Continue vasopressor support to maintain a mean arterial pressure at or above 65 mmHg. 2. Continue broad-spectrum antimicrobials, per ID recommendations. 3. Continue sliding scale insulin coverage. 4. Encourage incentive spirometer use and mobilize patient as tolerated. IMPRESSIONS: 1. Septic shock The patient presented with sepsis due to hepatobiliary source of infection with acute sepsis related organ dysfunction as evidenced by acute kidney injury and lactic acidemia. Ultimately, the patient developed fluid refractory hypotension, requiring the initiation of vasopressor support to maintain hemodynamic stability. Subsequent ERCP demonstrated pus within the biliary tree. Sphincterotomy and stent exchange was undertaken by gastroenterology. For now, plan to continue vasopressor support to maintain a mean arterial pressure at or above 65 mmHg. The patient will be continued on broad-spectrum antimicrobials per ID recommendations. 2. Acute kidney injury Resolved. Likely prerenal in etiology/ischemic ATN in the setting of #1. Creatinine has improved with stabilization of hemodynamics. Continue to monitor urine output for now. No current indication for renal replacement therapy. 3. 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 Continue sliding scale insulin coverage. TIME: 32 minutes of critical care time, independent of procedures, was spent addressin g the patient's septic shock, acute kidney injury, review of all data and collaboration with the care team. Subjective Subjective The patient was seen and examined at the bedside this morning. Events from the last 24 hours have been reviewed. The patient currently has a low-grade fever, but is maintaining appropriate oxygen saturations on room air. He remains on Levophed at 14 mcg/min to maintain hemodynamic stability. The patient is documented to be overall net +7.5 L for the hospitalization. The patient underwent ERCP yesterday with biliary mucus noted along with a severely dilated right main hepatic duct. The patient underwent biliary sphincterotomy along with stent exchange. The patient denies any abdominal pain, nausea or vomiting. Objective Data Objective Data The patient's most recent lab work, culture data and imaging studies have all been personally reviewed. Blood, urine and surgical cultures are pending. Vital Signs: Vital Signs Temp Pulse Resp BP Pulse Ox O2 Del Method O2 Flow Rate 100.1 F H 78 13 94/53 L 92 Room Air 2 01/20/22 06:00 01/20/22 06:00 01/20/22 06:00 01/20/22 06:00 01/20/22 06:00 01/20/22 06:00 01/18/22 21:00 Oxygen Flow Rate (L/min) 2 Oxygen Delivery Method Room Air Weight: 145 lb 8.081 oz Body Mass Index (BMI) 19.8 Intake & Output: Intake and Output for Last 24 Hours 01/18/22 01/19/22 01/20/22 23:59 23:59 23:59 Intake Total 3072.93 / 3076.38 5238.98 / 5257.48 586.43 / 586.43 Output Total 1125 / 1125 250 / 250 Balance 3072.93 / 3076.38 4113.98 / 4132.48 336.43 / 336.43 Lab / Micro Data Attestation: I reviewed the patient's lab results. Result Diagrams: 01/20/22 04:10 01/20/22 04:10 Labs: Laboratory Results - last 24 hr 01/18/22 19:00: Diff Path Review Reviewed 01/19/22 04:20: Hemoglobin A1c 4.7 01/19/22 06:39: POC Glucose 181 H 01/19/22 12:02: POC Glucose 220 H 01/19/22 16:15: POC Glucose 153 H 01/19/22 22:30: POC Glucose 176 H Micro: Microbiology 01/18/22 19:52 Nasal Secretion SARS-CoV-2 & FLU Antigen (Rapid) - Final Radiography Diagnostic Testing: Radiology Impression Abdomen/Pelvis CT 01/19/22 09:03 IMPRESSION: Ascites. Findings in keeping with a liver metastasis. Status post cholecystectomy. Intrahepatic or ductal dilatation with pneumobilia. A biliary stent is seen. Marked dilatation of the pancreatic duct with the mass in the head and uncinate process of the pancreas. Peripancreatic lymphadenopathy Small bilateral pleural effusions with bibasilar atelectasis and infiltrate.. Electronically Signed: Az Mendoza MD at 12:28 EDT , Endo Retro Cholangiopancreatogram 01/19/22 16:35 IMPRESSION: 1. Suggestion of a distal common duct stent. 2. Visualization of the mid common duct, which appears to be dilated. 3. No visualization of the intrahepatic biliary system. Electronically Signed: Isiah Thomas MD at 1:49 EDT , Physical Exam Const alert, oriented x3 and no apparent distress General Appearance: cooperative HEENT normocephalic and head/scalp atraumatic Eyes PERRL and EOMs intact bilaterally Neck supple General: trachea midline Chest inspection of chest normal Resp normal respiratory effort Auscultation: Negative for rales, rhonchi or wheezes Cardio regular rate and regular rhythm Heart Sounds: murmur GI soft to palpation and non-tender Extremity no clubbing, cyanosis or edema Skin no rashes or lesions noted Neuro CN's II-XII intact bilaterally, moves all extremities and no focal motor deficits Psych cooperative and affect normal Charges/Coding Procedures Hospitalists Procedures: 37890 Critial Care 1st Hr
[2022-01-20 06:16] LABS: Absolute Lymphocyte Count 1.05 X10^3/uL (0.83-4.51); Basophil# 0.05 X10^3/uL; Basophil% 0.3 % (0-1); Eosinophil# 0.23 X10^3/uL; Eosinophils% 1.4 % (0-5); Hemoglobin 11.5 g/dL (13.0-16.5); Lymphocyte # 1.05 X10^3/ul (0.83-4.51); Lymphocyte % 6.6 % (19-41); Mean Corp Hgb Conc 33.8 g/dL (32-36); Mean Corpuscular Hgb 34.1 pg (27.0-32.0); Mean Corpuscular Volume 100.9 fL (80-94); Mean Platelet Vol. 10.5 fl (6.2-12.0); Monocyte# 0.47 X10^3/uL; NRBC Flagged by Analyzer 0 % (0-5); Neutrophil # 14.02 X10^3/uL (2.7-7.7); Neutrophil % 88.3 % (47-70); POSITIVE MORPHOLOGY YES; Platelet Count 165 K/mm3 (150-450); RBC Distribution Width CV 15.4 % (11.6-14.6); Red Blood Count 3.37 M/mm3 (4.6-6.2); White Blood Count 15.9 K/mm3 (4.4-11.0)
[2022-01-20 06:17] LABS: Differential Indicated SCAN CRITERIA MET
[2022-01-20 06:28] LABS: ALB/GLOB Ratio 0.4 RATIO (0.9-2.4); AST(SGOT) 60 U/L (15-37); Alanine Aminotransfer ALT/SGPT 60 U/L (16-61); Albumin, Serum 1.4 g/dL (3.2-5.0); Alkaline Phosphatase 152 U/L (45-117); Anion Gap 9 (5-15); BUN 25 mg/dL (7-18); BUN/Creat Ratio 26.5 RATIO (10-20); Calcium,Total 7.4 mg/dL (8.5-10.1); Chloride 106 mmol/L (98-107); Creatinine, Serum 0.94 mg/dL (0.70-1.30); EST Glomerular Filtration Rate 80 mL/min (>60); Est Glom Filt Rate - Afr Amer 97 mL/min (>60); Estimated Creatinine Clearance 52.66 ml/min; Globulin 3.4 g/dL (2.2-4.2); Glucose 135 mg/dL (74-106); Potassium 3.4 mmol/L (3.5-5.1); Protein, Total 4.8 g/dL (6.4-8.2); Sodium Level 136 mmol/L (136-145)
[2022-01-20 06:36] LABS: Anisocytosis 1+; Macrocytosis 2+
[2022-01-20 07:05] LABS: Bedside Glucose 132 mg/dL (74-106)
--- NOTE | 2022-01-20 07:26 | PN.HOSP_ITS ---
Subjective Subjective Follow-up for septic shock. Patient on IV Levophed drip. Denies abdominal pain. Mild nausea but no vomiting. No hypoxia or tachypnea. Objective Data Objective Data Vital Signs: Vital Signs Temp Pulse Resp BP Pulse Ox O2 Del Method O2 Flow Rate 99.3 F H 73 13 86/52 L 92 Room Air 2 01/20/22 07:00 01/20/22 07:00 01/20/22 07:00 01/20/22 07:00 01/20/22 07:00 01/20/22 07:00 01/18/22 21:00 Oxygen Flow Rate (L/min) 2 Oxygen Delivery Method Room Air Weight: 145 lb 8.081 oz Body Mass Index (BMI) 19.8 Intake & Output: Intake and Output for Last 24 Hours 01/18/22 01/19/22 01/20/22 23:59 23:59 23:59 Intake Total 3072.93 / 3076.38 5238.98 / 5257.48 712.73 / 712.73 Output Total 1125 / 1125 250 / 250 Balance 3072.93 / 3076.38 4113.98 / 4132.48 462.73 / 462.73 Lab / Micro Data Result Diagrams: 01/20/22 04:10 01/20/22 04:10 Labs: Laboratory Results - last 24 hr 01/18/22 19:00: Diff Path Review Reviewed 01/19/22 04:20: Hemoglobin A1c 4.7 01/19/22 12:02: POC Glucose 220 H 01/19/22 16:15: POC Glucose 153 H 01/19/22 22:30: POC Glucose 176 H 01/20/22 04:10: WBC 15.9 H, RBC 3.37 L, Hgb 11.5 L, Hct 34.0 L, MCV 100.9 H, MCH 34.1 H, MCHC 33.8, RDW Std Deviation 57.0 H, RDW Coeff of López 15.4 H, Plt Count 165, MPV 10.5, Immature Gran % (Auto) 0.400, Neut % (Auto) 88.3 H, Lymph % (Auto) 6.6 L, [place] % (Auto) 3.0, Eos % (Auto) 1.4, Baso % (Auto) 0.3, Absolute Neuts (auto) 14.0 H, Absolute Lymphs (auto) 1.05, Nucleated RBC % 0, Anisocytosis 1+, Macrocytosis 2+ 01/20/22 04:10: Sodium 136, Potassium 3.4 L, Chloride 106, Carbon Dioxide 21.0, Anion Gap 9, BUN 25 H, Creatinine 0.94, Estim Creat Clear Calc 52.66, Est GFR (MDRD) Af Amer 97, Est GFR (MDRD) Non-Af 80, BUN/Creatinine Ratio 26.5 H, Glucose 135 H, Calcium 7.4 L, Total Bilirubin 2.30 H, AST 60 H, ALT 60, Alkaline Phosphatase 152 H, Total Protein 4.8 L, Albumin 1.4 L, Globulin 3.4, Albumin/Globulin Ratio 0.4 L 01/20/22 06:41: POC Glucose 132 H Micro: Microbiology 01/18/22 19:52 Nasal Secretion SARS-CoV-2 & FLU Antigen (Rapid) - Final Radiography Diagnostic Testing: Radiology Impression Abdomen/Pelvis CT 01/19/22 09:03 IMPRESSION: Ascites. Findings in keeping with a liver metastasis. Status post cholecystectomy. Intrahepatic or ductal dilatation with pneumobilia. A biliary stent is seen. Marked dilatation of the pancreatic duct with the mass in the head and uncinate process of the pancreas. Peripancreatic lymphadenopathy Small bilateral pleural effusions with bibasilar atelectasis and infiltrate.. Electronically Signed: Az Mendoza MD at 12:28 EDT , Endo Retro Cholangiopancreatogram 01/19/22 16:35 IMPRESSION: 1. Suggestion of a distal common duct stent. 2. Visualization of the mid common duct, which appears to be dilated. 3. No visualization of the intrahepatic biliary system. Electronically Signed: Isiah Thomas MD at 1:49 EDT , Physical Exam Narrative General: Alert, Oriented x3, Cooperative HEENT: Atraumatic, PERRLA, EOMI, Normocephalic Oral: Oral mucosa moist. No Gingival or Mucosal Lesions/ Ulcerations Neck: Supple, No JVD, Negative Carotid Bruits Lungs: Air entry diminished in bilateral lung bases. No crepitation/rhonchi Cardiovascular: Sinus rhythm, systolic murmur present over LLSB and cardiac apex. S1-S2 regular. Abdomen: Bowel Sounds Present, Soft, Non Tender, Non-Distended. Liver not enlarged. No palpable mass. : No renal angle tenderness. No suprapubic tenderness. Extremities: No edema, Capillary Refill Less than 3 Seconds Skin: No rashes, No breakdown Musculoskeletal: Moderate muscle atrophy of extremities. No Tenderness to Palp ation of Joints or Extremities Neurological: Cranial nerves II-XII grossly intact, DTR 2+/4 Psych/Mental Status: Flat affect. Assessment & Plan Assessment/Plan (1) Septic shock: PLAN: Plan This is a 86-year-old male with recent diagnosis of pancreatic cancer status post stent in [facility] admitted with fever chills, mild nonproductive cough. Patient was admitted in the shock state. #Septic shock exact etiology unclear but most probably hepatobiliary source, ascending cholangitis: The patient presented with septic shock due to possible hepatobiliary source of infection with acute sepsis related organ dysfunction as evidenced by JANES, lactic acidosis, hypotension requiring vasopressor support and lactic acidemia. Patient has increased total bilirubin 2.9. Previous total bilirubin was also high 5.3 in December 2018. Patient also has leukocytosis with Left shift, bands 23%, metamyelocytes 7%. Lymphocytes low 2%. On IV Levophed. UA 1+ bacteria, WBC 0-5. Sepsis work-up did not show any p ositive result yet. On IV vancomycin and Zosyn 01/20: Patient remains on Levophed 14 MCG per minute. Mild low-grade fever. 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 Severely dilated right main hepatic duct secondary to stricture, biliary sphincterotomy along with stent exchange. Patient on IV vancomycin and Zosyn. Flagyl was added on 01/19 by ID for. Anaerobic blood culture shows gram-positive rods. Follow culture. #Hypertension: Hold all BP meds on account of hypotension #JANES: Creatinine is 1.4 with baseline being around 0.89. This is likely due to septic shock. Should improve with hydration. 01/20: Mild hypokalemia K3.4. BUNs/creatinine 25/0.94. JANES resolved. Potassium replacement. #Recently diagnosed pancreatic cancer: Patient has stent most probably plastica stent as he was told that will be replaced in 6 to 8 weeks. The patient was supposed to start chemotherapy on 01/20/[address] Espinosa. #TYpe 2 diabetes mellitus * on lantus 8 units daily. ISS. Accuchecks ACHS #Glaucoma: on timolol and tafluprost eye drops DVT prophylaxis: lovenox GI prophylaxis; famotidine Code status: full code * Patient counseled extensively about different types of CODE STATUS including full code, DNR CCA and DNR CCA. Patient elects to be full code. Total time of the visit including total time spent in counseling or coordination of care, (more than 50% of the total time, spent in obtaining medical information from nurses and other ancillary care providers,explaining to the patient about labs, imaging, diagnosis and management of active complex medical conditions), discussion with corporate associate attorney, map and chart mounter and ID, review of labs and imaging is 40 minutes. Charges/Coding Visit Charges Inpatient E&M: 66514 Subs Hosp L3
--- NOTE | 2022-01-20 07:33 | PCM.RX.CS ---
Consult Type of Consult: Follow-up Suspected Infection: Sepsis Labs: Sodium 136 mmol/L (136-145) 01/20/22 04:10 Potassium 3.4 mmol/L (3.5-5.1) L 01/20/22 04:10 Chloride 106 mmol/L (98-107) 01/20/22 04:10 Carbon Dioxide 21.0 mmol/L (21.0-32.0) 01/20/22 04:10 Anion Gap 9 (5-15) 01/20/22 04:10 BUN 25 mg/dL (7-18) H 01/20/22 04:10 Creatinine 0.94 mg/dL (0.70-1.30) 01/20/22 04:10 Est GFR (MDRD) Af Amer 97 mL/min (>60) 01/20/22 04:10 Est GFR (MDRD) Non-Af 80 mL/min (>60) 01/20/22 04:10 BUN/Creatinine Ratio 26.5 RATIO (10-20) H 01/20/22 04:10 Glucose 135 mg/dL (74-106) H 01/20/22 04:10 Microbiology: Microbiology 01/18/22 19:52 Nasal Secretion SARS-CoV-2 & FLU Antigen (Rapid) - Final Goal Trough: 15-20 mcg/mL Pharmacy Plan for Drug Dosing: DAILY ASSESSMENT Current Vancomcyin Dose: 750mg Q24H Number of Doses Received: 2 Current Renal Function: sCr 0.94 mg/dL and CrCl 52.66 mL/min Renal Function Trend: improved Lab/Micro: pending Any Change in Vanc Plan: Adjust Vancomycin dosing regimen to 500mg Q12H, to start at 1200 01/20/22 Pending Level: Vancomycin trough @ 0030 01/21/22 Pharmacy Service will continue to monitor and adjust dosing as required. Labs to be done on [date and time ordered]: Vancomycin trough @ 0030 01/21/22
[2022-01-20] MEDS: Enoxaparin 40 MG/0.4 ML Syringe SC (08:20)
[2022-01-20] MEDS: Ursodiol 250 MG Tablet 500 MG PO ×2 (08:21→22:06)
[2022-01-20] MEDS: Famotidine 20 MG Tablet PO (08:21)
[2022-01-20] MEDS: Insulin Glargine-YFGN 100 UNIT/ML Pen 8 UNIT SC (08:22)
[2022-01-20] MEDS: CHLORHEXIDINE GLUC 2% CLOTH 1 EACH TOWELETTE TOPICAL (08:24)
--- NOTE | 2022-01-20 10:11 | PCM.PN.ID ---
Physical Exam Narrative Feeling better, no fever, no abd pain, no n/v/d./ Const alert and no apparent distress Resp normal air movement and clear to auscultation bilaterally Cardio regular rate and regular rhythm GI soft to palpation, non-tender and non-distended Skin no rashes or lesions noted ID ID: Route of nutrition/ use of supplements: [] Nutritional Intake: [] IV Site: [] Alfonso Catheter: [] Assessment & Plan Assessment/Plan (1) Septic shock: PLAN: Ascending cholangitis with recent dx pancreatic cancer. Cont vanc/cefepime/flagyl. Now s/p ERCP 01/19 with pus drained, sphincterotomy done, and stent replaced. JANES improved. 1 of 2 bcx with GPR. Will follow
[2022-01-20] MEDS: Vancomycin IV 500 MG/100 ML BAG 100 MG IV (11:14)
[2022-01-20] MEDS: Insulin Lispro 100 UNIT/ML INSULN.PEN SC ×3 (11:14→22:03)
[2022-01-20 11:35] LABS: Bedside Glucose 192 mg/dL (74-106)
[2022-01-20 14:01] LABS: Phosphorus 1.9 mg/dL (2.5-4.9)
[2022-01-20 16:11] LABS: Bedside Glucose 165 mg/dL (74-106)
--- NOTE | 2022-01-20 17:29 | PCM.PROGNOTE ---
Subjective Subjective Patient underwent ERCP yesterday. He still remains on Levophed drip. He is eating a little bit. Objective Data Objective Data Vital Signs: Vital Signs Temp Pulse Resp BP Pulse Ox O2 Del Method O2 Flow Rate 97.9 F 71 22 H 123/67 H 100 Room Air 2 01/20/22 17:00 01/20/22 17:00 01/20/22 17:00 01/20/22 17:00 01/20/22 17:00 01/20/22 17:00 01/18/22 21:00 Oxygen Flow Rate (L/min) 2 Oxygen Delivery Method Room Air Weight: 145 lb 8.081 oz Body Mass Index (BMI) 19.8 Intake & Output: Intake and Output for Last 24 Hours 01/18/22 01/19/22 01/20/22 23:59 23:59 23:59 Intake Total 3072.93 / 3076.38 5238.98 / 5257.48 1765.03 / 1765.03 Output Total 1125 / 1125 750 / 750 Balance 3072.93 / 3076.38 4113.98 / 4132.48 1015.03 / 1015.03 Lab / Micro Data Result Diagrams: 01/20/22 04:10 01/20/22 04:10 Labs: Laboratory Results - last 24 hr 01/19/22 22:30: POC Glucose 176 H 01/20/22 04:10: WBC 15.9 H, RBC 3.37 L, Hgb 11.5 L, Hct 34.0 L, MCV 100.9 H, MCH 34.1 H, MCHC 33.8, RDW Std Deviation 57.0 H, RDW Coeff of López 15.4 H, Plt Count 165, MPV 10.5, Immature Gran % (Auto) 0.400, Neut % (Auto) 88.3 H, Lymph % (Auto) 6.6 L, [place] % (Auto) 3.0, Eos % (Auto) 1.4, Baso % (Auto) 0.3, Absolute Neuts (auto) 14.0 H, Absolute Lymphs (auto) 1.05, Nucleated RBC % 0, Anisocytosis 1+, Macrocytosis 2+ 01/20/22 04:10: Sodium 136, Potassium 3.4 L, Chloride 106, Carbon Dioxide 21.0, Anion Gap 9, BUN 25 H, Creatinine 0.94, Estim Creat Clear Calc 52.66, Est GFR (MDRD) Af Amer 97, Est GFR (MDRD) Non-Af 80, BUN/Creatinine Ratio 26.5 H, Glucose 135 H, Calcium 7.4 L, Total Bilirubin 2.30 H, AST 60 H, ALT 60, Alkaline Phosphatase 152 H, Total Protein 4.8 L, Albumin 1.4 L, Globulin 3.4, Albumin/Globulin Ratio 0.4 L 01/20/22 04:10: Phosphorus 1.9 L, Magnesium 2.0 01/20/22 06:41: POC Glucose 132 H 01/20/22 11:10: POC Glucose 192 H 01/20/22 15:50: POC Glucose 165 H Micro: Microbiology 01/19/22 17:13 Incision/Surgical Site Gram Stain - Final 01/19/22 17:13 Incision/Surgical Site Wound Culture - 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 01/18/22 19:52 Nasal Secretion SARS-CoV-2 & FLU Antigen (Rapid) - Final Radiography Diagnostic Testing: Radiology Impression Endo Retro Cholangiopancreatogram 01/19/22 16:35 IMPRESSION: 1. Suggestion of a distal common duct stent. 2. Visualization of the mid common duct, which appears to be dilated. 3. No visualization of the intrahepatic biliary system. Electronically Signed: Isiah Thomas MD at 1:49 EDT , Physical Exam Narrative Feeling better, no fever, no abd pain, no n/v/d./ Const alert and no apparent distress Resp normal air movement and clear to auscultation bilaterally Cardio regular rate and regular rhythm GI soft to palpation, non-tender and non-distended Skin no rashes or lesions noted Assessment & Plan Assessment/Plan (1) Septic shock: PLAN: Plastic stents were placed up into the bile ductSeptic shock secondary to ascending cholangitis from a clogged biliary stent. The stent was removed and cultures were sent from the duct.. His white cell count and CMP are improving. Continue antibiotic therapy and encourage p.o. intake. Charges/Coding Visit Charges Inpatient E&M: 79939 Subs Hosp L2
[2022-01-20] MEDS: 0.9% Saline Lock 10 ML Syringe IV ×2 (21:56→23:26)
[2022-01-20 22:35] LABS: Bedside Glucose 175 mg/dL (74-106)
[2022-01-21] VITALS (57 sets, daily range): BP systolic 88–125; BP diastolic 48–89; PULSE 52–78; RESP 11–27; TEMP 36.2–37.7; O2SAT 92–100
[2022-01-21] MEDS: Vancomycin IV 500 MG/100 ML BAG 100 MG IV (01:00)
[2022-01-21 01:01] LABS: Vancomycin, Trough Level 11.1 ug/mL (5.0-15.0)
--- NOTE | 2022-01-21 01:19 | PCM.RX.CS ---
Consult Pharmacy has been consulted to manage selected antiobiotic: Vancomycin Type of Consult: Follow-up Labs: Sodium 136 mmol/L (136-145) 01/20/22 04:10 Potassium 3.4 mmol/L (3.5-5.1) L 01/20/22 04:10 Chloride 106 mmol/L (98-107) 01/20/22 04:10 Carbon Dioxide 21.0 mmol/L (21.0-32.0) 01/20/22 04:10 Anion Gap 9 (5-15) 01/20/22 04:10 BUN 25 mg/dL (7-18) H 01/20/22 04:10 Creatinine 0.94 mg/dL (0.70-1.30) 01/20/22 04:10 Est GFR (MDRD) Af Amer 97 mL/min (>60) 01/20/22 04:10 Est GFR (MDRD) Non-Af 80 mL/min (>60) 01/20/22 04:10 BUN/Creatinine Ratio 26.5 RATIO (10-20) H 01/20/22 04:10 Glucose 135 mg/dL (74-106) H 01/20/22 04:10 Vancomycin Trough 11.1 ug/mL (5.0-15.0) 01/21/22 00:30 Microbiology: Microbiology 01/19/22 17:13 Incision/Surgical Site Gram Stain - Final 01/19/22 17:13 Incision/Surgical Site Wound Culture - Preliminary 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 01/18/22 19:52 Nasal Secretion SARS-CoV-2 & FLU Antigen (Rapid) - Final Goal Trough: 15-20 mcg/mL Pharmacy Plan for Drug Dosing: Pharmacy Service will continue to monitor and adjust dosing as required. TROUGH 11.1 AT 13 HRS. INCREASE TO 750MG Q12H AND FOLLOW UP TROUGH PRIOR TO 4TH DOSE Follow-Up Labs: Trough Vancomycin Labs to be done on [date and time ordered]: 01/23 @ 0030
[2022-01-21 04:48] LABS: Absolute Lymphocyte Count 1.12 X10^3/uL (0.83-4.51); Absolute Neutrophil Count 18.4 X10^3/uL (2.0-7.7); Basophil# 0.04 X10^3/uL; Basophil% 0.2 % (0-1); Eosinophil# 0.15 X10^3/uL; Eosinophils% 0.7 % (0-5); Hematocrit 32.5 % (40-54); Hemoglobin 11.2 g/dL (13.0-16.5); Lymphocyte # 1.12 X10^3/ul (0.83-4.51); Lymphocyte % 5.4 % (19-41); Mean Corp Hgb Conc 34.5 g/dL (32-36); Mean Corpuscular Hgb 33.9 pg (27.0-32.0); Mean Corpuscular Volume 98.5 fL (80-94); Mean Platelet Vol. 10.2 fl (6.2-12.0); Monocyte# 0.87 X10^3/uL; Monocyte% 4.2 % (0-10); NRBC Flagged by Analyzer 0 % (0-5); Neutrophil # 18.43 X10^3/uL (2.7-7.7); Neutrophil % 88.7 % (47-70); POSITIVE MORPHOLOGY YES; Platelet Count 134 K/mm3 (150-450); RBC Distribution Width CV 15.2 % (11.6-14.6); RBC Distribution Width SD 55.2 fl (35.1-43.9); White Blood Count 20.8 K/mm3 (4.4-11.0)
[2022-01-21 04:49] LABS: Differential Indicated SCAN CRITERIA MET
[2022-01-21 05:00] LABS: Anisocytosis 1+; Macrocytosis 1+
[2022-01-21 05:05] LABS: ALB/GLOB Ratio 0.4 RATIO (0.9-2.4); AST(SGOT) 39 U/L (15-37); Alanine Aminotransfer ALT/SGPT 49 U/L (16-61); Albumin, Serum 1.3 g/dL (3.2-5.0); Alkaline Phosphatase 144 U/L (45-117); Anion Gap 8 (5-15); BUN 21 mg/dL (7-18); Calcium,Total 7.5 mg/dL (8.5-10.1); Chloride 105 mmol/L (98-107); Creatinine, Serum 0.72 mg/dL (0.70-1.30); EST Glomerular Filtration Rate 109 mL/min (>60); Est Glom Filt Rate - Afr Amer 132 mL/min (>60); Estimated Creatinine Clearance 51.38 ml/min; Globulin 3.4 g/dL (2.2-4.2); Glucose 180 mg/dL (74-106); Potassium 3.5 mmol/L (3.5-5.1); Protein, Total 4.7 g/dL (6.4-8.2); Sodium Level 135 mmol/L (136-145)
[2022-01-21] MEDS: metroNIDAZOLE 500 MG/100 ML BAG 100 MG IV ×3 (05:20→21:14)
--- NOTE | 2022-01-21 06:01 | PCM.PN.INT ---
Assessment & Plan Assessment/Plan (1) Septic shock: PLAN: Plan RECOMMENDATIONS: 1. Continue vasopressor support to maintain a mean arterial pressure at or above 65 mmHg. 2. Start scheduled midodrine. 3. Antimicrobials per ID recommendations. 4. Continue sliding scale insulin coverage. 5. Encourage incentive spirometer use and mobilize patient as tolerated. IMPRESSIONS: 1. Septic shock The patient presented with sepsis due to hepatobiliary source of infection/ascending cholangitis with acute sepsis related organ dysfunction as evidenced by acute kidney injury and lactic acidemia. Ultimately, the patient developed fluid refractory hypotension, requiring the initiation of vasopressor support to maintain hemodynamic stability. Subsequent ERCP demonstrated pus within the biliary tree. Sphincterotomy and stent exchange was undertaken by gastroenterology. For now, plan to continue vasopressor support to maintain a mean arterial pressure at or above 65 mmHg. The patient will be continued on broad-spectrum antimicrobials per ID recommendations. Midodrine will be initiated today. 2. Acute kidney injury Resolved. Likely prerenal in etiology/ischemic ATN in the setting of #1. Creatinine has improved with stabilization of hemodynamics. Continue to monitor urine output for now. No current indication for renal replacement therapy. 3. 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 Continue sliding scale insulin coverage. TIME: 33 minutes of critical care time, independent of procedures, was spent addressing the patient's septic shock, acute kidney injury, review of all data and collaboration with the care team. Subjective Subjective The patient was seen and examined at the bedside this morning. Events from the last 24 hours have been reviewed. The patient is currently afebrile maintaining appropriate oxygen saturations on room air. The patient remains on Levophed at 10 mcg/min to maintain hemodynamic stability. He is documented to be overall net +8.7 L for the hospitalization. White count is elevated at 21,000. Platelet count is low at 134,000. Total bili is increased to 2.3. No overnight issues were identified by the nursing staff. Objective Data Objective Data The patient's most recent lab work, culture data and imaging studies have all been personally reviewed. Preliminary blood cultures are positive for a gram-positive debora. Biliary cultures are demonstrating growth of Klebsiella and possible Enterococcus. Vital Signs: Vital Signs Temp Pulse Resp BP Pulse Ox O2 Del Method O2 Flow Rate 98.9 F 72 17 103/57 L 92 Room Air 2 01/21/22 05:00 01/21/22 05:00 01/21/22 05:00 01/21/22 05:00 01/21/22 05:00 01/21/22 05:00 01/18/22 21:00 Oxygen Flow Rate (L/min) 2 Oxygen Delivery Method Room Air Weight: 151 lb 0.266 oz Body Mass Index (BMI) 19.8 Intake & Output: Intake and Output for Last 24 Hours 01/19/22 01/20/22 01/21/22 23:59 23:59 23:59 Intake Total 5238.98 / 5257.48 2712.46 / 2729.36 283.25 / 283.25 Output Total 1125 / 1125 1150 / 1150 250 / 250 Balance 4113.98 / 4132.48 1562.46 / 1579.36 33.25 / 33.25 Lab / Micro Data Attestation: I reviewed the patient's lab results. Result Diagrams: 01/21/22 04:35 01/21/22 04:35 Labs: Laboratory Results - last 24 hr 01/20/22 04:10: WBC 15.9 H, RBC 3.37 L, Hgb 11.5 L, Hct 34.0 L, MCV 100.9 H, MCH 34.1 H, MCHC 33.8, RDW Std Deviation 57.0 H, RDW Coeff of López 15.4 H, Plt Count 165, MPV 10.5, Immature Gran % (Auto) 0.400, Neut % (Auto) 88.3 H, Lymph % (Auto) 6.6 L, [place] % (Auto) 3.0, Eos % (Auto) 1.4, Baso % (Auto) 0.3, Absolute Neuts (auto) 14.0 H, Absolute Lymphs (auto) 1.05, Nucleated RBC % 0, Anisocytosis 1+, Macrocytosis 2+ 01/20/22 04:10: Sodium 136, Potassium 3.4 L, Chloride 106, Carbon Dioxide 21.0, Anion Gap 9, BUN 25 H, Creatinine 0.94, Estim Creat Clear Calc 52.66, Est GFR (MDRD) Af Amer 97, Est GFR (MDRD) Non-Af 80, BUN/Creatinine Ratio 26.5 H, Glucose 135 H, Calcium 7.4 L, Total Bilirubin 2.30 H, AST 60 H, ALT 60, Alkaline Phosphatase 152 H, Total Protein 4.8 L, Albumin 1.4 L, Globulin 3.4, Albumin/Globulin Ratio 0.4 L 01/20/22 04:10: Phosphorus 1.9 L, Magnesium 2.0 01/20/22 06:41: POC Glucose 132 H 01/20/22 11:10: POC Glucose 192 H 01/20/22 15:50: POC Glucose 165 H 01/20/22 22:02: POC Glucose 175 H 01/21/22 00:30: Vancomycin Trough 11.1 01/21/22 04:35: WBC 20.8 H, RBC 3.30 L, Hgb 11.2 L, Hct 32.5 L, MCV 98.5 H, MCH 33.9 H, MCHC 34.5, RDW Std Deviation 55.2 H, RDW Coeff of López 15.2 H, Plt Count 134 L, MPV 10.2, Immature Gran % (Auto) 0.800, Neut % (Auto) 88.7 H, Lymph % (Auto) 5.4 L, [place] % (Auto) 4.2, Eos % (Auto) 0.7, Baso % (Auto) 0.2, Absolute Neuts (auto) 18.4 H, Absolute Lymphs (auto) 1.12, Nucleated RBC % 0, Anisocytosis 1+, Macrocytosis 1+ 01/21/22 04:35: Sodium 135 L, Potassium 3.5, Chloride 105, Carbon Dioxide 22.0, Anion Gap 8, BUN 21 H, Creatinine 0.72, Estim Creat Clear Calc 51.38, Est GFR (MDRD) Af Amer 132, Est GFR (MDRD) Non-Af 109, BUN/Creatinine Ratio 29.0 H, Glucose 180 H, Calcium 7.5 L, Total Bilirubin 2.30 H, AST 39 H, ALT 49, Alkaline Phosphatase 144 H, Total Protein 4.7 L, Albumin 1.3 L, Globulin 3.4, Albumin/Globulin Ratio 0.4 L Micro: Microbiology 01/19/22 17:13 Incision/Surgical Site Gram Stain - Final 01/19/22 17:13 Incision/Surgical Site Wound Culture - Preliminary 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 01/18/22 19:52 Nasal Secretion SARS-CoV-2 & FLU Antigen (Rapid) - Final Radiography Diagnostic Testing: Radiology Impression Abdomen/Pelvis CT 01/19/22 09:03 IMPRESSION: Ascites. Findings in keeping with a liver metastasis. Status post cholecystectomy. Intrahepatic or ductal dilatation with pneumobilia. A biliary stent is seen. Marked dilatation of the pancreatic duct with the mass in the head and uncinate process of the pancreas. Peripancreatic lymphadenopathy Small bilateral pleural effusions with bibasilar atelectasis and infiltrate.. Electronically Signed: Az Mendoza MD at 12:28 EDT , Endo Retro Cholangiopancreatogram 01/19/22 16:35 IMPRESSION: 1. Suggestion of a distal common duct stent. 2. Visualization of the mid common duct, which appears to be dilated. 3. No visualization of the intrahepatic biliary system. Electronically Signed: Isiah Thomas MD at 1:49 EDT , Physical Exam Const alert, oriented x3 and no apparent distress General Appearance: cooperative HEENT normocephalic and head/scalp atraumatic Eyes PERRL and EOMs intact bilaterally Neck supple General: trachea midline Chest inspection of chest normal Resp normal respiratory effort Auscultation: Negative for rales, rhonchi or wheezes Cardio regular rate and regular rhythm Heart Sounds: murmur GI soft to palpation and non-tender Extremity General Extremity: edema bilateral lower extremity; Negative for clubbing Skin no rashes or lesions noted Neuro CN's II-XII intact bilaterally, moves all extremities and no focal motor deficits Psych cooperative and affect normal Charges/Coding Procedures Hospitalists Procedures: [id number] Critial Care 1st Hr
[2022-01-21] MEDS: Insulin Lispro 100 UNIT/ML INSULN.PEN SC ×4 (06:06→21:36)
[2022-01-21 06:30] LABS: Bedside Glucose 169 mg/dL (74-106)
[2022-01-21] MEDS: Famotidine 20 MG Tablet PO (07:47)
[2022-01-21] MEDS: Ursodiol 250 MG Tablet 500 MG PO ×2 (07:47→21:33)
[2022-01-21] MEDS: Potassium Chloride Oral Tablet 20 MEQ 40 MEQ PO (07:47)
[2022-01-21] MEDS: Enoxaparin 40 MG/0.4 ML Syringe SC (07:48)
--- NOTE | 2022-01-21 09:43 | PCM.PN.ID ---
Physical Exam Narrative Feeling ok, no fever, remains on pressors, no abd pain Const alert and no apparent distress Resp normal air movement and clear to auscultation bilaterally Cardio regular rate and regular rhythm GI soft to palpation, non-tender and non-distended Skin no rashes or lesions noted ID ID: Route of nutrition/ use of supplements: [] Nutritional Intake: [] IV Site: [] Alfonso Catheter: [] Assessment & Plan Assessment/Plan (1) Septic shock: PLAN: Bacteremia due to ascending cholangitis with recent dx pancreatic cancer. Cont vanc/cefepime/flagyl. Now s/p ERCP 01/19 with pus drained, sphincterotomy done, and stent replaced. JANES improved. 2 of 2 bcx with GPR. Biliary cx with klebs and possible enterococcus. If it is VRE, would stop vanc, start po linezolid 600mg bid; would consider stopping trazodone while on linezolid. Will follow
[2022-01-21] MEDS: Midodrine HCl 5 MG Tablet 10 MG PO ×3 (10:06→17:50)
[2022-01-21] MEDS: Insulin Glargine-YFGN 100 UNIT/ML Pen 8 UNIT SC (10:06)
[2022-01-21] MEDS: CHLORHEXIDINE GLUC 2% CLOTH 1 EACH TOWELETTE TOPICAL (10:06)
[2022-01-21 12:05] LABS: Bedside Glucose 173 mg/dL (74-106)
--- NOTE | 2022-01-21 12:46 | PCM.PN.HOSP ---
Subjective Subjective Follow-up for septic shock. Patient is still on Levophed drip. Low-grade temperature T-max 99.8 Fahrenheit at midnight. Objective Data Objective Data Vital Signs: Vital Signs Temp Pulse Resp BP Pulse Ox O2 Del Method O2 Flow Rate 97.5 F L 64 18 115/59 L 92 Room Air 2 01/21/22 12:00 01/21/22 12:00 01/21/22 12:00 01/21/22 12:00 01/21/22 12:00 01/21/22 12:00 01/18/22 21:00 Oxygen Flow Rate (L/min) 2 Oxygen Delivery Method Room Air Weight: 151 lb 0.266 oz Body Mass Index (BMI) 19.8 Intake & Output: Intake and Output for Last 24 Hours 01/19/22 01/20/22 01/21/22 23:59 23:59 23:59 Intake Total 5238.98 / 5257.48 2712.46 / 2729.36 1036.05 / 1036.05 Output Total 1125 / 1125 1150 / 1150 725 / 725 Balance 4113.98 / 4132.48 1562.46 / 1579.36 311.05 / 311.05 Lab / Micro Data Result Diagrams: 01/21/22 04:35 01/21/22 04:35 Labs: Laboratory Results - last 24 hr 01/20/22 04:10: Phosphorus 1.9 L, Magnesium 2.0 01/20/22 15:50: POC Glucose 165 H 01/20/22 22:02: POC Glucose 175 H 01/21/22 00:30: Vancomycin Trough 11.1 01/21/22 04:35: WBC 20.8 H, RBC 3.30 L, Hgb 11.2 L, Hct 32.5 L, MCV 98.5 H, MCH 33.9 H, MCHC 34.5, RDW Std Deviation 55.2 H, RDW Coeff of López 15.2 H, Plt Count 134 L, MPV 10.2, Immature Gran % (Auto) 0.800, Neut % (Auto) 88.7 H, Lymph % (Auto) 5.4 L, [place] % (Auto) 4.2, Eos % (Auto) 0.7, Baso % (Auto) 0.2, Absolute Neuts (auto) 18.4 H, Absolute Lymphs (auto) 1.12, Nucleated RBC % 0, Anisocytosis 1+, Macrocytosis 1+ 01/21/22 04:35: Sodium 135 L, Potassium 3.5, Chloride 105, Carbon Dioxide 22.0, Anion Gap 8, BUN 21 H, Creatinine 0.72, Estim Creat Clear Calc 51.38, Est GFR (MDRD) Af Amer 132, Est GFR (MDRD) Non-Af 109, BUN/Creatinine Ratio 29.0 H, Glucose 180 H, Calcium 7.5 L, Total Bilirubin 2.30 H, AST 39 H, ALT 49, Alkaline Phosphatase 144 H, Total Protein 4.7 L, Albumin 1.3 L, Globulin 3.4, Albumin/Globulin Ratio 0.4 L 01/21/22 06:05: POC Glucose 169 H 01/21/22 11:40: POC Glucose 173 H Micro: Microbiology 01/19/22 17:13 Incision/Surgical Site Gram Stain - Final 01/19/22 17:13 Incision/Surgical Site Wound Culture - Preliminary Klebsiella oxytoca GPC Poss Enterococcus sp 01/18/22 19:52 Urine, Clean Catch Urine Culture - Final Culture exhibits no growth. 01/18/22 19:32 Blood Culture (Wb) - Anticubital Left Blood Culture - Preliminary 01/18/22 19:00 Blood Culture (Wb) - Anticubital Left Blood Culture - Preliminary 01/18/22 19:52 Nasal Secretion SARS-CoV-2 & FLU Antigen (Rapid) - Final Physical Exam Narrative General: Alert, Oriented x3, Cooperative HEENT: Atraumatic, PERRLA, EOMI, Normocephalic Oral: Oral mucosa moist. No Gingival or Mucosal Lesions/ Ulcerations Neck: Supple, No JVD, Negative Carotid Bruits Lungs: Air entry diminished in bilateral lung bases. No crepitation/rhonchi Cardiovascular: Sinus rhythm, systolic murmur present over LLSB and cardiac apex. S1-S2 regular. Abdomen: Bowel Sounds Present, Soft, Non Tender, Non-Distended. No rebound tenderness. Liver not enlarged. : No renal angle tenderness. No suprapubic tenderness. Extremities: No edema, Capillary Refill Less than 3 Seconds Skin: No rashes, No breakdown Musculoskeletal: Moderate muscle atrophy of extremities. No Tenderness to Palpation of Joints or Extremities Neurological: Cranial nerves II-XII grossly intact, DTR 2+/4 Psych/Mental Status: Flat affect. Assessment & Plan Assessment/Plan (1) Septic shock: PLAN: Plan This is a 86-year-old male with recent diagnosis of pancreatic cancer status post stent in [facility] admitted with fever chills, mild nonproductive cough. Patient was admitted in the shock state. #Septic shock due to bacteremia exact etiology unclear but most probably hepatobiliary source, ascending cholangitis: The patient presented with septic shock due to possible hepatobiliary source of infection with acute sepsis related organ dysfunction as evidenced by JANES, lactic acidosis, hypotension requiring vasopressor support and lactic acidemia. Patient has increased total bilirubin 2.9. Previous total bilirubin was also high 5.3 in December 2018. Patient also has leukocytosis with Left shift, bands 23%, metamyelocytes 7%. Lymphocytes low 2%. On IV Levophed. UA 1+ bacteria, WBC 0-5. Sepsis work-up did not show any positive result yet. On IV vancomycin and Zosyn 01/20: Patient remains on Levophed 14 MCG per minute. Mild low-grade fever. 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 Severely dilated right main hepatic duct secondary to stricture, biliary sphincterotomy along with stent exchange. Patient on IV vancomycin and Zosyn. Flagyl was added on 01/19 by ID for. Anaerobic blood culture shows gram-positive rods. Follow culture. 01/21: 2 out of 2 blood culture positive of gram-positive rods. Biliary fluid culture shows and GPC possible Enterococcus. If VRE found, restart linezolid and discontinued trazodone.ID follow-up appreciated. Patient is started on midodrine in order to taper down norepinephrine. #Hypertension: Hold all BP meds on account of hypotension #JANES: Creatinine is 1.4 with baseline being around 0.89. This is likely due to septic shock. Should improve with hydration. 01/20: Mild hypokalemia K3.4. BUNs/creatinine 25/0.94. JANES resolved. Potassium replacement. 01/21: Hypophosphatemia. K3.5. #Recently diagnosed pancreatic cancer: Patient has stent most probably plastica stent as he was told that will be replaced in 6 to 8 weeks. The patient was supposed to start chemotherapy on 01/20/[address] Espinosa. 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 ISSBert Kenny [facility] #Glaucoma: on timolol and tafluprost eye drops DVT prophylaxis: lovenox GI prophylaxis; famotidine Code status: full code Patient counseled extensively about different types of CODE STATUS including full code, DNR CCA and DNR CCA. Patient elects to be full code. Total time of the visit including total time spent in counseling or coordination of care, (more than 50% of the total time, spent in obtaining medical information from nurses and other ancillary care providers,explaining to the patient about labs, imaging, diagnosis and management of active complex medical conditions), discussion with roughing mill operator, slat basket maker helper and ID, review of labs and imaging is 40 minutes. Microbiology Past 72 Hours 01/19/22 17:13 Incision/Surgical Site Gram Stain - Final 01/19/22 17:13 Incision/Surgical Site Wound Culture - Preliminary Klebsiella oxytoca GPC Poss Enterococcus sp 01/18/22 19:52 Urine, Clean Catch Urine Culture - Final Culture exhibits no growth. 01/18/22 19:32 Blood Culture (Wb) - Anticubital Left Blood Culture - Preliminary 01/18/22 19:00 Blood Culture (Wb) - Anticubital Left Blood Culture - Preliminary 01/18/22 19:52 Nasal Secretion SARS-CoV-2 & FLU Antigen (Rapid) - Final Charges/Coding Visit Charges Inpatient E&M: 54028 Subs Hosp L3
--- NOTE | 2022-01-21 16:11 | CASEMGMT ---
LENKA DIEHL NOTE: Informed pt will need a walker @ discharge. LENKA DIEHL to room to talk w/pt. Pt sitting up in recliner chair in room. Introduced self and role. Pt states he will need a walker @ discharge. Pt provided w/list of DME companies consistent with the patient's preferred geographic region, medical needs, and insurance network. Pt states he has no preference. Script signed by Dr Wing and placed on chart w/green sheet w/instructions for walker, if pt would discharge over the weekend. Pt denies having any other discharge needs at this time. He declines wanting/needing HHC @ discharge. LENKA DIEHL instructed him to let staff know if he changes his mind prior to discharge. Pt also informed, should he decide once he returns home that he would like HHC, to discuss this with his PCP. He voices understanding. Kade YAO RN, CM
[2022-01-21 16:55] LABS: Bedside Glucose 240 mg/dL (74-106)
[2022-01-21] MEDS: 0.9% Saline Lock 10 ML Syringe IV ×2 (21:24→21:26)
[2022-01-21 22:05] LABS: Bedside Glucose 203 mg/dL (74-106)
[2022-01-22] VITALS (40 sets, daily range): BP systolic 86–114; BP diastolic 47–75; PULSE 55–75; RESP 11–27; TEMP 36.3–36.6; O2SAT 91–100
[2022-01-22 04:14] LABS: Absolute Lymphocyte Count 0.95 X10^3/uL (0.83-4.51); Basophil# 0.04 X10^3/uL; Basophil% 0.2 % (0-1); Eosinophil# 0.21 X10^3/uL; Hematocrit 33.3 % (40-54); Hemoglobin 11.2 g/dL (13.0-16.5); Lymphocyte # 0.95 X10^3/ul (0.83-4.51); Lymphocyte % 4.7 % (19-41); Mean Corp Hgb Conc 33.6 g/dL (32-36); Mean Corpuscular Hgb 33.3 pg (27.0-32.0); Mean Corpuscular Volume 99.1 fL (80-94); Mean Platelet Vol. 10.6 fl (6.2-12.0); Monocyte# 1.08 X10^3/uL; Monocyte% 5.3 % (0-10); NRBC Flagged by Analyzer 0 % (0-5); Neutrophil # 17.97 X10^3/uL (2.7-7.7); Neutrophil % 88.1 % (47-70); POSITIVE MORPHOLOGY YES; Platelet Count 109 K/mm3 (150-450); RBC Distribution Width CV 15.3 % (11.6-14.6); RBC Distribution Width SD 55.4 fl (35.1-43.9); Red Blood Count 3.36 M/mm3 (4.6-6.2); White Blood Count 20.4 K/mm3 (4.4-11.0)
[2022-01-22 04:16] LABS: Differential Indicated SCAN CRITERIA MET
[2022-01-22 04:48] LABS: ALB/GLOB Ratio 0.4 RATIO (0.9-2.4); AST(SGOT) 34 U/L (15-37); Alanine Aminotransfer ALT/SGPT 39 U/L (16-61); Albumin, Serum 1.3 g/dL (3.2-5.0); Alkaline Phosphatase 153 U/L (45-117); Anion Gap 7 (5-15); BUN 22 mg/dL (7-18); BUN/Creat Ratio 31.5 RATIO (10-20); Calcium,Total 7.3 mg/dL (8.5-10.1); Chloride 107 mmol/L (98-107); EST Glomerular Filtration Rate 114 mL/min (>60); Est Glom Filt Rate - Afr Amer 138 mL/min (>60); Estimated Creatinine Clearance 51.38 ml/min; Globulin 3.4 g/dL (2.2-4.2); Glucose 188 mg/dL (74-106); Potassium 3.8 mmol/L (3.5-5.1); Protein, Total 4.7 g/dL (6.4-8.2); Sodium Level 136 mmol/L (136-145)
[2022-01-22 05:11] LABS: Differential Comment SCANNED
[2022-01-22] MEDS: metroNIDAZOLE 500 MG/100 ML BAG 100 MG IV ×3 (05:46→22:08)
[2022-01-22] MEDS: 0.9% Saline Lock 10 ML Syringe IV ×2 (05:46→16:56)
[2022-01-22] MEDS: Midodrine HCl 5 MG Tablet 10 MG PO ×3 (07:51→16:56)
[2022-01-22] MEDS: Insulin Lispro 100 UNIT/ML INSULN.PEN SC ×3 (07:51→22:13)
[2022-01-22] MEDS: Potassium Chloride Oral Tablet 20 MEQ 40 MEQ PO (07:51)
--- NOTE | 2022-01-22 08:00 | PCM.PN.INT ---
Assessment & Plan Assessment/Plan (1) Septic shock: PLAN: Plan RECOMMENDATIONS: 1. Continue vasopressor support to maintain a mean arterial pressure at or above 65 mmHg. 2. Continue scheduled midodrine. 3. Antimicrobials per ID recommendations. Will likely need ID input for for transition to p.o. 4. Continue sliding scale insulin coverage. 5. Encourage incentive spirometer use and mobilize patient as tolerated. IMPRESSIONS: 1. Septic shock The patient presented with sepsis due to hepatobiliary source of infection/ascending cholangitis with acute sepsis related organ dysfunction as evidenced by acute kidney injury and lactic acidemia. Ultimately, the patient developed fluid refractory hypotension, requiring the initiation of vasopressor support to maintain hemodynamic stability. Subsequent ERCP demonstrated pus within the biliary tree. Sphincterotomy and stent exchange was undertaken by gastroenterology. For now, plan to continue vasopressor support to maintain a mean arterial pressure at or above 65 mmHg. The patient will be continued on broad-spectrum antimicrobials per ID recommendations. Midodrine will be continued. Patient appears to be growing actinomyces from original blood culture. Sensitivities are pending, but patient appears to be improving on the current regimen. No changes for now, but will need infectious disease input on transition to oral medications. 2. Acute kidney injury Resolved. Likely prerenal in etiology/ischemic ATN in the setting of #1. Creatinine has improved with stabilization of hemodynamics. Continue to monitor urine output for now. No current indication for renal replacement therapy. 3. 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 Continue sliding scale insulin coverage. Patient does wish to be aggressive at this time. TIME: 31 minutes of critical care time, independent of procedures, was spent addressing the patient's septic shock, acute kidney injury, review of all data and collaboration with the care team. Subjective Subjective Patient did okay overnight. No acute issues were reported by nursing. However, patient's blood pressure did drift down while he was sleeping requiring reinitiation of Levophed at approximately 10 PM. Patient is not reporting any abdominal pain, nausea or vomiting. Patient subjectively feels slightly improved compared to yesterday. Objective Data Objective Data Vital Signs: Vital Signs Temp Pulse Resp BP Pulse Ox O2 Del Method O2 Flow Rate 36.4 C L 62 11 L 94/54 L 96 Room Air 2 01/22/22 07:00 01/22/22 07:00 01/22/22 07:00 01/22/22 07:00 01/22/22 07:53 01/22/22 07:53 01/18/22 21:00 Oxygen Flow Rate (L/min) 2 Oxygen Delivery Method Room Air Weight: 70.6 kg Body Mass Index (BMI) 19.8 Intake & Output: Intake and Output for Last 24 Hours 01/20/22 01/21/22 01/22/22 23:59 23:59 23:59 Intake Total 2712.46 / 2729.36 2265.35 / 2267.23 514.05 / 514.05 Output Total 1150 / 1150 1225 / 1400 450 / 450 Balance 1562.46 / 1579.36 1040.35 / 867.23 64.05 / 64.05 Lab / Micro Data Attestation: I reviewed the patient's lab results. Result Diagrams: 01/22/22 04:05 01/22/22 04:05 Labs: Laboratory Results - last 24 hr 01/21/22 11:40: POC Glucose 173 H 01/21/22 16:36: POC Glucose 240 H 01/21/22 21:31: POC Glucose 203 H 01/22/22 04:05: WBC 20.4 H, RBC 3.36 L, Hgb 11.2 L, Hct 33.3 L, MCV 99.1 H, MCH 33.3 H, MCHC 33.6, RDW Std Deviation 55.4 H, RDW Coeff of López 15.3 H, Plt Count 109 L, MPV 10.6, Immature Gran % (Auto) 0.700, Neut % (Auto) 88.1 H, Lymph % (Auto) 4.7 L, [place] % (Auto) 5.3, Eos % (Auto) 1.0, Baso % (Auto) 0.2, Absolute Neuts (auto) 18.0 H, Absolute Lymphs (auto) 0.95, Nucleated RBC % 0, Differential Comment SCANNED 01/22/22 04:05: Sodium 136, Potassium 3.8, Chloride 107, Carbon Dioxide 22.0, Anion Gap 7, BUN 22 H, Creatinine 0.70, Estim Creat Clear Calc 51.38, Est GFR (MDRD) Af Amer 138, Est GFR (MDRD) Non-Af 114, BUN/Creatinine Ratio 31.5 H, Glucose 188 H, Calcium 7.3 L, Total Bilirubin 2.20 H, AST 34, ALT 39, Alkaline Phosphatase 153 H, Total Protein 4.7 L, Albumin 1.3 L, Globulin 3.4, Albumin/Globulin Ratio 0.4 L Micro: Microbiology 01/18/22 19:32 Blood Culture (Wb) - Anticubital Left Blood Culture - Final Gram positive debora 01/18/22 19:00 Blood Culture (Wb) - Anticubital Left Blood Culture - Preliminary Actinomyces odontolyticus 01/19/22 17:13 Incision/Surgical Site Gram Stain - Final 01/19/22 17:13 Incision/Surgical Site Wound Culture - Preliminary Klebsiella oxytoca GPC Poss Enterococcus sp 01/18/22 19:52 Urine, Clean Catch Urine Culture - Final Culture exhibits no growth. 01/18/22 19:52 Nasal Secretion SARS-CoV-2 & FLU Antigen (Rapid) - Final Physical Exam Const alert, oriented x3 and no apparent distress General Appearance: cooperative HEENT normocephalic and head/scalp atraumatic HEENT Narrative: Fair, crowded dentition noted. Eyes PERRL and EOMs intact bilaterally Neck supple General: trachea midline Chest inspection of chest normal Resp normal respiratory effort Effort and Inspection: Negative for actively coughing Auscultation: Negative for rales, rhonchi or wheezes Cardio regular rate, regular rhythm, S1 normal heart sound, S2 normal heart sound, no rub and no gallops Heart Sounds: murmur GI soft to palpation and non-tender Extremity no clubbing, cyanosis or edema General Extremity: edema bilateral (1+) lower extremity; Negative for clubbing Skin no rashes or lesions noted Neuro CN's II-XII intact bilaterally, moves all extremities and no focal motor deficits Psych cooperative and affect normal Charges/Coding Procedures Hospitalists Procedures: 59042 Critial Care 1st Hr
--- NOTE | 2022-01-22 09:24 | PN.HOSP_ITS ---
Subjective Subjective Follow-up for septic shock secondary to hepatobiliary source Levophed on hold in the morning since 8 AM and BP was borderline. Patient on maximum dose of midodrine 10 mg 3 times daily. Most recent BP 95/54. No fever Objective Data Objective Data Vital Signs: Vital Signs Temp Pulse Resp BP Pulse Ox O2 Del Method O2 Flow Rate 97.6 F L 70 11 L 94/54 L 96 Room Air 2 01/22/22 07:00 01/22/22 08:00 01/22/22 07:00 01/22/22 07:00 01/22/22 07:53 01/22/22 08:00 01/18/22 21:00 Oxygen Flow Rate (L/min) 2 Oxygen Delivery Method Room Air Weight: 155 lb 10.342 oz Body Mass Index (BMI) 19.8 Intake & Output: Intake and Output for Last 24 Hours 01/20/22 01/21/22 01/22/22 23:59 23:59 23:59 Intake Total 2712.46 / 2729.36 2265.35 / 2267.23 514.05 / 514.05 Output Total 1150 / 1150 1225 / 1400 550 / 550 Balance 1562.46 / 1579.36 1040.35 / 867.23 -35.95 / -35.95 Lab / Micro Data Result Diagrams: 01/22/22 04:05 01/22/22 04:05 Labs: Laboratory Results - last 24 hr 01/21/22 11:40: POC Glucose 173 H 01/21/22 16:36: POC Glucose 240 H 01/21/22 21:31: POC Glucose 203 H 01/22/22 04:05: WBC 20.4 H, RBC 3.36 L, Hgb 11.2 L, Hct 33.3 L, MCV 99.1 H, MCH 33.3 H, MCHC 33.6, RDW Std Deviation 55.4 H, RDW Coeff of López 15.3 H, Plt Count 109 L, MPV 10.6, Immature Gran % (Auto) 0.700, Neut % (Auto) 88.1 H, Lymph % (Auto) 4.7 L, [place] % (Auto) 5.3, Eos % (Auto) 1.0, Baso % (Auto) 0.2, Absolute Neuts (auto) 18.0 H, Absolute Lymphs (auto) 0.95, Nucleated RBC % 0, Differential Comment SCANNED 01/22/22 04:05: Sodium 136, Potassium 3.8, Chloride 107, Carbon Dioxide 22.0, An ion Gap 7, BUN 22 H, Creatinine 0.70, Estim Creat Clear Calc 51.38, Est GFR ( MDRD) Af Amer 138, Est GFR (MDRD) Non-Af 114, BUN/Creatinine Ratio 31.5 H, Glucose 188 H, Calcium 7.3 L, Total Bilirubin 2.20 H, AST 34, ALT 39, Alkaline Phosphatase 153 H, Total Protein 4.7 L, Albumin 1.3 L, Globulin 3.4, [place] min/Globulin Ratio 0.4 L Micro: Microbiology 01/19/22 17:13 Incision/Surgical Site Gram Stain - Final 01/19/22 17:13 Incision/Surgical Site Wound Culture - Final Klebsiella oxytoca Enterococcus faecium 01/18/22 19:32 Blood Culture (Wb) - Anticubital Left Blood Culture - Final Gram positive debora 01/18/22 19:00 Blood Culture (Wb) - Anticubital Left Blood Culture - Preliminary Actinomyces odontolyticus 01/18/22 19:52 Urine, Clean Catch Urine Culture - Final Culture exhibits no growth. 01/18/22 19:52 Nasal Secretion SARS-CoV-2 & FLU Antigen (Rapid) - Final Physical Exam Narrative Mild cough after he swallowed the pills. Denies any oropharyngeal dysphagia or history of esophageal dysphagia, stenosis or stricture. General: Alert, Oriented x3, Cooperative HEENT: Atraumatic, PERRLA, EOMI, Normocephalic Oral: Oral mucosa moist. No Gingival or Mucosal Lesions/ Ulcerations Neck: Supple, No JVD, Negative Carotid Bruits Lungs: Air entry diminished in bilateral lung bases. No crepitation/rhonchi Cardiovascular: Sinus rhythm, systolic murmur present over LLSB and cardiac apex. S1-S2 regular. Abdomen: Bowel Sounds Present, Soft, Non Tender, Non-Distended. No rebound tenderness. Liver not enlarged. : No renal angle tenderness. No suprapubic tenderness. Extremities: No edema, Capillary Refill Less than 3 Seconds Skin: No rashes, No breakdown Musculoskeletal: Moderate muscle atrophy of extremities. No Tenderness to Palpation of Joints or Extremities Neurological: Cranial nerves II-XII grossly intact, DTR 2+/4 Psych/Mental Status: Flat affect. Assessment & Plan Assessment/Plan (1) Septic shock: PLAN: Plan This is a 86-year-old male with recent diagnosis of pancreatic cancer status post stent in [facility] admitted with fever chills, mild nonproductive cough. Patient was admitted in the shock state. #Septic shock due to bacteremia exact etiology unclear but most probably hepatobiliary source, ascending cholangitis: The patient presented with septic shock due to possible hepatobiliary source of infection with acute sepsis related organ dysfunction as evidenced by JANES, lactic acidosis, hypotension requiring vasopressor support and lactic acidemia. Patient has increased total bilirubin 2.9. Previous total bilirubin was also high 5.3 in December 2018. Ady franklin also has leukocytosis with Left shift, bands 23%, metamyelocytes 7%. Lymphocytes low 2%. On IV Levophed. UA 1+ bacteria, WBC 0-5. Sepsis work-up did not show any positive result yet. On IV vancomycin and Zosyn 01/20: Patient remains on Levophed 14 MCG per minute. Mild low-grade fever. 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 Severely dilated right main hepatic duct secondary to stricture, biliary sphincterotomy along with stent exchange. Patient on IV vancomycin and cefepime. Flagyl was added on 01/19 by ID for. Anaerobic blood culture shows gram-positive rods. Follow culture. 01/21: 2 out of 2 blood culture positive of gram-positive rods. Biliary fluid culture shows and GPC possible Enterococcus. If VRE found, restart linezolid and discontinued trazodone.ID follow-up appreciated. Patient is started on midodrine in order to taper down norepinephrine. 01/22: Biliary fluid culture shows Klebsiella oxytoca, 1+ and Enterococcus fecium 1+. Klebsiella is ESBL negative. Enterococcus is vancomycin sensitive. 2 bottles of blood culture growing Actinomyces odontolyticus. Patient on Vancomycin cefepime and Flagyl. Patient blood pressure is borderline, systolic in 90s on midodrine 10 mg 3 times daily. Levophed on hold. #Hypertension: Hold all BP meds on account of hypotension #JANES: Creatinine is 1.4 with baseline being around 0.89. This is likely due to septic shock. Should improve with hydration. 01/20: Mild hypokalemia K3.4. BUNs/creatinine 25/0.94. JANES resolved. Potassium replacement. 01/21: Hypophosphatemia. K3.5. #Recently diagnosed pancreatic cancer: Patient has stent most probably plastica stent as he was told that will be replaced in 6 to 8 weeks. The patient was supposed to start chemotherapy on 01/20/[address] Espinosa. #TYpe 2 diabetes mellitus * on lantus 8 units daily. ISS. Accuchecks ACHS #Glaucoma: on timolol and tafluprost eye drops DVT prophylaxis: lovenox GI prophylaxis; famotidine Code status: full code * Patient counseled extensively about different types of CODE STATUS including full code, DNR CCA and DNR CCA. Patient elects to be full code. Total time of the visit including total time spent in counseling or coordination of care, (more than 50% of the total time, spent in obtaining medical information from nurses and other ancillary care providers,explaining to the patient about labs, imaging, diagnosis and management of active complex medical conditions), discussion with career development counselor, freight sales broker and ID, review of labs and imaging is 40 minutes. Microbiology Past 72 Hours 01/19/22 17:13 Incision/Surgical Site Gram Stain - Final 01/19/22 17:13 Incision/Surgical Site Wound Culture - Final Klebsiella oxytoca Enterococcus faecium 01/18/22 19:32 Blood Culture (Wb) - Anticubital Left Blood Culture - Final Gram positive debora 01/18/22 19:00 Blood Culture (Wb) - Anticubital Left Blood Culture - Preliminary Actinomyces odontolyticus 01/18/22 19:52 Urine, Clean Catch Urine Culture - Final Culture exhibits no growth. Laboratory Results 01/21/22 11:40: POC Glucose 173 H 01/21/22 16:36: POC Glucose 240 H 01/21/22 21:31: POC Glucose 203 H 01/22/22 04:05: WBC 20.4 H, RBC 3.36 L, Hgb 11.2 L, Hct 33.3 L, MCV 99.1 H, MCH 33.3 H, MCHC 33.6, RDW Std Deviation 55.4 H, RDW Coeff of López 15.3 H, Plt Count 109 L, MPV 10.6, Immature Gran % (Auto) 0.700, Neut % (Auto) 88.1 H, Lymph % (Auto) 4.7 L, [place] % (Auto) 5.3, Eos % (Auto) 1.0, Baso % (Auto) 0.2, Absolute Neuts (auto) 18.0 H, Absolute Lymphs (auto) 0.95, Nucleated RBC % 0, Differential Comment SCANNED 01/22/22 04:05: Sodium 136, Potassium 3.8, Chloride 107, Carbon Dioxide 22.0, Anion Gap 7, BUN 22 H, Creatinine 0.70, Estim Creat Clear Calc 51.38, Est GFR (MDRD) Af Amer 138, Est GFR (MDRD) Non-Af 114, BUN/Creatinine Ratio 31.5 H, Glucose 188 H, Calcium 7.3 L, Total Bilirubin 2.20 H, AST 34, ALT 39, Alkaline Phosphatase 153 H, Total Protein 4.7 L, Albumin 1.3 L, Globulin 3.4, Albumin/Globulin Ratio 0.4 L 01/22/22 07:49: POC Glucose 151 H Charges/Coding Visit Charges Inpatient E&M: 87672 Subs Hosp L3
[2022-01-22] MEDS: Insulin Glargine-YFGN 100 UNIT/ML Pen 8 UNIT SC (09:40)
[2022-01-22] MEDS: Enoxaparin 40 MG/0.4 ML Syringe SC (09:41)
[2022-01-22] MEDS: Famotidine 20 MG Tablet PO (09:41)
[2022-01-22] MEDS: Ursodiol 250 MG Tablet 500 MG PO ×2 (09:42→22:08)
[2022-01-22 10:15] LABS: Bedside Glucose 151 mg/dL (74-106)
[2022-01-22 13:01] LABS: Bedside Glucose 149 mg/dL (74-106)
[2022-01-22 18:00] LABS: Bedside Glucose 175 mg/dL (74-106)
[2022-01-22 22:45] LABS: Bedside Glucose 166 mg/dL (74-106)
[2022-01-23] VITALS (17 sets, daily range): BP systolic 95–114; BP diastolic 53–60; PULSE 56–72; RESP 12–24; TEMP 36.1–36.7; O2SAT 91–96
[2022-01-23 01:11] LABS: Vancomycin, Trough Level 14.5 ug/mL (5.0-15.0)
--- NOTE | 2022-01-23 01:21 | PCM.RX.CS ---
Consult Pharmacy has been consulted to manage selected antiobiotic: Vancomycin Type of Consult: Follow-up Labs: Sodium 136 mmol/L (136-145) 01/22/22 04:05 Potassium 3.8 mmol/L (3.5-5.1) 01/22/22 04:05 Chloride 107 mmol/L (98-107) 01/22/22 04:05 Carbon Dioxide 22.0 mmol/L (21.0-32.0) 01/22/22 04:05 Anion Gap 7 (5-15) 01/22/22 04:05 BUN 22 mg/dL (7-18) H 01/22/22 04:05 Creatinine 0.70 mg/dL (0.70-1.30) 01/22/22 04:05 Est GFR (MDRD) Af Amer 138 mL/min (>60) 01/22/22 04:05 Est GFR (MDRD) Non-Af 114 mL/min (>60) 01/22/22 04:05 BUN/Creatinine Ratio 31.5 RATIO (10-20) H 01/22/22 04:05 Glucose 188 mg/dL (74-106) H 01/22/22 04:05 Vancomycin Trough 14.5 ug/mL (5.0-15.0) 01/23/22 00:35 Microbiology: Microbiology 01/19/22 17:13 Incision/Surgical Site Gram Stain - Final 01/19/22 17:13 Incision/Surgical Site Wound Culture - Final Klebsiella oxytoca Enterococcus faecium 01/18/22 19:32 Blood Culture (Wb) - Anticubital Left Blood Culture - Final Gram positive debora 01/18/22 19:00 Blood Culture (Wb) - Anticubital Left Blood Culture - Preliminary Actinomyces odontolyticus 01/18/22 19:52 Urine, Clean Catch Urine Culture - Final Culture exhibits no growth. 01/18/22 19:52 Nasal Secretion SARS-CoV-2 & FLU Antigen (Rapid) - Final Goal Trough: 15-20 mcg/mL Pharmacy Plan for Drug Dosing: Pharmacy Service will continue to monitor and adjust dosing as required. TROUGH 14.5 @ 12 HRS. NO CHANGES, FOLLOW UP TROUGH IN 2 DAYS Follow-Up Labs: Trough Vancomycin Labs to be done on [date and time ordered]: 01/25 @ 0030
[2022-01-23 04:48] LABS: Absolute Lymphocyte Count 1.33 X10^3/uL (0.83-4.51); Absolute Neutrophil Count 14.7 X10^3/uL (2.0-7.7); Basophil# 0.05 X10^3/uL; Basophil% 0.3 % (0-1); Eosinophils% 1.7 % (0-5); Hematocrit 33.5 % (40-54); Hemoglobin 11.3 g/dL (13.0-16.5); Lymphocyte # 1.33 X10^3/ul (0.83-4.51); Lymphocyte % 7.5 % (19-41); Mean Corp Hgb Conc 33.7 g/dL (32-36); Mean Corpuscular Hgb 33.5 pg (27.0-32.0); Mean Corpuscular Volume 99.4 fL (80-94); Mean Platelet Vol. 10.5 fl (6.2-12.0); Monocyte% 6.2 % (0-10); NRBC Flagged by Analyzer 0 % (0-5); Neutrophil # 14.66 X10^3/uL (2.7-7.7); Neutrophil % 82.4 % (47-70); Platelet Count 113 K/mm3 (150-450); RBC Distribution Width CV 15.6 % (11.6-14.6); RBC Distribution Width SD 57.7 fl (35.1-43.9); Red Blood Count 3.37 M/mm3 (4.6-6.2); White Blood Count 17.8 K/mm3 (4.4-11.0)
[2022-01-23 05:07] LABS: ALB/GLOB Ratio 0.4 RATIO (0.9-2.4); AST(SGOT) 25 U/L (15-37); Alanine Aminotransfer ALT/SGPT 31 U/L (16-61); Albumin, Serum 1.3 g/dL (3.2-5.0); Alkaline Phosphatase 158 U/L (45-117); Anion Gap 7 (5-15); BUN 25 mg/dL (7-18); BUN/Creat Ratio 32.4 RATIO (10-20); Calcium,Total 7.3 mg/dL (8.5-10.1); Chloride 109 mmol/L (98-107); Creatinine, Serum 0.77 mg/dL (0.70-1.30); EST Glomerular Filtration Rate 101 mL/min (>60); Est Glom Filt Rate - Afr Amer 123 mL/min (>60); Estimated Creatinine Clearance 52.95 ml/min; Globulin 3.3 g/dL (2.2-4.2); Glucose 165 mg/dL (74-106); Potassium 4.1 mmol/L (3.5-5.1); Protein, Total 4.6 g/dL (6.4-8.2); Sodium Level 138 mmol/L (136-145)
[2022-01-23] MEDS: metroNIDAZOLE 500 MG/100 ML BAG 100 MG IV ×3 (06:26→22:01)
[2022-01-23] MEDS: 0.9% Saline Lock 10 ML Syringe IV ×3 (06:27→11:12)
--- NOTE | 2022-01-23 07:10 | PN.CC_ITS ---
Assessment & Plan Assessment/Plan (1) Septic shock: PLAN: Plan RECOMMENDATIONS: 1. Challenge with small dose of Lasix 2. Continue scheduled midodrine. 3. Antimicrobials per ID recommendations. Will likely need ID input for for transition to p.o. 4. Continue sliding scale insulin coverage. 5. Encourage incentive spirometer use and mobilize patient as tolerated. 6. Okay to leave the intensive care unit from my perspective IMPRESSIONS: 1. Septic shock The patient presented with sepsis due to hepatobiliary source of infection/ascending cholangitis with acute sepsis related organ dysfunction as evidenced by acute kidney injury and lactic acidemia. Ultimately, the patient developed fluid refractory hypotension, requiring the initiation of vasopressor support to maintain hemodynamic stability. Subsequent ERCP demonstrated pus within the biliary tree. Sphincterotomy and stent exchange was undertaken by gastroenterology. Patient off pressors for almost 24 hours. The patient will be continued on broad-spectrum antimicrobials per ID recommendations. Midodrine will be continued. Patient appears to be growing actinomyces from original blood culture. Sensitivities are pending, but patient appears to be improving on the current regimen. No changes for now, but will need infectious disease input on transition to oral medications. 2. Acute kidney injury Resolved. Likely prerenal in etiology/ischemic ATN in the setting of #1. Creatinine has improved with stabilization of hemodynamics. Continue to monitor urine output for now. No current indication for renal replacement therapy. Patient +11 L over the course of the hospitalization. Will attempt diuretics f ollowing midodrine dosing. 3. 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 Continue sliding scale insulin coverage. Patient does wish to be aggressive at this time. Subjective Subjective Patient did okay overnight. Patient has been able to stay off of pressors throughout the day. Nursing has no concerns at this time. Patient did have some softer blood pressures overnight, but no need for reinitiation of pressors. Patient has remained on room air, but has had significant anasarca. Objective Data Objective Data Vital Signs: Vital Signs Temp Pulse Resp BP Pulse Ox O2 Del Method O2 Flow Rate 36.6 C 60 12 105/57 L 92 Room Air 2 01/23/22 06:00 01/23/22 06:00 01/23/22 06:00 01/23/22 06:00 01/23/22 06:00 01/23/22 06:00 01/18/22 21:00 Oxygen Flow Rate (L/min) 2 Oxygen Delivery Method Room Air Weight: 71 kg Body Mass Index (BMI) 19.8 Intake & Output: Intake and Output for Last 24 Hours 01/21/22 01/22/22 01/23/22 23:59 23:59 23:59 Intake Total 2265.35 / 2267.23 2151.70 / 2151.70 625 / 625 Output Total 1225 / 1400 825 / 825 425 / 425 Balance 1040.35 / 867.23 1326.70 / 1326.70 200 / 200 Lab / Micro Data Attestation: I reviewed the patient's lab results. Result Diagrams: 01/23/22 04:40 01/23/22 04:40 Labs: Laboratory Results - last 24 hr 01/22/22 07:49: POC Glucose 151 H 01/22/22 11:30: POC Glucose 149 H 01/22/22 16:51: POC Glucose 175 H 01/22/22 22:13: POC Glucose 166 H 01/23/22 00:35: Vancomycin Trough 14.5 01/23/22 04:40: WBC 17.8 H, RBC 3.37 L, Hgb 11.3 L, Hct 33.5 L, MCV 99.4 H, MCH 33.5 H, MCHC 33.7, RDW Std Deviation 57.7 H, RDW Coeff of López 15.6 H, Plt Count 113 L, MPV 10.5, Immature Gran % (Auto) 1.900 H, Neut % (Auto) 82.4 H, Lymph % (Auto) 7.5 L, [place] % (Auto) 6.2, Eos % (Auto) 1.7, Baso % (Auto) 0.3, Absolute Neuts (auto) 14.7 H, Absolute Lymphs (auto) 1.33, Nucleated RBC % 0 01/23/22 04:40: Sodium 138, Potassium 4.1, Chloride 109 H, Carbon Dioxide 22.0, Anion Gap 7, BUN 25 H, Creatinine 0.77, Estim Creat Clear Calc 52.95, Est GFR ( MDRD) Af Amer 123, Est GFR (MDRD) Non-Af 101, BUN/Creatinine Ratio 32.4 H, Glucose 165 H, Calcium 7.3 L, Total Bilirubin 2.10 H, AST 25, ALT 31, Alkaline Phosphatase 158 H, Total Protein 4.6 L, Albumin 1.3 L, Globulin 3.3, [place] min/Globulin Ratio 0.4 L Micro: Microbiology 01/19/22 17:13 Incision/Surgical Site Gram Stain - Final 01/19/22 17:13 Incision/Surgical Site Wound Culture - Final Klebsiella oxytoca Enterococcus faecium 01/18/22 19:32 Blood Culture (Wb) - Anticubital Left Blood Culture - Final Gram positive debora 01/18/22 19:00 Blood Culture (Wb) - Anticubital Left Blood Culture - Preliminary Actinomyces odontolyticus 01/18/22 19:52 Urine, Clean Catch Urine Culture - Final Culture exhibits no growth. 01/18/22 19:52 Nasal Secretion SARS-CoV-2 & FLU Antigen (Rapid) - Final Physical Exam Const alert, oriented x3 and no apparent distress Constitutional Narrative: Anasarca General Appearance: cooperative HEENT normocephalic and head/scalp atraumatic Eyes PERRL and EOMs intact bilaterally Neck supple General: trachea midline Chest inspection of chest normal Resp normal respiratory effort Effort and Inspection: Negative for actively coughing Auscultation: Negative for rales, rhonchi or wheezes Cardio regular rate, regular rhythm, S1 normal heart sound, S2 normal heart sound, no rub and no gallops Heart Sounds: murmur GI soft to palpation and non-tender Extremity General Extremity: edema bilateral (1+) lower extremity; Negative for clubbing Skin no rashes or lesions noted Neuro CN's II-XII intact bilaterally, moves all extremities and no focal motor deficit s Psych cooperative and affect normal Charges/Coding Visit Charges Inpatient E&M: 05726 Subs Hosp L3
[2022-01-23] MEDS: Midodrine HCl 5 MG Tablet 10 MG PO ×3 (07:26→17:02)
[2022-01-23] MEDS: Potassium Chloride Oral Tablet 20 MEQ 40 MEQ PO (07:26)
[2022-01-23 07:56] LABS: Bedside Glucose 129 mg/dL (74-106)
[2022-01-23] MEDS: Furosemide 20 MG/2 ML VIAL IV (08:32)
[2022-01-23] MEDS: Enoxaparin 40 MG/0.4 ML Syringe SC (10:07)
[2022-01-23] MEDS: Insulin Glargine-YFGN 100 UNIT/ML Pen 8 UNIT SC (10:07)
[2022-01-23] MEDS: guaiFENesin/D-Methorphan TAB.SR.12H 1 TABLET PO ×2 (10:07→21:55)
[2022-01-23] MEDS: Famotidine 20 MG Tablet PO (10:07)
[2022-01-23] MEDS: Ursodiol 250 MG Tablet 500 MG PO ×2 (10:07→21:55)
[2022-01-23] MEDS: CHLORHEXIDINE GLUC 2% CLOTH 1 EACH TOWELETTE TOPICAL (10:08)
--- NOTE | 2022-01-23 10:09 | PN.HOSP_ITS ---
Subjective Subjective Follow-up for septic shock. Patient maintains blood pressure, MAP more than 65 for 24 hours without vasopressor support. On midodrine 10 mg 3 times daily. Has mild cough mainly dry and not able to bring up phlegm Objective Data Objective Data Vital Signs: Vital Signs Temp Pulse Resp BP Pulse Ox O2 Del Method O2 Flow Rate 97.5 F L 63 13 106/56 L 93 Room Air 2 01/23/22 08:00 01/23/22 08:00 01/23/22 08:00 01/23/22 08:00 01/23/22 08:00 01/23/22 08:00 01/18/22 21:00 Oxygen Flow Rate (L/min) 2 Oxygen Delivery Method Room Air Weight: 156 lb 8.451 oz Body Mass Index (BMI) 19.8 Intake & Output: Intake and Output for Last 24 Hours 01/21/22 01/22/22 01/23/22 23:59 23:59 23:59 Intake Total 2265.35 / 2267.23 2151.70 / 2151.70 725 / 725 Output Total 1225 / 1400 825 / 825 500 / 500 Balance 1040.35 / 867.23 1326.70 / 1326.70 225 / 225 Lab / Micro Data Result Diagrams: 01/23/22 04:40 01/23/22 04:40 Labs: Laboratory Results - last 24 hr 01/22/22 07:49: POC Glucose 151 H 01/22/22 11:30: POC Glucose 149 H 01/22/22 16:51: POC Glucose 175 H 01/22/22 22:13: POC Glucose 166 H 01/23/22 00:35: Vancomycin Trough 14.5 01/23/22 04:40: WBC 17.8 H, RBC 3.37 L, Hgb 11.3 L, Hct 33.5 L, MCV 99.4 H, MCH 33.5 H, MCHC 33.7, RDW Std Deviation 57.7 H, RDW Coeff of López 15.6 H, Plt Count 113 L, MPV 10.5, Immature Gran % (Auto) 1.900 H, Neut % (Auto) 82.4 H, Lymph % (Auto) 7.5 L, [place] % (Auto) 6.2, Eos % (Auto) 1.7, Baso % (Auto) 0.3, Absolute Neuts (auto) 14.7 H, Absolute Lymphs (auto) 1.33, Nucleated RBC % 0 01/23/22 04:40: Sodium 138, Potassium 4.1, Chloride 109 H, Carbon Dioxide 22.0, Anion Gap 7, BUN 25 H, Creatinine 0.77, Estim Creat Clear Calc 52.95, Est GFR (MDRD) Af Amer 123, Est GFR (MDRD) Non-Af 101, BUN/Creatinine Ratio 32.4 H, Glucose 165 H, Calcium 7.3 L, Total Bilirubin 2.10 H, AST 25, ALT 31, Alkaline Phosphatase 158 H, Total Protein 4.6 L, Albumin 1.3 L, Globulin 3.3, Albumin/Globulin Ratio 0.4 L 01/23/22 07:24: POC Glucose 129 H Micro: Microbiology 01/19/22 17:13 Incision/Surgical Site Gram Stain - Final 01/19/22 17:13 Incision/Surgical Site Wound Culture - Final Klebsiella oxytoca Enterococcus faecium 01/18/22 19:32 Blood Culture (Wb) - Anticubital Left Blood Culture - Final Gram positive debora 01/18/22 19:00 Blood Culture (Wb) - Anticubital Left Blood Culture - Preliminary Actinomyces odontolyticus 01/18/22 19:52 Urine, Clean Catch Urine Culture - Final Culture exhibits no growth. 01/18/22 19:52 Nasal Secretion SARS-CoV-2 & FLU Antigen (Rapid) - Final Physical Exam Narrative Mild cough after he swallowed the pills. Denies any oropharyngeal dysphagia or history of esophageal dysphagia, stenosis or stricture. General: Alert, Oriented x3, Cooperative HEENT: Atraumatic, PERRLA, EOMI, Normocephalic Oral: Oral mucosa moist. No Gingival or Mucosal Lesions/ Ulcerations. No dysphagia. Neck: Supple, No JVD, Negative Carotid Bruits Lungs: Air entry diminished in bilateral lung bases. No crepitation/rhonchi. Cardiovascular: Sinus rhythm, systolic murmur present over LLSB and cardiac apex. S1-S2 regular. Abdomen: Bowel Sounds Present, Soft, Non Tender, Non-Distended. No rebound tenderness. Liver not enlarged. : No renal angle tenderness. No suprapubic tenderness. Extremities: No edema, Capillary Refill Less than 3 Seconds Skin: No rashes, No breakdown Musculoskeletal: Moderate muscle atrophy of extremities. No Tenderness to Palpation of Joints or Extremities Neurological: Cranial nerves II-XII grossly intact, DTR 2+/4 Psych/Mental Status: Flat affect. Assessment & Plan Assessment/Plan (1) Septic shock: PLAN: Plan This is a 86-year-old male with recent diagnosis of pancreatic cancer status post stent in [facility] admitted with fever chills, mild nonproductive cough. Patient was admitted in the shock state. #Septic shock due to bacteremia exact etiology unclear but most probably hepatobiliary source, ascending cholangitis: The patient presented with septic shock due to possible hepatobiliary source of infection with acute sepsis related organ dysfunction as evidenced by JANES, lactic acidosis, hypotension requiring vasopressor support and lactic acidemia. Patient has increased total bilirubin 2.9. Previous total bilirubin was also high 5.3 in December 2018. Patient also has leukocytosis with Left shift, bands 23%, metamyelocytes 7%. Lymphocytes low 2%. On IV Levophed. UA 1+ bacteria, WBC 0-5. Sepsis work-up did not show any positive result yet. On IV vancomycin and Zosyn 01/20: Patient remains on Levophed 14 MCG per minute. Mild low-grade fever. 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 Severely dilated right main hepatic duct secondary to stricture, biliary sphincterotomy along with stent exchange. Patient on IV vancomycin and cefepime. Flagyl was added on 01/19 by ID for. Anaerobic blood culture shows gram-positive rods. Follow culture. 01/21: 2 out of 2 blood culture positive of gram-positive rods. Biliary fluid culture shows and GPC possible Enterococcus. If VRE found, restart linezolid and discontinued trazodone.ID follow-up appreciated. Patient is started on midodrine in order to taper down norepinephrine. 01/22: Biliary fluid culture shows Klebsiella oxytoca, 1+ and Enterococcus fecium 1+. Klebsiella is ESBL negative. Enterococcus is vancomycin sensitive. 2 bottles of blood culture growing Actinomyces odontolyticus. Patient on Vancomycin cefepime and Flagyl. Patient blood pressure is borderline, systolic in 90s on midodrine 10 mg 3 times daily. Levophed on hold. 01/19: Maintaining MAP more than 65 without vasopressor support. Transferred to PCU. Symptomatic Mucinex D for cough. No fever.Urine output about 1 L daily. Yesterday 825 mill.Positive fluid balance 11 L. Furosemide 20 mg IV 1 dose given. #Hypertension: Hold all BP meds on account of hypotension #JANES: Creatinine is 1.4 with baseline being around 0.89. This is likely due to septic shock. Should improve with hydration. 01/20: Mild hypokalemia K3.4. BUNs/creatinine 25/0.94. JANES resolved. Potassium replacement. 01/21: Hypophosphatemia. K3.5. 01/23: #Recently diagnosed pancreatic cancer: Patient has stent most probably plastica stent as he was told that will be replaced in 6 to 8 weeks. The patient was s upposed to start chemotherapy on 01/20/[address] Espinosa. #TYpe 2 diabetes mellitus * on lantus 8 units daily. ISS. Accuchecks ACHS #Glaucoma: on timolol and tafluprost eye drops DVT prophylaxis: lovenox GI prophylaxis; famotidine Code status: full code * Patient counseled extensively about different types of CODE STATUS including full code, DNR CCA and DNR CCA. Patient elects to be full code. Total time of the visit including total time spent in counseling or coordination of care, (more than 50% of the total time, spent in obtaining medical information from nurses and other ancillary care providers,explaining to the patient about labs, imaging, diagnosis and management of active complex medical conditions), discussion with application support intern, cable tool operator and ID, review of labs and imaging is 40 minutes. Microbiology Past 72 Hours 01/19/22 17:13 Incision/Surgical Site Gram Stain - Final 01/19/22 17:13 Incision/Surgical Site Wound Culture - Final Klebsiella oxytoca Enterococcus faecium 01/18/22 19:32 Blood Culture (Wb) - Anticubital Left Blood Culture - Final Gram positive debora 01/18/22 19:00 Blood Culture (Wb) - Anticubital Left Blood Culture - Pr eliminary Actinomyces odontolyticus 01/18/22 19:52 Urine, Clean Catch Urine Culture - Final Culture exhibits no growth. Laboratory Results 01/22/22 11:30: POC Glucose 149 H 01/22/22 16:51: POC Glucose 175 H 01/22/22 22:13: POC Glucose 166 H 01/23/22 00:35: Vancomycin Trough 14.5 01/23/22 04:40: WBC 17.8 H, RBC 3.37 L, Hgb 11.3 L, Hct 33.5 L, MCV 99.4 H, MCH 33.5 H, MCHC 33.7, RDW Std Deviation 57.7 H, RDW Coeff of López 15.6 H, Plt Count 113 L, MPV 10.5, Immature Gran % (Auto) 1.900 H, Neut % (Auto) 82.4 H, Lymph % (Auto) 7.5 L, [place] % (Auto) 6.2, Eos % (Auto) 1.7, Baso % (Auto) 0.3, Absolute N euts (auto) 14.7 H, Absolute Lymphs (auto) 1.33, Nucleated RBC % 0 01/23/22 04:40: Sodium 138, Potassium 4.1, Chloride 109 H, Carbon Dioxide 22.0, Anion Gap 7, BUN 25 H, Creatinine 0.77, Estim Creat Clear Calc 52.95, Est GFR (MDRD) Af Amer 123, Est GFR (MDRD) Non-Af 101, BUN/Creatinine Ratio 32.4 H, Glucose 165 H, Calcium 7.3 L, Total Bilirubin 2.10 H, AST 25, ALT 31, Alkaline Phosphatase 158 H, Total Protein 4.6 L, Albumin 1.3 L, Globulin 3.3, Albumin/Globulin Ratio 0.4 L 01/23/22 07:24: POC Glucose 129 H Charges/Coding Visit Charges Inpatient E&M: 67247 Subs Hosp L3
[2022-01-23] MEDS: Insulin Lispro 100 UNIT/ML INSULN.PEN SC ×3 (11:10→21:56)
[2022-01-23 11:40] LABS: Bedside Glucose 193 mg/dL (74-106)
[2022-01-23 17:50] LABS: Bedside Glucose 193 mg/dL (74-106)
[2022-01-23 22:10] LABS: Bedside Glucose 172 mg/dL (74-106)
[2022-01-24] VITALS (8 sets, daily range): BP systolic 115–130; BP diastolic 57–69; PULSE 57–75; RESP 16–20; TEMP 36.1–37.1; O2SAT 92–98
[2022-01-24 03:59] LABS: Absolute Lymphocyte Count 1.46 X10^3/uL (0.83-4.51); Absolute Neutrophil Count 13.6 X10^3/uL (2.0-7.7); Basophil# 0.07 X10^3/uL; Basophil% 0.4 % (0-1); Eosinophil# 0.45 X10^3/uL; Eosinophils% 2.6 % (0-5); Hematocrit 35.8 % (40-54); Hemoglobin 12.3 g/dL (13.0-16.5); Lymphocyte # 1.46 X10^3/ul (0.83-4.51); Lymphocyte % 8.4 % (19-41); Mean Corp Hgb Conc 34.4 g/dL (32-36); Mean Corpuscular Hgb 34.2 pg (27.0-32.0); Mean Corpuscular Volume 99.4 fL (80-94); Mean Platelet Vol. 10.7 fl (6.2-12.0); Monocyte% 6.9 % (0-10); NRBC Flagged by Analyzer 0 % (0-5); Neutrophil # 13.58 X10^3/uL (2.7-7.7); Neutrophil % 78.6 % (47-70); Platelet Count 132 K/mm3 (150-450); RBC Distribution Width CV 15.6 % (11.6-14.6); RBC Distribution Width SD 57.1 fl (35.1-43.9); White Blood Count 17.3 K/mm3 (4.4-11.0)
[2022-01-24] MEDS: metroNIDAZOLE 500 MG/100 ML BAG 100 MG IV ×3 (05:01→21:31)
[2022-01-24] MEDS: 0.9% Saline Lock 10 ML Syringe IV ×2 (05:02→14:24)
[2022-01-24 06:55] LABS: Bedside Glucose 143 mg/dL (74-106)
[2022-01-24] MEDS: Insulin Glargine-YFGN 100 UNIT/ML Pen 8 UNIT SC (09:04)
[2022-01-24] MEDS: guaiFENesin/D-Methorphan TAB.SR.12H 1 TABLET PO ×2 (09:04→21:30)
[2022-01-24] MEDS: Ursodiol 250 MG Tablet 500 MG PO ×2 (09:04→21:30)
[2022-01-24] MEDS: Enoxaparin 40 MG/0.4 ML Syringe SC (09:04)
[2022-01-24] MEDS: Midodrine HCl 5 MG Tablet 10 MG PO ×3 (09:04→17:03)
[2022-01-24] MEDS: Famotidine 20 MG Tablet PO (09:04)
--- NOTE | 2022-01-24 09:48 | PN.CC_ITS ---
Assessment & Plan Assessment/Plan (1) Septic shock: PLAN: Plan RECOMMENDATIONS: 1. Continue to challenge with small doses of Lasix as tolerated 2. Continue scheduled midodrine. 3. Defer transition to p.o. antibiotics to ID 4. Continue sliding scale insulin coverage. 5. Encourage incentive spirometer use and mobilize patient as tolerated. 6. Hemodynamically stable on room air. Will sign off from a critical care perspective IMPRESSIONS: 1. Septic shock Resolved. The patient presented with sepsis due to hepatobiliary source of infection/ascending cholangitis with acute sepsis related organ dysfunction as evidenced by acute kidney injury and lactic acidemia. Ultimately, the patient developed fluid refractory hypotension, requiring the initiation of vasopressor support to maintain hemodynamic stability. Subsequent ERCP demonstrated pus within the biliary tree. Sphincterotomy and stent exchange was undertaken by gastroenterology. Patient off pressors for almost 24 hours. The patient will be continued on broad-spectrum antimicrobials per ID recommendations. Midodrine will be continued, but may be able to be weaned given current blood pressures. Patient appears to be growing actinomyces from original blood culture. Sensitivities are pending, but patient appears to be improving on the current regimen. No changes for now, but will need infectious disease input on transition to oral medications. Given patient is hemodynamically stable on room air will sign off from a critical care persp ective 2. Acute kidney injury Resolved. Likely prerenal in etiology/ischemic ATN in the setting of #1. Creatinine has improved with stabilization of hemodynamics. Continue to monitor urine output for now. No current indication for renal replacement therapy. Patient +11 L over the course of the hospitalization. Consider additional doses of diuretics as tolerated. Patient is tolerating room air well. Transition to p.o. therapy would result in significant decrease in daily intake of fluids. 3. 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 Continue sliding scale insulin coverage. Patient does wish to be aggressive at this time. Subjective Subjective Patient did well overnight. No acute issues were reported. Patient subjectively feels improved compared to previous. Patient states he has been working on rehab. Objective Data Objective Data Vital Signs: Vital Signs Temp Pulse Resp BP Pulse Ox O2 Del Method O2 Flow Rate 37.1 C 75 16 117/69 95 Room Air 2 01/24/22 09:03 01/24/22 09:03 01/24/22 09:03 01/24/22 09:03 01/24/22 09:03 01/24/22 09:03 01/18/22 21:00 Oxygen Flow Rate (L/min) 2 Oxygen Delivery Method Room Air Weight: 70.9 kg Body Mass Index (BMI) 19.8 Intake & Output: Intake and Output for Last 24 Hours 01/22/22 01/23/22 01/24/22 23:59 23:59 23:59 Intake Total 2151.70 / 2151.70 1751 / 2051 936.25 / 936.25 Output Total 825 / 825 1825 / 5 650 / 650 Balance 1326.70 / 1326.70 -74 / 26 286.25 / 286.25 Lab / Micro Data Result Diagrams: 01/24/22 03:49 01/23/22 04:40 Labs: Laboratory Results - last 24 hr 01/23/22 11:08: POC Glucose 193 H 01/23/22 17:00: POC Glucose 193 H 01/23/22 21:50: POC Glucose 172 H 01/24/22 03:49: WBC 17.3 H, RBC 3.60 L, Hgb 12.3 L, Hct 35.8 L, MCV 99.4 H, MCH 34.2 H, MCHC 34.4, RDW Std Deviation 57.1 H, RDW Coeff of López 15.6 H, Plt Count 132 L, MPV 10.7, Immature Gran % (Auto) 3.100 H, Neut % (Auto) 78.6 H, Lymph % (Auto) 8.4 L, [place] % (Auto) 6.9, Eos % (Auto) 2.6, Baso % (Auto) 0.4, Absolute Neuts (auto) 13.6 H, Absolute Lymphs (auto) 1.46, Nucleated RBC % 0 01/24/22 06:35: POC Glucose 143 H Micro: Microbiology 01/18/22 19:00 Blood Culture (Wb) - Anticubital Left Blood Culture - Final No growth in 5 days. 01/19/22 17:13 Incision/Surgical Site Gram Stain - Final 01/19/22 17:13 Incision/Surgical Site Wound Culture - Final Klebsiella oxytoca Enterococcus faecium 01/19/22 17:13 Incision/Surgical Site Anaerobic Culture - Preliminary Checking for anaerobes, further studies to follow. 01/18/22 19:32 Blood Culture (Wb) - Anticubital Left Blood Culture - Final Gram positive debora 01/18/22 19:52 Urine, Clean Catch Urine Culture - Final Culture exhibits no growth. 01/18/22 19:52 Nasal Secretion SARS-CoV-2 & FLU Antigen (Rapid) - Final Physical Exam Const alert, oriented x3 and no apparent distress General Appearance: cooperative HEENT normocephalic and head/scalp atraumatic Eyes PERRL and EOMs intact bilaterally Neck supple General: trachea midline Chest inspection of chest normal Resp normal respiratory effort Effort and Inspection: Negative for actively coughing Auscultation: Negative for rales, rhonchi or wheezes Cardio regular rate, regular rhythm, S1 normal heart sound, S2 normal heart sound, no rub and no gallops Heart Sounds: murmur GI soft to palpation and non-tender Extremity General Extremity: edema bilateral (1+) lower extremity; Negative for clubbing Skin no rashes or lesions noted Neuro CN's II-XII intact bilaterally, moves all extremities and no focal motor deficits Psych cooperative and affect normal Charges/Coding Visit Charges Inpatient E&M: 46693 Subs Hosp L2
--- NOTE | 2022-01-24 10:33 | PCM.PN.HOSP ---
Subjective Subjective Feeling little bit better today than when he came in. Still requiring midodrine for his blood pressure and white count is slowly improving Objective Data Objective Data Vital Signs: Vital Signs Temp Pulse Resp BP Pulse Ox O2 Del Method O2 Flow Rate 98.7 F 75 16 117/69 95 Room Air 2 01/24/22 09:03 01/24/22 09:03 01/24/22 09:03 01/24/22 09:03 01/24/22 09:03 01/24/22 09:03 01/18/22 21:00 Oxygen Flow Rate (L/min) 2 Oxygen Delivery Method Room Air Weight: 156 lb 4.924 oz Body Mass Index (BMI) 19.8 Intake & Output: Intake and Output for Last 24 Hours 01/23/22 01/24/22 01/25/22 03:59 03:59 03:59 Intake Total 1869.38 / 1869.38 2316 / 2316 371.25 / 371.25 Output Total 575 / 575 5 / 2024 450 / 450 Balance 1294.38 / 1294.38 291 / 291 -78.75 / -78.75 Lab / Micro Data Result Diagrams: 01/24/22 03:49 01/23/22 04:40 Labs: Laboratory Results - last 24 hr 01/23/22 11:08: POC Glucose 193 H 01/23/22 17:00: POC Glucose 193 H 01/23/22 21:50: POC Glucose 172 H 01/24/22 03:49: WBC 17.3 H, RBC 3.60 L, Hgb 12.3 L, Hct 35.8 L, MCV 99.4 H, MCH 34.2 H, MCHC 34.4, RDW Std Deviation 57.1 H, RDW Coeff of López 15.6 H, Plt Count 132 L, MPV 10.7, Immature Gran % (Auto) 3.100 H, Neut % (Auto) 78.6 H, Lymph % (Auto) 8.4 L, [place] % (Auto) 6.9, Eos % (Auto) 2.6, Baso % (Auto) 0.4, Absolute Neuts (auto) 13.6 H, Absolute Lymphs (auto) 1.46, Nucleated RBC % 0 01/24/22 06:35: POC Glucose 143 H Micro: Microbiology 01/18/22 19:00 Blood Culture (Wb) - Anticubital Left Blood Culture - Preliminary Actinomyces odontolyticus 01/19/22 17:13 Incision/Surgical Site Gram Stain - Final 01/19/22 17:13 Incision/Surgical Site Wound Culture - Final Klebsiella oxytoca Enterococcus faecium 01/19/22 17:13 Incision/Surgical Site Anaerobic Culture - Preliminary Checking for anaerobes, further studies to follow. 01/18/22 19:32 Blood Culture (Wb) - Anticubital Left Blood Culture - Final Gram positive debora 01/18/22 19:52 Urine, Clean Catch Urine Culture - Final Culture exhibits no growth. 01/18/22 19:52 Nasal Secretion SARS-CoV-2 & FLU Antigen (Rapid) - Final Physical Exam Narrative General: Alert, Oriented x3, Cooperative, No apparent distress HEENT: Atraumatic, PERRLA, EOMI, Normocephalic Oral: Moist Mucosa Neck: Supple, No JVD Lungs: Clear to auscultation, Normal air movement, No rhonchi, No wheeze, No rales Cardiovascular: Regular rate, Regular Rhythm, Normal S1, Normal S2, murmurs Abdomen: Soft, Non Tender, Non-Distended, No Hepato-splenomegaly Extremities: Edema, Capillary Refill Less than 3 Seconds Skin: No rashes, No breakdown Musculoskeletal: No Tenderness to Palpation of Joints or Extremities Neurological: Cranial nerves II-XII grossly intact, Motor Exam 5/5 strength throughout, Sensory exam intact to light touch and pain Psych/Mental Status: Flat affect, Appropriate Assessment & Plan Assessment/Plan (1) Septic shock: PLAN: Plan #Septic shock due to bacteremia exact etiology unclear but most probably hepatobiliary source, ascending cholangitis: The patient presented with septic shock due to possible hepatobiliary source of infection with acute sepsis related organ dysfunction as evidenced by JANES, lactic acidosis, hypotension requiring vasopressor support and lactic acidemia. Patient has increased total bilirubin 2.9. Previous total bilirubin was also high 5.3 in December 2018. Patient also has leukocytosis with Left shift, bands 23%, metamyelocytes 7%. Lymphocytes low 2%. On IV Levophed. UA 1+ bacteria, WBC 0-5. Sepsis work-up did not show any positive result yet. On IV vancomycin and Zosyn 01/20: Patient remains on Levophed 14 MCG per minute. Mild low-grade fever. 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 Severely dilated right main hepatic duct secondary to stricture, biliary sphincterotomy along with stent exchange. Patient on IV vancomycin and cefepime. Flagyl was added on 01/19 by ID for. Anaerobic blood culture shows gram-positive rods. Follow culture. 01/21: 2 out of 2 blood culture positive of gram-positive rods. Biliary fluid culture shows and GPC possible Enterococcus. If VRE found, restart linezolid and discontinued trazodone.ID follow-up appreciated. Patient is started on midodrine in order to taper down norepinephrine. 01/22: Biliary fluid culture shows Klebsiella oxytoca, 1+ and Enterococcus fecium 1+. Klebsiella is ESBL negative. Enterococcus is vancomycin sensitive. 2 bottles of blood culture growing Actinomyces odontolyticus. Patient on Vancomycin cefepime and Flagyl. Patient blood pressure is borderline, systolic in 90s on midodrine 10 mg 3 times daily. Levophed on hold. 01/23: Maintaining MAP more than 65 without vasopressor support. Transferred to PCU. Symptomatic Mucinex D for cough. No fever.Urine output about 1 L daily. Yesterday 825 mill.Positive fluid balance 11 L. Furosemide 20 mg IV 1 dose given. 01/24/2022: Continue with the midodrine, awaiting infectious disease input for discharge planning. Based on PT and OT he is doing well, continue with vancomycin, Flagyl and cefepime. Levophed has been off for over 48 hours #Hypertension: Hold all BP meds on account of hypotension #JANES: Creatinine is 1.4 with baseline being around 0.89. This is likely due to septic shock. Should improve with hydration. 01/20: Mild hypokalemia K3.4. BUNs/creatinine 25/0.94. JANES resolved. Potassium replacement. 01/21: Hypophosphatemia. K3.5. 01/24: Resolved #Recently diagnosed pancreatic cancer: Patient has stent most probably plastica stent as he was told that will be replaced in 6 to 8 weeks. The patient was supposed to start chemotherapy on 01/20/[address] Espinosa. #TYpe 2 diabetes mellitus ? On lantus 8 units daily. ISS. Accuchecks ACHS ? We will monitor and make changes as necessary #Glaucoma: on timolol and tafluprost eye drops DVT: lovenox Charges/Coding Visit Charges Inpatient E&M: 37323 Subs Hosp L2
[2022-01-24] MEDS: Insulin Lispro 100 UNIT/ML INSULN.PEN SC (11:41)
[2022-01-24 12:10] LABS: Bedside Glucose 213 mg/dL (74-106)
--- NOTE | 2022-01-24 14:43 | PN.ID_ITS ---
Physical Exam Narrative Feeling ok, no fever, no abd pain Const alert and no apparent distress Resp normal air movement and clear to auscultation bilaterally Cardio regular rate and regular rhythm GI soft to palpation, non-tender and non-distended Skin no rashes or lesions noted ID ID: Route of nutrition/ use of supplements: [] Nutritional Intake: [] IV Site: [] Alfonso Catheter: [] Assessment & Plan Assessment/Plan (1) Septic shock: PLAN: GPR Bacteremia due to ascending cholangitis with recent dx pancreatic cancer. Cont vanc/cefepime/flagyl. Now s/p ERCP 01/19 with pus drained, s phincterotomy done, and stent replaced. JANES improved. 2 of 2 bcx with GPR, one identified as actinomyces. Biliary cx with klebs and E faecium (not VRE). Will change cefepime to ceftriaxone to have actino coverage, which may help his BP and wbc. Will follow
--- NOTE | 2022-01-24 16:29 | PN_ITS ---
Subjective Subjective Patient does not have any abdominal pain or nausea. He is tolerating a diet and his blood pressure has been holding. Objective Data Objective Data Vital Signs: Vital Signs Temp Pulse Resp BP Pulse Ox O2 Del Method O2 Flow Rate 97.8 F 71 16 115/63 98 Room Air 2 01/24/22 15:00 01/24/22 15:00 01/24/22 15:00 01/24/22 15:00 01/24/22 15:00 01/24/22 15:00 01/18/22 21:00 Oxygen Flow Rate (L/min) 2 Oxygen Delivery Method Room Air Weight: 156 lb 4.924 oz Body Mass Index (BMI) 19.8 Intake & Output: Intake and Output for Last 24 Hours 01/22/22 01/23/22 01/24/22 23:59 23:59 23:59 Intake Total 2151.70 / 2151.70 1751 / 2051 1792.75 / 1792.75 Output Total 825 / 825 1825 / 2025 825 / 825 Balance 1326.70 / 1326.70 -74 / 26 967.75 / 967.75 Lab / Micro Data Result Diagrams: 01/24/22 03:49 01/23/22 04:40 Labs: Laboratory Results - last 24 hr 01/23/22 17:00: POC Glucose 193 H 01/23/22 21:50: POC Glucose 172 H 01/24/22 03:49: WBC 17.3 H, RBC 3.60 L, Hgb 12.3 L, Hct 35.8 L, MCV 99.4 H, MCH 34.2 H, MCHC 34.4, RDW Std Deviation 57.1 H, RDW Coeff of López 15.6 H, Plt Count 132 L, MPV 10.7, Immature Gran % (Auto) 3.100 H, Neut % (Auto) 78.6 H, Lymph % (Auto) 8.4 L, [place] % (Auto) 6.9, Eos % (Auto) 2.6, Baso % (Auto) 0.4, Absolute Neuts (auto) 13.6 H, Absolute Lymphs (auto) 1.46, Nucleated RBC % 0 01/24/22 06:35: POC Glucose 143 H 01/24/22 11:41: POC Glucose 213 H Micro: Microbiology 01/18/22 19:00 Blood Culture (Wb) - Anticubital Left Blood Culture - Preliminary Actinomyces odontolyticus 01/19/22 17:13 Incision/Surgical Site Gram Stain - Final 01/19/22 17:13 Incision/Surgical Site Wound Culture - Final Klebsiella oxytoca Enterococcus faecium 01/19/22 17:13 Incision/Surgical Site Anaerobic Culture - Preliminary Checking for anaerobes, further studies to follow. 01/18/22 19:32 Blood Culture (Wb) - Anticubital Left Blood Culture - Final Gram positive debora 01/18/22 19:52 Urine, Clean Catch Urine Culture - Final Culture exhibits no growth. 01/18/22 19:52 Nasal Secretion SARS-CoV-2 & FLU Antigen (Rapid) - Final Physical Exam Narrative Feeling ok, no fever, no abd pain Const alert and no apparent distress Resp normal air movement and clear to auscultation bilaterally Cardio regular rate and regular rhythm GI soft to palpation, non-tender and non-distended Skin no rashes or lesions noted Assessment & Plan Assessment/Plan (1) Septic shock: PLAN: Septic shock likely secondary to ascending cholangitis from Klebsiella and Enterococcus that was grown from the biliary fluid deep in the liver. The stent was removed and it was replaced with 2 plastic stents. #Proving but very slowly. He does not have any abdominal pain and is able to tolerate oral antibiotics. 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 Recommend recheck a CA 19-9 and the patient's white blood cell count still has decreased significantly we should repeat the ERCP. Continue antibiotic coverage as per infectious disease. Charges/Coding Visit Charges Inpatient E&M: 28769 Subs Hosp L2
[2022-01-24 17:25] LABS: Bedside Glucose 87 mg/dL (74-106)
[2022-01-24 22:15] LABS: Bedside Glucose 123 mg/dL (74-106)
[2022-01-25] VITALS (10 sets, daily range): BP systolic 99–122; BP diastolic 59–63; PULSE 59–73; RESP 18; TEMP 36.3–36.7; O2SAT 87–95
[2022-01-25 01:25] LABS: Vancomycin, Trough Level 19.1 ug/mL (5.0-15.0)
--- NOTE | 2022-01-25 02:35 | PCM.RX.CS ---
Consult Pharmacy has been consulted to manage selected antiobiotic: Vancomycin Type of Consult: Follow-up Labs: Sodium 138 mmol/L (136-145) 01/23/22 04:40 Potassium 4.1 mmol/L (3.5-5.1) 01/23/22 04:40 Chloride 109 mmol/L (98-107) H 01/23/22 04:40 Carbon Dioxide 22.0 mmol/L (21.0-32.0) 01/23/22 04:40 Anion Gap 7 (5-15) 01/23/22 04:40 BUN 25 mg/dL (7-18) H 01/23/22 04:40 Creatinine 0.77 mg/dL (0.70-1.30) 01/23/22 04:40 Est GFR (MDRD) Af Amer 123 mL/min (>60) 01/23/22 04:40 Est GFR (MDRD) Non-Af 101 mL/min (>60) 01/23/22 04:40 BUN/Creatinine Ratio 32.4 RATIO (10-20) H 01/23/22 04:40 Glucose 165 mg/dL (74-106) H 01/23/22 04:40 Vancomycin Trough 19.1 ug/mL (5.0-15.0) H 01/25/22 00:32 Microbiology: Microbiology 01/18/22 19:00 Blood Culture (Wb) - Anticubital Left Blood Culture - Preliminary Actinomyces odontolyticus 01/19/22 17:13 Incision/Surgical Site Gram Stain - Final 01/19/22 17:13 Incision/Surgical Site Wound Culture - Final Klebsiella oxytoca Enterococcus faecium 01/19/22 17:13 Incision/Surgical Site Anaerobic Culture - Preliminary Checking for anaerobes, further studies to follow. 01/18/22 19:32 Blood Culture (Wb) - Anticubital Left Blood Culture - Final Gram positive debora 01/18/22 19:52 Urine, Clean Catch Urine Culture - Final Culture exhibits no growth. 01/18/22 19:52 Nasal Secretion SARS-CoV-2 & FLU Antigen (Rapid) - Final Goal Trough: 15-20 mcg/mL Pharmacy Plan for Drug Dosing: Pharmacy Service will continue to monitor and adjust dosing as required. TROUGH 19.1 UP FROM 14.5 2 DAYS AGO. STILL IN RANGE, O CHANGES, RECHECK TROUGH IN 2 DAYS Follow-Up Labs: Trough Vancomycin Labs to be done on [date and time ordered]: 01/27 @ 0035
[2022-01-25] MEDS: metroNIDAZOLE 500 MG/100 ML BAG 100 MG IV ×3 (05:31→21:22)
[2022-01-25 07:01] LABS: Absolute Lymphocyte Count 1.28 X10^3/uL (0.83-4.51); Absolute Neutrophil Count 15.6 X10^3/uL (2.0-7.7); Basophil# 0.12 X10^3/uL; Basophil% 0.6 % (0-1); Eosinophil# 0.19 X10^3/uL; Hematocrit 37.3 % (40-54); Hemoglobin 12.3 g/dL (13.0-16.5); Lymphocyte # 1.28 X10^3/ul (0.83-4.51); Lymphocyte % 6.7 % (19-41); Mean Corpuscular Hgb 33.1 pg (27.0-32.0); Mean Corpuscular Volume 100.3 fL (80-94); Mean Platelet Vol. 11.3 fl (6.2-12.0); Monocyte# 1.15 X10^3/uL; NRBC Flagged by Analyzer 0 % (0-5); Neutrophil # 15.56 X10^3/uL (2.7-7.7); Neutrophil % 81.4 % (47-70); Platelet Count 104 K/mm3 (150-450); RBC Distribution Width CV 15.8 % (11.6-14.6); RBC Distribution Width SD 57.6 fl (35.1-43.9); Red Blood Count 3.72 M/mm3 (4.6-6.2); White Blood Count 19.1 K/mm3 (4.4-11.0)
[2022-01-25 07:05] LABS: Bedside Glucose 137 mg/dL (74-106)
[2022-01-25 07:40] LABS: Anion Gap 9 (5-15); BUN 30 mg/dL (7-18); BUN/Creat Ratio 37.8 RATIO (10-20); Calcium,Total 7.7 mg/dL (8.5-10.1); Chloride 107 mmol/L (98-107); Creatinine, Serum 0.79 mg/dL (0.70-1.30); EST Glomerular Filtration Rate 98 mL/min (>60); Est Glom Filt Rate - Afr Amer 119 mL/min (>60); Glucose 144 mg/dL (74-106); Potassium 4.1 mmol/L (3.5-5.1); Sodium Level 137 mmol/L (136-145)
[2022-01-25 08:41] LABS: AST(SGOT) 31 U/L (15-37); Alanine Aminotransfer ALT/SGPT 23 U/L (16-61); Albumin, Serum 1.4 g/dL (3.2-5.0); Alkaline Phosphatase 174 U/L (45-117); Bilirubin, Direct 1.88 mg/dL (0.00-0.30); Globulin 3.6 g/dL (2.2-4.2)
[2022-01-25] MEDS: Insulin Glargine-YFGN 100 UNIT/ML Pen 8 UNIT SC (09:09)
[2022-01-25] MEDS: Ursodiol 250 MG Tablet 500 MG PO ×2 (09:09→21:23)
[2022-01-25] MEDS: Enoxaparin 40 MG/0.4 ML Syringe SC (09:09)
[2022-01-25] MEDS: Famotidine 20 MG Tablet PO (09:09)
[2022-01-25] MEDS: guaiFENesin/D-Methorphan TAB.SR.12H 1 TABLET PO ×2 (09:09→21:23)
[2022-01-25] MEDS: Midodrine HCl 5 MG Tablet 10 MG PO ×3 (09:10→16:50)
[2022-01-25 09:15] LABS: Lactic Acid 2.4 mmol/L (0.4-1.9)
--- NOTE | 2022-01-25 10:10 | PCM.PN.ID ---
Physical Exam Narrative Feeling ok, no fever, no abd pain Const alert and no apparent distress Resp normal air movement and clear to auscultation bilaterally Cardio regular rate and regular rhythm GI soft to palpation, non-tender and non-distended Skin no rashes or lesions noted ID ID: Route of nutrition/ use of supplements: [] Nutritional Intake: [] IV Site: [] Alfonso Catheter: [] Assessment & Plan Assessment/Plan (1) Septic shock: PLAN: Actinomyces bacteremia due to ascending cholangitis with recent dx pancreatic cancer. Cont vanc/ceftriaxone/flagyl. Now s/p ERCP 01/19 with pus drained, sphincterotomy done, and stent replaced. JANES improved. Biliary cx with klebs and E faecium (not VRE). 01/24 changed cefepime to ceftriaxone to have actino coverage. Recommend temp cvc removal if able to get peripheral access. Plan on po abx at discharge. Will follow
--- NOTE | 2022-01-25 10:14 | PCM.PN.HOSP ---
Subjective Subjective Doing well however white count has increased. He denies any fevers. Objective Data Objective Data Vital Signs: Vital Signs Temp Pulse Resp BP Pulse Ox O2 Del Method O2 Flow Rate 97.5 F L 66 18 122/63 H 95 Room Air 2 01/25/22 03:25 01/25/22 03:25 01/25/22 03:25 01/25/22 03:25 01/25/22 03:25 01/25/22 03:25 01/18/22 21:00 Oxygen Flow Rate (L/min) 2 Oxygen Delivery Method Room Air Weight: 156 lb 15.506 oz Body Mass Index (BMI) 19.8 Intake & Output: Intake and Output for Last 24 Hours 01/24/22 01/25/22 01/26/22 03:59 03:59 03:59 Intake Total 2316 / 2316 1969.00 / 1969.00 324.75 / 324.75 Output Total 2024 / 2024 950 / 950 150 / 150 Balance 291 / 291 1019.00 / 1019.00 174.75 / 174.75 Lab / Micro Data Result Diagrams: 01/25/22 06:23 01/25/22 06:23 Labs: Laboratory Results - last 24 hr 01/24/22 11:41: POC Glucose 213 H 01/24/22 17:03: POC Glucose 87 01/24/22 21:29: POC Glucose 123 H 01/25/22 00:32: Vancomycin Trough 19.1 H 01/25/22 06:23: WBC 19.1 H, RBC 3.72 L, Hgb 12.3 L, Hct 37.3 L, MCV 100.3 H, MCH 33.1 H, MCHC 33.0, RDW Std Deviation 57.6 H, RDW Coeff of López 15.8 H, Plt Count 104 L, MPV 11.3, Immature Gran % (Auto) 4.300 H, Neut % (Auto) 81.4 H, Lymph % (Auto) 6.7 L, [place] % (Auto) 6.0, Eos % (Auto) 1.0, Baso % (Auto) 0.6, Absolute Neuts (auto) 15.6 H, Absolute Lymphs (auto) 1.28, Nucleated RBC % 0 01/25/22 06:23: Sodium 137, Potassium 4.1, Chloride 107, Carbon Dioxide 21.0, Anion Gap 9, BUN 30 H, Creatinine 0.79, Estim Creat Clear Calc 53.40, Est GFR (MDRD) Af Amer 119, Est GFR (MDRD) Non-Af 98, BUN/Creatinine Ratio 37.8 H, Glucose 144 H, Calcium 7.7 L 01/25/22 06:23: Total Bilirubin 2.40 H, Direct Bilirubin 1.88 H, AST 31, ALT 23, Alkaline Phosphatase 174 H, C-React Prot Ext Range 56.90 H, Total Protein 5.0 L, Albumin 1.4 L, Globulin 3.6 01/25/22 06:33: POC Glucose 137 H 01/25/22 08:30: Lactic Acid 2.4 H* Micro: Microbiology 01/18/22 19:00 Blood Culture (Wb) - Anticubital Left Blood Culture - Preliminary Actinomyces odontolyticus 01/19/22 17:13 Incision/Surgical Site Gram Stain - Final 01/19/22 17:13 Incision/Surgical Site Wound Culture - Final Klebsiella oxytoca Enterococcus faecium 01/19/22 17:13 Incision/Surgical Site Anaerobic Culture - Preliminary Checking for anaerobes, further studies to follow. 01/18/22 19:32 Blood Culture (Wb) - Anticubital Left Blood Culture - Final Gram positive debora 01/18/22 19:52 Urine, Clean Catch Urine Culture - Final Culture exhibits no growth. 01/18/22 19:52 Nasal Secretion SARS-CoV-2 & FLU Antigen (Rapid) - Final Physical Exam Narrative General: Alert, Oriented x3, Cooperative, No apparent distress HEENT: Atraumatic, PERRLA, EOMI, Normocephalic Oral: Moist Mucosa Neck: Supple, No JVD Lungs: Clear to auscultation, Normal air movement, No rhonchi, No wheeze, No rales Cardiovascular: Regular rate, Regular Rhythm, Normal S1, Normal S2, murmurs Abdomen: Soft, Non Tender, Non-Distended, No Hepato-splenomegaly Extremities: Edema, Capillary Refill Less than 3 Seconds Skin: No rashes, No breakdown Musculoskeletal: No Tenderness to Palpation of Joints or Extremities Neurological: Cranial nerves II-XII grossly intact, Motor Exam 5/5 strength throughout, Sensory exam intact to light touch and pain Psych/Mental Status: Flat affect, Appropriate Assessment & Plan Assessment/Plan (1) Septic shock: PLAN: Plan #Septic shock due to bacteremia exact etiology unclear but most probably hepatobiliary source, ascending cholangitis: The patient presented with septic shock due to possible hepatobiliary source of infection with acute sepsis related organ dysfunction as evidenced by JANES, lactic acidosis, hypotension requiring vasopressor support and lactic acidemia. Patient has increased total bilirubin 2.9. Previous total bilirubin was also high 5.3 in December 2018. Patient also has leukocytosis with Left shift, bands 23%, metamyelocytes 7%. Lymphocytes low 2%. On IV Levophed. UA 1+ bacteria, WBC 0-5. Sepsis work-up did not show any positive result yet. On IV vancomycin and Zosyn 01/20: Patient remains on Levophed 14 MCG per minute. Mild low-grade fever. 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 Severely dilated right main hepatic duct secondary to stricture, biliary sphincterotomy along with stent exchange. Patient on IV vancomycin and cefepime. Flagyl was added on 01/19 by ID for. Anaerobic blood culture shows gram-positive rods. Follow culture. 01/21: 2 out of 2 blood culture positive of gram-positive rods. Biliary fluid culture shows and GPC possible Enterococcus. If VRE found, restart linezolid and discontinued trazodone.ID follow-up appreciated. Patient is started on midodrine in order to taper down norepinephrine. 01/22: Biliary fluid culture shows Klebsiella oxytoca, 1+ and Enterococcus fecium 1+. Klebsiella is ESBL negative. Enterococcus is vancomycin sensitive. 2 bottles of blood culture growing Actinomyces odontolyticus. Patient on Vancomycin cefepime and Flagyl. Patient blood pressure is borderline, systolic in 90s on midodrine 10 mg 3 times daily. Levophed on hold. 01/23: Maintaining MAP more than 65 without vasopressor support. Transferred to PCU. Symptomatic Mucinex D for cough. No fever.Urine output about 1 L daily. Yesterday 825 mill.Positive fluid balance 11 L. Furosemide 20 mg IV 1 dose given. 01/24/2022: Continue with the midodrine, awaiting infectious disease input for discharge planning. Based on PT and OT he is doing well, continue with vancomycin, Flagyl and cefepime. Levophed has been off for over 48 hours 01/25/2022: White count has climbed up again, cefepime was discontinued and transition to Rocephin by infectious disease. Will monitor white blood cell count tomorrow, in discussion with gastroenterology he may need another ERCP if his white count continues to climb to clean out his biliary tree #Hypertension: Hold all BP meds on account of hypotension #JANES: Creatinine is 1.4 with baseline being around 0.89. This is likely due to septic shock. Should improve with hydration. 01/20: Mild hypokalemia K3.4. BUNs/creatinine 25/0.94. JNAES resolved. Potassium replacement. 01/21: Hypophosphatemia. K3.5. 01/24: Resolved #Recently diagnosed pancreatic cancer: Patient has stent most probably plastica stent as he was told that will be replaced in 6 to 8 weeks. The patient was supposed to start chemotherapy on 01/20/[address] Espinosa. #TYpe 2 diabetes mellitus ? On lantus 8 units daily. ISS. Accuchecks ACHS ? We will monitor and make changes as necessary #Glaucoma: on timolol and tafluprost eye drops DVT: lovenox Charges/Coding Visit Charges Inpatient E&M: 35364 Subs Hosp L2
[2022-01-25] MEDS: Metoclopramide 10 MG/2 ML Vial IV ×3 (11:46→23:52)
[2022-01-25 11:50] LABS: Bedside Glucose 178 mg/dL (74-106)
[2022-01-25 12:23] LABS: Erythrocyte Sedimentation Rate 15 mm/hr (0-20)
[2022-01-25 12:35] LABS: Reflex Lactate? Y
[2022-01-25] MEDS: Insulin Lispro 100 UNIT/ML INSULN.PEN SC ×2 (16:49→21:23)
[2022-01-25 17:25] LABS: Bedside Glucose 160 mg/dL (74-106)
[2022-01-25] MEDS: 0.9% Saline Lock 10 ML Syringe IV (17:27)
[2022-01-25 22:00] LABS: Bedside Glucose 195 mg/dL (74-106)
[2022-01-25] MEDS: Furosemide 40 MG/4 ML Vial IV (23:52)
[2022-01-26] VITALS (15 sets, daily range): BP systolic 95–111; BP diastolic 49–64; PULSE 55–67; RESP 15–18; TEMP 36.2–36.7; O2SAT 95–99; BMI 22.6
[2022-01-26] MEDS: 0.9 % NaCl (Sterile) Posiflush 10 mL IV (00:07)
[2022-01-26] MEDS: metroNIDAZOLE 500 MG/100 ML BAG 100 MG IV ×3 (05:13→22:18)
[2022-01-26] MEDS: Metoclopramide 10 MG/2 ML Vial IV ×3 (05:13→23:29)
[2022-01-26 06:35] LABS: Absolute Lymphocyte Count 1.27 X10^3/uL (0.83-4.51); Absolute Neutrophil Count 14.8 X10^3/uL (2.0-7.7); Basophil% 0.5 % (0-1); Eosinophil# 0.22 X10^3/uL; Eosinophils% 1.2 % (0-5); Hemoglobin 12.5 g/dL (13.0-16.5); Lymphocyte # 1.27 X10^3/ul (0.83-4.51); Mean Corp Hgb Conc 33.8 g/dL (32-36); Mean Corpuscular Hgb 33.7 pg (27.0-32.0); Mean Corpuscular Volume 99.7 fL (80-94); Mean Platelet Vol. 10.8 fl (6.2-12.0); Monocyte# 1.21 X10^3/uL; Monocyte% 6.6 % (0-10); NRBC Flagged by Analyzer 0 % (0-5); Neutrophil # 14.83 X10^3/uL (2.7-7.7); Neutrophil % 81.6 % (47-70); Platelet Count 103 K/mm3 (150-450); RBC Distribution Width CV 15.9 % (11.6-14.6); Red Blood Count 3.71 M/mm3 (4.6-6.2); White Blood Count 18.2 K/mm3 (4.4-11.0)
[2022-01-26] MEDS: Insulin Lispro 100 UNIT/ML INSULN.PEN SC ×2 (06:39→16:52)
[2022-01-26 06:57] LABS: ALB/GLOB Ratio 0.4 RATIO (0.9-2.4); AST(SGOT) 28 U/L (15-37); Alanine Aminotransfer ALT/SGPT 23 U/L (16-61); Albumin, Serum 1.5 g/dL (3.2-5.0); Alkaline Phosphatase 162 U/L (45-117); Anion Gap 8 (5-15); BUN 32 mg/dL (7-18); BUN/Creat Ratio 32.3 RATIO (10-20); Calcium,Total 7.7 mg/dL (8.5-10.1); Chloride 106 mmol/L (98-107); Creatinine, Serum 0.99 mg/dL (0.70-1.30); EST Glomerular Filtration Rate 76 mL/min (>60); Est Glom Filt Rate - Afr Amer 92 mL/min (>60); Estimated Creatinine Clearance 54.24 ml/min; Globulin 3.6 g/dL (2.2-4.2); Glucose 169 mg/dL (74-106); Potassium 3.6 mmol/L (3.5-5.1); Protein, Total 5.1 g/dL (6.4-8.2); Sodium Level 138 mmol/L (136-145)
[2022-01-26 07:00] LABS: Bedside Glucose 159 mg/dL (74-106)
[2022-01-26] MEDS: Midodrine HCl 5 MG Tablet 10 MG PO ×2 (08:10→16:52)
--- NOTE | 2022-01-26 09:06 | PCM.PN.HOSP ---
Subjective Subjective Doing well, no issues overnight. Feels about the same but better than when he came in. Unfortunate his white count is slow to recover so plan is for ERCP today Objective Data Objective Data Vital Signs: Vital Signs Temp Pulse Resp BP Pulse Ox O2 Del Method O2 Flow Rate 97.6 F L 65 18 106/58 L 96 Nasal Cannula 2 01/26/22 08:37 01/26/22 08:37 01/26/22 08:37 01/26/22 08:37 01/26/22 08:37 01/26/22 08:37 01/26/22 08:37 Oxygen Flow Rate (L/min) 2 Oxygen Delivery Method Nasal Cannula Weight: 157 lb 13.616 oz Body Mass Index (BMI) 22.6 Intake & Output: Intake and Output for Last 24 Hours 01/25/22 01/26/22 01/27/22 03:59 03:59 03:59 Intake Total 1969.00 / 1969.00 1815.00 / 1815.00 145 / 145 Output Total 950 / 950 575 / 575 1550 / 1550 Balance 1019.00 / 1019.00 1240.00 / 1240.00 -1405 / -1405 Lab / Micro Data Result Diagrams: 01/26/22 05:55 01/26/22 05:55 Labs: Laboratory Results - last 24 hr 01/25/22 06:23: ESR 15 01/25/22 08:30: Lactic Acid 2.4 H* 01/25/22 11:10: POC Glucose 178 H 01/25/22 13:05: Lactic Acid 2.0 01/25/22 16:35: POC Glucose 160 H 01/25/22 21:16: POC Glucose 195 H 01/26/22 05:55: WBC 18.2 H, RBC 3.71 L, Hgb 12.5 L, Hct 37.0 L, MCV 99.7 H, MCH 33.7 H, MCHC 33.8, RDW Std Deviation 57.0 H, RDW Coeff of López 15.9 H, Plt Count 103 L, MPV 10.8, Immature Gran % (Auto) 3.100 H, Neut % (Auto) 81.6 H, Lymph % (Auto) 7.0 L, [place] % (Auto) 6.6, Eos % (Auto) 1.2, Baso % (Auto) 0.5, Absolute Neuts (auto) 14.8 H, Absolute Lymphs (auto) 1.27, Nucleated RBC % 0 01/26/22 05:55: Sodium 138, Potassium 3.6, Chloride 106, Carbon Dioxide 24.0, Anion Gap 8, BUN 32 H, Creatinine 0.99, Estim Creat Clear Calc 54.24, Est GFR (MDRD) Af Amer 92, Est GFR (MDRD) Non-Af 76, BUN/Creatinine Ratio 32.3 H, Glucose 169 H, Calcium 7.7 L, Total Bilirubin 2.40 H, AST 28, ALT 23, Alkaline Phosphatase 162 H, Total Protein 5.1 L, Albumin 1.5 L, Globulin 3.6, Albumin/Globulin Ratio 0.4 L 01/26/22 06:38: POC Glucose 159 H Micro: Microbiology 01/19/22 17:13 Incision/Surgical Site Gram Stain - Final 01/19/22 17:13 Incision/Surgical Site Wound Culture - Final Klebsiella oxytoca Enterococcus faecium 01/19/22 17:13 Incision/Surgical Site Anaerobic Culture - Final Bacteroides uniformis 01/18/22 19:00 Blood Culture (Wb) - Anticubital Left Blood Culture - Preliminary Actinomyces odontolyticus 01/18/22 19:32 Blood Culture (Wb) - Anticubital Left Blood Culture - Final Gram positive debora 01/18/22 19:52 Urine, Clean Catch Urine Culture - Final Culture exhibits no growth. 01/18/22 19:52 Nasal Secretion SARS-CoV-2 & FLU Antigen (Rapid) - Final Physical Exam Narrative General: Alert, Oriented x3, Cooperative, No apparent distress HEENT: Atraumatic, PERRLA, EOMI, Normocephalic Oral: Moist Mucosa Neck: Supple, No JVD Lungs: Clear to auscultation, Normal air movement, No rhonchi, No wheeze, No rales Cardiovascular: Regular rate, Regular Rhythm, Normal S1, Normal S2, murmurs Abdomen: Soft, Non Tender, Non-Distended, No Hepato-splenomegaly Extremities: Edema, Capillary Refill Less than 3 Seconds Skin: No rashes, No breakdown Musculoskeletal: No Tenderness to Palpation of Joints or Extremities Neurological: Cranial nerves II-XII grossly intact, Motor Exam 5/5 strength throughout, Sensory exam intact to light touch and pain Psych/Mental Status: Flat affect, Appropriate Assessment & Plan Assessment/Plan (1) Septic shock: PLAN: Plan #Septic shock due to bacteremia exact etiology unclear but most probably hepatobiliary source, ascending cholangitis: The patient presented with septic shock due to possible hepatobiliary source of infection with acute sepsis related organ dysfunction as evidenced by JANES, lactic acidosis, hypotension requiring vasopressor support and lactic acidemia. Patient has increased total bilirubin 2.9. Previous total bilirubin was also high 5.3 in December 2018. Patient also has leukocytosis with Left shift, bands 23%, metamyelocytes 7%. Lymphocytes low 2%. On IV Levophed. UA 1+ bacteria, WBC 0-5. Sepsis work-up did not show any positive result yet. On IV vancomycin and Zosyn 01/20: Patient remains on Levophed 14 MCG per minute. Mild low-grade fever. 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 Severely dilated right main hepatic duct secondary to stricture, biliary sphincterotomy along with stent exchange. Patient on IV vancomycin and cefepime. Flagyl was added on 01/19 by ID for. Anaerobic blood culture shows gram-positive rods. Follow culture. 01/21: 2 out of 2 blood culture positive of gram-positive rods. Biliary fluid culture shows and GPC possible Enterococcus. If VRE found, restart linezolid and discontinued trazodone.ID follow-up appreciated. Patient is started on midodrine in order to taper down norepinephrine. 01/22: Biliary fluid culture shows Klebsiella oxytoca, 1+ and Enterococcus fecium 1+. Klebsiella is ESBL negative. Enterococcus is vancomycin sensitive. 2 bottles of blood culture growing Actinomyces odontolyticus. Patient on Vancomycin cefepime and Flagyl. Patient blood pressure is borderline, systolic in 90s on midodrine 10 mg 3 times daily. Levophed on hold. 01/23: Maintaining MAP more than 65 without vasopressor support. Transferred to PCU. Symptomatic Mucinex D for cough. No fever.Urine output about 1 L daily. Yesterday 825 mill.Positive fluid balance 11 L. Furosemide 20 mg IV 1 dose given. 01/24/2022: Continue with the midodrine, awaiting infectious disease input for discharge planning. Based on PT and OT he is doing well, continue with vancomycin, Flagyl and cefepime. Levophed has been off for over 48 hours 01/25/2022: White count has climbed up again, cefepime was discontinued and transition to Rocephin by infectious disease. Will monitor white blood cell count tomorrow, in discussion with gastroenterology he may need another ERCP if his white count continues to climb to clean out his biliary tree 01/26/2022: White count is still elevated to 18.2 despite adjustments in his antibiotics therefore gastroenterology plans to proceed with an ERCP today to sweep the bile duct again and see if there is any retained material. He is on oxygen currently and he is about 12 L positive and he is continuing to get IV antibiotics therefore we will give him another dose of Lasix today #Hypertension: Hold all BP meds on account of hypotension #JANES: Creatinine is 1.4 with baseline being around 0.89. This is likely due to septic shock. Should improve with hydration. 01/20: Mild hypokalemia K3.4. BUNs/creatinine 25/0.94. JANES resolved. Potassium replacement. 01/21: Hypophosphatemia. K3.5. 01/24: Resolved #Recently diagnosed pancreatic cancer: Patient has stent most probably plastica stent as he was told that will be replaced in 6 to 8 weeks. The patient was supposed to start chemotherapy on 01/20/[address] Espinosa. #TYpe 2 diabetes mellitus ? On lantus 8 units daily. ISS. Accuchecks ACHS ? We will monitor and make changes as necessary #Glaucoma: on timolol and tafluprost eye drops DVT: lovenox Charges/Coding Visit Charges Inpatient E&M: 11963 Subs Hosp L2
[2022-01-26] MEDS: Furosemide 20 MG/2 ML VIAL IV (09:27)
[2022-01-26] MEDS: Ursodiol 250 MG Tablet 500 MG PO ×2 (09:35→22:15)
[2022-01-26] MEDS: Famotidine 20 MG Tablet PO (09:35)
[2022-01-26] MEDS: Insulin Glargine-YFGN 100 UNIT/ML Pen 8 UNIT SC (09:35)
--- NOTE | 2022-01-26 09:47 | RAD_ITS ---
STUDY: ERCP. REASON FOR EXAM: Male, 86 years old. Abdominal pain. FLUOROSCOPY TIME (if supplied): ( 3 minutes and 38 seconds ) minutes/seconds. 16 images were submitted. TECHNIQUE: An ERCP was performed by the dress draper. Imaging was submitted. COMPARISON: None. FINDINGS: There are dilated intrahepatic biliary ducts. A stent is seen within the common bile duct. RAD/ERCP Biliary/Pancreas IMPRESSION: No dilatation of the intrahepatic ducts. Biliary stent placement. Electronically Signed: Az Mendoza MD at 15:16 EDT ,
--- NOTE | 2022-01-26 11:30 | MISC_PTH ---
PATIENT: LITO ROUSE LOC: [facility] U#:[id number] AGE/SX: 86/M ROOM: [facility] RE01/18/[address]: Dr. Jayson Pollock MD : 1935 BED: 1 DIS: 01/29/2022 SPEC #: [id number] RECD: 01/26/22 14:24 STATUS: RASHMI RESrini #: [id number] KEKE: 01/26/22 11:[address]: Johnson Luis DEPT: SURGICAL PATHOLOGY RECD BY: Clementine Barnes ENTERED: 01/27/22 08:02 SP TYPE: MISC OTHR DR: MD Dr. Ham Marin DO Dr. Mark Elderbrock, MD Dr. Nana Yaa Koram, MD Dr. Nicholas F Kotsonis, MD Dr. Prakash Chand, MD Dr. Robert Leininger, MD Dr. Tanmay Panchabhai, MD Christina Muller, POTATO LOADER-C Tissues: Bile duct, NOS Procedures: Surgery Specimen Level IV Comments: @ Ordering doctor for SUIII edited from to @ by RGOOD at 01/27/22 1352 @ Submitting doctor edited from to @ by RGOOD at 01/27/22 0865 HEADER OPERATION: ERCP, Spy Glass, stent placement PRE-OP DIAGNOSIS: Septic shock TISSUE SUBMITTED: Spy Bite biopsy biliary stricture MICROSCOPIC DIAGNOSIS Biliary stricture, Spy Bite biopsy: Moderately differentiated adenocarcinoma. See comment. SJ:arlet 01/28/2022 COMMENT Correlation with clinical findings and appropriate follow up are necessary. This case has been reviewed in consultation with Dr. Kelley who concurs with the above diagnosis. MICROSCOPIC DESCRIPTION Slides are reviewed. GROSS DESCRIPTION Received in fixative is one container labeled with the patient's name and designated Spy Bite biopsy biliary stricture. The specimen consists of multiple irregular fragments of díaz soft tissue that in aggregate measure 0.2 x 0.2 x 0.1 cm. The specimen is totally submitted in one cassette. / MIGUELINA:arlet 01/27/2022 TC:0 CPT: 65415
--- NOTE | 2022-01-26 11:30 | FLU_PTH ---
PATIENT: LITO ROUSE LOC: [facility] U#:[id number] AGE/SX: 86/M ROOM: [facility] RE01/18/[address]: Dr. Jayson Pollock MD : 1935 BED: 1 DIS: 01/29/2022 SPEC #: [id number] RECD: 01/26/22 14:24 STATUS: RASHMI REQ #: [id number] KEKE: 01/26/22 11:[address]: Johnson Luis DEPT: CYTOLOGY RECD BY: Clementine Barnes ENTERED: 01/27/22 08:00 SP TYPE: Fluid OTHR DR: MD Dr. Ham Marin DO Dr. Mark Elderbrock, MD Dr. Nana Yaa Koram, MD Dr. Nicholas F Kotsonis, MD Dr. Prakash Chand, MD Dr. Robert Leininger, MD Dr. Tanmay Panchabhai, MD Christina Muller, W[employer] P[employer] MAKING-C Tissues: Bile duct, NOS Procedures: Special Stain Group II Special Stain Group I Surgery Specimen Level IV GMS Stain (control) Cytospin Fluid Comments: @ Ordering doctor for SSII edited from to @ by RGOOD at 01/27/22 1358 @ Ordering doctor for SUIII edited from to @ by RGOALEX at 01/27/22 1358 @ Ordering doctor for SUIV edited from to @ by RGOOD at 01/27/22 1358 @ Ordering doctor for CYSPIN edited from to @ by RGOOD at 01/27/22 1358 @ Submitting doctor edited from to @ by RGOOD at 01/27/22 1358 HEADER OPERATION: ERCP, Spy Glass, stent placement PRE-OP DIAGNOSIS: Septic shock TISSUE SUBMITTED: Common bile duct fluid post biopsy for cytology DIAGNOSIS CYTOLOGY Common bile duct fluid, post biopsy for cytology (cytospin and cell block): A few atypical cells noted. See comment. SJ:arlet 01/28/2022 COMMENT The specimen also contains numerous food particles. Special stain for fungi is positive for organisms (yeast and pseudohyphae), consistent with Jaz species; matched control is appropriate. Numerous organisms consistent with bacteria are also present. Please also make reference to corresponding surgical specimen ([id number]), biliary stricture, Spy Bite biopsy with diagnosis of ?moderately differentiated adenocarcinoma.? Case has been reviewed in consultation with Dr. Kelley who concurs with the above diagnosis. IDC:AM CYTOLOGY STUDY Slides are reviewed. CYTOLOGY GROSS Received is 20 ml of greenish-brown cloudy fluid labeled with the patient's name and and designated per the requisition as common bile duct. Submitted for cytology preparation including cell block. / arlet 01/27/2022 TC:5 CPT: 82275, 21648, 29191
--- NOTE | 2022-01-26 14:00 | CASEMGMT ---
This RN CM to room to discuss d/c plan with pt and pt is out of the dept for testing. CM to follow. SStaten RN CM
[2022-01-26] MEDS: 0.9% Saline Lock 10 ML Syringe IV ×2 (14:41→23:36)
[2022-01-26] MEDS: Enoxaparin 40 MG/0.4 ML Syringe SC (15:00)
--- NOTE | 2022-01-26 16:38 | OP.ERCP_ITS ---
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 Refer to note in patient chart for documentation of history and physical. Patient has symptoms of acute right upper quadrant abdominal pain and acute jaundice. Complications: No immediate complications. Procedure: Pre-Anesthesia Assessment: - Prior to the procedure, a History and Physical was performed, and patient medications and allergies were reviewed. The patient is competent. The risks and benefits of the procedure and the sedation options and risks were discussed with the patient. All questions were answered and informed consent was obtained. Patient identification and proposed procedure were verified by the physician in the pre-procedure area. Mental Status Examination: alert and oriented. Airway Examination: normal oropharyngeal airway and neck mobility. Respiratory Examination: clear to auscultation. CV Examination: normal. Prophylactic Antibiotics: The patient does not require prophylactic antibiotics. Prior Anticoagulants: The patient has taken no previous anticoagulant or antiplatelet agents. ASA Grade Assessment: II - A patient with mild systemic disease. After reviewing the risks and benefits, the patient was deemed in satisfactory condition to undergo the procedure. The anesthesia plan was to use general anesthesia. Immediately prior to administration of medications, the patient was re-assessed for adequacy to receive sedatives. The heart rate, respiratory rate, oxygen saturations, blood pressure, adequacy of pulmonary ventilation, and response to care were monitored throughout the procedure. The physical status of the patient was re-assessed after the procedure. After obtaining informed consent, the scope was passed under direct vision. Throughout the procedure, the patient's blood pressure, pulse, and oxygen saturations were monitored continuously. The Duodenoscope was introduced through the mouth, and advanced to the duodenum and used for direct visualization of the bile duct. The ERCP was accomplished without difficulty. The patient tolerated the procedure well. Scope In: 12:01:34 PM Scope Out: 1:08:27 PM Total Procedure Duration Time 1 hour 6 minutes 53 seconds Findings: The program director scouting film was normal. The esophagus was successfully intubated under direct vision. The scope was advanced to a normal major papilla in the descending duodenum without detailed examination of the pharynx, larynx and associated structures, and upper GI tract. The upper GI tract was grossly normal. The bile duct was deeply cannulated with the short-nosed traction sphincterotome. Contrast was injected. I personally interpreted the bile duct images. There was brisk flow of contrast through the ducts. Image quality was excellent. Contrast extended to the entire biliary tree. Opacification of the entire biliary tree except for the cystic duct and gallbladder and main bile duct was successful. The maximum diameter of the ducts was 7 mm. The middle third of the main bile duct contained a single segmental stenosis 6 mm in length. The left and right hepatic ducts and all intrahepatic branches were diffusely dilated, secondary to a stricture. The largest diameter was 10 mm. A straight Roadrunner wire was passed into the biliary tree. A 5 mm biliary sphincterotomy was made with a monofilament traction (standard) sphincterotome using ERBE electrocautery. There was no post-sphincterotomy bleeding. The biliary tree was swept with a 15 mm balloon starting at the left intrahepatic duct(s). Sludge was swept from the duct. Many stones were removed. No stones remained. Debris was swept from the duct. Two stents were removed from the biliary tree using a snare and sent for cytology. The stents were found to be partially occluded via the water column test. Two 10 mm by 6 cm covered metal stents were placed 5 cm into the common bile duct. Bile flowed through the stents. The stents were in good position. One 7 Fr by 15 cm temporary stent was placed 5 cm into the common bile duct. Bile flowed through the stent. The stent was in good position. The ventral pancreatic duct was deeply cannulated with the 8.5 mm dilating balloon. Contrast was injected. The ventral pancreatic duct in the head of the pancreas was dilated mildly. The bile duct was explored endoscopically using the SpCorban Directlass direct visualization system. The SpyScope was advanced to the left main hepatic duct. Visibility with the scope was good. The common bile duct was segmentally dilated, secondary to a stricture. The largest diameter was 10 mm. The middle third of the main bile duct was biopsied with a cold forceps for histology. Fluid aspiration for cytology and bacterial cultures was performed in the left main hepatic duct. Impression: - A single segmental biliary stricture was found in the middle third of the main bile duct. The stricture was indeterminate. - The left and right hepatic ducts and all intrahepatic branches were dilated, secondary to a stricture. - The common bile duct was dilated, secondary to a stricture. - Mild dilatation of the ventral pancreatic duct in the head of the pancreas was found. - Choledocholithiasis was found. Complete removal was accomplished by biliary sphincterotomy and balloon extraction. - A biliary sphincterotomy was performed. - The biliary tree was swept and debris was found. - Two stents were removed from the biliary tree. - Two covered metal stents were placed into the common bile duct. - One temporary stent was placed into the common bile duct. - Biopsy was performed in the middle third of the main bile duct. - Fluid aspiration was performed. Procedure Code(s): --- Professional --- 31177, Endoscopic retrograde cholangiopancreatography (ERCP); with removal and exchange of stent(s), biliary or pancreatic duct, including pre- and post-dilation and guide wire passage, when performed, including sphincterotomy, when performed, each stent exchanged [id number], 59, Endoscopic retrograde cholangiopancreatography (ERCP); with removal and exchange of stent(s), biliary or pancreatic duct, including pre- and post-dilation and guide wire passage, when performed, including sphincterotomy, when performed, each stent exchanged [id number], 59, Endoscopic retrograde cholangiopancreatography (ERCP); with removal and exchange of stent(s), biliary or pancreatic duct, including pre- and post-dilation and guide wire passage, when performed, including sphincterotomy, when performed, each stent exchanged [id number], 51, Endoscopic retrograde cholangiopancreatography (ERCP); with removal of calculi/debris from biliary/pancreatic duct(s) 80932, 59, Endoscopic retrograde cholangiopancreatography (ERCP); with biopsy, single or multiple 13772, Endoscopic cannulation of papilla with direct visualization of pancreatic/common bile duct(s) (List separately in addition to code(s) for primary procedure) 31197, 26, Endoscopic catheterization of the biliary ductal system, radiological supervision and interpretation CPT copyright 2017 [employer] [employer]. All rights reserved. The codes documented in this report are preliminary and upon civil service worker review may be revised to meet current compliance requirements. Johnson Luis DO 01/26/2022 4:37:48 PM This report has been signed electronically. Number of Addenda: 0 Note Initiated On: 01/26/2022 11:33 AM
--- NOTE | 2022-01-26 16:39 | OP.CCLET_ITS ---
01/26/2022 Ramirez Welch [address] [place] [address] Re : ERCP procedure for Shahid Mueller Dear Dr. Welch This procedure was performed on Wednesday, January 26, 2022. My impressions and recommendations are as follows: Impressions : - A single segmental biliary stricture was found in the middle third of the main bile duct. The stricture was indeterminate. - The left and right hepatic ducts and all intrahepatic branches were dilated, secondary to a stricture. - The common bile duct was dilated, secondary to a stricture. - Mild dilatation of the ventral pancreatic duct in the head of the pancreas was found. - Choledocholithiasis was found. Complete removal was accomplished by biliary sphincterotomy and balloon extraction. - A biliary sphincterotomy was performed. - The biliary tree was swept and debris was found. - Two stents were removed from the biliary tree. - Two covered metal stents were placed into the common bile duct. - One temporary stent was placed into the common bile duct. - Biopsy was performed in the middle third of the main bile duct. - Fluid aspiration was performed. Recommendations : My findings are described in the full procedure note, which is enclosed. If I can be of further assistance, please feel free to contact me at . Sincerely, Johnson Luis, 01/26/2022 4:37:48 PM This report has been signed electronically.
[2022-01-26 17:31] LABS: Bedside Glucose 154 mg/dL (74-106)
[2022-01-26] MEDS: guaiFENesin/D-Methorphan TAB.SR.12H 1 TABLET PO (22:14)
[2022-01-27] VITALS (11 sets, daily range): BP systolic 98–116; BP diastolic 58–66; PULSE 56–80; RESP 16–17; TEMP 36.1–37; O2SAT 93–97
[2022-01-27 00:56] LABS: Bedside Glucose 124 mg/dL (74-106)
--- NOTE | 2022-01-27 00:57 | NURSING ---
Raheel PharmD notified of vanc trough result. Raheel states he will put in for another trough and to hold the 0100 dose. 0100 dose tubed back to pharmacy, will hold on JUL.
--- NOTE | 2022-01-27 01:14 | PCM.RX.CS ---
Consult Pharmacy has been consulted to manage selected antiobiotic: Vancomycin Type of Consult: Follow-up Suspected Infection: Sepsis Prior Doses of Antibiotics Received/Current Regimen: Medications Vancomycin HCl 750 mg/ Sodium (Chloride) 265 mls @ 250 mls/hr IV Q12H FARRUKH Last Admin: 01/27/22 00:58 Dose: Not Given Labs: Sodium 138 mmol/L (136-145) 01/26/22 05:55 Potassium 3.6 mmol/L (3.5-5.1) 01/26/22 05:55 Chloride 106 mmol/L (98-107) 01/26/22 05:55 Carbon Dioxide 24.0 mmol/L (21.0-32.0) 01/26/22 05:55 Anion Gap 8 (5-15) 01/26/22 05:55 BUN 32 mg/dL (7-18) H 01/26/22 05:55 Creatinine 0.99 mg/dL (0.70-1.30) 01/26/22 05:55 Est GFR (MDRD) Af Amer 92 mL/min (>60) 01/26/22 05:55 Est GFR (MDRD) Non-Af 76 mL/min (>60) 01/26/22 05:55 BUN/Creatinine Ratio 32.3 RATIO (10-20) H 01/26/22 05:55 Glucose 169 mg/dL (74-106) H 01/26/22 05:55 Vancomycin Trough 23.0 ug/mL (5.0-15.0) H 01/27/22 00:25 Microbiology: Microbiology 01/26/22 13:00 Fluid - Other Gram Stain - Final 01/19/22 17:13 Incision/Surgical Site Gram Stain - Final 01/19/22 17:13 Incision/Surgical Site Wound Culture - Final Klebsiella oxytoca Enterococcus faecium 01/19/22 17:13 Incision/Surgical Site Anaerobic Culture - Final Bacteroides uniformis 01/18/22 19:00 Blood Culture (Wb) - Anticubital Left Blood Culture - Preliminary Actinomyces odontolyticus 01/18/22 19:32 Blood Culture (Wb) - Anticubital Left Blood Culture - Final Gram positive debora 01/18/22 19:52 Urine, Clean Catch Urine Culture - Final Culture exhibits no growth. 01/18/22 19:52 Nasal Secretion SARS-CoV-2 & FLU Antigen (Rapid) - Final Weight used for dosin.6 kg Estimated Creatinine Clearance: 54 Goal Trough: 15-20 mcg/mL Pharmacy Plan for Drug Dosing: Vancomycin trough level was high, at 23.0. The current dose was held and a random vanco level will be drawn 12 hours from the trough. Further dosing will be determined from that result. Pharmacy Service will continue to monitor and adjust dosing as required. Follow-Up Labs: Trough Vancomycin - random Labs to be done on [date and time ordered]: 01/27/22 @6366
[2022-01-27] MEDS: metroNIDAZOLE 500 MG/100 ML BAG 100 MG IV ×3 (06:34→21:17)
[2022-01-27] MEDS: Metoclopramide 10 MG/2 ML Vial IV ×4 (06:35→23:24)
[2022-01-27 06:47] LABS: Absolute Lymphocyte Count 0.88 X10^3/uL (0.83-4.51); Absolute Neutrophil Count 14.6 X10^3/uL (2.0-7.7); Basophil# 0.06 X10^3/uL; Basophil% 0.4 % (0-1); Eosinophil# 0.01 X10^3/uL; Eosinophils% 0.1 % (0-5); Hematocrit 36.3 % (40-54); Hemoglobin 12.2 g/dL (13.0-16.5); Lymphocyte # 0.88 X10^3/ul (0.83-4.51); Lymphocyte % 5.3 % (19-41); Mean Corp Hgb Conc 33.6 g/dL (32-36); Mean Corpuscular Volume 101.1 fL (80-94); Mean Platelet Vol. 11.8 fl (6.2-12.0); Monocyte# 0.66 X10^3/uL; NRBC Flagged by Analyzer 0 % (0-5); Neutrophil # 14.61 X10^3/uL (2.7-7.7); Neutrophil % 87.6 % (47-70); POSITIVE COUNT YES; Platelet Count 97 K/mm3 (150-450); RBC Distribution Width SD 58.5 fl (35.1-43.9); Red Blood Count 3.59 M/mm3 (4.6-6.2); White Blood Count 16.7 K/mm3 (4.4-11.0)
[2022-01-27 06:53] LABS: Erythrocyte Sedimentation Rate 10 mm/hr (0-20)
[2022-01-27 06:55] LABS: Bedside Glucose 125 mg/dL (74-106)
[2022-01-27 07:46] LABS: Lactic Acid 1.6 mmol/L (0.4-1.9)
--- NOTE | 2022-01-27 08:00 | PN_ITS ---
Subjective Subjective Patient is due for well and tolerating a diet. He underwent ERCP yesterday. Objective Data Objective Data Vital Signs: Vital Signs Temp Pulse Resp BP Pulse Ox O2 Del Method O2 Flow Rate 97 F L 80 17 116/66 97 Room Air 2 01/27/22 10:04 01/27/22 11:04 01/27/22 10:04 01/27/22 10:04 01/27/22 15:07 01/27/22 10:04 01/27/22 15:07 Oxygen Flow Rate (L/min) 2 Oxygen Delivery Method Room Air Weight: 159 lb 6.307 oz Body Mass Index (BMI) 22.6 Intake & Output: Intake and Output for Last 24 Hours 01/25/22 01/26/22 01/27/22 23:59 23:59 23:59 Intake Total 1635.00 / 1815.00 1205 / 1565 1010 / 1010 Output Total 375 / 575 3025 / 3825 1150 / 1150 Balance 1260.00 / 1240.00 -1820 / -2260 -140 / -140 Lab / Micro Data Result Diagrams: 01/27/22 06:00 01/27/22 06:00 Labs: Laboratory Results - last 24 hr 01/26/22 16:51: POC Glucose 154 H 01/26/22 22:12: POC Glucose 124 H 01/27/22 00:25: Vancomycin Trough 23.0 H 01/27/22 06:00: WBC 16.7 H, RBC 3.59 L, Hgb 12.2 L, Hct 36.3 L, MCV 101.1 H, MCH 34.0 H, MCHC 33.6, RDW Std Deviation 58.5 H, RDW Coeff of López 16.0 H, Plt Count 97 L, MPV 11.8, Immature Gran % (Auto) 2.600 H, Neut % (Auto) 87.6 H, Lymph % (Auto) 5.3 L, [place] % (Auto) 4.0, Eos % (Auto) 0.1, Baso % (Auto) 0.4, Absolute Neuts (auto) 14.6 H, Absolute Lymphs (auto) 0.88, Nucleated RBC % 0, ESR 10 01/27/22 06:00: Sodium 139, Potassium 4.0, Chloride 108 H, Carbon Dioxide 26.0, Anion Gap 5, BUN 34 H, Creatinine 0.98, Estim Creat Clear Calc 55.33, Est GFR (MDRD) Af Amer 93, Est GFR (MDRD) Non-Af 77, BUN/Creatinine Ratio 34.6 H, Glucose 147 H, Calcium 7.8 L, Total Bilirubin 2.00 H, AST 31, ALT 19, Alkaline Phosphatase 149 H, C-React Prot Ext Range 36.90 H, Total Protein 4.9 L, Albumin 1.5 L, Globulin 3.4, Albumin/Globulin Ratio 0.4 L 01/27/22 06:34: POC Glucose 125 H 01/27/22 06:47: Lactic Acid 1.6 01/27/22 11:26: POC Glucose 201 H 01/27/22 12:40: Random Vancomycin 19.8 H 01/27/22 16:09: POC Glucose 234 H Micro: Microbiology 01/26/22 13:00 Fluid - Other Gram Stain - Final 01/26/22 13:00 Fluid - Other Body Fluid Culture - Preliminary Gram negative debora Mixed Culture 01/19/22 17:13 Incision/Surgical Site Gram Stain - Final 01/19/22 17:13 Incision/Surgical Site Wound Culture - Final Klebsiella oxytoca Enterococcus faecium 01/19/22 17:13 Incision/Surgical Site Anaerobic Culture - Final Bacteroides uniformis 01/18/22 19:00 Blood Culture (Wb) - Anticubital Left Blood Culture - Preliminary Actinomyces odontolyticus 01/18/22 19:32 Blood Culture (Wb) - Anticubital Left Blood Culture - Final Gram positive debora 01/18/22 19:52 Urine, Clean Catch Urine Culture - Final Culture exhibits no growth. 01/18/22 19:52 Nasal Secretion SARS-CoV-2 & FLU Antigen (Rapid) - Final Physical Exam Narrative Feeling ok this AM. No fever, no abd pain Const alert and no apparent distress Resp normal air movement and clear to auscultation bilaterally Cardio regular rate and regular rhythm GI soft to palpation, non-tender and non-distended Skin no rashes or lesions noted Assessment & Plan Assessment/Plan (1) Septic shock: PLAN: Septic shock secondary to cholangitis. Bacteria is polymicrobial gram- negative sepsis of the hepatobiliary system that is possibly secondary to previous instrumentation. He had a lot of stones and debris that were seen in the intrahepatic ducts with direct cholangioscopy and removed. More cultures were sent for anaerobic and aerobic bacteria. A new metal stent was placed along with a plastic stent into the intrahepatic ducts. His white blood cell count is improving today along with his LFTs. Hopefully they will continue to trend down and he will get better from a sepsis standpoint. Continue antibiotics as per ID. Charges/Coding Visit Charges Inpatient E&M: 28370 Subs Hosp L2
[2022-01-27 08:17] LABS: ALB/GLOB Ratio 0.4 RATIO (0.9-2.4); AST(SGOT) 31 U/L (15-37); Alanine Aminotransfer ALT/SGPT 19 U/L (16-61); Albumin, Serum 1.5 g/dL (3.2-5.0); Alkaline Phosphatase 149 U/L (45-117); Anion Gap 5 (5-15); BUN 34 mg/dL (7-18); BUN/Creat Ratio 34.6 RATIO (10-20); Calcium,Total 7.8 mg/dL (8.5-10.1); Chloride 108 mmol/L (98-107); Creatinine, Serum 0.98 mg/dL (0.70-1.30); EST Glomerular Filtration Rate 77 mL/min (>60); Est Glom Filt Rate - Afr Amer 93 mL/min (>60); Estimated Creatinine Clearance 55.33 ml/min; Globulin 3.4 g/dL (2.2-4.2); Glucose 147 mg/dL (74-106); Protein, Total 4.9 g/dL (6.4-8.2); Sodium Level 139 mmol/L (136-145)
--- NOTE | 2022-01-27 09:30 | PN.HOSP_ITS ---
Subjective Subjective Doing well today, does not feel much different from yesterday. White count is continuing to improve after his ERCP. Objective Data Objective Data Vital Signs: Vital Signs Temp Pulse Resp BP Pulse Ox O2 Del Method O2 Flow Rate 97.3 F L 64 16 98/61 97 Room Air 2 01/27/22 07:36 01/27/22 07:36 01/27/22 07:36 01/27/22 07:36 01/27/22 08:00 01/27/22 08:00 01/27/22 07:32 Oxygen Flow Rate (L/min) 2 Oxygen Delivery Method Room Air Weight: 159 lb 6.307 oz Body Mass Index (BMI) 22.6 Intake & Output: Intake and Output for Last 24 Hours 01/26/22 01/27/22 01/28/22 03:59 03:59 03:59 Intake Total 1815.00 / 1815.00 1120 / 1120 500 / 500 Output Total 575 / 575 3625 / 3625 350 / 350 Balance 1240.00 / 1240.00 -2505 / -2505 150 / 150 Lab / Micro Data Result Diagrams: 01/27/22 06:00 01/27/22 06:00 Labs: Laboratory Results - last 24 hr 01/26/22 16:51: POC Glucose 154 H 01/26/22 22:12: POC Glucose 124 H 01/27/22 00:25: Vancomycin Trough 23.0 H 01/27/22 06:00: WBC 16.7 H, RBC 3.59 L, Hgb 12.2 L, Hct 36.3 L, MCV 101.1 H, MCH 34.0 H, MCHC 33.6, RDW Std Deviation 58.5 H, RDW Coeff of López 16.0 H, Plt Count 97 L, MPV 11.8, Immature Gran % (Auto) 2.600 H, Neut % (Auto) 87.6 H, Lymph % (Auto) 5.3 L, [place] % (Auto) 4.0, Eos % (Auto) 0.1, Baso % (Auto) 0.4, Absolute Neuts (auto) 14.6 H, Absolute Lymphs (auto) 0.88, Nucleated RBC % 0, ESR 10 01/27/22 06:00: Sodium 139, Potassium 4.0, Chloride 108 H, Carbon Dioxide 26.0, Anion Gap 5, BUN 34 H, Creatinine 0.98, Estim Creat Clear Calc 55.33, Est GFR (MDRD) Af Amer 93, Est GFR (MDRD) Non-Af 77, BUN/Creatinine Ratio 34.6 H, Glucose 147 H, Calcium 7.8 L, Total Bilirubin 2.00 H, AST 31, ALT 19, Alkaline Phosphatase 149 H, C-React Prot Ext Range 36.90 H, Total Protein 4.9 L, Albumin 1.5 L, Globulin 3.4, Albumin/Globulin Ratio 0.4 L 01/27/22 06:34: POC Glucose 125 H 01/27/22 06:47: Lactic Acid 1.6 Micro: Microbiology 01/26/22 13:00 Fluid - Other Gram Stain - Final 01/19/22 17:13 Incision/Surgical Site Gram Stain - Final 01/19/22 17:13 Incision/Surgical Site Wound Culture - Final Klebsiella oxytoca Enterococcus faecium 01/19/22 17:13 Incision/Surgical Site Anaerobic Culture - Final Bacteroides uniformis 01/18/22 19:00 Blood Culture (Wb) - Anticubital Left Blood Culture - Preliminary Actinomyces odontolyticus 01/18/22 19:32 Blood Culture (Wb) - Anticubital Left Blood Culture - Final Gram positive debora 01/18/22 19:52 Urine, Clean Catch Urine Culture - Final Culture exhibits no growth. 01/18/22 19:52 Nasal Secretion SARS-CoV-2 & FLU Antigen (Rapid) - Final Radiography Diagnostic Testing: Radiology Impression Endo Retro Cholangiopancreatogram 01/26/22 09:47 IMPRESSION: No dilatation of the intrahepatic ducts. Biliary stent placement. Electronically Signed: Az Mendoza MD at 15:16 EDT , Physical Exam Narrative General: Alert, Oriented x3, Cooperative, No apparent distress HEENT: Atraumatic, PERRLA, EOMI, Normocephalic Oral: Moist Mucosa Neck: Supple, No JVD Lungs: Clear to auscultation, Normal air movement, No rhonchi, No wheeze, No rales Cardiovascular: Regular rate, Regular Rhythm, Normal S1, Normal S2, murmurs Abdomen: Soft, Non Tender, Non-Distended, No Hepato-splenomegaly Extremities: Edema, Capillary Refill Less than 3 Seconds Skin: No rashes, No breakdown Musculoskeletal: No Tenderness to Palpation of Joints or Extremities Neurological: Cranial nerves II-XII grossly intact, Motor Exam 5/5 strength throughout, Sensory exam intact to light touch and pain Psych/Mental Status: Normal affect, Appropriate Assessment & Plan Assessment/Plan (1) Septic shock: PLAN: Plan #Septic shock due to bacteremia exact etiology unclear but most probably hepatobiliary source, ascending cholangitis: The patient presented with septic shock due to possible hepatobiliary source of infection with acute sepsis related organ dysfunction as evidenced by JANES, lactic acidosis, hypotension requiring vasopressor support and lactic acidemia. Patient has increased total bilirubin 2.9. Previous total bilirubin was also high 5.3 in December 2018. Patient also has leukocytosis with Left shift, bands 23%, metamyelocytes 7%. Lymphocytes low 2%. On IV Levophed. UA 1+ bacteria, WBC 0-5. Sepsis work-up did not show any positive result yet. On IV vancomycin and Zosyn 01/20: Patient remains on Levophed 14 MCG per minute. Mild low-grade fever. 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 Severely dilated right main hepatic duct secondary to stricture, biliary sphincterotomy along with stent exchange. Patient on IV vancomycin and cefepime. Flagyl was added on 01/19 by ID for. Anaerobic blood culture shows gram-positive rods. Follow culture. 01/21: 2 out of 2 blood culture positive of gram-positive rods. Biliary fluid culture shows and GPC possible Enterococcus. If VRE found, restart linezolid and discontinued trazodone.ID follow-up appreciated. Patient is started on midodrine in order to taper down norepinephrine. 01/22: Biliary fluid culture shows Klebsiella oxytoca, 1+ and Enterococcus fecium 1+. Klebsiella is ESBL negative. Enterococcus is vancomycin sensitive. 2 bottles of blood culture growing Actinomyces odontolyticus. Patient on Vancomycin cefepime and Flagyl. Patient blood pressure is borderline, systolic in 90s on midodrine 10 mg 3 times daily. Levophed on hold. 01/23: Maintaining MAP more than 65 without vasopressor support. Transferred to PCU. Symptomatic Mucinex D for cough. No fever.Urine output about 1 L daily. Yesterday 825 mill.Positive fluid balance 11 L. Furosemide 20 mg IV 1 dose given. 01/24/2022: Continue with the midodrine, awaiting infectious disease input for discharge planning. Based on PT and OT he is doing well, continue with vancomycin, Flagyl and cefepime. Levophed has been off for over 48 hours 01/25/2022: White count has climbed up again, cefepime was discontinued and transition to Rocephin by infectious disease. Will monitor white blood cell count tomorrow, in discussion with gastroenterology he may need another ERCP if his white count continues to climb to clean out his biliary tree 01/26/2022: White count is still elevated to 18.2 despite adjustments in his antibiotics therefore gastroenterology plans to proceed with an ERCP today to sweep the bile duct again and see if there is any retained material. He is on oxygen currently and he is about 12 L positive and he is continuing to get IV antibiotics therefore we will give him another dose of Lasix today 01/27/2022: White count appears to be improving we will continue to monitor for continued improvement, if his white count does continue to improve will discuss with ID the possibility of oral antibiotics. #Hypertension: Hold all BP meds on account of hypotension #JANES: Creatinine is 1.4 with baseline being around 0.89. This is likely due to septic shock. Should improve with hydration. 01/20: Mild hypokalemia K3.4. BUNs/creatinine 25/0.94. JANES resolved. Potassium replacement. 01/21: Hypophosphatemia. K3.5. 01/24: Resolved #Recently diagnosed pancreatic cancer: Patient has stent most probably plastica stent as he was told that will be replaced in 6 to 8 weeks. The patient was supposed to start chemotherapy on 01/20/[address] Espinosa. #TYpe 2 diabetes mellitus ? On lantus 8 units daily. ISS. Accuchecks ACHS ? We will monitor and make changes as necessary #Glaucoma: on timolol and tafluprost eye drops DVT: lovenox Charges/Coding Visit Charges Inpatient E&M: 26378 Subs Hosp L2
--- NOTE | 2022-01-27 09:58 | PCM.PN.ID ---
Physical Exam Narrative Feeling ok this AM. 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 Cont vanc/ceftriaxone/flagyl. Now s/p ERCP 01/19 with pus drained, sphincterotomy done, and stent replaced. JANES improved. Biliary cx with klebs and E faecium (not VRE). 01/24 changed cefepime to ceftriaxone to have actino coverage. Recommend temp cvc removal if able to get peripheral access. Plan on po abx at discharge. Now s/p 2nd ERCP 01/26 with stones cleared, stents replaced. Recommend re-addressing goals of care. Currently full code, 86 years old with new diagnosis pancreatic cancer causing severe infection. Not clear if he can completely resolve this infection given the underlying cause and difficult to treat nature of actinomyces infection. I'm not sure he would ever be a candidate for chemo therapy even if he was not dealing with this infection. Would recommend palliative care and/or oncology consult. Will follow, d/w human services case manager
[2022-01-27] MEDS: Midodrine HCl 5 MG Tablet 10 MG PO ×3 (10:29→17:24)
[2022-01-27] MEDS: guaiFENesin/D-Methorphan TAB.SR.12H 1 TABLET PO ×2 (10:30→21:09)
[2022-01-27] MEDS: Ursodiol 250 MG Tablet 500 MG PO ×2 (10:30→21:15)
[2022-01-27] MEDS: Famotidine 20 MG Tablet PO (10:30)
[2022-01-27] MEDS: Insulin Glargine-YFGN 100 UNIT/ML Pen 8 UNIT SC (11:38)
[2022-01-27 11:55] LABS: Bedside Glucose 201 mg/dL (74-106)
[2022-01-27] MEDS: Insulin Lispro 100 UNIT/ML INSULN.PEN SC ×3 (12:44→21:50)
[2022-01-27 13:31] LABS: Vancomycin, Random Level 19.8 ug/mL (0.0-15.0)
--- NOTE | 2022-01-27 14:17 | PCM.RX.CS ---
Consult Pharmacy has been consulted to manage selected antiobiotic: Vancomycin Type of Consult: Follow-up Suspected Infection: Other Prior Doses of Antibiotics Received/Current Regimen: 01/26/22 @ 1441 Labs: Sodium 139 mmol/L (136-145) 01/27/22 06:00 Potassium 4.0 mmol/L (3.5-5.1) 01/27/22 06:00 Chloride 108 mmol/L (98-107) H 01/27/22 06:00 Carbon Dioxide 26.0 mmol/L (21.0-32.0) 01/27/22 06:00 Anion Gap 5 (5-15) 01/27/22 06:00 BUN 34 mg/dL (7-18) H 01/27/22 06:00 Creatinine 0.98 mg/dL (0.70-1.30) 01/27/22 06:00 Est GFR (MDRD) Af Amer 93 mL/min (>60) 01/27/22 06:00 Est GFR (MDRD) Non-Af 77 mL/min (>60) 01/27/22 06:00 BUN/Creatinine Ratio 34.6 RATIO (10-20) H 01/27/22 06:00 Glucose 147 mg/dL (74-106) H 01/27/22 06:00 Vancomycin Trough 23.0 ug/mL (5.0-15.0) H 01/27/22 00:25 Random Vancomycin 19.8 ug/mL (0.0-15.0) H 01/27/22 12:40 Microbiology: Microbiology 01/26/22 13:00 Fluid - Other Gram Stain - Final 01/26/22 13:00 Fluid - Other Body Fluid Culture - Preliminary Gram negative debora Mixed Culture 01/19/22 17:13 Incision/Surgical Site Gram Stain - Final 01/19/22 17:13 Incision/Surgical Site Wound Culture - Final Klebsiella oxytoca Enterococcus faecium 01/19/22 17:13 Incision/Surgical Site Anaerobic Culture - Final Bacteroides uniformis 01/18/22 19:00 Blood Culture (Wb) - Anticubital Left Blood Culture - Preliminary Actinomyces odontolyticus 01/18/22 19:32 Blood Culture (Wb) - Anticubital Left Blood Culture - Final Gram positive debora 01/18/22 19:52 Urine, Clean Catch Urine Culture - Final Culture exhibits no growth. 01/18/22 19:52 Nasal Secretion SARS-CoV-2 & FLU Antigen (Rapid) - Final Weight used for dosin.6 kg Goal Trough: 15-20 mcg/mL Pharmacy Plan for Drug DosinMG DAILY STATING TODAY AT 1999 Pharmacy Service will continue to monitor and adjust dosing as required. Follow-Up Labs: Trough Vancomycin Labs to be done on [date and time ordered]: 01/29/22 @ 6432
[2022-01-27 16:31] LABS: Bedside Glucose 234 mg/dL (74-106)
[2022-01-27] MEDS: 0.9% Saline Lock 10 ML Syringe IV (17:25)
--- NOTE | 2022-01-27 19:40 | NURSING ---
received report from daysnvft nurse, assumed care of patient
[2022-01-27 22:10] LABS: Bedside Glucose 210 mg/dL (74-106)
[2022-01-28] VITALS (11 sets, daily range): BP systolic 100–110; BP diastolic 51–62; PULSE 62–74; RESP 16–18; TEMP 36.3–37; O2SAT 93–96
[2022-01-28] MEDS: metroNIDAZOLE 500 MG/100 ML BAG 100 MG IV ×3 (05:32→21:49)
[2022-01-28] MEDS: Metoclopramide 10 MG/2 ML Vial IV ×4 (05:37→23:12)
[2022-01-28 05:56] LABS: Basophil# 0.13 X10^3/uL; Basophil% 0.5 % (0-1); Eosinophil# 0.15 X10^3/uL; Eosinophils% 0.6 % (0-5); Hematocrit 36.4 % (40-54); Hemoglobin 12.1 g/dL (13.0-16.5); Lymphocyte % 5.4 % (19-41); Mean Corp Hgb Conc 33.2 g/dL (32-36); Mean Corpuscular Hgb 33.6 pg (27.0-32.0); Mean Corpuscular Volume 101.1 fL (80-94); Mean Platelet Vol. 11.1 fl (6.2-12.0); Monocyte# 1.31 X10^3/uL; Monocyte% 5.1 % (0-10); NRBC Flagged by Analyzer 0 % (0-5); Neutrophil # 21.99 X10^3/uL (2.7-7.7); Neutrophil % 85.1 % (47-70); POSITIVE COUNT YES; POSITIVE DIFFERENTIAL YES; Platelet Count 83 K/mm3 (150-450); RBC Distribution Width CV 16.3 % (11.6-14.6); RBC Distribution Width SD 59.5 fl (35.1-43.9); White Blood Count 25.8 K/mm3 (4.4-11.0)
[2022-01-28 05:57] LABS: Differential Indicated SCAN CRITERIA MET
[2022-01-28 06:23] LABS: ALB/GLOB Ratio 0.5 RATIO (0.9-2.4); AST(SGOT) 38 U/L (15-37); Alanine Aminotransfer ALT/SGPT 18 U/L (16-61); Albumin, Serum 1.6 g/dL (3.2-5.0); Alkaline Phosphatase 157 U/L (45-117); Anion Gap 5 (5-15); BUN 42 mg/dL (7-18); BUN/Creat Ratio 38.5 RATIO (10-20); Calcium,Total 7.6 mg/dL (8.5-10.1); Chloride 107 mmol/L (98-107); Creatinine, Serum 1.09 mg/dL (0.70-1.30); EST Glomerular Filtration Rate 68 mL/min (>60); Est Glom Filt Rate - Afr Amer 82 mL/min (>60); Estimated Creatinine Clearance 49.61 ml/min; Globulin 3.5 g/dL (2.2-4.2); Glucose 152 mg/dL (74-106); Potassium 3.8 mmol/L (3.5-5.1); Protein, Total 5.1 g/dL (6.4-8.2); Sodium Level 138 mmol/L (136-145)
[2022-01-28 06:33] LABS: Differential Comment SCANNED
[2022-01-28 06:34] LABS: Platelet Estimate MOD DEC (ADEQ)
--- NOTE | 2022-01-28 08:17 | CON.PCM.ON_ITS ---
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 -Severe biliary malignant stricture with cholangitis requiring ERCP x2. 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 -KPS is 30% -Not a candidate for cytotoxic chemotherapy--would not be expected to palliate symptoms or prolong life. Discussed this in detail with him. He expressed he would just like to be kept comfortable. Plan: -Will discuss with Dr. Pollock and his . -Recommend home hospice care once more medically stable/on oral antibiotics. HPI Consult Data Date of Service:: 01/28/22 PCP / Referring Provider: Dr. Ramirez Welch MD Attending: Dr. Jayson Pollock MD Chief Complaint Chief Complaint: Metastatic pancreas cancer History of Present Illness History of Present Illness: 86-year-old gentleman who presented with several month history of fatigue, loss of appetite, and unexplained weight loss. He developed type 2 diabetes on insulin earlier this year. He has lost over 15 pounds in the last month along with appetite. He noticed jaundice last month, but no specific abdominal pain, nausea or vomiting. ? Ultrasound of the abdomen on 12/08/2021 showed a pancreatic mass in the head of the pancreas with dilatation of common bile duct. Subsequent CT scan of the abdomen pelvis on 12/15/2021 showed a 6.1 cm pancreatic mass with encasement of the celiac wrist. Moderate narrowing of the central portal vein. There were also 2 hypodense lesion in the liver consistent with metastatic disease. ? He was referred to [facility] for ERCP and ultrasound-guided biopsy of the pancreatic mass on 12/29/2021. ? FINAL DIAGNOSIS A. ?Pancreas, mass, fine-needle biopsy: -Invasive adenocarcinoma. ? He has duodenal stenosis with extrinsic compression as well as biliary stricture elevated lower third of the main bile duct. A biliary sphincterotomy was performed, and a covered metal stent was placed into the common bile duct. He also had a duodenal stent placement. Patient was initially evaluated by Dr. Chirinos. And on 824 was noted to have bilirubin of 7.6 and increased AST and ALT. These improved over the next week and patient was deemed to be a candidate for single agent gemcitabine for palliation. Admitted here for sepsis. Hospital course reviewed. He has required ERCP x2 most recently with stent placement and retrieval of previous stent. First ERCP demonstrated pus from the bile duct. He has actinomyces sepsis and is currently on ceftriaxone. Blood pressure was stabilized and he was moved out of the unit several days ago. The patient is an 86-year-old male recently diagnosed with metastatic pancreas cancer after presenting with painless jaundice. He underwent biliary plastic stent placement and duodenal stent placement at [facility] [place]. His performance status was reasonable and he was offered single agent gemcitabine. Prior to starting he developed septic shock and was admitted to the ICU for fluid and pressor support. He underwent an ERCP and was found to have a single localized biliary stricture in the upper third of the main bile duct which was malignant appearing. The right hepatic duct was severely dilated sphincterotomy was performed and the tree was swept with mucous and the stent was exchanged. Initial blood cultures were negative but on 01/18 actinomyces was observed in blood. He was maintained on broad-spectrum antibiotics but because of increasing white count, underwent repeat ERCP where he was found to have a single segmental biliary stricture middle third of the main duct. The left and right hepatic ducts were dilated. Common bile duct was dilated choledocholithiasis was observed and removal was performed with balloon extraction. Biliary tree was swept and debris were found 2 stents were removed and 2 covered metal stents were placed in the common bile duct. 1 temporary stent was placed in the bile duct. He offers no complaints this morning. Denies nausea. He ordered breakfast. His bowels moved once a couple days ago. No black or bloody stools. He denies abdominal pain at this time. Advanced Directives Power of Scalloper: Yes Living Will: Yes [facility] Medical History (Updated 01/28/22 @ 08:[address] Jayy Espinosa, DO) Atherosclerotic heart disease of [place] coronary artery without angina pectoris Chronic cholecystitis due to cholelithiasis with choledocholithiasis Cough Diverticulosis Essential hypertension Gallstone pancreatitis Mixed hyperlipidemia Non-rheumatic aortic stenosis Vomiting Home Medications tafluprost (PF) 0.0015 % eye drops in a dropperette 1 drp EACH EYE QHS glucoma 12/25/18 [History Last Taken 12/24/18] timolol maleate 0.25 % eye drops 1 drp EACH EYE BID glucoma 12/25/18 [History Last Taken 12/25/18] xd-dpv-wmdha lipoic smpe-YT-cjpknehkreetd 100 mg-0.8mg -10 mg tablet 1 tab PO DAILY 01/21/19 [History Last Taken Unknown] sildenafil 100 mg tablet (Viagra) 50 mg PO DAILY PRN sexual activity 01/21/19 [History Last Taken Unknown] lutein 20 mg capsule 20 mg PO DAILY 01/31/19 [History Last Taken Unknown] Lantus Solostar U-100 Insulin 100 unit/mL (3 mL) subcutaneous pen (insulin glargine) 8 unit (0.08 mL) subcut DAILY #15 mL 11/26/21 [Rx Last Taken Unknown] insulin aspart U-100 100 unit/mL (3 mL) subcutaneous pen (Novolog Flexpen U-100 Insulin aspart) 4 unit subcut TIDWMEAL 01/18/22 [History Last Taken Unknown] trazodone 50 mg tablet 50 mg PO QHS PRN Insomnia 01/18/22 [History Last Taken Unknown] Allergy/AdvReac Type Severity Reaction Status Date / Time No Known Allergies Allergy Verified 01/18/22 18:44 Family History Father Diabetes Mother Diabetes Surgical History History of bilateral inguinal hernia repair S/P laparoscopic cholecystectomy (~12/2018) Social History Smoking Status: Never smoker alcohol intake: never substance use type: does not use caffeine: Yes Type: coffee Number of servings: 2 ROS Constitutional Constitutional: Reports fatigue Physical Exam Const oriented x3 General Appearance: cooperative and comfortable Lymph Lymphatic: no lymphadenopathy noted Resp normal respiratory effort Cardio regular rhythm GI GI Narrative: There is no distension. Tympanic. No fluid wave. Non-tender. Extremity Extremity Narrative: Symmetric swelling with pitting edema. Vital Signs Temperature 97.4 F L 01/28/22 05:30 Temperature Source Oral 01/28/22 05:30 Pulse Rate 64 01/28/22 07:00 Pulse Strength Normal (2+) 01/27/22 22:00 Respiratory Rate 16 01/28/22 05:30 Respiratory Effort 01/28/22 06:05 Respiratory Depth Normal 01/28/22 06:05 Respiratory Pattern Normal 01/28/22 06:05 Blood Pressure 102/59 L 01/28/22 05:30 Blood Pressure Mean 73 01/28/22 05:30 Blood Pressure Source Monitor 01/28/22 05:30 Blood Pressure Position Semi-Fowlers 01/28/22 05:30 Blood Pressure Location Left Arm 01/28/22 05:30 Baseline BP 106/58 01/26/22 14:00 Pulse Ox 94 01/28/22 05:30 Oxygen Delivery Method Room Air 01/28/22 06:05 Oxygen Flow Rate (L/min) 2 01/27/22 15:07 Laboratory Results - last 24 hr 01/27/22 06:00: Sodium 139, Potassium 4.0, Chloride 108 H, Carbon Dioxide 26.0, Anion Gap 5, BUN 34 H, Creatinine 0.98, Estim Creat Clear Calc 55.33, Est GFR (MDRD) Af Amer 93, Est GFR (MDRD) Non-Af 77, BUN/Creatinine Ratio 34.6 H, Glucose 147 H, Calcium 7.8 L, Total Bilirubin 2.00 H, AST 31, ALT 19, Alkaline Phosphatase 149 H, C-React Prot Ext Range 36.90 H, Total Protein 4.9 L, Albumin 1.5 L, Globulin 3.4, Albumin/Globulin Ratio 0.4 L 01/27/22 11:26: POC Glucose 201 H 01/27/22 12:40: Random Vancomycin 19.8 H 01/27/22 16:09: POC Glucose 234 H 01/27/22 21:48: POC Glucose 210 H 01/28/22 05:28: WBC 25.8 H, RBC 3.60 L, Hgb 12.1 L, Hct 36.4 L, MCV 101.1 H, MCH 33.6 H, MCHC 33.2, RDW Std Deviation 59.5 H, RDW Coeff of López 16.3 H, Plt Count 83 L, MPV 11.1, Immature Gran % (Auto) 3.300 H, Neut % (Auto) 85.1 H, Lymph % (Auto) 5.4 L, [place] % (Auto) 5.1, Eos % (Auto) 0.6, Baso % (Auto) 0.5, Absolute Neuts (auto) 22.0 H, Absolute Lymphs (auto) 1.40, Nucleated RBC % 0, Dif ferential Comment SCANNED, Platelet Estimate MOD 01/28/22 05:28: Sodium 138, Potassium 3.8, Chloride 107, Carbon Dioxide 26.0, Anion Gap 5, BUN 42 H, Creatinine 1.09, Estim Creat Clear Calc 49.61, Est GFR (MDRD) Af Amer 82, Est GFR (MDRD) Non-Af 68, BUN/Creatinine Ratio 38.5 H, Glucose 152 H, Calcium 7.6 L, Total Bilirubin 2.10 H, AST 38 H, ALT 18, Alkaline Phosphatase 157 H, Total Protein 5.1 L, Albumin 1.6 L, Globulin 3.5, Albumin/Globulin Ratio 0.5 L Microbiology 01/26/22 13:00 Fluid - Other Gram Stain - Final 01/26/22 13:00 Fluid - Other Body Fluid Culture - Preliminary Gram negative debora Mixed Culture 01/26/22 13:00 Fluid - Other Anaerobic Culture - Preliminary Diagnostic Data Chest X-Ray 01/18/22 23:00 IMPRESSION: Placement of right IJ central venous catheter as above without complications. Remainder is stable. Electronically Signed: Kvng Hackett DO at 0:55 EDT , Abdomen/Pelvis CT 01/19/22 09:03 IMPRESSION: Ascites. Findings in keeping with a liver metastasis. Status post cholecystectomy. Intrahepatic or ductal dilatation with pneumobilia. A biliary stent is seen. Marked dilatation of the pancreatic duct with the mass in the head and uncinate process of the pancreas. Peripancreatic lymphadenopathy Small bilateral pleural effusions with bibasilar atelectasis and infiltrate.. Electronically Signed: Az Mendoza MD at 12:28 EDT ,
[2022-01-28 09:15] LABS: Bedside Glucose 141 mg/dL (74-106)
[2022-01-28] MEDS: guaiFENesin/D-Methorphan TAB.SR.12H 1 TABLET PO ×2 (10:31→21:59)
[2022-01-28] MEDS: Famotidine 20 MG Tablet PO (10:31)
[2022-01-28] MEDS: Ursodiol 250 MG Tablet 500 MG PO ×2 (10:31→21:59)
[2022-01-28] MEDS: Midodrine HCl 5 MG Tablet 10 MG PO ×3 (10:32→16:51)
[2022-01-28] MEDS: Enoxaparin 40 MG/0.4 ML Syringe SC (10:34)
[2022-01-28] MEDS: Insulin Glargine-YFGN 100 UNIT/ML Pen 8 UNIT SC (10:39)
[2022-01-28 10:48] LABS: Carbohydrate AG 19-9 8541 U/mL (0-35)
[2022-01-28] MEDS: 0.9% Saline Lock 10 ML Syringe IV ×4 (11:22→23:13)
[2022-01-28] MEDS: Insulin Lispro 100 UNIT/ML INSULN.PEN SC ×3 (11:24→22:11)
[2022-01-28 11:50] LABS: Bedside Glucose 193 mg/dL (74-106)
--- NOTE | 2022-01-28 12:24 | PCM.PN.ID ---
Physical Exam Narrative Feeling ok, seen by onc. Hospice planned. No abd pain. Const alert and no apparent distress Resp normal air movement and clear to auscultation bilaterally Cardio regular rate and regular rhythm GI soft to palpation, non-tender and non-distended Skin no rashes or lesions noted ID ID: Route of nutrition/ use of supplements: [] Nutritional Intake: [] IV Site: [] Alfonso Catheter: [] Assessment & Plan Assessment/Plan (1) Septic shock: PLAN: Actinomyces bacteremia due to ascending cholangitis with recent dx pancreatic cancer. Cont vanc/ceftriaxone/flagyl. Now s/p ERCP 01/19 with pus drained, sphincterotomy done, and stent replaced. JANES improved. Biliary cx with klebs and E faecium (not VRE). 01/24 changed cefepime to ceftriaxone to have actino coverage. Recommend temp cvc removal if able to get peripheral access. Plan on po abx at discharge. Now s/p 2nd ERCP 01/26 with stones cleared, stents replaced. Plan is now for hospice. Recommend 2 months po augmentin 875mg bid at discharge. Will follow as needed, thank you
--- NOTE | 2022-01-28 13:11 | CASEMGMT ---
Hospice referral was placed for patient. FELECIA met with patient and his , Ladan. Introduced self and role at [facility]. Both confirmed they would like Hospice for patient. They would like the local Hospice. The plan would be for patient to go home on Hospice. FELECIA explained SW will make the referral to Hospice and a liaison will contact them to set up a meeting to talk about their services. FELECIA asked who they should call. Ladan said their daughter Mariela has a cell phone they could call. Ladan plans on leaving the hospital at 1p and will be with her daughter. FELECIA called Hospice and spoke with Chloé regarding referral. FELECIA also faxed information to Hospice. Kimberly GORDON
--- NOTE | 2022-01-28 15:43 | CASEMGMT ---
FELECIA called Hospice and spoke with Silvia Rodriguez to see if there was a meeting arranged. Silvia Rodriguez said the liaison Ela is meeting with patient's family right now at their home. Kimberly GORDON
--- NOTE | 2022-01-28 16:02 | PN.HOSP_ITS ---
Subjective Subjective His white count went up and oncology had a discussion with him and his that he is likely not can to be a candidate for chemotherapy Objective Data Objective Data Vital Signs: Vital Signs Temp Pulse Resp BP Pulse Ox O2 Del Method O2 Flow Rate 97.4 F L 68 18 104/59 L 93 Room Air 2 01/28/22 10:00 01/28/22 15:00 01/28/22 10:00 01/28/22 10:00 01/28/22 10:02 01/28/22 13:35 01/27/22 15:07 Oxygen Flow Rate (L/min) 2 Oxygen Delivery Method Room Air Weight: 158 lb 15.253 oz Body Mass Index (BMI) 22.6 Intake & Output: Intake and Output for Last 24 Hours 01/27/22 01/28/22 01/29/22 03:59 03:59 03:59 Intake Total 1120 / 1120 1015 / 1015 610 / 610 Output Total 3625 / 3625 850 / 850 475 / 475 Balance -2505 / -2505 165 / 165 135 / 135 Lab / Micro Data Result Diagrams: 01/28/22 05:28 01/28/22 05:28 Labs: Laboratory Results - last 24 hr 01/27/22 06:47: CA 19-9 Antigen 8541 H 01/27/22 16:09: POC Glucose 234 H 01/27/22 21:48: POC Glucose 210 H 01/28/22 05:28: WBC 25.8 H, RBC 3.60 L, Hgb 12.1 L, Hct 36.4 L, MCV 101.1 H, MCH 33.6 H, MCHC 33.2, RDW Std Deviation 59.5 H, RDW Coeff of López 16.3 H, Plt Count 83 L, MPV 11.1, Immature Gran % (Auto) 3.300 H, Neut % (Auto) 85.1 H, Lymph % (Auto) 5.4 L, [place] % (Auto) 5.1, Eos % (Auto) 0.6, Baso % (Auto) 0.5, Absolute N euts (auto) 22.0 H, Absolute Lymphs (auto) 1.40, Nucleated RBC % 0, Differential Comment SCANNED, Platelet Estimate MOD DEC 01/28/22 05:28: Sodium 138, Potassium 3.8, Chloride 107, Carbon Dioxide 26.0, Anion Gap 5, BUN 42 H, Creatinine 1.09, Estim Creat Clear Calc 49.61, Est GFR (MDRD) Af Amer 82, Est GFR (MDRD) Non-Af 68, BUN/Creatinine Ratio 38.5 H, Glucose 152 H, Calcium 7.6 L, Total Bilirubin 2.10 H, AST 38 H, ALT 18, Alkaline Phosphatase 157 H, Total Protein 5.1 L, Albumin 1.6 L, Globulin 3.5, Albumin/Globulin Ratio 0.5 L 01/28/22 06:52: POC Glucose 141 H 01/28/22 11:16: POC Glucose 193 H Micro: Microbiology 01/26/22 13:00 Fluid - Other Gram Stain - Final 01/26/22 13:00 Fluid - Other Body Fluid Culture - Preliminary Gram negative debora Gram Positive Cocci 01/19/22 17:13 Incision/Surgical Site Gram Stain - Final 01/19/22 17:13 Incision/Surgical Site Wound Culture - Final Klebsiella oxytoca Enterococcus faecium 01/19/22 17:13 Incision/Surgical Site Anaerobic Culture - Final Bacteroides uniformis 01/18/22 19:00 Blood Culture (Wb) - Anticubital Left Blood Culture - Preliminary Actinomyces odontolyticus 01/18/22 19:32 Blood Culture (Wb) - Anticubital Left Blood Culture - Final Gram positive debora 01/18/22 19:52 Urine, Clean Catch Urine Culture - Final Culture exhibits no growth. 01/18/22 19:52 Nasal Secretion SARS-CoV-2 & FLU Antigen (Rapid) - Final Physical Exam Narrative General: Alert, Oriented x3, Cooperative, No apparent distress HEENT: Atraumatic, PERRLA, EOMI, Normocephalic Oral: Moist Mucosa Neck: Supple, No JVD Lungs: Clear to auscultation, Normal air movement, No rhonchi, No wheeze, No rales Cardiovascular: Regular rate, Regular Rhythm, Normal S1, Normal S2, murmurs Abdomen: Soft, Non Tender, Non-Distended, No Hepato-splenomegaly Extremities: Edema, Capillary Refill Less than 3 Seconds Skin: No rashes, No breakdown Musculoskeletal: No Tenderness to Palpation of Joints or Extremities Neurological: Cranial nerves II-XII grossly intact, Motor Exam 5/5 strength throughout, Sensory exam intact to light touch and pain Psych/Mental Status: Normal affect, Appropriate Assessment & Plan Assessment/Plan (1) Septic shock: PLAN: Plan #Septic shock due to bacteremia exact etiology unclear but most probably hepatobiliary source, ascending cholangitis: The patient presented with septic shock due to possible hepatobiliary source of infection with acute sepsis related organ dysfunction as evidenced by JANES, lactic acidosis, hypotension requiring vasopressor support and lactic acidemia. Patient has increased total bilirubin 2.9. Previous total bilirubin was also high 5.3 in December 2018. Patient also has leukocytosis with Left shift, bands 23%, metamyelocytes 7%. Lymphocytes low 2%. On IV Levophed. UA 1+ bacteria, WBC 0-5. Sepsis work-up did not show any positive result yet. On IV vancomycin and Zosyn 01/20: Patient remains on Levophed 14 MCG per minute. Mild low-grade fever. 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 Severely dilated right main hepatic duct secondary to stricture, biliary sphincterotomy along with stent exchange. Patient on IV vancomycin and cefepime. Flagyl was added on 01/19 by ID for. Anaerobic blood culture shows gram-positive rods. Follow culture. 01/21: 2 out of 2 blood culture positive of gram-positive rods. Biliary fluid culture shows and GPC possible Enterococcus. If VRE found, restart linezolid and discontinued trazodone.ID follow-up appreciated. Patient is started on midodrine in order to taper down norepinephrine. 01/22: Biliary fluid culture shows Klebsiella oxytoca, 1+ and Enterococcus fecium 1+. Klebsiella is ESBL negative. Enterococcus is vancomycin sensitive. 2 bottles of blood culture growing Actinomyces odontolyticus. Patient on Vancomyc in cefepime and Flagyl. Patient blood pressure is borderline, systolic in 90s on midodrine 10 mg 3 times daily. Levophed on hold. 01/23: Maintaining MAP more than 65 without vasopressor support. Transferred to PCU. Symptomatic Mucinex D for cough. No fever.Urine output about 1 L daily. Yesterday 825 mill.Positive fluid balance 11 L. Furosemide 20 mg IV 1 dose given. 01/24/2022: Continue with the midodrine, awaiting infectious disease input for discharge planning. Based on PT and OT he is doing well, continue with vancomycin, Flagyl and cefepime. Levophed has been off for over 48 hours 01/25/2022: White count has climbed up again, cefepime was discontinued and transition to Rocephin by infectious disease. Will monitor white blood cell count tomorrow, in discussion with gastroenterology he may need another ERCP if his white count continues to climb to clean out his biliary tree 01/26/2022: White count is still elevated to 18.2 despite adjustments in his antibiotics therefore gastroenterology plans to proceed with an ERCP today to sweep the bile duct again and see if there is any retained material. He is on oxygen currently and he is about 12 L positive and he is continuing to get IV antibiotics therefore we will give him another dose of Lasix today 01/27/2022: White count appears to be improving we will continue to monitor for continued improvement, if his white count does continue to improve will discuss with ID the possibility of oral antibiotics. 01/28/2022: White count climbed up to 25 today oncology states that he is not a candidate for chemotherapy so I had a 40-minute discussion with him and his as well as his daughter on advance care planning and they would like to proceed with hospice care. We will continue with current care until he is ready for discharge home. #Hypertension: Hold all BP meds on account of hypotension #JANES: Creatinine is 1.4 with baseline being around 0.89. This is likely due to septic shock. Should improve with hydration. 01/20: Mild hypokalemia K3.4. BUNs/creatinine 25/0.94. JANES resolved. Potassium replacement. 01/21: Hypophosphatemia. K3.5. 01/24: Resolved #Recently diagnosed pancreatic cancer: Patient has stent most probably plastica stent as he was told that will be replaced in 6 to 8 weeks. The patient was supposed to start chemotherapy on 01/20/[address] Espinosa. #TYpe 2 diabetes mellitus ? On lantus 8 units daily. ISS. Accuchecks ACHS ? We will monitor and make changes as necessary #Glaucoma: on timolol and tafluprost eye drops DVT: lovenox Charges/Coding Visit Charges Inpatient E&M: 14121 Subs Hosp L2 Procedures Hospitalists Procedures: 38157 Advncd Care Plan 30 Min
[2022-01-28 18:00] LABS: Bedside Glucose 169 mg/dL (74-106)
[2022-01-28 22:40] LABS: Bedside Glucose 167 mg/dL (74-106)
[2022-01-29 02:59] VITALS: PULSE 57
[2022-01-29 03:30] VITALS: BP 110/57; PULSE 63; RESP 18; TEMP 37.2; O2SAT 92
[2022-01-29] MEDS: metroNIDAZOLE 500 MG/100 ML BAG 100 MG IV (06:06)
[2022-01-29] MEDS: 0.9% Saline Lock 10 ML Syringe IV (06:07)
[2022-01-29] MEDS: Metoclopramide 10 MG/2 ML Vial IV (06:07)
[2022-01-29] MEDS: Insulin Lispro 100 UNIT/ML INSULN.PEN SC ×2 (06:40→11:12)
[2022-01-29 07:00] LABS: Bedside Glucose 155 mg/dL (74-106)
--- NOTE | 2022-01-29 07:01 | DCINST_ITS ---
Discharge Instructions Diet Discharge Diet: No restrictions Activity Discharge Activity: Return to Normal Activity Follow Up Care Test Results: Test results from this visit will be discussed in further detail at your follow- up appointment, if applicable. Discharge Plan Admission Admit Date/Time: 01/18/22 22:07 Attending Provider: Jayson Pollock Primary Care Provider: Ramirez Welch Consulting Providers: Clau Garcia ; Lance Lawrence ; Yvon Barone ; Ham Garcia ; Tanner Umana ; Linda Guadalupe NP ; Gary Wing Discharge Orders/Prescriptions Prescriptions: New midodrine 5 mg Tablet 10 mg PO TIDCM Qty: 90 0RF famotidine 20 mg Tablet 20 mg PO DAILY Qty: 30 0RF ursodiol 250 mg Tablet 500 mg PO BID Qty: 60 0RF metoclopramide HCl [Reglan] 10 mg tablet 10 mg PO Q6H PRN (Reason: nausea and vomiting) Qty: 60 0RF Continued lutein 20 mg capsule 20 mg PO DAILY sildenafil [Viagra] 100 mg tablet 50 mg PO DAILY PRN (Reason: sexual activity) [id number] lipoic ichg-XX-aarzehcptarzz 100 mg-0.8mg -10 mg tablet 10 0-0.8-10 mg tablet 1 tab PO DAILY timolol maleate 1 DROP drops 1 drp EACH EYE BID tafluprost (PF) 0.0015 dropperette 1 drp EACH EYE QHS insulin aspart U-100 [Novolog Flexpen U-100 Insulin] 100 unit/mL (3 mL) insulin pen 4 unit subcut TIDWMEAL trazodone 50 mg Tablet 50 mg PO QHS PRN (Reason: Insomnia) insulin glargine [Lantus Solostar U-100 Insulin] 100 unit/mL (3 mL) insulin pen 8 unit subcut DAILY Qty: 15 5RF Referrals / Follow Up: Ramirez Welch MD [Primary Care Provider] - Disposition Disposition (needs filled in before D/C Order can be placed): Hospice in Home
[2022-01-29 07:02] VITALS: PULSE 63
[2022-01-29] MEDS: Famotidine 20 MG Tablet PO (08:03)
[2022-01-29] MEDS: Midodrine HCl 5 MG Tablet 10 MG PO ×3 (08:03→16:09)
[2022-01-29] MEDS: Ursodiol 250 MG Tablet 500 MG PO (08:03)
[2022-01-29] MEDS: Enoxaparin 40 MG/0.4 ML Syringe SC (08:03)
[2022-01-29] MEDS: guaiFENesin/D-Methorphan TAB.SR.12H 1 TABLET PO (08:03)
[2022-01-29 09:17] VITALS: BP 103/69; PULSE 74; RESP 20; TEMP 36.4; O2SAT 96
[2022-01-29] MEDS: Insulin Glargine-YFGN 100 UNIT/ML Pen 8 UNIT SC (09:37)
--- NOTE | 2022-01-29 10:04 | DS.PCM_ITS ---
Providers Date of Admission: 01/18/22 Primary Care Physician: Dr. Ramirez Welch MD Consultations 01/18/22 23:39 Consult: Infectious Disease Routine Consulting Provider: Lance Lawrence Reason for Consult: septic shock EMERGENT Consult: No Notified: Yes Date Notified: 01/18/22 Time Notified: 06:50 Method of Notification: Answering Service Consult: Block Breaker Operator / Pulmonary Medicine Routine Consulting Provider: Pulmonary Medicine [facility] Reason for Consult: septic shock EMERGENT Consult: No Notified: Yes Date Notified: 01/18/22 Time Notified: 22:47 Method of Notification: Text 01/19/22 08:48 Consult: Gastroenterology Routine Consulting Provider: [facility] Reason for Consult: Septic shock, ? Biliary Source EMERGENT Consult: No Notified: Yes Date Notified: 01/19/22 Time Notified: 08:48 Method of Notification: Verbal Reason For Visit: SEPTIC SHOCK Diagnosis Discharge Diagnosis (1) Septic shock: Status: Acute Code(s): A41.9 - Sepsis, unspecified organism; R65.21 - Severe sepsis with septic shock Plan #Septic shock due to bacteremia exact etiology unclear but most probably hepatobiliary source, ascending cholangitis: The patient presented with septic shock due to possible hepatobiliary source of infection with acute sepsis related organ dysfunction as evidenced by JANES, lactic acidosis, hypotension requiring vasopressor support and lactic acidemia. Patient has increased total bilirubin 2.9. Previous total bilirubin was also high 5.3 in December 2018. Patient also has leukocytosis with Left shift, bands 23%, metamyelocytes 7%. Lymphocytes low 2%. On IV Levophed. UA 1+ bacteria, WBC 0-5. Sepsis work-up did not show any positive result yet. On IV vancomycin and Zosyn 01/20: Patient remains on Levophed 14 MCG per minute. Mild low-grade fever. 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 Severely dilated right main hepatic duct secondary to stricture, biliary sphincterotomy along with stent exchange. Patient on IV vancomycin and cefepime. Flagyl was added on 01/19 by ID for. Anaerobic blood culture shows gram-positive rods. Follow culture. 01/21: 2 out of 2 blood culture positive of gram-positive rods. Biliary fluid culture shows and GPC possible Enterococcus. If VRE found, restart linezolid and discontinued trazodone.ID follow-up appreciated. Patient is started on midodrine in order to taper down norepinephrine. 01/22: Biliary fluid culture shows Klebsiella oxytoca, 1+ and Enterococcus fecium 1+. Klebsiella is ESBL negative. Enterococcus is vancomycin sensitive. 2 bottles of blood culture growing Actinomyces odontolyticus. Patient on Vancomycin cefepime and Flagyl. Patient blood pressure is borderline, systolic in 90s on midodrine 10 mg 3 times daily. Levophed on hold. 01/23: Maintaining MAP more than 65 without vasopressor support. Transferred to PCU. Symptomatic Mucinex D for cough. No fever.Urine output about 1 L daily. Yesterday 825 mill.Positive fluid balance 11 L. Furosemide 20 mg IV 1 dose given. 01/24/2022: Continue with the midodrine, awaiting infectious disease input for discharge planning. Based on PT and OT he is doing well, continue with vancomycin, Flagyl and cefepime. Levophed has been off for over 48 hours 01/25/2022: White count has climbed up again, cefepime was discontinued and transition to Rocephin by infectious disease. Will monitor white blood cell count tomorrow, in discussion with gastroenterology he may need another ERCP if his white count continues to climb to clean out his biliary tree 01/26/2022: White count is still elevated to 18.2 despite adjustments in his antibiotics therefore gastroenterology plans to proceed with an ERCP today to sweep the bile duct again and see if there is any retained material. He is on oxygen currently and he is about 12 L positive and he is continuing to get IV antibiotics therefore we will give him another dose of Lasix today 01/27/2022: White count appears to be improving we will continue to monitor for continued improvement, if his white count does continue to improve will discuss with ID the possibility of oral antibiotics. 01/28/2022: White count climbed up to 25 today oncology states that he is not a candidate for chemotherapy so I had a 40-minute discussion with him and his as well as his daughter on advance care planning and they would like to proceed with hospice care. We will continue with current care until he is ready for discharge home. #Hypertension: Hold all BP meds on account of hypotension #JANES: Creatinine is 1.4 with baseline being around 0.89. This is likely due to septic shock. Should improve with hydration. 01/20: Mild hypokalemia K3.4. BUNs/creatinine 25/0.94. JANES resolved. Potassium replacement. 01/21: Hypophosphatemia. K3.5. 01/24: Resolved #Recently diagnosed pancreatic cancer: Patient has stent most probably plastica stent as he was told that will be replaced in 6 to 8 weeks. The patient was supposed to start chemotherapy on 01/20/[address] Espinosa. #TYpe 2 diabetes mellitus ? On lantus 8 units daily. ISS. Accuchecks ACHS ? We will monitor and make changes as necessary #Glaucoma: on timolol and tafluprost eye drops DVT: lovenox Medications at Discharge Home Medications tafluprost (PF) 0.0015 % eye drops in a dropperette 1 drp EACH EYE QHS glucoma 12/25/18 timolol maleate 0.25 % eye drops 1 drp EACH EYE BID glucoma 12/25/18 ir-zzz-xyddm lipoic [id number] 100 mg-0.8mg -10 mg tablet 1 tab PO DAILY 01/21/19 sildenafil 100 mg tablet (Viagra) 50 mg PO DAILY PRN sexual activity 01/21/19 lutein 20 mg capsule 20 mg PO DAILY 01/31/19 Lantus Solostar U-100 Insulin 100 unit/mL (3 mL) subcutaneous pen (insulin glargine) 8 unit (0.08 mL) subcut DAILY #15 mL 11/26/21 insulin aspart U-100 100 unit/mL (3 mL) subcutaneous pen (Novolog Flexpen U-100 Insulin aspart) 4 unit subcut TIDWMEAL 01/18/22 trazodone 50 mg tablet 50 mg PO QHS PRN Insomnia 01/18/22 famotidine 20 mg tablet 20 mg PO DAILY #30 tabs 01/29/22 metoclopramide HCl 10 mg tablet (Reglan) 10 mg PO Q6H PRN nausea and vomiting #60 tabs 01/29/22 midodrine 5 mg tablet 10 mg PO TIDCM #90 tabs 01/29/22 ursodiol 250 mg tablet 500 mg PO BID #60 tabs 01/29/22 Hospital Course Operations ERCP Procedures None and Central line placement Summary of Care Provided Minutes Spent on Discharge: 45 Hospital Course: Per HPI: LITO ROUSE, is a 86 M with a PMH as outlined which includes recently diagnosed pancreatic cancer who presents via the ED with complaint of fever and chills which started on the day of admission.? He said he suddenly felt very chilly and had to use about 4 blankets to feel better.? He has had a mild cough which is nonproductive.? He denies any chest pain or shortness of breath and denies any abdominal pain or urinary symptoms or any diarrhea or vomiting.? Review of systems otherwise negative.? He was diagnosed with diabetes mellitus 6 months ago and as part of the work-up, imaging done showed evidence of pancreatic cancer.? He was jaundiced and had a stent placed to help with this.? His jaundice according to patient has improved.? Patient had been due to start chemotherapy on , 01/20/2022 with [facility].? Patient also stated that his blood pressure usually runs in the 100 systolic. Vitals in the ED were blood pressure of 65/43, pulse rate of 67 and respiratory of 16 with temperature of 97.7 Fahrenheit.? He was saturating 97% on 2 L of oxygen.? CBC showed WBC of 19.1 with hemoglobin of 13.1 and platelets of 185.? Chemistry was significant for creatinine of 1.4 with a baseline of around 0.89 and lactic acid was 3.9.? Total bilirubin was 2.9 and AST and ALT as well as ALP were mildly elevated.? Serum cortisol level was 64.5 and procalcitonin was markedly elevated at 44.47.? Urinalysis showed 1+ bacteria.? Patient's hypotension was not responsive to fluids.? Central line was therefore put in in the ED.? He has been admitted to be managed for septic shock of unclear etiology not known patient with pancreatic cancer. Hospital Course: #Septic shock due to bacteremia exact etiology unclear but most probably hepatobiliary source, ascending cholangitis:?The patient presented with septic shock due to possible hepatobiliary source of infection with acute sepsis related organ dysfunction as evidenced by JANES, lactic acidosis, hypotension requiring vasopressor support and lactic acidemia. ? Patient has increased total bilirubin 2.9.? Previous total bilirubin was also high 5.3 in December 2018.? Patient also has leukocytosis with Left shift, bands 23%, metamyelocytes 7%.? Lymphocytes low 2%. On IV Levophed.? UA 1+ bacteria, WBC 0-5.? Sepsis work-up did not show any positive result yet.? On IV vancomycin and Zosyn 01/20: Patient remains on Levophed 14 MCG per minute.? Mild low-grade fever.? 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 Severely dilated right main hepatic duct secondary to stricture, biliary sphincterotomy along with stent exchange.? Patient on IV vancomycin and cefepime.? Flagyl was added on 01/19 by ID for.? Anaerobic blood culture shows gram-positive rods.? Follow culture. 01/21:?2 out of 2 blood culture positive of gram-positive rods.? Biliary fluid culture shows and GPC possible Enterococcus.? If VRE found, restart linezolid and discontinued trazodone.ID follow-up appreciated.? Patient is started on midodrine in order to taper down norepinephrine. 01/22:?Biliary fluid culture shows Klebsiella oxytoca, 1+ and Enterococcus fecium 1+.? Klebsiella is ESBL negative.? Enterococcus is vancomycin sensitive.? 2 bottles of blood culture growing Actinomyces odontolyticus.? Patient on Vancomyc in cefepime and Flagyl.? Patient blood pressure is borderline, systolic in 90s on midodrine 10 mg 3 times daily.? Levophed on hold. 01/23:?Maintaining MAP more than 65 without vasopressor support.? Transferred to PCU.? Symptomatic Mucinex D for cough.? No fever.Urine output about 1 L daily.? Yesterday 825 mill.Positive fluid balance 11 L.? Furosemide 20 mg IV 1 dose given. 01/24/2022:?Continue with the midodrine, awaiting infectious disease input for discharge planning.? Based on PT and OT he is doing well, continue with vancomycin, Flagyl and cefepime.? Levophed has been off for over 48 hours 01/25/2022:?White count has climbed up again, cefepime was discontinued and transition to Rocephin by infectious disease.? Will monitor white blood cell count tomorrow, in discussion with gastroenterology he may need another ERCP if his white count continues to climb to clean out his biliary tree 01/26/2022:?White count is still elevated to 18.2 despite adjustments in his antibiotics therefore gastroenterology plans to proceed with an ERCP today to sweep the bile duct again and see if there is any retained material.? He is on oxygen currently and he is about 12 L positive and he is continuing to get IV antibiotics therefore we will give him another dose of Lasix today 01/27/2022:?White count appears to be improving we will continue to monitor for continued improvement, if his white count does continue to improve will discuss with ID the possibility of oral antibiotics. 01/28/2022:?White count climbed up to 25 today oncology states that he is not a candidate for chemotherapy so I had a 40-minute discussion with him and his as well as his daughter on advance care planning and they would like to proceed with hospice care.? We will continue with current care until he is ready for discharge home. 01/29/2022: Given the multiple interventions to try to improve his biliary tree as well as continued infection, oncology felt that he would not qualify for chemotherapy any longer. Therefore I did have the hospice discussion with him and his family yesterday and they did elect to proceed with hospice. Will have DME delivered to the house today and plan for discharge today as well. He is not complaining of any pain therefore will not discharge him on any narcotics at this time. I did continue with most of his home medications and discharged him on some new ones that he can fill or not at his own discretion. I discussed with him the plan for discharge today he expressed understanding of the risks and benefits of going home and he would like to go home today. He has had 11 days worth of antibiotics unlikely that any oral antibiotic would provide much benefit at this time. #Hypertension:?Hold all BP meds on account of hypotension #JANES: Creatinine is 1.4 with baseline being around 0.89.? This is likely due to septic shock.? Should improve with hydration. 01/20:?Mild hypokalemia K3.4.? BUNs/creatinine 25/0.94.? JANES resolved.? Potassium replacement. 01/21:?Hypophosphatemia.? K3.5. 01/24:?Resolved #Recently diagnosed pancreatic cancer:?Patient has stent most probably plastica stent as he was told that will be replaced in 6 to 8 weeks.? The patient was supposed to start chemotherapy on 01/20/[address] Espinosa. #TYpe 2 diabetes mellitus ? On lantus 8 units daily. ISS. Accuchecks ACHS ? We will monitor and make changes as necessary #Glaucoma:?on timolol and tafluprost eye drops Physical Exam Narrative General: Alert, Oriented x3, Cooperative, No apparent distress HEENT: Atraumatic, PERRLA, EOMI, Normocephalic Oral: Moist Mucosa Neck: Supple, No JVD Lungs: Clear to auscultation, Normal air movement, No rhonchi, No wheeze, No rales Cardiovascular: Regular rate, Regular Rhythm, Normal S1, Normal S2, murmurs Abdomen: Soft, Non Tender, Non-Distended, No Hepato-splenomegaly Extremities: Edema, Capillary Refill Less than 3 Seconds Skin: No rashes, No breakdown Musculoskeletal: No Tenderness to Palpation of Joints or Extremities Neurological: Cranial nerves II-XII grossly intact, Motor Exam 5/5 strength throughout, Sensory exam intact to light touch and pain Psych/Mental Status: Normal affect, Appropriate Weight / BMI Weight Weight: 161 lb 13.109 oz Body Mass Index (BMI) 22.6 ABG / Lab / Microbiology Data Result Diagrams: 01/28/22 05:28 01/28/22 05:28 Laboratory: Laboratory Results - last 24 hr 01/27/22 06:47: CA 19-9 Antigen 8541 H 01/28/22 11:16: POC Glucose 193 H 01/28/22 16:48: POC Glucose 169 H 01/28/22 22:10: POC Glucose 167 H 01/29/22 06:39: POC Glucose 155 H Microbiology: Microbiology 01/26/22 13:00 Fluid - Other Gram Stain - Final 01/26/22 13:00 Fluid - Other Body Fluid Culture - Preliminary Stenotrophomonas maltophilia Enterococcus faecium Gemella sanguinis 01/19/22 17:13 Incision/Surgical Site Gram Stain - Final 01/19/22 17:13 Incision/Surgical Site Wound Culture - Final Klebsiella oxytoca Enterococcus faecium 01/19/22 17:13 Incision/Surgical Site Anaerobic Culture - Final Bacteroides uniformis 01/18/22 19:00 Blood Culture (Wb) - Anticubital Left Blood Culture - Preliminary Actinomyces odontolyticus 01/18/22 19:32 Blood Culture (Wb) - Anticubital Left Blood Culture - Final Gram positive debora 01/18/22 19:52 Urine, Clean Catch Urine Culture - Final Culture exhibits no growth. 01/18/22 19:52 Nasal Secretion SARS-CoV-2 & FLU Antigen (Rapid) - Final D/C Instructions Discharge Diet: No restrictions Meaningful Use Info Meaningful Use Diagnoses (Choose all that apply): None applicable Discharge Plan Admission Admit Date/Time: 01/18/22 22:07 Attending Provider: Jayson Pollcok Primary Care Provider: Ramirez Welch Consulting Providers: Clau Garcia ; Lance Lawrence ; Yvon Barone ; Ham Garcia ; Tanner Umana ; Linda Guadalupe NP ; Gary Wing Discharge Orders/Prescriptions Prescriptions: New midodrine 5 mg Tablet 10 mg PO TIDCM Qty: 90 0RF famotidine 20 mg Tablet 20 mg PO DAILY Qty: 30 0RF ursodiol 250 mg Tablet 500 mg PO BID Qty: 60 0RF metoclopramide HCl [Reglan] 10 mg tablet 10 mg PO Q6H PRN (Reason: nausea and vomiting) Qty: 60 0RF Continued lutein 20 mg capsule 20 mg PO DAILY sildenafil [Viagra] 100 mg tablet 50 mg PO DAILY PRN (Reason: sexual activity) [id number]-krffg lipoic bwyi-UE-uokgnjmgrnnkv 100 mg-0.8mg -10 mg tablet 100-0.8-10 mg tablet 1 tab PO DAILY timolol maleate 1 DROP drops 1 drp EACH EYE BID tafluprost (PF) 0.0015 dropperette 1 drp EACH EYE QHS insulin aspart U-100 [Novolog Flexpen U-100 Insulin] 100 unit/mL (3 mL) insulin pen 4 unit subcut TIDWMEAL trazodone 50 mg Tablet 50 mg PO QHS PRN (Reason: Insomnia) insulin glargine [Lantus Solostar U-100 Insulin] 100 unit/mL (3 mL) insulin pen 8 unit subcut DAILY Qty: 15 5RF Referrals / Follow Up: Ramirez Welch MD [Primary Care Provider] - Disposition Disposition (needs filled in before D/C Order can be placed): Hospice in Home Charges/Coding Visit Charges Inpatient E&M: 07807 Disch Hosp
[2022-01-29 10:54] VITALS: O2SAT 96
--- NOTE | 2022-01-29 11:01 | CASEMGMT ---
Social Work SW called hospice this morning. SW informed the DME is to be delivered today, but they cannot tell SW what time. SW called , she states the DME is going to be delivered Monday, not today. They are going to come up to pick pt up, and will be here soon. SW let bedside RN know. RAMYA Zuniga
--- NOTE | 2022-01-29 11:29 | NURSING ---
[facility] hospice called and asked if they would like IJ left in pt or pulled for DC. Nurse states that she would like it pulled as they typically do not use central lines
[2022-01-29 11:35] LABS: Bedside Glucose 171 mg/dL (74-106)
--- NOTE | 2022-01-29 16:24 | NURSING ---
This nurse gives pt PO Midodrine tonight as family of pt was unable to fill rx d/t hospice nurse not coming out to visit pt until tomorrow morning. This nurse explains rx's and family states that they have reglan and pepcid at home already. The midodrine was given at this time at the hospital prior to DC from facility. Pt tolerated well. Family states that hospice is supposed to show up tomorrow morning at 0900 for consultation and to set up services. This nurse explains that this will hold pt over until tomorrow mornign after discussion with charge nurse, mona and discussed with family. Family is in agreeance and able to take pt home tonight.
== END 2022-01-29 16:22 | disposition hospice, home (50) | DRG 871 ==
LOC: ED 22:07 → ICU 22:40 → PCU 01-23 11:36
PROVIDERS: Anesthesiology; Hospitalist; Internal Medicine; Internal Medicine Critical Care Medicine; Internal Medicine Gastroenterology; Admitting Provider Student in an Organized Health Care Education/Training Program; Emergency Provider Emergency Medicine; PCP Family Medicine; Visit Provider Family Medicine
PROC: 0F798ZZ Dilation of Common Bile Duct, Via Natural or Artificial Opening Endoscopic (ICD-10-PCS; CPT 43260; principal; 2022-01-19 15:40)
PROC: 0F2 Hepatobiliary System and Pancreas, Change (ICD-10-PCS; CPT 43260; principal; 2022-01-26 11:10)
DX: A41.50 Gram-negative sepsis, unspecified (principal); R65.21 Severe sepsis with septic shock; N17.0 Acute kidney failure with tubular necrosis; K83.1 Obstruction of bile duct; E44.0 Moderate protein-calorie malnutrition; C78.89 Secondary malignant neoplasm of other digestive organs; C78.7 Secondary malignant neoplasm of liver and intrahepatic bile duct; R18.8 Other ascites; C25.9 Malignant neoplasm of pancreas, unspecified; K80.31 Calculus of bile duct with cholangitis, unspecified, with obstruction; A42.89 Other forms of actinomycosis; Z68.1 Body mass index [BMI] 19.9 or less, adult; I95.9 Hypotension, unspecified; E11.9 Type 2 diabetes mellitus without complications; Z79.4 Long term (current) use of insulin; E83.39 Other disorders of phosphorus metabolism; E86.0 Dehydration; E78.2 Mixed hyperlipidemia; I25.10 Atherosclerotic heart disease of native coronary artery without angina pectoris; I10 Essential (primary) hypertension; I35.0 Nonrheumatic aortic (valve) stenosis; E87.6 Hypokalemia; T85.898A Other specified complication of other internal prosthetic devices, implants and grafts, initial encounter; Z87.19 Personal history of other diseases of the digestive system; Z79.899 Other long term (current) drug therapy; H40.9 Unspecified glaucoma; Z90.49 Acquired absence of other specified parts of digestive tract; B96.89 Other specified bacterial agents as the cause of diseases classified elsewhere; Y83.8 Other surgical procedures as the cause of abnormal reaction of the patient, or of later complication, without mention of misadventure at the time of the procedure; K86.89 Other specified diseases of pancreas
CPT/HCPCS: 36415; 71045; 74177; 74330; 76000; 80048; 80053; 80076; 80202; 81001; 82533; 82962; 83036; 83605; 83690; 83735; 84100; 84145; 84484; 85025; 85652; 86140; 86301; 87040; 87070; 87075; 87077; 87086; 87186; 87205; 87428; 88108; 88304; 88305; 88312; 88313; 93005; 97110; 97116; 97162; 97166; 97530; 97802; 97803; 99251; 99284; J7030; J7040; J7050; Q9967; A4216; C1751; G0463; J0696; J1940; J2405